=== PATIENT | female | born 1985 | race Caucasian/White ===

== ENCOUNTER → 2018-09-05 | Outpatient (CLI) | payer OTHER, SELFPAY ==
[2018-09-11 17:21] LABS: HPV Reflexed? NOT INDICATED
== END | disposition home or self-care (01) ==
LOC: LABSPEC 13:20
PROVIDERS: Visit Provider Obstetrics & Gynecology
DX: Z12.4 Encounter for screening for malignant neoplasm of cervix (principal)
CPT/HCPCS: 88175; G0145

== ENCOUNTER → 2020-01-30 | Outpatient (CLI) | payer OTHER, SELFPAY ==
[2020-01-30 14:47] VITALS: BMI 33.1
[2020-02-05 09:35] LABS: HPV APTIMA, High Risk Negative (Negative)
== END | disposition home or self-care (01) ==
LOC: LABSPEC 17:16
PROVIDERS: Referring Provider Nurse Practitioner Women's Health; Visit Provider Nurse Practitioner Women's Health
DX: Z12.4 Encounter for screening for malignant neoplasm of cervix (principal)
CPT/HCPCS: 87624; 88175; G0145

== ENCOUNTER → 2020-05-22 08:46 | Outpatient (CLI) | payer OTHER, SELFPAY ==
[2020-01-30 14:47] VITALS: BMI 33.1
[2020-05-22 10:10] LABS: Vitamin D,25 Hydroxy 30.5 ng/mL
[2020-05-22 10:11] LABS: Anion Gap 6 (5-15); BUN 11 mg/dL (7-18); Calcium,Total 8.5 mg/dL (8.5-10.1); Chloride 110 mmol/L (98-107); Cholesterol 218 mg/dL (200); Creatinine, Serum 0.92 mg/dL (0.55-1.02); EST Glomerular Filtration Rate 74 mL/min (>60); Est Glom Filt Rate - Afr Amer 90 mL/min (>60); Glucose 94 mg/dL (74-106); High Density Lipoprotein 58 mg/dL; Potassium 3.9 mmol/L (3.5-5.1); Sodium Level 140 mmol/L (136-145); Triglycerides 146 mg/dL; Very Low Density Lipoprotein 29 mg/dL (5-40)
== END ==
PROVIDERS: PCP Family Medicine; Referring Provider Family Medicine; Visit Provider Family Medicine
DX: Z00.00 Encounter for general adult medical examination without abnormal findings (principal)
CPT/HCPCS: 36415; 80048; 80061; 82306

== ENCOUNTER → 2020-07-31 13:04 | Outpatient (CLI) | payer OTHER, SELFPAY ==
[2020-01-30 14:47] VITALS: BMI 33.1
--- NOTE | 2020-07-31 13:07 | VDLE_ITS ---
Reason For Study: Chronic venous insufficiency RIGHT LEFT CFV is compressible, spontaneous, phasic, CFV is compressible, spontaneous, phasic, competent and demonstrates normal competent, and demonstrates normal augmentation. augmentation. FV is compressible, spontaneous, phasic, FV is compressible, spontaneous, phasic, competent and demonstrates normal competent and demonstrates normal augmentation. augmentation. POP V is compressible, spontaneous, phasic, POP V is compressible, spontaneous, phasic, competent and demonstrates normal competent and demonstrates normal augmentation. augmentation. T/P Trunk is compressible. T/P Trunk is compressible. PTV is compressible. PTV is compressible. RT PerV is compressible. LT PerV is compressible. SFJ is competent and measures 0.70 x 0.85 cm. SFJ is INCOMPETENT and measures 1.02 x 1.00 GSV proximal thigh measures 0.53 x 0.55 cm. cm. GSV at knee measures 0.50 x 0.49 cm. GSV proximal thigh measures 0.53 x 0.55 cm. SSV at junction is competent and measures GSV at knee measures 0.42 x 0.43 cm. 0.28 x 0.24 cm. GSV INCOMPETENT throughout for greater than GSV is competent throughout. 0.5 seconds. Procedure ASV at junction is INCOMPETENT for greater This is a venous duplex using B-mode, color than 0.5 seconds that measures 0.58 x 0.53 flow and spectral Doppler. cm. Exam performed in department. Vein of Giacomini is INCOMPETENT for greater than 0.5 seconds that measures 0.41 x 0.40 cm. SSV at junction is competent and measures 0.23 x 0.25 cm. VL/Venous Duplex US - Adrien Extrem Interpretation Summary Deep veins of the lower extremities are bilaterally patent and compressible seg mentally. There is no evidence of deep vein thrombosis on either side. Valvular competence appears in tact within the proximal deep venous systems bilaterally. The great saphenous veins appear bila terally patent and compressible segmentally. The right sapheno-femoral junction is competent . The left sapheno-femoral junction is incompetent . The right great saphenous vein appears segmentally co mpetent. The left great saphenous vein appears segmentally incompetent. Small saphenous veins are patent and competent bilaterally. The left accessory saphenous vein at the sapheno-femoral junction is incompetent. The left vein of Giacomini is incompetent. Ordering Physician: Jose D Kinsey Referring Physician: Yong Cage Performed By: Chen Vazquez RVT
== END ==
PROVIDERS: PCP Family Medicine; Referring Provider Surgery; Visit Provider Surgery
DX: I87.2 Venous insufficiency (chronic) (peripheral) (principal)
CPT/HCPCS: 93970

== ENCOUNTER → 2021-03-24 12:59 | Outpatient (CLI) | payer OTHER, SELFPAY | PROVIDERS: PCP Family Medicine; Referring Provider Surgery; Visit Provider Surgery | DX: R69 Illness, unspecified (principal) ==

== ENCOUNTER 2021-03-25 06:02 | Day surgery (SDC) | payer OTHER, SELFPAY ==
--- NOTE | 2021-03-23 18:58 | PCM.HP.STD ---
[facility] - General General Date of Admission: 03/25/21 Chief Complaint: Chronic venous insufficiency, varicose veins with inflammation, leg pain, leg swelling - Left lower extremity HPI Narrative CHUNG ENNIS, is a 35 F who presents with a longstanding history of chronic venous disease. For more than 7 years, the patient has had pain, aching, discomfort, and throbbing in her left lower extremity. This has been associated with swelling. Her symptoms are becoming progressively worse. She denies a history of thrombophlebitis. She sleeps on a flat mattress at night. She leads a relatively active lifestyle. Her symptoms are said to have worsened as a result of her 2 prior pregnancies. A venous duplex examination has been performed, revealing incompetence of the left great saphenous vein, the left accessory saphenous vein at the saphenofemoral junction, and the left vein of Giacomini. The implications of this diagnosis were discussed with the patient in detail. The options of management were fully explained. Conservative treatment measures were implemented, which included leg elevation, avoidance of idle standing and sitting, graduated compression stockings, weight control measures, active lifestyle, [id number] analgesics, etc. Despite these measures, the patient remained symptomatic, with symptoms which adversely affected daily activities, quality of life, and job functions. [facility] Medical History (Updated 03/23/21 @ 19:[address] Jose D Kinsey MD) Chronic venous insufficiency Gastric reflux History of edema History of pain when walking Left leg swelling Leg cramps Leg pain, left Non-smoker Varicose veins with inflammation Wears contact lenses Wears glasses Home Medications multivitamin 1 tab PO DAILY 01/07/21 [History Last Taken Unknown] norgestimate-ethinyl estradiol [Estarylla] 1 tab PO DAILY 01/07/21 [History Last Taken Unknown] Allergy/AdvReac Type Severity Reaction Status Date / Time No Known Allergies Allergy Verified 03/18/21 10:02 Family History (Updated 03/23/21 @ 19:[address] 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 Exam Const alert, oriented x3, no apparent distress and well nourished General Appearance: cooperative and well developed HEENT normocephalic and head/scalp atraumatic Head and Scalp: atraumatic External Auditory Canal: EAC's normal Tympanic Membrane: TM's normal bilaterally Mouth: oral and palatal mucosa normal Eyes PERRL and EOMs intact bilaterally Neck no JVD Resp normal respiratory effort and normal air movement GI non-distended Extremity normal capillary refill and no clubbing, cyanosis or edema Extremity Narrative: Scattered varicosities are noted in both lower extremities, more prominent on the left. Skin no rashes or lesions noted, no wounds and no jaundice General Skin Exam: no breakdown Lesions: no lesions Rashes: no rashes Neuro CN's II-XII intact bilaterally Psych thought process normal, cooperative and affect normal Appearance: appropriate Assessment & Plan Assessment/Plan (1) Chronic venous insufficiency: (2) Varicose veins with inflammation: (3) Leg pain, left: (4) Left leg swelling: PLAN: This is a 35-year-old female with a longstanding history of chronic venous insufficiency, varicose veins with inflammation, leg pain, and leg swelling involving her left lower extremity. A venous duplex examination has revealed incompetence involving the left great saphenous vein, the left accessory saphenous vein at the saphenofemoral junction, and the left vein of Giacomini. The implications of this diagnosis have been discussed with the patient in detail. The options of management have been fully explained. Conservative treatment measures have been implemented, which have included leg elevation, avoidance of idle standing and sitting, graduated compression stockings, weight control measures, active lifestyle, [id number] analgesics, etc. Despite these measures, the patient has remained symptomatic, with symptoms which have adversely affected daily activities, quality of life, and job functions. Indications and risks of endovenous laser ablation of the left great saphenous vein, the left accessory saphenous vein, and the left vein of Giacomini have been discussed with the patient in detail. The procedure has been discussed in detail. The patient's questions have been answered. She has indicated her desire to proceed. The patient is to be admitted for elective endovenous laser ablation of the left great saphenous vein, the left accessory saphenous vein, the left vein of Giacomini. The appropriate preprocedure consent process has been undertaken.
[2021-03-25] VITALS (7 sets, daily range): BP systolic 101–117; BP diastolic 61–80; PULSE 68–81; RESP 16; TEMP 36.1–36.6; O2SAT 91–100; BMI 31.1
[2021-03-25] MEDS: Lactated Ringers 1,000 ML 150 ML IV ×2 (06:43→08:46)
[2021-03-25 06:48] LABS: Internal QC Validated? YES +Cl - CLEAR BKGD; Pregnancy, Urine Negative Negative
[2021-03-25] MEDS: Enoxaparin 30 MG/0.3 ML Syringe SC (06:50)
[2021-03-25] MEDS: Cefazolin 2 GM in 0.9% Normal Saline 100 ML IV (07:42)
--- NOTE | 2021-03-25 10:18 | EX.PCM.DISCH ---
Discharge Instructions Diet Discharge Diet: No restrictions Activity Discharge Activity: May Not Drive May shower in (days): 2 Weight Bearing Status: Weight bearing as tolerated Lifting Restrictions: 10 pounds Keep extremity elevated above heart level: Left Leg Dressing / Incision Call your doctor if you observe: Shortness of breath, Fainting spells, Chest pain, Prolonged hiccupping and Uncontrolled pain Suture Line Care: Avoid Pulling/Pushing Remove Dressing in: 2 days (Then rewrap daily with Keith from base of the toes to the upper thigh. May use compression stocking below the knee if desired, then Keith above the knee.) Follow Up Care Please Follow Up With: Jose D Kinsey MD When: 10-14 days Test Results: Test results from this visit will be discussed in further detail at your follow-up appointment, if applicable. Discharge Plan Admission Attending Provider: Jose D Kinsey Primary Care Provider: Yong Cage Discharge Orders/Prescriptions Prescriptions: No Action multivitamin Tablet 1 tab PO DAILY RF: 0 norgestimate-ethinyl estradiol [Estarylla] 0.25-35 mg-mcg tablet 1 tab PO DAILY RF: 0
[2021-03-25] MEDS: Ondansetron 4 MG/2 ML Vial IV (11:40)
[2021-03-25] MEDS: Lactated Ringers 1,000 ML 65 ML IV (11:43)
--- NOTE | 2021-03-25 19:13 | OP.PCM_ITS ---
Problems Associated Problem List Diagnoses (1) Chronic venous insufficiency: (2) Varicose veins with inflammation: (3) Leg pain, left: (4) Left leg swelling: Report of Operation Date of Procedure: 03/25/21 Pre-Operative Diagnosis: Chronic venous insufficiency, varicose veins with inflammation, leg pain, leg swelling - Left lower extremity Post-Operative Diagnosis: Chronic venous insufficiency, varicose veins with inflammation, leg pain, leg swelling - Left lower extremity Surgery/Procedure Performed:: 1. Endovenous laser ablation of the left great saphenous vein 2. Endovenous laser ablation of the left anterior accessory saphenous vein 3. Endovenous laser ablation of the left vein of Giacomini Description of Surgical Findings:: As above Surgeon: Jose D Kinsey Type of Anesthesia: General and Tumescent Anesthesiologist: Hardeep Acevedo Specimen's removed: None Drains: None Estimated Blood Loss (mL): Minimal Description of Procedure: This is a 35-year-old female with a longstanding history of chronic venous insufficiency, varicose veins with inflammation, leg pain, and leg swelling involving her left lower extremity. A preoperative venous duplex examination revealed valvular incompetence involving the left great saphenous vein, the left anterior accessory saphenous vein, and the left vein of Giacomini. The implications of this diagnosis were discussed with the patient in detail. The options of management were fully explained. Conservative treatment measures were implemented, which included leg elevation, avoidance of idle standing and sitting, graduated compression stockings, weight control measures, active lifestyle, [id number] analgesics, etc. Despite these measures, the patient remained symptomatic, with symptoms which adversely affected daily activities, quality of life, and job functions. The indications and risks of endovenous laser ablation of the left great saphenous vein, the left anterior accessory saphenous vein, and the left vein of Giacomini were discussed with patient in detail. The patient's questions were answered. The appropriate preprocedure consent process was undertaken. The patient underwent ultrasound marking of the left great saphenous vein, the left anterior accessory saphenous vein, and the left vein of Giacomini preoperatively. She was then brought to the operating room suite, placed supine upon the operating room table, where general anesthesia was administered by the anesthesia staff. The patient's left lower extremity and left groin were prepped and draped in the appropriate sterile manner. The patient was placed in reverse Trendelenburg position. Ultrasonography was used to image the left great saphenous vein in the distal calf. The micropuncture technique was used to access the left great saphenous vein percutaneously in the distal calf. In this manner, a 0.018 inch guidewire was advanced intraluminally into the left great saphenous vein, and was visualized by ultrasonography. A micropuncture sheath was advanced over the guidewire. The 0.018 inch guidewire was exchanged for a 0.035 inch guidewire, which was then advanced intraluminally to a level just distal to the left sapheno-femoral junction, as confirmed by ultrasound imaging. A long 4 Trinidadian sheath was then advanced over the guidewire, and its tip was positioned approximately 2 to 2-1/2 cm distal to the left sapheno-femor al junction. Attention was then directed to the incompetent left anterior accessory saphenous vein. Using ultrasound imaging and the micropuncture technique, a micropuncture sheath was introduced intraluminally, and was left in place, capped, for subsequent access purposes. Attention was then directed to the incompetent left vein of Giacomini. So as to enhance exposure, the left lower extremity was placed in an externally rotated position with the left knee flexed. Access was achieved percutaneously using ultrasound imaging and the micropuncture technique. In this manner, a micropuncture sheath was introduced intraluminally, and was left in place, capped, for subsequent access purposes. The access was achieved within the superior portion of the left small saphenous vein, just distal to the popliteal space, as it was seen that the left small saphenous vein was contiguous with the left vein of Giacomini more proximally. This approach was selected as optimal for access to the vein of Giacomini with the patient remaining within the supine position. Attention was then redirected to the long 4 Trinidadian sheath which had been previously placed intraluminally within the left great saphenous vein. Perivenous tumescent anesthesia was injected from the 4 Trinidadian sheath exit site up to the tip of the sheath near the left sapheno-femoral junction. This was performed segmentally using ultrasound imaging. The AngioDynamics laser fiber was then introduced into the 4 Trinidadian sheath and coupled appropriately. Ultrasonography was used to confirm that the tip of the laser fiber was pos itioned within the left great saphenous vein approximately 2-1/2 cm distal to the left sapheno-femoral junction. The patient was placed in Trendelenburg position and the laser fiber was activated. The AngioDynamics laser was slowly withdrawn at a constant rate throughout the length of the left great saphenous vein, thereby ablating the left great saphenous vein segmentally. The energy applied was approximately 60 to 80 J/cm. Following the laser ablation, the laser fiber and sheath were removed, and manual pressure was briefly applied to the percutaneous access site to achieve hemostasis. Attention was then directed to the micropuncture sheath which had been previously placed intraluminally within the proximal left small saphenous vein, allowing for direct access to the left vein of Giacomini. A 0.035 inch guidewire was introduced intraluminally and its tip was positioned within the proximal portion of the left vein of Giacomini. A long 4 Trinidadian sheath was then advanced over the guidewire, and positioned intraluminally within the left vein of Giacomini. Perivenous tumescent anesthesia was then injected from the 4 Trinidadian sheath exit site up to the tip of the sheath in the proximal left vein of Giacomini. This was performed segmentally using ultrasound imaging. The AngioDynamics laser fiber was then introduced into the 4 Trinidadian sheath and coupled appropriately. Ultrasonography was used to confirm that the tip of the laser fiber was positioned within the proximal left vein of Giacomini, abutting the previously ablated left great saphenous vein. The patient was placed in Trendelenburg position and the laser fiber was activated. The AngioDynamics laser was slowly withdrawn at a constant rate throughout the length of the left vein of Giacomini, thereby ablating the left vein of Giacomini segmentally. The energy applied was approximately 60 to 80 J/cm. Following the laser ablation, the laser fiber and sheath were removed, and manual pressure was briefly applied to the percutaneous access site to achieve hemostasis. Attention was then redirected to the micropuncture sheath which had been previously placed intraluminally within the left anterior accessory saphenous vein. The 0.035 inch guidewire was introduced intraluminally and its tip was positioned within the proximal portion of the anterior accessory saphenous vein. The long 4 Trinidadian sheath was then advanced over the guidewire and into position intraluminally within the left anterior accessory saphenous vein. Perivenous tumescent anesthesia was injected from the 4 Trinidadian sheath exit site up to the tip of the sheath in the proximal left anterior accessory saphenous vein. This was performed segmentally using ultrasound imaging. The AngioDynamics laser fiber was introduced into the 4 Trinidadian sheath and coupled appropriately. Ultrasonography was used to confirm that the tip of the laser fiber was positioned within the proximal portion of the left anterior accessory saphenous vein, several centimeters distal to its junction with the deep venous system. The patient was placed in Trendelenburg position and the laser fiber was activated. The AngioDynamics laser was slowly withdrawn at a constant rate throughout the length of the left anterior accessory saphenous vein, thereby ablating the left anterior accessory saphenous vein segmentally. The energy applied was approximately 60 to 80 J/cm. Following the laser ablation, the laser fiber and sheath were removed, and manual pressure was briefly applied to the percutaneous access site to achieve hemostasis. After assuring satisfactory hemostasis, the access sites were approximated using Cavilon and Steri-Strips. Dry sterile gauze dressings were applied over each of the access sites, and the leg was wrapped from the base of the toes to the upper thigh with Kerlix, followed by Keith wrap. The blood loss for the procedure was minimal. The sponge, needle, and instrument counts at the end of the procedure were correct. The patient tolerated the procedure well, and was transported from the operating room to the postanesthesia care unit in stable condition. The amount of tumescent anesthesia utilized, number of joules applied, and treatment times were recorded separately. Grafts/Implants Used: None Complications None Admit VTE Documentation VTE Present on Admission: No VTE Mechan Device Prophylaxis: SCD's (Right) VTE Pharm Prophylaxis ordered?: Yes
== END 2021-03-25 12:35 | disposition home or self-care (01) ==
LOC: SDC 06:03 → AC 06:05
PROVIDERS: PCP Family Medicine; Referring Provider Surgery; Visit Provider Surgery
PROC: (CPT 36478; principal; 2021-03-25 07:30)
DX: I83.12 Varicose veins of left lower extremity with inflammation (principal)
CPT/HCPCS: 36478; 36479; 81025; J7040; J7120; J2405

== ENCOUNTER 2021-06-28 08:02 | Outpatient (CLI) | payer OTHER, SELFPAY ==
--- NOTE | 2021-06-28 08:07 | VDLE_ITS ---
Reason For Study: LLE PAIN RIGHT LEFT GSV is normal. CFV is compressible, spontaneous, phasic, CFV is compressible, spontaneous, phasic, competent, and demonstrates normal competent and demonstrates normal augmentation. augmentation. FV is compressible, spontaneous, phasic, FV is compressible, spontaneous, phasic, competent and demonstrates normal competent and demonstrates normal augmentation. augmentation. POP V is compressible, spontaneous, phasic, POP V is compressible, spontaneous, phasic, competent and demonstrates normal competent and demonstrates normal augmentation. augmentation. T/P Trunk is compressible. T/P Trunk is compressible. PTV is compressible. PTV is compressible. LT PerV is compressible. RT PerV is compressible. SSV is compressible. Procedure GSV, ASV & giacomini V are occluded and This is a venous duplex using B-mode, color noncopmpressible S/P EVLA. flow and spectral Doppler. Exam performed in department. VL/Venous Duplex US - Adrien Extrem Interpretation Summary Deep veins of the lower extremities are bilaterally patent and compressible seg mentally. There is no evidence of deep vein thrombosis on either side. Valvular competence appears in tact within the proximal deep venous systems bilaterally. The right great saphenous vein appear s patent and compressible segmentally. The left great saphenous vein, accessory saphenous ve in, and vein of Giacomini are occluded, consistent with a prior endothermal ablation procedure. The left small saphenous vein is patent and compressible. Ordering Physician: Jose D Kinsey Referring Physician: Yong Cage Performed By: Dania Tobias, RDCS, RVT
== END 2021-06-28 23:59 | disposition home or self-care (01) ==
LOC: CVS 08:05
PROVIDERS: PCP Family Medicine; Referring Provider Surgery; Visit Provider Surgery
DX: M79.605 Pain in left leg (principal)
CPT/HCPCS: 93970

== ENCOUNTER 2022-05-16 10:52 | Emergency (ER) | payer OTHER, SELFPAY ==
[2022-05-16 10:52] VITALS: BP 113/79; PULSE 89; RESP 16; TEMP 36.6; O2SAT 99; BMI 27.8
--- NOTE | 2022-05-16 11:10 | EDS_ITS ---
HPI History of Present Illness Chief Complaint: Chest Pain Narrative Narrative: 36-year-old female here with chest pain. Pain described as discomfort, improved with deep breath. No syncope. Pain radiated to the left arm was prompted her visit today. There is no numbness weakness or loss sensation. Does note recent vomiting. The patient denies recent surgery in the last 4 weeks or immobilization in the last 3 days, denies previous diagnosis of DVT or PE, hemoptysis, unilateral leg swelling or malignancy with treatment the last 6 months. Noted use of oral estrogen. [facility] Medical History (Updated 05/16/22 @ 15:[address] Efe Corey, DO) Chronic venous insufficiency Gastric reflux History of edema History of pain when walking Leg cramps Non-smoker Varicose veins with inflammation Wears contact lenses Wears glasses Home Medications multivitamin 1 tab PO DAILY 01/07/21 [History Last Taken Unknown] etonogestrel 0.12 mg-ethinyl estradiol 0.015 mg/24 hr vaginal ring (NuvaRing) 1 vag ring vaginal Q4W #3 ea 06/30/21 [Rx Last Taken Unknown] Allergy/AdvReac Type Severity Reaction Status Date / Time No Known Allergies Allergy Verified 06/30/21 14:22 Family History Father History of deep vein thrombophlebitis of lower extremity Surgical History Previous section Social History number of children: 2 current occupational status: employed 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 ROS ROS ED ROS Narrative Constitutional: Denies fever HEENT: Denies sore throat Neck: Denies neck pain Cardiovascular: Endorses chest pain Respiratory: Denies shortness of breath GI: Denies nausea vomiting or abdominal pain : Denies changes in urinary habits Musculoskeletal: Denies muscle or joint pain Neurologic: Denies numbness weakness or loss of sensation Skin denies rash EXAM Physical Exam Narrative Exam Narrative: Nursing triage notes reviewed, Vital signs reviewed Constitutional: please see mdm HENT: MMM Eyes: Pupils equal round and reactive to light, Extraocular muscles intact Neck: No stridor, no JVD, full neck ROM Lungs: Clear to auscultation, No wheezing or rales. No increased work of breathing, no conversational dyspnea, no accessory muscle use, no nasal flaring. No respiratory distress noted Heart: Regular rate and rhythm, No murmurs, No rubs and No gallops, 2+ distal pulses (radial, femoral, posterior tibial) in all extremities Abdomen: Soft, there is no tenderness, rigidity, rebound or guarding, no obvious peritoneal signs, no palpable pulsatile abdominal masses, no auscultated abdominal bruit : No CVAT Extremities: No edema Neuro: No focal neurological deficits, cranial nerves II through XII intact, 5/5 strength in all extremities. Intact sensation to light touch in all extremities, 2+ reflexes bilateral patella dens. Normal gait. No ataxia. Skin: No rash or lesions noted Const Vital Signs: 05/16/22 10:52 05/16/22 12:10 05/16/22 13:49 Temperature 97.9 F Temperature Source Temporal Pulse Rate 89 63 Respiratory Rate 16 18 Blood Pressure 113/79 Blood Pressure Mean 90 Pulse Ox 99 99 Oxygen Delivery Method Room Air Room Air Room Air 05/16/22 15:55 Temperature Temperature Source Pulse Rate 81 Respiratory Rate 18 Blood Pressure Blood Pressure Mean Pulse Ox 98 Oxygen Delivery Method MDM MDM MDM Narrative Medical decision making narrative: Chief Complaint: Chest pain External records reviewed: No recent cardiac catheterizations, stress test and echocardiogram as noted in the chart I considered: ACS, arrhythmia, anemia, electrolyte abnormality, PE, aortic dissection, pericarditis, pneumothorax, Boerhaave syndrome For PE given low risk Wells score, PERC negative. Considered obtaining a CT of the chest however this was thought to be unnecessary given lack of risk factors for PE. No significant anemia or electrolyte abnormalities noted on labs. EKG, troponin without evidence of myocardial schema, arrhythmia or pericarditis. X- ray without evidence of pneumonia or pneumothorax. Chest x-ray without evidence of pneumomediastinum to suggest Boerhaave syndrome. Patient low risk heart score. Awaiting delta troponin. If negative patient be discharged home. Factors affecting care: Chronic venous insufficiency, varicose veins Social determinants of health: Poor medical knowledge, poor access to healthcare Shared decision making: I will have a discussion with the patient and or visitors regarding risk/benefits of further testing or admission. They will be made aware of of the risk/benefits inherent in this decision they will be given the opportunity to voice understanding. Consults: None Lab Data Attestation: I reviewed the patient's lab results. Lab results narrative: CBC without leukocytosis, severe anemia, no thrombocytopenia. BMP without evidence of significant electrolyte abnormalities, no anion gap, no acute kidney injury. Troponin negative x2 Labs: Laboratory Results - last 24 hr 05/16/22 05/16/22 05/16/22 11:09 11:09 13:29 WBC 7.0 RBC 4.59 Hgb 13.7 Hct 40.8 MCV 88.9 MCH 29.8 MCHC 33.6 RDW Std Deviation 41.6 RDW Coeff of Eryn 12.8 Plt Count 365 MPV 10.3 Immature Gran % (Auto) 0.400 Neut % (Auto) 63.1 Lymph % (Auto) 28.6 [place] % (Auto) 5.3 Eos % (Auto) 1.9 Baso % (Auto) 0.7 Absolute Neuts (auto) 4.4 Absolute Lymphs (auto) 2.01 Nucleated RBC % 0 Sodium 141 Potassium 3.7 Chloride 109 H Carbon Dioxide 24.0 Anion Gap 8 BUN 12 Creatinine 0.84 Estim Creat Clear Calc 103.48 Est GFR (MDRD) Af Amer 98 Est GFR (MDRD) Non-Af 81 BUN/Creatinine Ratio 14.2 Glucose 95 Calcium 8.9 Troponin I High Sens 12 11 Radiography Diagnostic Testing: Clinical Impression(s) from Imaging Studies Chest X-Ray 05/16/22 12:07 IMPRESSION: Normal chest radiograph. Electronically Signed: Felix Perry MD at 12:20 EST , I have personally reviewed the patient's chest x-ray. Chest x-ray is unremarkable for pulmonary edema, pneumothorax, pneumonia or focal cardiopulmonary abnormality. EKG Initial EKG: Comments: Normal sinus rhythm, normal axis, normal intervals, ST or T wave changes to suggest myocardial ischemia, no evidence of WPW, Brugada, ARVD. Treatment and Re-Evaluation Narrative: Pending delta troponin signed out to p.m. physician. If negative patient will be discharged home. Delta trop negative appropriate for DC home. Discharge Plan Triage Chief Complaint: Chest Pain ED Provider: Efe Corey Dx/Rx/DC Orders Clinical Impression: Chest pain Instructions: ED Chest Pain, Noncardiac Prescriptions: No Action etonogestrel-ethinyl estradiol [NuvaRing] 0.12-0.015 mg/24 hr ring 1 vag ring vaginal Q4W Qty: 3 4RF multivitamin Tablet 1 tab PO DAILY Stand Alone Forms: Work / School Excuse Primary Care Provider: Yong Cage Referrals: Yong Cage MD [Primary Care Provider] - Disposition Disposition: Home, Self Care Discharge Date/Time: 05/16/22 15:55
--- NOTE | 2022-05-16 11:54 | EKG12_ITS ---
Test Reason : CP Blood Pressure : / mmHG Vent. Rate : 075 BPM Atrial Rate : 075 BPM P-R Int : 136 ms QRS Dur : 080 ms QT Int : 402 ms P-R-T Axes : 064 029 010 degrees QTc Int : 448 ms Normal sinus rhythm Normal ECG Confirmed by BRAEDEN AMARO, CRISS ([id number]), commissioning editor GÉNESIS MOTT ([id number]) on 05/18/2022 10:36:55 AM Referred By: JACKY/BLANCA Confirmed By:CRISS DERAS MD
[2022-05-16] MEDS: Aspirin 81 MG TAB.CHEW 324 MG PO (11:59)
--- NOTE | 2022-05-16 12:07 | RAD_ITS ---
EXAM: XR CHEST, 1 VIEW CLINICAL INDICATION: chest pain TECHNIQUE: Frontal view of the chest. This report was created using Related Content Database (RCDb) report generation technology. COMPARISON: None. FINDINGS: LUNGS AND PLEURAL SPACES: The lungs are clear. No pneumothorax. No effusion. HEART: Unremarkable. Cardiac silhouette not enlarged. MEDIASTINUM: Central airways and mediastinal contour are unremarkable. BONES/JOINTS: Unremarkable. SOFT TISSUES: Unremarkable. RAD/Chest 1 View (Portable) IMPRESSION: Normal chest radiograph. Electronically Signed: Felix Perry MD at 12:20 EST ,
[2022-05-16 12:15] LABS: Absolute Lymphocyte Count 2.01 X10^3/uL (0.83-4.51); Absolute Neutrophil Count 4.4 X10^3/uL (2.0-7.7); Basophil# 0.05 X10^3/uL; Basophil% 0.7 % (0-1); Eosinophil# 0.13 X10^3/uL; Eosinophils% 1.9 % (0-5); Hematocrit 40.8 % (37-47); Hemoglobin 13.7 g/dL (12.0-15.0); Lymphocyte # 2.01 X10^3/ul (0.83-4.51); Lymphocyte % 28.6 % (19-41); Mean Corp Hgb Conc 33.6 g/dL (32-36); Mean Corpuscular Hgb 29.8 pg (27.0-32.0); Mean Corpuscular Volume 88.9 fL (81-99); Mean Platelet Vol. 10.3 fl (6.2-12.0); Monocyte# 0.37 X10^3/uL; Monocyte% 5.3 % (0-10); NRBC Flagged by Analyzer 0 % (0-5); Neutrophil # 4.43 X10^3/uL (2.7-7.7); Neutrophil % 63.1 % (47-70); Platelet Count 365 K/mm3 (150-450); RBC Distribution Width CV 12.8 % (11.6-14.6); RBC Distribution Width SD 41.6 fl (35.1-43.9); Red Blood Count 4.59 M/mm3 (4.2-5.4)
[2022-05-16 12:29] LABS: Anion Gap 8 (5-15); BUN 12 mg/dL (7-18); BUN/Creat Ratio 14.2 RATIO (10-20); Calcium,Total 8.9 mg/dL (8.5-10.1); Chloride 109 mmol/L (98-107); Creatinine, Serum 0.84 mg/dL (0.55-1.02); EST Glomerular Filtration Rate 81 mL/min (>60); Est Glom Filt Rate - Afr Amer 98 mL/min (>60); Estimated Creatinine Clearance 103.48 ml/min; Glucose 95 mg/dL (74-106); Potassium 3.7 mmol/L (3.5-5.1); Sodium Level 141 mmol/L (136-145); Troponin-I HS (w/2H Reflex) 12 pg/mL (3.0-54.0)
[2022-05-16 13:49] VITALS: PULSE 63; RESP 18; O2SAT 99
[2022-05-16 14:12] LABS: Reflex Troponin-HS? (from REC) Y
[2022-05-16 15:44] LABS: Troponin-I HS 11 pg/mL (3.0-54.0)
[2022-05-16 15:55] VITALS: PULSE 81; RESP 18; O2SAT 98
== END 2022-05-16 15:55 | disposition home or self-care (01) ==
PROVIDERS: Emergency Provider Emergency Medicine; PCP Family Medicine; Visit Provider Emergency Medicine
DX: R07.9 Chest pain, unspecified (principal)
CPT/HCPCS: 71045; 80048; 84484; 85025; 93005; 99285; A4216

== ENCOUNTER → 2022-08-11 | Outpatient (CLI) | payer OTHER, SELFPAY ==
[2022-08-11 18:15] LABS: Vitamin D,25 Hydroxy 26.3 ng/mL
[2022-08-11 18:21] LABS: Anion Gap 6 (5-15); BUN 9 mg/dL (7-18); BUN/Creat Ratio 13.6 RATIO (10-20); Calcium,Total 8.3 mg/dL (8.5-10.1); Chloride 107 mmol/L (98-107); Cholesterol 177 mg/dL (200); Creatinine, Serum 0.66 mg/dL (0.55-1.02); EST Glomerular Filtration Rate 107 mL/min (>60); Est Glom Filt Rate - Afr Amer 129 mL/min (>60); Glucose 85 mg/dL (74-106); High Density Lipoprotein 38 mg/dL; Potassium 3.7 mmol/L (3.5-5.1); Sodium Level 139 mmol/L (136-145); Triglycerides 266 mg/dL; Very Low Density Lipoprotein 53 mg/dL (5-40)
== END | disposition home or self-care (01) ==
LOC: MFPLAB 15:10
PROVIDERS: PCP Family Medicine; Referring Provider Family Medicine; Visit Provider Family Medicine
DX: Z00.00 Encounter for general adult medical examination without abnormal findings (principal)
CPT/HCPCS: 36415; 80048; 80061; 82306

== ENCOUNTER → 2022-09-06 | Outpatient (CLI) | payer OTHER, SELFPAY ==
[2022-09-06 16:31] LABS: ALB/GLOB Ratio 0.9 RATIO (0.9-2.4); AST(SGOT) 16 U/L (15-37); Alanine Aminotransfer ALT/SGPT 28 U/L (13-56); Albumin, Serum 3.6 g/dL (3.2-5.0); Alkaline Phosphatase 81 U/L (45-117); Anion Gap 5 (5-15); BUN 12 mg/dL (7-18); BUN/Creat Ratio 14.3 RATIO (10-20); Calcium,Total 8.4 mg/dL (8.5-10.1); Chloride 107 mmol/L (98-107); Creatinine, Serum 0.84 mg/dL (0.55-1.02); EST Glomerular Filtration Rate 81 mL/min (>60); Est Glom Filt Rate - Afr Amer 99 mL/min (>60); Globulin 3.8 g/dL (2.2-4.2); Glucose 83 mg/dL (74-106); Potassium 3.7 mmol/L (3.5-5.1); Protein, Total 7.4 g/dL (6.4-8.2); Sodium Level 139 mmol/L (136-145); Troponin-I HS 11 pg/mL (3.0-54.0)
== END | disposition home or self-care (01) ==
LOC: MFPLAB 15:33
PROVIDERS: PCP Family Medicine; Visit Provider Nurse Practitioner Family
DX: R07.9 Chest pain, unspecified (principal)
CPT/HCPCS: 36415; 80053; 84484

== ENCOUNTER → 2023-02-01 | Outpatient (CLI) | payer OTHER, SELFPAY ==
--- NOTE | 2023-02-01 15:40 | RAD_ITS ---
INDICATION: CHEST PAIN EXAMINATION/TECHNIQUE: X-RAY - XR Chest 2 Views COMPARISON: 05/16/2022 chest radiograph. Findings: Frontal and lateral views of the chest. LUNG PARENCHYMA: No acute focal airspace disease or mass lesion. PLEURA: No pleural effusion. No pneumothorax. HEART/GREAT VESSELS: Cardiomediastinal silhouette is unremarkable. BONES: Osseous structures are unremarkable for age. RAD/Chest PA and Lateral IMPRESSION: Chest with no acute disease. Electronically Signed: Umer Yip MD at 17:44 EDT ,
[2023-02-01 17:44] LABS: Absolute Lymphocyte Count 2.51 X10^3/uL (0.83-4.51); Absolute Neutrophil Count 5.3 X10^3/uL (2.0-7.7); Basophil# 0.06 X10^3/uL; Basophil% 0.7 % (0-1); Eosinophil# 0.16 X10^3/uL; Eosinophils% 1.9 % (0-5); Hematocrit 40.8 % (37-47); Hemoglobin 13.6 g/dL (12.0-15.0); Lymphocyte # 2.51 X10^3/ul (0.83-4.51); Lymphocyte % 29.8 % (19-41); Mean Corp Hgb Conc 33.3 g/dL (32-36); Mean Corpuscular Hgb 30.2 pg (27.0-32.0); Mean Corpuscular Volume 90.7 fL (81-99); Mean Platelet Vol. 11.2 fl (6.2-12.0); Monocyte# 0.34 X10^3/uL; NRBC Flagged by Analyzer 0 % (0-5); Neutrophil # 5.34 X10^3/uL (2.7-7.7); Neutrophil % 63.4 % (47-70); Platelet Count 259 K/mm3 (150-450); RBC Distribution Width CV 12.7 % (11.6-14.6); RBC Distribution Width SD 42.2 fl (35.1-43.9); White Blood Count 8.4 K/mm3 (4.4-11.0)
[2023-02-01 18:34] LABS: ALB/GLOB Ratio 1.1 RATIO (0.9-2.4); AST(SGOT) 18 U/L (15-37); Alanine Aminotransfer ALT/SGPT 30 U/L (13-56); Albumin, Serum 3.9 g/dL (3.2-5.0); Alkaline Phosphatase 80 U/L (45-117); Anion Gap 4 (5-15); BUN 9 mg/dL (7-18); BUN/Creat Ratio 12.6 RATIO (10-20); Calcium,Total 8.7 mg/dL (8.5-10.1); Chloride 108 mmol/L (98-107); Creatinine, Serum 0.72 mg/dL (0.55-1.02); EST Glomerular Filtration Rate 98 mL/min (>60); Est Glom Filt Rate - Afr Amer 118 mL/min (>60); Globulin 3.7 g/dL (2.2-4.2); Glucose 84 mg/dL (74-106); Potassium 3.9 mmol/L (3.5-5.1); Protein, Total 7.6 g/dL (6.4-8.2); Sodium Level 138 mmol/L (136-145); Thyroid Stim Hormone (TSH) 3.58 uIU/mL (0.358-3.74); Troponin-I HS 16 pg/mL (3.0-54.0)
== END | disposition home or self-care (01) ==
PROVIDERS: PCP Family Medicine; Referring Provider Family Medicine; Visit Provider Family Medicine
DX: R07.9 Chest pain, unspecified (principal)
CPT/HCPCS: 36415; 71046; 80053; 84443; 84484; 85025

== ENCOUNTER → 2023-10-17 | Outpatient (CLI) | payer OTHER, SELFPAY ==
--- NOTE | 2023-10-17 11:51 | BI_ITS ---
MAMMOGRAPHY - BILATERAL SCREENING REASON FOR EXAM: Female, 37 years old. Routine annual screening examination. PERTINENT HISTORY: Non-contributory. TECHNIQUE: Digital bilateral breast pito (3D mammographic acquisition) in the CC and MLO projections. 2-D mediolateral oblique (MLO) and craniocaudad (CC) views of both breasts were obtained. CAD: Full Field Digital Mammography with Computer Added Detection was performed. COMPARISON: None. Baseline examination. FINDINGS: Breast Composition: There are scattered areas of fibroglandular density. There are no dominant masses or suspicious calcifications. Small benign-appearing bilateral axillary lymph nodes. No other significant abnormalities are identified. BI/SCRN MAMM (CAD)W/PITO BILAT IMPRESSION: Negative screening mammogram. Yearly followup mammogram recommended. (A) ASSESSMENT CATEGORY: Approximately 10% of breast cancers are not detected by mammography. A normal mammogram should not delay biopsy of a clinically suspicious abnormality. [id number] Electronically Signed: Abundio Duong MD
== END | disposition home or self-care (01) ==
LOC: OPBI 11:51
PROVIDERS: PCP Family Medicine; Referring Provider Nurse Practitioner Women's Health; Visit Provider Nurse Practitioner Women's Health
DX: Z12.31 Encounter for screening mammogram for malignant neoplasm of breast (principal)
CPT/HCPCS: 77063; 77067

== ENCOUNTER → 2023-11-28 | Outpatient (CLI) | payer OTHER, SELFPAY ==
[2023-11-28 17:46] LABS: Absolute Lymphocyte Count 2.66 X10^3/uL (0.83-4.51); Absolute Neutrophil Count 4.1 X10^3/uL (2.0-7.7); Basophil# 0.05 X10^3/uL; Basophil% 0.7 % (0-1); Eosinophils% 1.4 % (0-5); Hematocrit 38.1 % (37-47); Hemoglobin 12.5 g/dL (12.0-15.0); Lymphocyte # 2.66 X10^3/ul (0.83-4.51); Lymphocyte % 36.5 % (19-41); Mean Corp Hgb Conc 32.8 g/dL (32-36); Mean Corpuscular Hgb 29.3 pg (27.0-32.0); Mean Corpuscular Volume 89.2 fL (81-99); Mean Platelet Vol. 10.5 fl (6.2-12.0); Monocyte# 0.37 X10^3/uL; Monocyte% 5.1 % (0-10); NRBC Flagged by Analyzer 0 % (0-5); Neutrophil # 4.08 X10^3/uL (2.7-7.7); Neutrophil % 55.9 % (47-70); Platelet Count 333 K/mm3 (150-450); RBC Distribution Width CV 13.2 % (11.6-14.6); RBC Distribution Width SD 42.7 fl (35.1-43.9); Red Blood Count 4.27 M/mm3 (4.2-5.4); White Blood Count 7.3 K/mm3 (4.4-11.0)
[2023-11-28 18:20] LABS: AST(SGOT) 20 U/L (15-37); Alanine Aminotransfer ALT/SGPT 30 U/L (13-56); Albumin, Serum 3.7 g/dL (3.2-5.0); Alkaline Phosphatase 68 U/L (45-117); Anion Gap 7 (5-15); BUN 12 mg/dL (7-18); BUN/Creat Ratio 13.5 RATIO (10-20); Calcium,Total 9.1 mg/dL (8.5-10.1); Chloride 104 mmol/L (98-107); Creatinine, Serum 0.89 mg/dL (0.55-1.02); EST Glomerular Filtration Rate 75 mL/min (>60); Est Glom Filt Rate - Afr Amer 91 mL/min (>60); Globulin 3.6 g/dL (2.2-4.2); Glucose 85 mg/dL (74-106); Potassium 3.8 mmol/L (3.5-5.1); Protein, Total 7.3 g/dL (6.4-8.2); Sodium Level 137 mmol/L (136-145)
== END | disposition home or self-care (01) ==
LOC: MFPLAB 15:13
PROVIDERS: PCP Family Medicine; Visit Provider Nurse Practitioner Family
DX: K21.9 Gastro-esophageal reflux disease without esophagitis (principal)
CPT/HCPCS: 36415; 80053; 85025

== ENCOUNTER → 2024-03-26 | Outpatient (CLI) | payer OTHER, SELFPAY ==
[2024-03-28 07:09] LABS: Calprotectin, Stool 340 ug/g (0-120)
== END | disposition home or self-care (01) ==
LOC: LABSPEC 07:38
PROVIDERS: PCP Family Medicine; Visit Provider Nurse Practitioner Acute Care
DX: R19.7 Diarrhea, unspecified (principal); R10.32 Left lower quadrant pain; R10.12 Left upper quadrant pain; R14.0 Abdominal distension (gaseous); R12 Heartburn
CPT/HCPCS: 83993

== ENCOUNTER → 2024-04-02 | Outpatient (CLI) | payer OTHER, SELFPAY ==
--- NOTE | 2024-04-02 10:29 | US_ITS ---
INDICATION: LUQ pain EXAMINATION: Ultrasound US Abdomen Complete TECHNIQUE: Estrella-scale and color Doppler imaging was performed of the abdomen. COMPARISON: FINDINGS: LIVER: There is normal echotexture measuring 13.8 cm. No focal hepatic lesion. No intrahepatic biliary ductal dilatation. There is no free fluid. GALLBLADDER AND BILIARY TREE: No shadowing gallstone, pericholecystic fluid or gallbladder wall thickening is demonstrated. The proximal common bile duct measures 4 mm, which is within normal limits for the patient''s age. SONOGRAPHIC MALDONADO''S SIGN: Negative. PANCREAS: No focal abnormality is demonstrated in the pancreas. Nonvisualization of the pancreatic tail. No pancreatic ductal dilatation. SPLEEN: The spleen is normal in size measuring 10.4 cm and homogeneous in echotexture. RIGHT KIDNEY: 9.8 x 3.6 x 4.1 cm. The cortex is 12 mm. There is no hydronephrosis. No shadowing calculus, focal lesion, or perinephric collection is demonstrated. LEFT KIDNEY: 11.0 x 4.6 x 5.0 cm. The cortex is 12 mm. There is no hydronephrosis. No shadowing calculus, focal lesion, or perinephric collection is demonstrated. VESSELS: Submitted longitudinal images of the intra-abdominal aorta demonstrate no gross abnormalities and are unremarkable. The IVC is patent. US/Abdomen Complete IMPRESSION: No acute sonographic abnormality is demonstrated in the abdomen. Electronically Signed: Geronimo Low DO at 9:49 EST ,
== END | disposition home or self-care (01) ==
LOC: US 10:26
PROVIDERS: PCP Family Medicine; Referring Provider Nurse Practitioner Acute Care; Visit Provider Nurse Practitioner Acute Care
DX: R12 Heartburn (principal); R14.0 Abdominal distension (gaseous); R10.12 Left upper quadrant pain; R10.32 Left lower quadrant pain; R19.7 Diarrhea, unspecified
CPT/HCPCS: 76700

== ENCOUNTER → 2024-04-10 | Outpatient (CLI) | payer OTHER, SELFPAY ==
--- NOTE | 2024-04-10 15:26 | RAD_ITS ---
EXAM: XR LUMBOSACRAL SPINE, 2 OR 3 VIEWS CLINICAL INDICATION: LOWER BACK PAIN TECHNIQUE: Frontal and lateral views of the lumbar spine and sacrum. COMPARISON: No relevant prior studies available. FINDINGS: VERTEBRAE: Unremarkable. Preserved vertebral body height. No fracture. No spondylolisthesis. Preservation of the normal lumbar lordosis. No significant facet arthropathy. DISC SPACES: No acute findings. Disc spaces are maintained. GASTROINTESTINAL TRACT: Unremarkable as visualized. Included bowel gas pattern is non-obstructive. RAD/Lumbar Spine 2 or 3 Views IMPRESSION: No evidence of lumbar spinal fracture or spondylolisthesis. Electronically Signed: Khoa Sawant MD at 17:37 EST ,
== END | disposition home or self-care (01) ==
LOC: MFPLAB 14:53
PROVIDERS: PCP Family Medicine; Referring Provider Family Medicine; Visit Provider Family Medicine
DX: R35.0 Frequency of micturition (principal); M54.50 Low back pain, unspecified
CPT/HCPCS: 72100; 87077; 87086; 87088; 87186

== ENCOUNTER 2024-05-23 07:02 | Day surgery (SDC) | payer OTHER, SELFPAY ==
[2024-05-23] VITALS (7 sets, daily range): BP systolic 83–102; BP diastolic 61–80; PULSE 64–82; RESP 16–18; TEMP 36.2–36.4; O2SAT 92–98; BMI 32.2
--- NOTE | 2024-05-23 | COLBX_PTH ---
PATIENT: CHUNG ENNIS LOC: EN U#:[id number] AGE/SX: 38/F ROOM: RE05/23/[address]: Dr. Flo Cantu DO : 1985 BED: DIS: 05/23/2024 SPEC #: [id number] RECD: 05/23/24 12:44 STATUS: DANIEL RICK #: [id number] SNEHAL: 05/23/24 00:[address]: Flo Cantu DEPT: SURGICAL PATHOLOGY RECD BY: Yasmani Benoit ENTERED: 05/23/24 12:46 SP TYPE: COLON BX OTHR DR: Dr. Yong Cage MD Tissues: A - Esophageal mucous membrane B - Ileum, NOS C - COLON BIOPSY Procedures: Surgery Specimen Level IV HEADER OPERATION: Colonoscopy with biopsy, EGD, biopsy PRE-OP DIAGNOSIS: Gastroesophageal reflux disease, diarrhea, left lower quadrant pain, left upper quadrant pain, bloating, heartburn TISSUE SUBMITTED: A- Random esophagus biopsy, B- Terminal ileum biopsy, C- Random colon biopsy MICROSCOPIC DIAGNOSIS A. Esophagus, random biopsy: Fragments of squamous mucosa with changes consistent with eosinophilic esophagitis. See comment. B. Terminal ileum, biopsy: Fragments of small intestinal mucosa, no pathologic diagnosis. C. Colon, random biopsy: Fragments of colonic mucosa, no pathologic diagnosis. 05/24/2024 COMMENT A. Increased number of eosinophils (up to 20 per high power field) are noted consisting eosinophilic esophagitis. Correlation with clinical, endoscopic findings and appropriate follow-up are necessary. MICROSCOPIC DESCRIPTION Slides are reviewed. GROSS DESCRIPTION A. Received in fixative is one container labeled with the patient's name and designated Random esophagus biopsy. The specimen consists of multiple irregular fragments of light [place] soft tissue that in aggregate measure 2.0 x 0.5 x 0.2 cm. The specimen is totally submitted in one cassette. B. Received in fixative is one container labeled with the patient's name and designated Terminal ileum biopsy. The specimen consists of multiple irregular fragments of light [place] soft tissue that in aggregate measure 1.0 x 0.3 x 0.2 cm. The specimen is totally submitted in one cassette. C. Received in fixative is one container labeled with the patient's name and designated Random colon biopsy. The specimen consists of multiple irregular fragments of light [place] soft tissue that in aggregate measure 2.0 x 0.3 x 0.2 cm. The specimen is totally submitted in one cassette. CW 05/23/2024 TC:3 CPT:72002i8
--- NOTE | 2024-05-23 07:27 | PCM.PRE.AN2 ---
ASA Classification* ASA Classification ASA Classification: 2 Assessment & Plan Anesthesia* Anesthesia Assessment Anesthesia Assessment: Discussed sedation and/or anesthesia options, risks, benefits, and alternatives with patient/parents/legal guardian/POA. Questions invited. The patient/parents/legal guardian/POA seems to understand and agrees to proceed with anesthesia plan. Reviewed the physical assessment, medical history, allergy history and patient home medications list prior to surgery/procedure/anesthetic and documented any changes. Performed airway and anesthesia risk assessments. Anesthesia Type Anesthesia Type: MAC Anesthesia Focused Assessment* Airway Assessment Mouth opens: >3 cm Mallampati Score: II Focused Labs Anesthesia Preop lab: CBC WBC 7.3 K/mm3 (4.4-11.0) 11/28/23 15:13 RBC 4.27 M/mm3 (4.2-5.4) 11/28/23 15:13 Hgb 12.5 g/dL (12.0-15.0) 11/28/23 15:13 Hct 38.1 % (37-47) 11/28/23 15:13 Plt Count 333 K/mm3 (150-450) 11/28/23 15:13 CHEMISTRY Potassium 3.8 mmol/L (3.5-5.1) 11/28/23 15:13 Sodium 137 mmol/L (136-145) 11/28/23 15:13 BUN 12 mg/dL (7-18) 11/28/23 15:13 Creatinine 0.89 mg/dL (0.55-1.02) 11/28/23 15:13 Glucose 85 mg/dL (74-106) 11/28/23 15:13 TSH 3.58 uIU/mL (0.358-3.74) 02/01/23 15:26 COAG Urine Test Negative Negative 03/25/21 06:20 Pre-Assessment Diagnosis/Proposed Procedure Planned Operative Procedure(s): CSCOPE & EGD Anesthesia History Anesthesia History - educational recruiter: Anesthesia History - educational recruiter Hx Hospitalization No 05/22/24 12:17 Any Problems With Anesthesia No 05/22/24 12:17 Cholinesterase deficiency No 05/22/24 12:17 You/Your Family Experience No 05/22/24 12:17 fever (hyperthermia) with Relationship Recent Exposure to Contagious Disease Does patient have nerve No 05/22/24 12:17 stimulator Patient instructed to have device shut off --Does patient have Pacemaker or ICD? When Was Last Pacemaker Check QUESTION #4 FULL TEXT: You/Your Family Experience fever (hyperthermia) with Anesthesia Last Oral Intake Last Oral intake: Last Oral Intake NPO since Meds taken in AM with sips of water? Meds patient instructed to take am of surgery PONV PONV - educational recruiter: PONV - educational recruiter Female Yes 05/22/24 12:17 HX of Motion Sickness Yes 05/22/24 12:17 HX of N/V After Surgery No 05/22/24 12:17 Non-Smoker Yes 05/22/24 12:17 Duration of Surgery greater No 05/22/24 12:17 than 60 minutes Number of Risk Factors 3 05/22/24 12:17 PONV Score Moderate Risk 05/22/24 12:17 Height & Weight Height & Weight: Anesthesia: Height & Weight Height 5 ft 10 in 03/07/23 14:49 Respiratory Assessment Respiratory Assessment - educational recruiter: Respiratory Tract Infection Hx - educational recruiter Hx Respiratory Tract Infection No 05/22/24 12:17 STOP Sleep Apnea STOP Sleep Apnea - educational recruiter: STOP Sleep Apnea - educational recruiter Hx Hypertension No 05/22/24 12:17 Hx Sleep Apnea No 05/22/24 12:17 CPAP BIPAP Do you snore loudly (louder No 05/22/24 12:17 than talking or can be heard Do you often feel tired/ No 05/22/24 12:17 fatigued/ sleepy during daytime? Has anyone observed you stop No 05/22/24 12:17 breathing during sleep? STOP Results Negative 05/22/24 12:17 QUESTION #5 FULL TEXT : Do you snore loudly (louder than talking or can be heard through closed doors)? Tobacco Use History Tobacco Use History - educational recruiter: Tobacco Use History - educational recruiter Tobacco Use Smoking Status Never smoker 05/22/24 12:17 Hx Tobacco Use No 05/22/24 12:17 Years Smoking Packs Smoked per Day Smoking Cessation Date was within the last 15 years Hx Smoking Cessation Date Hx Smoking Cessation Counseling Hematologic Medial History Hematologic Hx - educational recruiter: Hematologic Medical Hx - service advisor Hx of Blood Transfusion No 05/22/24 12:17 Hx of Transfusion in last 3 No 05/22/24 12:17 Months Date of Last Transfusion (if within last 3 months) Ever experience any problems No 05/22/24 12:17 with transfusion(s)? Specify any problems Hx of Preganancy in last 3 N/A 05/22/24 12:17 Months Nurse Filling Out Transfusion NBUCHER 05/22/24 12:17 & Questions: Date: 05/22/24 05/22/24 12:17 Time: 12:18 05/22/24 12:17 Patient unable to answer at this time (ie. confused, unrespo /Reproduction History /Reproductive History - educational recruiter: /Reproductive Hx- educational recruiter Hx Now No 05/22/24 12:17 Gestational Age (in weeks): EDC: Hx Hx Para Hx Section SAB No 05/22/24 12:17 PFSH Medical History Varicose veins with inflammation Chronic venous insufficiency Leg cramps History of pain when walking History of edema Wears glasses Wears contact lenses Gastric reflux Non-smoker Home Medications ?Medication ?Instructions ?Recorded ?Last Taken ?Type multivitamin 1 tab PO DAILY 01/07/21 Unknown History Allergy/AdvReac Type Severity Reaction Status Date / Time No Known Allergies Allergy Verified 05/22/24 12:16 Family History Father History of deep vein thrombophlebitis of lower extremity Surgical History Previous section Social History number of children: 2 current occupational status: employed 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
--- NOTE | 2024-05-23 08:18 | PCM.HP.STD ---
HPI - General General Date of Admission: 05/23/24 Date of Service: 05/23/24 Chief Complaint: Abdominal pain and heartburn HPI Narrative 38y/o female presents for evaluation of reflux and abdominal pain. CBC and CMP were unremarkable November 2023. - she does continue to experience occasional chest burning - back pain - belching - dyspepsia - she reports Dr. Puentes recommended EGD - her works here at [employer] - she reports the burning last week was more persistent - this week burning is better - she did eliminate pop from her diet and this may of helped - nausea is better with Rabeprazole - denies emesis since starting PPI - reports cardiac w/u was negative - denies any weight loss - I eat like crap - intermittent diarrhea - long time - not acute - denies any bleeding - she has a BM daily - typically 2+ BM a day - typically has a BM after most meals Caffeine - 1 can a day EtOH - denies NSAIDS - rare Tobacco - denies PPI/H2 - as noted above EGD - denies - denies any FMHx esophageal or colon cancer - denies any FMHx of IBD or celiac disease PFSH Medical History Varicose veins with inflammation Chronic venous insufficiency Leg cramps History of pain when walking History of edema Wears glasses Wears contact lenses Gastric reflux Non-smoker Home Medications ?Medication ?Instructions ?Recorded ?Last Taken ?Type multivitamin 1 tab PO DAILY 01/07/21 Unknown History Allergy/AdvReac Type Severity Reaction Status Date / Time No Known Allergies Allergy Verified 05/23/24 07:35 Family History Father History of deep vein thrombophlebitis of lower extremity Surgical History Previous section Social History number of children: 2 current occupational status: employed 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 ROS Constitutional Constitutional: Denies fatigue, fever(s), poor appetite, weight gain or weight loss Gastrointestinal Gastrointestinal: Denies belching, bloating, change in bowel habits, change in stool character, chewing difficulty, coffee ground emesis, constipation, cramping, diarrhea, dyspepsia, dysphagia, early satiety, excessive flatus, fecal incontinence, heartburn, hematemesis, hematochezia, hemorrhoids, loose stools, melena, nausea, odynophagia, rectal bleeding, tenesmus, vomiting or weight changes Vital Signs Vital Signs Vital Signs: 05/23/24 07:37 05/23/24 07:37 Temperature 97.6 F L Temperature Source Temporal Pulse Rate 82 Respiratory Rate 18 Respiratory Pattern Normal Blood Pressure 102/80 Blood Pressure Mean 87 Blood Pressure Source Monitor Blood Pressure Position Semi-Fowlers Blood Pressure Location Left Arm Pulse Ox 97 Oxygen Delivery Method Room Air Weight Weight: 224 lb 10.417 oz Body Mass Index (BMI) 32.2 Physical Exam Const alert, oriented x3, no apparent distress and well nourished General Appearance: cooperative and well developed HEENT normocephalic and head/scalp atraumatic Head and Scalp: atraumatic External Auditory Canal: EAC's normal Tympanic Membrane: TM's normal bilaterally Mouth: oral and palatal mucosa normal Eyes PERRL and EOMs intact bilaterally Neck no JVD Resp normal respiratory effort and normal air movement GI non-distended Extremity normal capillary refill and no clubbing, cyanosis or edema Extremity Narrative: Scattered varicosities are noted in both lower extremities, more prominent on the left. Skin no rashes or lesions noted, no wounds and no jaundice General Skin Exam: no breakdown Lesions: no lesions Rashes: no rashes Neuro CN's II-XII intact bilaterally Psych thought process normal, cooperative and affect normal Appearance: appropriate Assessment & Plan Assessment/Plan (1) High fecal calprotectin: (2) Heartburn: (3) Bloating: (4) LUQ pain: (5) Diarrhea: QUALIFIERS: Diarrhea type: functional diarrhea Qualified Code(s): K59.1 - Functional diarrhea PLAN: Assessment and Plan Assessment and Plan (1) Gastroesophageal reflux disease: Qualifiers: Esophagitis presence: esophagitis presence not specified Qualified Code(s): K21.9 - Gastro-esophageal reflux disease without esophagitis (2) Diarrhea: Status: Acute Qualifiers: Diarrhea type: functional diarrhea Qualified Code(s): K59.1 - Functional diarrhea (3) LLQ pain: Status: Acute (4) LUQ pain: Status: Acute (5) Bloating: Status: Acute (6) Heartburn: Status: Acute Orders: Orders EGD 1 Month Abdomen Complete Today R10.12 - Left upper quadrant pain, R10.32 - Left lower quadrant pain, R12 - Heartburn, R14.0 - Abdominal distension (gaseous), R19.7 - Diarrhea, unspecified Colonoscopy 1 Month Calprotectin, Stool Today R10.12 - Left upper quadrant pain, R10.32 - Left lower quadrant pain, R12 - Heartburn, R14.0 - Abdominal distension (gaseous), R19.7 - Diarrhea, unspecified Medications: New rabeprazole 20 mg PO QDAY 90 tabs 2RF Plan 38y/o female presents for consultation with complaints of reflux. CBC and CMP were unremarkable November 2023. She reports her reflux symptoms have been ongoing for >1 year. She was on sucralfate and omeprazole; discontinued due to nausea and ongoing chest burning. She was seen by Dr. Puentes who prescribed Rabeprazole and reports this has been successful in treating symptoms for the most part. She is continuing to experience intermittent LUQ pain which can radiate through to her back. She reports a long history of loose stools, urgency and LLQ discomfort which worsens with a BM. I have ordered an ABD US, fecal calprotectin and scheduled a colonoscopy and EGD. We have discussed dietary modifications and I have encouraged a high fiber diet with the addition of Metamucil once daily. Patient Instructions: 1. Metamucil powder 2tsp once a day in 8 ounces of water after breakfast every day 2. Start a probiotic daily (Align, Culturelle, [employer]) 3. Continue Rabeprazole 4. Complete stool testing 5. Schedule colonoscopy & EGD 6. Complete ABD US 7. If LLQ pain and altered bowel habits fully resolve and fecal calprotectin is negative, okay to cancel colonoscopy and only proceed with EGD 8. Follow-up in office 2 weeks post procedures
--- NOTE | 2024-05-23 08:56 | PCM.POST.ANE ---
Anesthesia: Postop Eval I Current Vital Signs Temperature: 97.2 F Pulse Rate: 67 Blood Pressure: 83/61 Respiratory Rate: 16 Pulse Ox: 93 Oxygen Delivery Method: Room Air Assessment Airway patent: Yes Spontaneous unlabored respirations: Yes Mental status: Asleep nausea: No Vomiting: No Anesthesia Complication: No Fluid Hydration Crystalloid volume administer (ml): 60 Total IV fluid infused: 60 Progress Note Anesthesia document: Postop Eval 1 completed: Yes
--- NOTE | 2024-05-23 08:57 | OP.EGD_ITS ---
Patient Name: Tia Mendoza Procedure Date: 05/23/2024 8:23 AM Date of : 1985 Age: 38 Procedure: Upper GI endoscopy Indications: Heartburn Providers: DO Tammi Gill MD: Yong Cage MD Medicines: Monitored Anesthesia Care Patient Profile: This is a 38 year old female. Refer to note in patient chart for documentation of history and physical. Patient has symptoms of chronic dyspepsia, chronic heartburn and chronic nausea. Complications: No immediate complications. Procedure: Pre-Anesthesia Assessment: - Prior to the procedure, a History and Physical was performed, and patient medications and allergies were reviewed. The patient is competent. The risks and benefits of the procedure and the sedation options and risks were discussed with the patient. All questions were answered and informed consent was obtained. Patient identification and proposed procedure were verified by the physician in the pre-procedure area. Mental Status Examination: alert and oriented. Airway Examination: normal oropharyngeal airway and neck mobility. Respiratory Examination: clear to auscultation. CV Examination: normal. Prophylactic Antibiotics: The patient does not require prophylactic antibiotics. Prior Anticoagulants: The patient has taken no anticoagulant or antiplatelet agents. ASA Grade Assessment: II - A patient with mild systemic disease. After reviewing the risks and benefits, the patient was deemed in satisfactory condition to undergo the procedure. The anesthesia plan was to use monitored anesthesia care (MAC). Immediately prior to administration of medications, the patient was re-assessed for adequacy to receive sedatives. The heart rate, respiratory rate, oxygen saturations, blood pressure, adequacy of pulmonary ventilation, and response to care were monitored throughout the procedure. The physical status of the patient was re-assessed after the procedure. After obtaining informed consent, the endoscope was passed under direct vision. Throughout the procedure, the patient's blood pressure, pulse, and oxygen saturations were monitored continuously. The Colonoscope was introduced through the mouth, and advanced to the second part of duodenum. The upper GI endoscopy was accomplished without difficulty. The patient tolerated the procedure well. Scope In: 8:32:27 AM Scope Out: 8:35:34 AM Total Procedure Duration Time 0 hours 3 minutes 7 seconds Findings: Mucosal changes including ringed esophagus, feline appearance, longitudinal furrows, small-caliber esophagus, white plaques and circumferential folds were found in the upper third of the esophagus, in the middle third of the esophagus and in the lower third of the esophagus. Esophageal findings were graded using the Eosinophilic Esophagitis Endoscopic Reference Score (EoE-EREFS) as: Edema Grade 1 Present (decreased clarity or absence of vascular markings), Rings Grade 2 Moderate (distinct rings that do not occlude passage of diagnostic 8-10 mm endoscope), Exudates Grade 1 Mild (scattered white lesions involving less than 10 percent of the esophageal surface area), Furrows Grade 1 Mild (vertical lines without visible depth) and Stricture none (no stricture found). Biopsies were obtained from the proximal and distal esophagus with cold forceps for histology of suspected eosinophilic esophagitis. Verification of patient identification for the specimen was done. Estimated blood loss was minimal. A small hiatal hernia was present. No gross lesions were noted in the first portion of the duodenum. Impression: - Esophageal mucosal changes consistent with eosinophilic esophagitis. - Small hiatal hernia. - No gross lesions in the first portion of the duodenum. - Biopsies were taken with a cold forceps for evaluation of eosinophilic esophagitis. Recommendation: - Discharge patient to home. - Resume previous diet. - Continue present medications. - Await pathology results. Procedure Code(s): --- Professional --- 77076, Esophagogastroduodenoscopy, flexible, transoral; with biopsy, single or multiple CPT copyright 2021 [employer]. All rights reserved. The codes documented in this report are preliminary and upon professor of genetics review may be revised to meet current compliance requirements. Flo Cantu DO 05/23/2024 8:56:23 AM This report has been signed electronically. Number of Addenda: 0 Note Initiated On: 05/23/2024 8:23 AM
--- NOTE | 2024-05-23 08:57 | OP.CCLET_ITS ---
05/23/2024 Yong Cage MD [address] [phone] Re : Upper GI endoscopy procedure for [facility] Dear Dr. Cage This procedure was performed on May. My impressions and recommendations are as follows: Impressions : - Esophageal mucosal changes consistent with eosinophilic esophagitis. - Small hiatal hernia. - No gross lesions in the first portion of the duodenum. - Biopsies were taken with a cold forceps for evaluation of eosinophilic esophagitis. Recommendations : - Discharge patient to home. - Resume previous diet. - Continue present medications. - Await pathology results. My findings are described in the full procedure note, which is enclosed. If I can be of further assistance, please feel free to contact me at . Sincerely, Flo Cantu, 05/23/2024 8:56:23 AM This report has been signed electronically.
--- NOTE | 2024-05-23 08:59 | OP.COLON_ITS ---
Patient Name: Tia Mendoza Procedure Date: 05/23/2024 8:35 AM Date of : 1985 Age: 38 Procedure: Colonoscopy Indications: Abdominal pain in the left lower quadrant, Abdominal pain in the left upper quadrant Providers: Flo Cantu DO Referring MD: Yong Cage MD Medicines: Monitored Anesthesia Care Patient Profile: This is a 38 year old female. Refer to note in patient chart for documentation of history and physical. Patient has symptoms of chronic dyspepsia, chronic heartburn and chronic nausea. Last Colonoscopy: none. The patient's first colonoscopy is today. Complications: No immediate complications. Procedure: Pre-Anesthesia Assessment: - Prior to the procedure, a History and Physical was performed, and patient medications and allergies were reviewed. The patient is competent. The risks and benefits of the procedure and the sedation options and risks were discussed with the patient. All questions were answered and informed consent was obtained. Patient identification and proposed procedure were verified by the physician in the pre-procedure area. Mental Status Examination: alert and oriented. Airway Examination: normal oropharyngeal airway and neck mobility. Respiratory Examination: clear to auscultation. CV Examination: normal. Prophylactic Antibiotics: The patient does not require prophylactic antibiotics. Prior Anticoagulants: The patient has taken no anticoagulant or antiplatelet agents. ASA Grade Assessment: II - A patient with mild systemic disease. After reviewing the risks and benefits, the patient was deemed in satisfactory condition to undergo the procedure. The anesthesia plan was to use monitored anesthesia care (MAC). Immediately prior to administration of medications, the patient was re-assessed for adequacy to receive sedatives. The heart rate, respiratory rate, oxygen saturations, blood pressure, adequacy of pulmonary ventilation, and response to care were monitored throughout the procedure. The physical status of the patient was re-assessed after the procedure. After I obtained informed consent, the scope was passed under direct vision. Throughout the procedure, the patient's blood pressure, pulse, and oxygen saturations were monitored continuously. The Colonoscope was introduced through the anus and advanced to the terminal ileum. The colonoscopy was performed without difficulty. The patient tolerated the procedure well. The quality of the bowel preparation was adequate. The terminal ileum, ileocecal valve, appendiceal orifice, and rectum were photographed. Scope In: 8:37:32 AM Scope Withdrawal Time 0 hours 7 minutes 37 seconds Scope Out: 8:48:40 AM Total Procedure Duration Time 0 hours 11 minutes 8 seconds Findings: The perianal and digital rectal examinations were normal. An area of mildly congested mucosa was found in the sigmoid colon, in the transverse colon and in the ascending colon. Biopsies were taken with a cold forceps for histology. Verification of patient identification for the specimen was done. Estimated blood loss was minimal. The terminal ileum appeared normal. Biopsies were taken with a cold forceps for histology. Verification of patient identification for the specimen was done. Estimated blood loss was minimal. Impression: - Congested mucosa in the sigmoid colon, in the transverse colon and in the ascending colon. Biopsied. - The examined portion of the ileum was normal. Biopsied. Recommendation: - Discharge patient to home. - Resume previous diet. - Continue present medications. - Await pathology results. - Repeat colonoscopy in 5 years for surveillance. Procedure Code(s): --- Professional --- 52361, Colonoscopy, flexible; with biopsy, single or multiple CPT copyright 2021 [employer]. All rights reserved. The codes documented in this report are preliminary and upon it technician review may be revised to meet current compliance requirements. Flo Cantu DO 05/23/2024 8:58:52 AM This report has been signed electronically. Number of Addenda: 0 Note Initiated On: 05/23/2024 8:35 AM
--- NOTE | 2024-05-23 08:59 | OP.CCLET_ITS ---
05/23/2024 Yong Cage MD [address] [phone] Re : Colonoscopy procedure for Tia Mendoza Dear Dr. Cage This procedure was performed on May. My impressions and recommendations are as follows: Impressions : - Congested mucosa in the sigmoid colon, in the transverse colon and in the ascending colon. Biopsied. - The examined portion of the ileum was normal. Biopsied. Recommendations : - Discharge patient to home. - Resume previous diet. - Continue present medications. - Await pathology results. - Repeat colonoscopy in 5 years for surveillance. My findings are described in the full procedure note, which is enclosed. If I can be of further assistance, please feel free to contact me at . Sincerely, Flo Friend, 05/23/2024 8:58:52 AM This report has been signed electronically.
--- NOTE | 2024-05-23 11:42 | PCM.POSTANE2 ---
Anesthesia Postop Eval I Sum Postop Eval Completion status Anesthesia document: Postop Eval 1 completed: Yes Anesthesia Postop Eval I Summary Anesthesia Postop Eval I Summary: Anesthesia Postop Eval I: Assessment Summary Airway patent Yes 05/23/24 08:56 [email or web address] Spontaneous unlabored Yes 05/23/24 08:56 [email or web address] respirations Mental status Asleep 05/23/24 08:56 [email or web address] nausea No 05/23/24 08:56 [email or web address] Vomiting No 05/23/24 08:56 [email or web address] Anesthesia Postop Eval I: Fluid Summary Crystalloid volume administer 60 05/23/24 08:56 [email or web address] (ml) Colloids volume administered ( ml) Blood Product volume administered (ml) Total IV fluid infused 60 05/23/24 08:56 [email or web address] Anesthesia Postop Eval I: Summary Notes Anesthesia Complication No 05/23/24 08:56 [email or web address] Anesthesia Complication Comment: Post-operative progress note Anesthesia: Postop Eval II Evaluation Mental status: Awake Pain Level: 0 nausea: No Vomiting: No
[2024-05-23 12:52] LABS: Internal QC Validated? YES +Cl - CLEAR BKGD; Pregnancy, Serum, hCG Quali. NEGATIVE Negative
== END 2024-05-23 09:53 | disposition home or self-care (01) ==
LOC: EN 07:03 → AC 07:05
PROVIDERS: Anesthesiology; PCP Family Medicine; Referring Provider Family Medicine; Visit Provider Internal Medicine Gastroenterology
PROC: 0DJD8ZZ Inspection of Lower Intestinal Tract, Via Natural or Artificial Opening Endoscopic (ICD-10-PCS; CPT 45378; principal; 2024-05-23 08:10)
DX: K44.9 Diaphragmatic hernia without obstruction or gangrene (principal); K63.89 Other specified diseases of intestine; K21.00 Gastro-esophageal reflux disease with esophagitis, without bleeding
CPT/HCPCS: 43239; 45380; 84703; 88305; A4216; J2405

== ENCOUNTER → 2024-06-21 | Outpatient (CLI) | payer OTHER, SELFPAY ==
[2024-06-21 13:13] LABS: Erythrocyte Sedimentation Rate 3 mm/hr (0-30)
[2024-06-26 12:08] LABS: Alternaria alternata <0.10 kU/L (Class 0); Anti-Centromere B Ab <0.2 AI (0.0-0.9); Anti-Chromatin <0.2 AI (0.0-0.9); Anti-Jo <0.2 AI (0.0-0.9); Anti-Scleroderma-70 AB <0.2 AI (0.0-0.9); Anti-dsDNA Ab 1 IU/mL (0-9); Ash, White <0.10 kU/L (Class 0); Aspergillus fumigatus <0.10 kU/L (Class 0); Bahia Grass <0.10 kU/L (Class 0); Beef <0.10 kU/L (Class 0); Bermuda Grass <0.10 kU/L (Class 0); Birch <0.10 kU/L (Class 0); Black Walnut <0.10 kU/L (Class 0); Bluegrass, Kentucky <0.10 kU/L (Class 0); Cat Hair/Dander, Standard <0.10 kU/L (Class 0); Cedar, Mountain <0.10 kU/L (Class 0); Chocolate <0.10 kU/L (Class 0); Cladosporium herbarum <0.10 kU/L (Class 0); Cockroach, American <0.10 kU/L (Class 0); Codfish <0.10 kU/L (Class 0); Corn <0.10 kU/L (Class 0); Cottonwood <0.10 kU/L (Class 0); D farinae Mite <0.10 kU/L (Class 0); D pteronyssinus <0.10 kU/L (Class 0); Dog Epithelia <0.10 kU/L (Class 0); Egg, Whole <0.10 kU/L (Class 0); Elm, American White <0.10 kU/L (Class 0); Hazelnut Tree <0.10 kU/L (Class 0); Hickory, White <0.10 kU/L (Class 0); Immunoglobulin E 14 IU/mL (6-495); Johnson Grass <0.10 kU/L (Class 0); Maple/Box Elder <0.10 kU/L (Class 0); Milk (Cow) 0.49 kU/L (Class I); Mouse Urine <0.10 kU/L (Class 0); Mucor racemosus <0.10 kU/L (Class 0); Mugwort <0.10 kU/L (Class 0); Mulberry, White <0.10 kU/L (Class 0); Mussels <0.10 kU/L (Class 0); Nettle <0.10 kU/L (Class 0); Oak, White <0.10 kU/L (Class 0); PROGESTERONE 0.8 ng/mL (.); Peanut <0.10 kU/L (Class 0); Pecan <0.10 kU/L (Class 0); Penicillium chrysogen <0.10 kU/L (Class 0); Pigweed, Rough <0.10 kU/L (Class 0); Plantain, English <0.10 kU/L (Class 0); Pork <0.10 kU/L (Class 0); RNP Ab 0.3 AI (0.0-0.9); Ragweed, Short/Common <0.10 kU/L (Class 0); Russian Thistle <0.10 kU/L (Class 0); SJOGREN'S Anti-SS-A test < 0.2 AI (0.0-0.9); SJOGREN'S Anti-SS-B test < 0.2 AI (0.0-0.9); Salmon <0.10 kU/L (Class 0); Sheep Sorrel(Dock) <0.10 kU/L (Class 0); Shrimp <0.10 kU/L (Class 0); Smith Ab <0.2 AI (0.0-0.9); Soybean <0.10 kU/L (Class 0); Stemphylium herbarum <0.10 kU/L (Class 0); Sweet Gum <0.10 kU/L (Class 0); Sycamore, American <0.10 kU/L (Class 0); Timothy Grass <0.10 kU/L (Class 0); Tuna <0.10 kU/L (Class 0); Wheat 0.33 kU/L (Class I)
[2024-06-28 11:08] LABS: ACCA 21 units (0-90); ALCA 25 units (0-60); AMCA 31 units (0-100); Chromogranin A 39.2 ng/mL (0.0-101.8); Cytoplasmic Ab (C-ANCA) <1:20 titer (Neg:<1:20); Endomysial Antibody IgA Negative (Negative); Estrogen, Total, Serum 406 pg/mL (.); Gastrin, Serum 82 pg/mL (0-115); IgG, Quant 1093 mg/dL (586-1602); Immunoglobulin A 202 mg/dL (87-352); Immunoglobulin G, Subclass 1 466 mg/dL (248-810); Immunoglobulin G, Subclass 2 420 mg/dL (130-555); Immunoglobulin G, Subclass 3 101 mg/dL (15-102); Immunoglobulin G, Subclass 4 32 mg/dL (2-96); Perinuclear Ab (P-ANCA) <1:20 titer (Neg:<1:20); Testosterone Free 1.2 pg/mL (0.0-4.2); gASCA 18 units (0-50); t-Transglutaminase IgA 5 U/mL (0-3)
== END | disposition home or self-care (01) ==
LOC: LAB 12:25
PROVIDERS: PCP Family Medicine; Referring Provider Internal Medicine Gastroenterology; Visit Provider Internal Medicine Gastroenterology
DX: K20.0 Eosinophilic esophagitis (principal); R19.5 Other fecal abnormalities
CPT/HCPCS: 36415; 82672; 82784; 82785; 82787; 82941; 83516; 84144; 84402; 85652; 86003; 86005; 86036; 86037; 86225; 86235; 86255; 86316; 86671

== ENCOUNTER → 2024-06-24 | Outpatient (CLI) | payer OTHER, SELFPAY ==
[2024-06-28 15:08] LABS: HPV APTIMA, High Risk Negative (Negative)
== END | disposition home or self-care (01) ==
PROVIDERS: PCP Nurse Practitioner Women's Health; Referring Provider Nurse Practitioner Women's Health; Visit Provider Nurse Practitioner Women's Health
DX: N89.8 Other specified noninflammatory disorders of vagina (principal); Z12.4 Encounter for screening for malignant neoplasm of cervix
CPT/HCPCS: 87070; 87205; 87624; 88175; G0145

== ENCOUNTER → 2024-07-05 | Outpatient (CLI) | payer OTHER, SELFPAY ==
--- NOTE | 2024-07-05 15:20 | CT_ITS ---
PROCEDURE: CT ABD/PELVIS W/WO CONTRAST REASON FOR EXAM: Left flank pain. UTI. TECHNIQUE: Abdomen and pelvis CT with intravenous contrast. IV CONTRAST: 100 cc of Isovue-300. COMPARISON: None. FINDINGS: Lung bases: Clear Liver: Unremarkable. Gallbladder: Unremarkable. Spleen: Unremarkable. Pancreas: Unremarkable. Adrenals: Unremarkable. Kidneys: Unremarkable. Bladder: Unremarkable. Reproductive Organs: Enlarged calcified fibroid uterus. Bowel: Unremarkable. Small hiatal hernia. Appendix: Normal. Small umbilical hernia. Lymph nodes: No suspicious lymph node enlargement. Vasculature: Major vascular structures are unremarkable. Peritoneum / Retroperitoneum: No ascites. No free air. Bones: Unremarkable. CT/CT Abd/Pelvis W/WO Contrast IMPRESSION: No evidence of urinary obstruction. Enlarged calcified fibroid uterus. Small hiatal hernia. Small umbilical hernia. One or more dose reduction techniques were used (e.g., Automated exposure contr ol, adjustment of the mA and/or kV according to patient size, use of iterative reconstruction technique). Reading Location: [id number]
== END | disposition home or self-care (01) ==
LOC: CT 15:02
PROVIDERS: PCP Nurse Practitioner Women's Health; Referring Provider Urology; Visit Provider Urology
DX: R10.9 Unspecified abdominal pain (principal); N39.0 Urinary tract infection, site not specified
CPT/HCPCS: 74178; Q9967

== ENCOUNTER → 2024-07-15 | Outpatient (CLI) | payer OTHER, SELFPAY | END | disposition home or self-care (01) | LOC: LABSPEC 12:39 | PROVIDERS: PCP Nurse Practitioner Women's Health; Visit Provider Physician Assistant | DX: N39.0 Urinary tract infection, site not specified (principal) | CPT/HCPCS: 87086; 87088 ==

== ENCOUNTER → 2024-07-23 | Outpatient (CLI) | payer OTHER, SELFPAY ==
--- NOTE | 2024-07-23 15:31 | US_ITS ---
PROCEDURE: PELVIC (NON ) ([facility]), 07/23/2024 REASON FOR EXAM: FIBROID UTERUS TECHNIQUE: Grayscale and color doppler transabdominal pelvic ultrasound was performed. COMPARISON: 07/05/2024 FINDINGS: Limited transabdominal only exam. Uterus: 12.1 x 7.0 x 5.0 cm, Anteverted. Myometrial heterogeneity. Ill-defined hypoechoic presumed fibroids are suboptimally delineated by limited transabdominal only technique, largest measuring 3.7 x 3.4 x 3.2 cm and 2.0 x 2.3 x 1.4 cm. The latter appears submucosal projecting into the endometrial cavity. The former appears predominantly subserosal/intramural. Endometrium: Difficult to measure given distortion related to the above submucosal lesion, roughly 8 mm with echogenic secretory appearance. Cervix: Grossly unremarkable limited transabdominal appearance. Right ovary: Nonvisualized. Left ovary: 2.6 x 2.3 x 2.1 cm (estimated volume 6.7 mL), grossly unremarkable limited transabdominal appearance. Free fluid: None visualized. Other: Estimated bladder volume 523 mL.. US/Pelvic (Non ) IMPRESSION: 1. Presumed uterine fibroids up to 3.7 cm, suboptimally delineated by limited t ransabdominal only technique. Notably, a 2.3 cm lesion appears mucosal and projects into the endometrium. An atypical hypoecho ic appearance of an endometrial polyp is an additional consideration. Clinical follow-up recommended. 2. Heterogeneous myometrium may correspond to some degree of adenomyosis. 3. RIGHT ovary not visualized. 4. Additional description as above. Reading Location: [id number]
== END | disposition home or self-care (01) ==
LOC: US 15:27
PROVIDERS: PCP Family Medicine; Referring Provider Obstetrics & Gynecology; Visit Provider Obstetrics & Gynecology
DX: D25.9 Leiomyoma of uterus, unspecified (principal)
CPT/HCPCS: 76856

== ENCOUNTER 2024-09-17 13:23 | Day surgery (SDC) | payer OTHER, SELFPAY ==
[2024-09-17] VITALS (10 sets, daily range): BP systolic 93–126; BP diastolic 66–82; PULSE 53–80; RESP 14–16; TEMP 36.1–37.3; O2SAT 93–100; BMI 31.7
--- NOTE | 2024-09-17 13:58 | PCM.HP.BLA ---
History and Physical Date of Admission: 09/17/24 Intake Vital Signs 07/15/2510:37 09/04/2509:26 09/04/2509:27 Height 5 ft 10 in 5 ft 10 in 5 ft 10 in Weight: 226 lb 2 oz BMI 32.4 BP 123/74 H Intake Visit Reasons: Fibroid uterus management Lamination Operator Required: No Is patient in pain?: No Allergies No Known Allergies Allergy (Verified 09/04/24 10:25) Medications ?Medication ?Instructions ?Recorded ?Confirmed ?Type multivitamin 1 tab PO DAILY 01/07/21 09/04/24 History cranberry fruit concentrate 250 mg 250 mg PO TID 06/24/24 09/04/24 History chewable tablet (Azo Cranberry) psyllium husk 3.4 gram/5.4 gram 1 tbsp PO QDAY 06/24/24 09/04/24 History oral powder (Metamucil) Post menopausal: No Patient : No : No PFSH Medical History Varicose veins with inflammation Chronic venous insufficiency Leg cramps History of pain when walking History of edema Wears glasses Wears contact lenses Gastric reflux Non-smoker Surgical History Previous section Family History Father History of deep vein thrombophlebitis of lower extremity Social History number of children: 2 current occupational status: employed 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 Thinks that may be some of her back pain and also bloating. ultrasound showed the following: Uterus: 12.1 x 7.0 x 5.0 cm, Anteverted. Myometrial heterogeneity. Ill-defined hypoechoic presumed fibroids are suboptimally delineated by limited transabdominal only technique, largest measuring 3.7 x 3.4 x 3.2 cm and 2.0 x 2.3 x 1.4 cm. The latter appears submucosal projecting into the endometrial cavity. The former appears predominantly subserosal/intramural. Endometrium: Difficult to measure given distortion related to the above submucosal lesion, roughly 8 mm with echogenic secretory appearance. Cervix: Grossly unremarkable limited transabdominal appearance. Right ovary: Nonvisualized. Left ovary: 2.6 x 2.3 x 2.1 cm (estimated volume 6.7 mL), grossly unremarkable limited transabdominal appearance. Free fluid: None visualized. Other: Estimated bladder volume 523 mL.. US/Pelvic (Non ) IMPRESSION: 1. Presumed uterine fibroids up to 3.7 cm, suboptimally delineated by limited transabdominal only technique. Notably, a 2.3 cm lesion appears mucosal and projects into the endometrium. An atypical hypoechoic appearance of an endometrial polyp is an additional consideration. Clinical follow-up recommended. 2. Heterogeneous myometrium may correspond to some degree of adenomyosis. 3. RIGHT ovary not visualized. 4. Additional description as above. History 2 Elective abortions Hx Para 2 Spontaneous abortions Hx # Term Pregnancies 2 Ectopic pregnancies Hx # Pregnancies Multiple births # of living children 2 Past Pregnancies Del. Date Name GA/Weeks Outcome Route Bth Weight Infant Gen Labor Lgth Anesthesia Del Locatn Provider FOB 02/22/13 [place] 03/06/17 [place] ROS Const ROS Unobtainable: All systems reviewed & are unremarkable except as noted in H Resp Resp: Reports system reviewed and no additional complaints, except as documented; Denies cough GI GI: Reports as per HPI Psych Psych: Reports system reviewed and no additional complaints, except as documented Exam Const General: cooperative, healthy appearing, comfortable and no acute distress Resp Effort & Inspection: normal respiratory effort Skin General: no rashes or lesions noted Psych Appearance: grossly normal Speech and Movement: speech and movement normal Coding Level of Care Code Off vis,est,level 4 Diagnoses Dysmenorrhea N94.6 Menorrhagia N92.0 Assessment and Plan Assessment and Plan (1) Dysmenorrhea: Status: Acute (2) Menorrhagia: Status: Acute Plan after a discussion about the findings on the ultrasound of submucosal fibroid and discussing the patient's diagnosis and treatment plan options, the patient wishes to proceed with surgical management to involve HYSTEROSCOPY, MYOMECTOMY. I have discussed with the patient the risks, benefits, and alternatives of the procedure which include but are not limited to risks of anesthesia, bleeding, infection, possible damage to bowel, bladder, or surrounding vasculature which could lead to additional surgery to evaluate any complications. Patient agrees to procedure and wishes to proceed.
--- NOTE | 2024-09-17 14:09 | PCM.DC ---
Discharge Instructions Diet Discharge Diet: No restrictions DC O2, CPAP, BIPAP needs Home O2 Discharge instructions: No Dressing / Incision Discharge Activity: Return to Normal Activity, May Shower and May Take a Tub Bath (after 1 week) May resume sexual activity in: 1-2 weeks Weight Bearing Status: Weight bearing as tolerated Lifting Restrictions: none Dressing / Incision Call your doctor if you observe: Fever of 101 or Higher, Using more than 1 pad per hour, Shortness of breath and Uncontrolled pain Follow Up Care Please Follow Up With: Susi Land DO When: Call [phone] to schedule appointment. Test Results: Test results from this visit will be discussed in further detail at your follow-up appointment, if applicable. Discharge Plan Admission Primary Reason for Your Visit: hysteroscopy myomectomy Attending Provider: Susi Land Primary Care Provider: Yong Cage Instructions Print Language: Cameroonian Discharge Orders/Prescriptions Prescriptions: New ibuprofen 800 mg tablet 800 mg PO Q8H PRN (Reason: pain) Qty: 30 0RF oxycodone-acetaminophen [Percocet] 5-325 mg tablet 1 tab PO Q4H PRN (Reason: pain) 7 Days Qty: 7 0RF Continued Azo Cranberry 250 mg tablet,chewable 250 mg PO TID Metamucil 3.4 gram/5.4 gram powder 1 tbsp PO QDAY Rx Instructions: mix into at least 8 oz of water or juice before administering multivitamin Tablet 1 tab PO DAILY Referrals / Follow Up: Yong Cage MD [Primary Care Provider] - Disposition Disposition (needs filled in before D/C Order can be placed): Home, Self Care
[2024-09-17] MEDS: Lactated Ringers 1,000 ML 15 ML IV (14:11)
[2024-09-17 14:17] LABS: Internal QC Validated? YES +Cl - CLEAR BKGD; Pregnancy, Urine Negative Negative
[2024-09-17 14:25] LABS: Hematocrit 37.2 % (37-47); Hemoglobin 12.8 g/dL (12.0-15.0); Mean Corp Hgb Conc 34.4 g/dL (32-36); Mean Corpuscular Volume 87.3 fL (81-99); Mean Platelet Vol. 9.9 fl (6.2-12.0); Platelet Count 269 K/mm3 (150-450); RBC Distribution Width CV 12.6 % (11.6-14.6); RBC Distribution Width SD 39.8 fl (35.1-43.9); Red Blood Count 4.26 M/mm3 (4.2-5.4); White Blood Count 7.7 K/mm3 (4.4-11.0)
--- NOTE | 2024-09-17 14:32 | PCM.PRE.AN2 ---
ASA Classification* ASA Classification ASA Classification: 2 Assessment & Plan Anesthesia* Anesthesia Assessment Anesthesia Assessment: Discussed sedation and/or anesthesia options, risks, benefits, and alternatives with patient/parents/legal guardian/POA. Questions invited. The patient/parents/legal guardian/POA seems to understand and agrees to proceed with anesthesia plan. Reviewed the physical assessment, medical history, allergy history and patient home medications list prior to surgery/procedure/anesthetic and documented any changes. Performed airway and anesthesia risk assessments. Anesthesia Type Anesthesia Type: General History Source History Obtained from:: Patient and Chart Anesthesia Focused Assessment* Temperature: 97.8 F Pulse Rate: 80 Blood Pressure: 126/79 Respiratory Rate: 16 Pulse Ox: 98 Oxygen Delivery Method: Room Air Airway Assessment Mouth opens: >3 cm Mallampati Score: II Teeth Condition: Intact Focused Labs Anesthesia Preop lab: CBC WBC 7.7 K/mm3 (4.4-11.0) 09/17/24 14:05 09/17/24 RBC 4.26 M/mm3 (4.2-5.4) 09/17/24 14:05 09/17/24 Hgb 12.8 g/dL (12.0-15.0) 09/17/24 14:05 09/17/24 Hct 37.2 % (37-47) 09/17/24 14:05 09/17/24 Plt Count 269 K/mm3 (150-450) 09/17/24 14:05 09/17/24 CHEMISTRY Potassium 3.8 mmol/L (3.5-5.1) 11/28/23 15:13 11/28/23 Sodium 137 mmol/L (136-145) 11/28/23 15:13 11/28/23 BUN 12 mg/dL (7-18) 11/28/23 15:13 11/28/23 Creatinine 0.89 mg/dL (0.55-1.02) 11/28/23 15:13 11/28/23 Glucose 85 mg/dL (74-106) 11/28/23 15:13 11/28/23 TSH 3.58 uIU/mL (0.358-3.74) 02/01/23 15:26 02/01/23 COAG Urine Test Negative Negative 09/17/24 13:42 09/17/24 Tst Clinic Negative 07/15/24 12:29 07/15/24 Pre-Assessment Diagnosis/Proposed Procedure Planned Operative Procedure(s): HYSTERSCOPY SYMPHION MYOMECTOMY Anesthesia History Anesthesia History - piano stringer: Anesthesia History - piano stringer Hx Hospitalization No 09/16/24 13:16 Any Problems With Anesthesia No 09/16/24 13:16 Cholinesterase deficiency No 09/16/24 13:16 You/Your Family Experience No 09/16/24 13:16 fever (hyperthermia) with Relationship Recent Exposure to Contagious No 09/17/24 13:54 Disease Does patient have nerve No 09/16/24 13:16 stimulator Patient instructed to have device shut off --Does patient have Pacemaker No 09/17/24 13:54 or ICD? When Was Last Pacemaker Check QUESTION #4 FULL TEXT: You/Your Family Experience fever (hyperthermia) with Anesthesia Last Oral Intake Last Oral intake: Last Oral Intake NPO since 21:30 09/17/24 13:54 Meds taken in AM with sips of No 09/17/24 13:54 water? Meds patient instructed to take am of surgery PONV PONV - piano stringer: PONV - piano stringer Female Yes 09/16/24 13:16 HX of Motion Sickness Yes 09/16/24 13:16 HX of N/V After Surgery No 09/16/24 13:16 Non-Smoker Yes 09/16/24 13:16 Duration of Surgery greater No 09/16/24 13:16 than 60 minutes Number of Risk Factors 3 09/16/24 13:16 PONV Score Moderate Risk 09/16/24 13:16 Height & Weight Height & Weight: Anesthesia: Height & Weight Height 5 ft 10 in 09/17/24 13:54 Weight: 100.3 kg 09/17/24 13:54 Body Mass Index (BMI) 31.7 09/17/24 13:54 Respiratory Assessment Respiratory Assessment - piano stringer: Respiratory Tract Infection Hx - piano stringer Hx Respiratory Tract Infection No 09/16/24 13:16 STOP Sleep Apnea STOP Sleep Apnea - piano stringer: STOP Sleep Apnea - piano stringer Hx Hypertension No 09/16/24 13:16 Hx Sleep Apnea No 09/16/24 13:16 CPAP BIPAP Do you snore loudly (louder No 09/16/24 13:16 than talking or can be heard Do you often feel tired/ No 09/16/24 13:16 fatigued/ sleepy during daytime? Has anyone observed you stop No 09/16/24 13:16 breathing during sleep? STOP Results Negative 09/16/24 13:16 QUESTION #5 FULL TEXT : Do you snore loudly (louder than talking or can be heard through closed doors)? 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 Specify any problems Hx of Preganancy in last 3 N/A 09/16/24 13:16 Months Nurse Filling Out Transfusion NBUCHER 09/16/24 13:16 & Questions: Date: 09/16/24 09/16/24 13:16 Time: 13:17 09/16/24 13:16 Patient unable to answer at this time (ie. confused, unrespo /Reproduction History /Reproductive History - piano stringer: /Reproductive Hx- piano stringer Hx Now Gestational Age (in weeks): EDC: Hx Hx Para Hx Section SAB No 09/16/24 13:16 Active Medications Active Medications: Current Medications Generic Name Dose Route Start Last Admin Trade Name Freq PRN Reason Stop Dose Admin Lactated Ringer's 1,000 mls @ 15 mls/hr 09/17/24 13:45 09/17/24 14:11 IV 15 mls/hr .Q48H HUMBERTO Administration PFSH Medical History Dietary restriction Celiac disease Varicose veins with inflammation Chronic venous insufficiency Leg cramps History of pain when walking History of edema Wears glasses Wears contact lenses Gastric reflux Non-smoker Home Medications ?Medication ?Instructions ?Recorded ?Last Taken ?Type multivitamin 1 tab PO DAILY 01/07/21 Unknown History cranberry fruit concentrate 250 mg 250 mg PO TID 06/24/24 Unknown History chewable tablet (Azo Cranberry) psyllium husk 3.4 gram/5.4 gram 1 tbsp PO QDAY 06/24/24 Unknown History oral powder (Metamucil) ibuprofen 800 mg tablet 800 mg PO Q8H PRN pain #30 tabs 09/17/24 Unknown Rx oxycodone-acetaminophen 5 mg-325 1 tab PO Q4H PRN pain 7 days #7 09/17/24 Unknown Rx mg tablet (Percocet) tabs Allergy/AdvReac Type Severity Reaction Status Date / Time No Known Allergies Allergy Verified 09/17/24 13:43 Family History Father History of deep vein thrombophlebitis of lower extremity Surgical History History of esophagogastroduodenoscopy (EGD) History of colonoscopy Previous section Social History number of children: 2 current occupational status: employed 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 Physical Exam Const alert and oriented x3 Resp normal respiratory effort Auscultation: clear to auscultation bilaterally Cardio regular rate
--- NOTE | 2024-09-17 14:55 | EMB_PTH ---
PATIENT: CHUNG ENNIS LOC: [facility] U#:[id number] AGE/SX: 38/F ROOM: RE09/17/[address]: Dr. Susi Land DO : 1985 BED: DIS: 09/17/2024 SPEC #: [id number] RECD: 09/18/24 10:45 STATUS: DANIEL CHRISTIANSENJaneth #: [id number] SNEHAL: 09/17/24 14:[address]: Susi Land DEPT: SURGICAL PATHOLOGY RECD BY: Shayne Zamora ENTERED: 09/18/24 10:45 SP TYPE: ENDOM BX/C PORSHA DR: Dr. Yong Cage MD Tissues: A - Endometrium, NOS Procedures: Surgery Specimen Level IV HEADER OPERATION: Hysteroscopy, D&C, myomectomy PRE-OP DIAGNOSIS: Dysmenorrhea, menorrhagia TISSUE SUBMITTED: A- Endometrial curettings MICROSCOPIC DIAGNOSIS A. Uterus, endometrial lining, dilation and curettage: * Fragments of secretory endometrium. * Fragments of smooth muscle suggestive of leiomyoma. MICROSCOPIC DESCRIPTION Slides are reviewed. GROSS DESCRIPTION A. Received in formalin in a container labeled with the patient's name, date of , and endometrial curettings is an abundance of [place]-pink soft tissue admixed with blood and mucus measuring 4.8 x 2.5 x 2.5 cm in aggregate. Submitted in toto in A1-10. [facility] 09-18-2024 CPT:03305
[2024-09-17] MEDS: Lidocaine 1% (20 ml mdv) 20 ML Vial (14:58)
--- NOTE | 2024-09-17 15:51 | PCM.POST.ANE ---
Anesthesia: Postop Eval I Current Vital Signs Temperature: 96.9 F Pulse Rate: 66 Blood Pressure: 94/82 Respiratory Rate: 14 Pulse Ox: 93 Oxygen Delivery Method: Room Air Assessment Airway patent: Yes Spontaneous unlabored respirations: Yes Mental status: Awake and Calm nausea: No Vomiting: No Anesthesia Complication: No Fluid Hydration Crystalloid volume administer (ml): 600 Total IV fluid infused: 600 Progress Note Anesthesia document: Postop Eval 1 completed: Yes
--- NOTE | 2024-09-17 16:01 | PCM.OPRPT ---
Problems Associated Problem List Diagnoses (1) Menorrhagia: (2) Dysmenorrhea: (3) Fibroids, submucosal: Multi Select Codes Urinary/Genital Urinary/Genital CPT Codes: 32911 Hysteroscopic myomectomy Operative Report (Standard) Operative Information Date of Procedure: 09/17/24 Pre-Operative Diagnosis: menorrhagia, dysmenorrhea, ultrasound finding of submucosal and intramural fibroids Post-Operative Diagnosis: menorrhagia, dysmenorrhea, ultrasound finding of submucosal and intramural fibroids Surgery/Procedure Performed: hysteroscopy, myomectomy dilation and curettage grinder set up operator universal: Yes Analytical Lab Technician: Carmelita Ortiz Tasks completed by orthopedic assistant: Other (assisting with hysteroscopic device and fluid management ) Additional store assistant?: No Type of Anesthesia: MAC/Supplemental/Local RN Documented Start/Stop Times: Operation Date: 09/17/24 14:55 Case Time Into Pre-Op 09/17/24 13:29 Out of Pre-Op 09/17/24 14:37 Anesthesia Start 09/17/24 14:41 Into Room 09/17/24 14:41 Procedure Start 09/17/24 14:58 Procedure End 09/17/24 15:41 Anesthesia End 09/17/24 15:47 Out of Room 09/17/24 15:47 Into Recovery 09/17/24 15:48 Procedure Start Time: 14:58 Procedure Stop Time: 15:41 Select all DRAINS/GRAFTS/IMPLANTS that apply: None Estimated Blood Loss: 30cc Specimen collected: Yes Description of specimen(s) removed: endometrial curetting's suspicious for fibroids and polyps Description of surgery: Patient was prepped and draped in a normal sterile fashion under MAC anesthesia. A weighted speculum was placed in the vagina and the anterior lip of the cervix was grasped with a single-tooth tenaculum. A paracervical block was placed with 1% lidocaine. Cervix was progressively dilated to allow passage of a 5 mm hysteroscope. The lining was fully visualized and noted to have polyp like structures as well as one well defined structure resembling a submucosal fibroid and measuring about 3.5 to 4cm. The uterus sounded to 10 cm. The symphion device was inserted and was used initially to clear out polyp appearing structures before starting the myomectomy. Once the debris and tissue from the lower uterine segment and right side of the uterus were cleared, the myomectomy was initiated. The device was used to remove strips of the fibroid at a time. A 3000cc bag of fluid was used and the under the buttock drape was noted to have over 2500 cc within it. The floor was also covered in fluid and sopped up by the attending nurses. At this point 99% of the fibroid was removed. A second bag was hung and in the meantime a polyp forceps device was used to remove a large chunk of the fibroid manually. A second look with the hysteroscope showed only a small amount of the fibroid still present and this was removed with the symphion. The tissue was all sent to pathology. All instruments were removed from the vagina and excellent hemostasis was noted. Patient was awoken and taken to recovery in stable condition. Surgical Findings: polyp like structures in the endometrium and one large submucosal fibroid, occupying the entirety of the right side of the uterus Complications Complications: No Admit VTE Documentation VTE Present on Admission: No VTE Mechan Device Prophylaxis: SCD's VTE Pharm Prophylaxis ordered?: No
--- NOTE | 2024-09-17 16:21 | POSTOPAN2_ITS ---
Anesthesia Postop Eval I Sum Postop Eval Completion status Anesthesia document: Postop Eval 1 completed: Yes Anesthesia Postop Eval I Summary Anesthesia Postop Eval I Summary: Anesthesia Postop Eval I: Assessment Summary Airway patent Yes 09/17/24 15:52 SURFACE TO AIR WEAPONS OFFICER.LMIL Spontaneous unlabored Yes 09/17/24 15:52 SURFACE TO AIR WEAPONS OFFICER.LMIL respirations Mental status Awake,Calm 09/17/24 15:52 SURFACE TO AIR WEAPONS OFFICER.LMIL nausea No 09/17/24 15:52 SURFACE TO AIR WEAPONS OFFICER.LMIL Vomiting No 09/17/24 15:52 SURFACE TO AIR WEAPONS OFFICER.LMIL Anesthesia Postop Eval I: Fluid Summary Crystalloid volume administer 600 09/17/24 15:52 SURFACE TO AIR WEAPONS OFFICER.LMIL (ml) Colloids volume administered ( ml) Blood Product volume administered (ml) Total IV fluid infused 600 09/17/24 15:52 SURFACE TO AIR WEAPONS OFFICER.LMIL Anesthesia Postop Eval I: Summary Notes Anesthesia Complication No 09/17/24 15:52 SURFACE TO AIR WEAPONS OFFICER.LMIL Anesthesia Complication Comment: Post-operative progress note Anesthesia: Postop Eval II Evaluation Mental status: Awake and Calm Pain Level: 0 nausea: No Vomiting: No Complications Anesthesia Complication: No
--- NOTE | 2024-09-17 16:21 | PCM.POSTANE2 ---
Anesthesia Postop Eval I Sum Postop Eval Completion status Anesthesia document: Postop Eval 1 completed: Yes Anesthesia Postop Eval I Summary Anesthesia Postop Eval I Summary: Anesthesia Postop Eval I: Assessment Summary Airway patent Yes 09/17/24 15:52 FOOD SAFETY OFFICER.LMIL Spontaneous unlabored Yes 09/17/24 15:52 FOOD SAFETY OFFICER.LMIL respirations Mental status Awake,Calm 09/17/24 15:52 FOOD SAFETY OFFICER.LMIL nausea No 09/17/24 15:52 FOOD SAFETY OFFICER.LMIL Vomiting No 09/17/24 15:52 FOOD SAFETY OFFICER.LMIL Anesthesia Postop Eval I: Fluid Summary Crystalloid volume administer 600 09/17/24 15:52 FOOD SAFETY OFFICER.LMIL (ml) Colloids volume administered ( ml) Blood Product volume administered (ml) Total IV fluid infused 600 09/17/24 15:52 FOOD SAFETY OFFICER.LMIL Anesthesia Postop Eval I: Summary Notes Anesthesia Complication No 09/17/24 15:52 FOOD SAFETY OFFICER.LMIL Anesthesia Complication Comment: Post-operative progress note Anesthesia: Postop Eval II Evaluation Mental status: Awake and Calm Pain Level: 0 nausea: No Vomiting: No Complications Anesthesia Complication: No
== END 2024-09-17 17:10 | disposition home or self-care (01) ==
LOC: SDC 13:24 → AC 13:25
PROVIDERS: PCP Family Medicine; Referring Provider Obstetrics & Gynecology; Visit Provider Obstetrics & Gynecology
PROC: 0UB98ZZ Excision of Uterus, Via Natural or Artificial Opening Endoscopic (ICD-10-PCS; CPT 58558; principal; 2024-09-17 14:40)
DX: N94.6 Dysmenorrhea, unspecified (principal); N92.0 Excessive and frequent menstruation with regular cycle
CPT/HCPCS: 58558; 00952; 81025; 85027; 86850; 86900; 86901; 88305; J2405

== ENCOUNTER → 2024-10-28 | Outpatient (CLI) | payer OTHER, SELFPAY ==
--- NOTE | 2024-10-28 14:35 | BI_ITS ---
EXAM: SCRN MAMM (CAD)W/PITO BILAT DATE: 10/28/2024 CLINICAL HISTORY: F, Age 38 y/o , SCREEN BREAST CANCER RISK ASSESSMENT: Has not been calculated TECHNIQUE: SCRN MAMM (CAD)W/PITO BILAT COMPARISON: Prior exam(s) dated 10/17/2023. FINDINGS: TISSUE DENSITY: The breast tissue is almost entirely fatty. Bilateral Breast Mammographic Findings: A stable 9 mm partially obscured isodense mass is seen in the retroareolar region, slightly superior, far anterior aspect of the right breast. No suspicious masses, suspicious cluster of microcalcifications, architectural distortion or secondary signs of malignancy is identified in either breast. BI/SCRN MAMM (CAD)W/PITO BILAT IMPRESSION: Benign screening mammogram. OVERALL FINAL ASSESSMENT BI-RADS 2: BENIGN RECOMMEND ANNUAL MAMMOGRAPHIC SCREENING. RECOMMENDATION: OTHER. Patient should return at the age of 40 for routine year ly screening mammography unless her referring physician would like for her to return earlier. A letter with findings and recommendations will be mailed to the patient. Reading Location: [id number]
--- OUTSIDE RECORDS SUMMARY | 2024-10-28 22:59 | XMS RPT_ITS | CCD ---
Author Organization [facility] Care Team Providers Care Husker Operator Name Role Phone Dr. Yong Cage Primary Care Provider [phone] Yong Cage Referring Provider ALENA Marie Attending Provider Dr. Yong Cage MD Primary Care Provider Dr. Yong Cage MD Referring Provider [phone] Susi Hanley Attending Provider Susi Hanley Referring Provider Dr. Yong Cage MD Attending Provider Pepe TAYLOR, Dr. Rossi Attending Provider Dr. Flo Cantu DO Other Provider Pepe TAYLOR, Dr. Rossi Referring Provider Viviane HAZARDOUS SUBSTANCES ENGINEER-C, Meg Attending Provider Viviane HAZARDOUS SUBSTANCES ENGINEER-C, Meg Primary Care Provider [place] HAZARDOUS SUBSTANCES ENGINEER-C, Meg Referring Provider Kong AMARO, Dr. Shane Attending Provider oKng AMARO, Dr. Shane Referring Provider Tc Marie Attending Provider Niles AMARO, Dr. Beach Primary Care Provider Susi Hanley Attending Provider Dr. Yong Cage MD Referring Provider [phone] Soha Gaspar DO, Dr. Goldman Attending Provider Soha Gaspar DO, Dr. Goldman Referring Provider Niles AMARO, Dr. Beach Primary Care Provider [phone] Niles AMARO, Dr. Beach Referring Provider Soha Gaspar DO, Dr. Goldman Other Provider [phone] Niles AMARO, Dr. Beach Primary Care Provider Niles AMARO, Dr. Beach Referring Provider ePpe TAYLOR, Dr. Rossi Attending Provider Friend, Flo Attending Unavailable Cage, Yong Referring Unavailable Cage, Yong Primary Care Unavailable Vande Velde, Susi Attending Unavailabl e Cage, Yong Referring Unavailable Cage, Yong Primary Care Unavailable Vande Velde, Susi Attending Unavailabl e Vande Velde, Susi Consulting Unavailabl e Cage, Yong Primary Care Unavailable Vande Velde, Susi Referring Unavailabl e Friend, Flo Referring Unavailable Friend, Flo Attending Unavailable Cage, Yong Primary Care Unavailable Tito HAZARDOUS SUBSTANCES ENGINEER, Aria Attending Unavailable Cage, Yong Primary Care Unavailable UmerSusi Attending Unavailable Cage, Yong Primary Care Unavailable VivianeMeg Referring Unavailable VivianeMeg Attending Unavailable Cage, Yong Primary Care Unavailable Tc Marie Attending Unavailable VivianeJuanitay Primary Care Unavailable Vande Velde, Susi Attending Unavailabl e Cage, Yong Primary Care Unavailable Vande Velde, Susi Referring Unavailabl e Vande Velde, Susi Attending Unavailabl e Cage, Yong Primary Care Unavailable Vande Velde, Susi Referring Unavailabl e Cage, Yong Referring Unavailable Umer, Susi Attending Unavailable Cage, Yong Primary Care Unavailable Friend, Flo Attending Unavailable Cage, Yong Referring Unavailable Cage, Yong Primary Care Unavailable Vande Velde, Susi Attending Unavailabl e Cage, Yong Primary Care Unavailable Cage, Yong Referring Unavailable Friend, Flo Attending Unavailable Cage, Yong Referring Unavailable Cage, Yong Primary Care Unavailable Cage, Yong Primary Care Unavailable VivianeMeg Attending Unavailable Cage, Yong Referring Unavailable Cage, Yong Referring Unavailable Vande Velde, Susi Attending Unavailnoemí e Cage, Yong Primary Care Unavailable FriendFlo Attending Unavailable FriendFlo Consulting Unavailable Cage, Yong Referring Unavailable Cage, Yong Primary Care Unavailable Tc Marie Attending Unavailable Viviane, Meg Primary Care Unavailable Viviane, Meg Referring Unavailable Umer, Susi Referring Unavailable Umer, Susi Attending Unavailable Cage, Yong Primary Care Unavailable Cage, Yong Referring Unavailable Cage, Yong Attending Unavailable Cage, Yong Primary Care Unavailable [place]ki, Svitlana Referring Unavailable [place], Svitlana Attending Unavailable [place], Meg Primary Care Unavailable [place], Meg Primary Care Unavailable Viviane, Meg Referring Unavailable Viviane, Meg Attending Unavailable Viviane HAZARDOUS SUBSTANCES ENGINEER-C, Meg Primary Care Provider Viviane HAZARDOUS SUBSTANCES ENGINEER-C, Meg Referring Provider Niles AMARO, Dr. Beach Primary Care Provider Dr. Yong Cage MD Referring Provider [phone] Flo TAYLOR Attending Provider Viviane HAZARDOUS SUBSTANCES ENGINEER-C, Meg Attending Provider [phone] Medications Current Medications Medication Drug Class(es) Dates Sig (Normalized) Sig (Original) Cranberry Fruit Concentrate (6 sources) Non-Standardized Food Allergenic Extract, Non-Standardized Plant Allergenic Extract Start: 06-24-2024 take 1 tablet by mouth three times daily Cranberry Fruit Concentrate (Azo Cranberry) 250 mg tablet,chewable Active 250 mg PO THREE TIMES A DAY June 24, 2024 1:00am estradiol 0.1 mg/ml vaginal cream (1 source) Estrogen Start: 10-28-2024 Estradiol 0.01 % (0.1 mg/gram) cream Active 0 VAGINAL TWICE A WEEK 42.5 October 28, 2024 12:00am vaginally twice a week; pea size amount Multivitamin preparation (3 sources) Start: 01-07-2021 take 1 tablet by mouth once daily Multivitamin Active 1 TABLET PO DAILY January 07, 2021 12:00am Start: 01-07-2021 take 1 tablet by bertram once daily Multivitamin Active 1 TABLET PO DAILY January 06, 2021 11:00pm Multivitamin Tablet (6 sources) Start: 01-07-2021 Multivitamin T ablet Active 1 {tbl} PO DAILY January 07, 2021 12:00am Completed/Discontinued Medications Medication Drug Class(es) Dates Sig (Normalized) Sig (Original) acetaminophen 325 mg / oxyCODONE hydrochloride 5 mg oral tablet (3 sources) Opioid Agonist Start: 09-17-2024 End: 09-27-2024 Oxycodone-Acetamin ophen (Percocet) 5-325 mg tablet Discontinued 1 {tbl} PO Q4H as needed for pain 7 September 17, 2024 September 27, 2024 8:51am amoxicillin 500 mg oral capsule (8 sources) Penicillin-class Antibacterial Start: 07-07-2022 End: 07-17-2022 take 1 capsule by mouth three times daily Amoxicillin 500 mg capsule Discontinued 500 mg PO THREE TIMES A DAY 30 July 07, 2022 1:00am July 16, 2022 1:00am July 17, 2022 1:04am calcium ascorbate 500 mg oral tablet (6 sources) Start: 03-07-2023 End: 03-25-2024 take 1 tablet by mouth once daily Ascorbate Calcium (Vitamin C) 500 mg tablet Discontinued 500 mg PO DAILY March 07, 2023 12:00am March 25, 2024 4:52pm cephalexin 250 mg oral capsule (2 sources) Cephalosporin Antibacterial Start: 09-27-2024 End: 10-16-2024 take 1 capsule by mouth once daily Cephalexin 250 mg capsule Discontinued 250 mg PO DAILY September 27, 2024 12:00am October 16, 2024 10:07am doxycycline monohydrate 100 mg oral capsule (6 sources) Tetracycline-class Drug Start: 07-02-2024 End: 07-09-2024 take 1 capsule by mouth twice daily Doxycycline Monohydrate 100 mg capsule Discontinued 100 mg PO TWICE A DAY 14 July 02, 2024 1:00am July 08, 2024 1:00am July 09, 2024 1:11am 21 day ethinyl estradiol 0.103484 mg/hr / etonogestrel 0.005 mg/hr vaginal system (9 sources) Progestin, Estrogen Start: 06-30-2021 End: 03-07-2023 Etonogestrel-Ethin yl Estradiol (Nuvaring) 0.12-0.015 mg/24 hr ring Discontinued 1 NMA VAGINAL every 4 weeks 3 June 30, 2021 1:00am March 07, 2023 2:49pm Start: 06-30-2021 Etonogestrel-E thinyl Estradiol (Nuvaring) 0.12-0.015 mg/24 hr ring Active 1 VAG RING VAGINAL every 4 weeks 3 June 30, 2021 1:00am Norgestimate-Ethinyl Estradiol (18 sources) Progestin, Estrogen Start: 01-07-2021 End: 06-30-2021 Norgestimate-Ethinyl Estradiol (Estarylla) 0.25-35 mg-mcg tablet Discontinued 1 {tbl} PO DAILY January 07, 2021 12:00am June 30, 2021 3:23pm Start: 01-07-2021 End: 06-30-2021 take 1 tablet by mouth once daily Norgestimate-Ethinyl Estradiol (Estarylla) 0.25-35 mg-mcg tablet Discontinued 1 TABLET PO DAILY January 07, 2021 12:00am June 30, 2021 3:23pm Start: 01-07-2021 End: 06-30-2021 take 1 tablet by mouth once daily Norgestimate-Ethinyl Estradiol (Estarylla) 0.25-35 mg-mcg tablet Discontinued 1 TABLET PO DAILY January 06, 2021 11:00pm June 30, 2021 2:23pm Start: 01-30-2020 End: 07-16-2020 take 1 tablet by mouth once daily Norgestimate-Ethinyl Estradiol (Sprintec (28)) 0.25-35 mg-mcg tablet Discontinued 1 {tbl} PO daily January 30, 2020 12:00am July 16, 2020 8:37am active pills only for continuous cycling Start: 01-30-2020 End: 07-16-2020 take 1 tablet by mouth once daily Norgestimate-Ethinyl Estradiol (Sprintec (28)) 0.25-35 mg-mcg tablet Discontinued 1 TABLET PO daily January 30, 2020 12:00am July 16, 2020 8:37am active pills only for continuous cycling Start: 01-30-2020 End: 07-16-2020 take 1 tablet by mouth once daily Norgestimate-Ethinyl Estradiol (Sprintec (28)) 0.25-35 mg-mcg tablet Discontinued 1 TABLET PO daily January 29, 2020 11:00pm July 16, 2020 7:37am active pills only for continuous cycling ibuprofen 800 mg oral tablet (3 sources) Nonsteroidal Anti-inflammatory Drug Start: 09-17-2024 End: 09-27-2024 take 1 tablet by mouth every eight hours as needed for pain Ibuprofen 800 mg tablet Discontinued 800 mg PO Q8H as needed for pain September 17, 2024 12:00am September 27, 2024 8:51am metroNIDAZOLE (6 sources) Nitroimidazole Antimicrobial Start: 06-24-2024 End: 06-29-2024 Metronidazole 0.75 % (37.5mg/5 gram) gel Discontinued 1 NMA VAGINAL DAILY 70 5 June 24, 2024 1:00am June 28, 2024 1:00am June 29, 2024 1:22am psyllium 3400 mg powder for oral suspension (6 sources) Start: 06-24-2024 End: 10-16-2024 Psyllium Husk (Metamucil) 3.4 gram/5.4 gram powder Discontinued 1 tbsp PO daily June 24, 2024 1:00am October 16, 2024 10:07am mix into at least 8 oz of water or juice before administering RABEprazole sodium 20 mg delayed release oral tablet (12 sources) Proton Pump Inhibitor Start: 03-25-2024 End: 05-22-2024 take 1 tablet by mouth once daily Rabeprazole 20 mg tablet,delayed release (DR/EC) Discontinued 20 mg PO daily March 25, 2024 5:23pm May 22, 2024 1:17pm Problems Active Problems Problem Classification Problem Date Documented Da te Episodic/Chronic Abdominal pain (20 sources) Left upper quadrant pain; Translations: [Left upper quadrant pain] Onset: 03-25-2024 03-25-2024 Episodic Allergic reactions (2 sources) Allergy to food additive; Translations: [Food additives allergy status] 10-16-2024 Episodic Benign neoplasm of uterus (9 sources) Submucous leiomyoma of uterus; Translations: [Submucous leiomyoma of uterus] Onset: 07-31-2024 09-17-2024 Episodic Cancer of cervix (6 sources) Atypical squamous cells of undetermined significance on cervical Papanicolaou smear; Translations: [Atypical squamous cells of undetermined significance on cytologic smear of cervix (ASC-US)] 07-01-2024 Episodic Comment on above: ASCUS pap, neg HPV. rpt 3 years (2027) Contraceptive and procreative management (3 sources) Patient encounter status; Translations: [Encounter for contraceptive management, unspecified] 06-30-2021 Episodic Esophageal disorders (15 sources) Eosinophilic esophagitis; Translations: [Eosinophilic esophagitis] Onset: 12-16-2023 06-21-2024 Chronic Menstrual disorders (19 sources) Menorrhagia; Translations: [Excessive and frequent menstruation with regular cycle] Onset: 10-07-2024 09-04-2024 Chronic Nonspecific chest pain (9 sources) Chest pain; Translations: [Chest pain, unspecified] 05-24-2022 Episodic Other diseases of veins and lymphatics (9 sources) Peripheral venous insufficiency; Translations: [Venous insufficiency (chronic) (peripheral)] 06-30-2021 Episodic Comment on above: surgery 2020 Other female genital disorders (5 sources) Vaginal odor; Translations: [Other specified noninflammatory disorders of vagina] 06-24-2024 Episodic Other gastrointestinal disorders (16 sources) Stool finding; Translations: [Other fecal abnormalities] 03-28-2024 Episodic Other gastrointestinal disorders (11 sources) Heartburn; Translations: [Heartburn] 03-25-2024 Episodic Other gastrointestinal disorders (11 sources) Diarrhea; Translations: [Diarrhea, unspecified] 03-25-2024 Episodic Other gastrointestinal disorders (11 sources) Abdominal bloating; Translations: [Abdominal distension (gaseous)] 03-25-2024 Episodic Other screening for suspected conditions (not mental disorders or infectious disease) (2 sources) Encounter for screening mammogram for malignant neoplasm of breast; Translations: [Encounter for screening for malignant neoplasm of cervix] Onset: 06-24-2024 Episodic Residual codes; unclassified (5 sources) Past history of procedure; Translations: [Other specified postprocedural states] Onset: 09-05-2024 09-17-2024 Episodic Comment on above: robotic hyst myomectomy, D&C Urinary tract infections (12 sources) Recurrent urinary tract infection; Translations: [Urinary tract infection, site not specified] Onset: 07-25-2024 06-24-2024 Episodic Comment on above: seeing urology Varicose veins of lower extremity (9 sources) Venous varices; Translations: [Varicose veins of unspecified lower extremity with inflammation] 03-23-2021 Episodic Past or Other Problems Problem Classification Problem Date Documented Da te Episodic/Chronic Genitourinary symptoms and ill-defined conditions (1 source) Frequency of micturition; Translations: [Frequency of micturition] Onset: 05-13-2024 Episodic Other female genital disorders (1 source) Other specified noninflammatory disorders of vagina; Translations: [Other specified noninflammatory disorders of vagina] Onset: 07-05-2024 Episodic Other gastrointestinal disorders (2 sources) Other fecal abnormalities; Translations: [Other fecal abnormalities] Onset: 06-11-2024 Episodic Other gastrointestinal disorders (2 sources) Heartburn; Translations: [Heartburn] Onset: 04-29-2024 Episodic Other gastrointestinal disorders (2 sources) Abdominal distension (gaseous); Translations: [Abdominal distension (gaseous)] Onset: 03-25-2024 Episodic Other gastrointestinal disorders (1 source) Functional diarrhea; Translations: [Functional diarrhea] Onset: 06-11-2024 Episodic Other gastrointestinal disorders (1 source) Diarrhea, unspecified; Translations: [Diarrhea, unspecified] Onset: 04-23-2024 Episodic Results Test Name Value Interpretation Reference Range Facility Gastroenterology Visit Repor ton 10-16-2024 Gastroenterology Visit Report [facility] [address] [place] [address] OFFICE VISIT Date of Service: 10/16/24 MR#: [id number] Acct: [id number] Name: CHUNG MENDOZA Rep #: [id number] : 1985 Provider: Flo Cantu DO Age/Sex: 38/F Location: [facility] Status: Signed Intake Vital Signs 06/19/24 12:00 09/27/24 08:49 Height 5 ft 10 in 5 ft 10 in Intake Visit Reasons: 4 M FU Allergies No Known Allergies Allergy (Verified 09/27/24 08:47) Medications ???Medication ???Instructions ???Recorded ???Confirmed ???Type multivitamin 1 tab PO DAILY 01/07/21 10/16/24 H istory cranberry fruit concentrate 250 mg 250 mg PO TID 06/24/24 10/16/24 History chewable tablet (Azo Cranberry) PFSH Medical History Dietary restriction Celiac disease Varicose veins with inflammation Chronic venous insufficiency Leg cramps History of pain when walking History of edema Wears glasses Wears contact lenses Gastric reflux Non-smoker Surgical History History of esophagogastroduodenoscop y (EGD) History of colonoscopy Previous section Family History Father History of deep vein thrombophlebitis of lower extremity Social History number of children: 2 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 OV 11.18.24 abd US 11..24 No acute sonographic abnormality is demonstrated in the abdomen. EGD and Colonoscopy 05.23.24 EGD Esophageal mucosal changes consistent with eosinophilic esophagitis. Small hiatal hernia. No gross lesions in the first portion of the duodenum. Biopsies were taken with a cold forceps for evaluation of eosinophilic esophagitis. colonoscopy Congested mucosa in the sigmoid colon, in the transverse colon and in the ascending colon. Biopsied. The examined portion of the ileum was normal. Biopsied. OV 2.14. pt reports that she has been taking fiber and a probiotic and is having a bm daily. Pt reports gas and bloating after eating. Is having HB 3x per week; TUMS and Gaviscon are effective. abd/pelvis CT 07.05.24 No evidence of urinary obstruction. Enlarged calcified fibroid uterus. Small hiatal hernia. Small umbilical hernia. hysteroscopic myomectomy w/ Dr Land 5 OV 6.11.25 pt reports that she is doing well, is trying to avoid wheat and dairy. States that she chewed but spit out a breadstick the other day, but still thinks it affected her because she reports some difficulty swallowing after this. Would like some more information regarding dietary choices. ROS Const Constitutional: No fatigue, fever(s) or weight change ENT ENT: Positive for difficulty swallowing Gastro GI: Positive for bloating, difficulty swallowing and excessive flatus; No abdominal pain, belching, change in bowel habits, change in stool character, coffee ground emesis, constipation, cramping, diarrhea, heartburn, feeling full early, incontinent of stools, Vomiting blood/hematemesis, Blood in stool, loose stools, Black,tarry stools, nausea/dyspepsia, pain with swallowing, vomiting or other Musc Musculoskeletal: No joint pain Skin Skin: No yellowing of the eye or itchy eyes Psych Psychiatric: No anxiety and No depression Endo Endocrine: No fatigue or weight change Aller/Imm Allergy/Immunologic: No itchy eyes Magan/Lymp Hematologic/Lymphatic: No easy bleeding or easy bruising Exam Const General: healthy appearing, no acute distress and well developed Nutritional Appearance: well nourished and obese Orientation: alert and oriented x3 [facility] Head: normocephalic Ears: hearing grossly normal bilaterally Mouth: moist mucous membranes Teeth and gingiva: dentition normal Eyes Conjunctivae: conjunctivae normal Sclera: sclerae normal Neck Neck: normal visual inspection, full ROM and trachea midline Resp Effort Inspection: normal respiratory effort, able to speak in complete sentences and symmetric chest movement Auscultation: Bilateral: Clear to Auscultation Cardio Rate: regular rate Rhythm: regular rhythm GI Inspection: normal to inspection Auscultation: normal bowel sounds Palpation: soft and no hepatosplenomegaly Rectal Exam: deferred Skin General: no rashes or lesions noted and turgor normal Neuro General: patient alert and patient oriented x3 Cranial Nerves: other (CN' grossly intact, non-focal exam) Cognitio (more content not included)... Normal [facility] Crosstie Inspector Office Visit Reporton 09-27-2024 Crosstie Inspector Office Visit Report [facility], [address] [place] [address] OFFICE VISIT Date of Service: 09/27/24 MR#: [id number] Acct: [id number] Name: CHUNG MENDOZA Rep #: [id number] : 1985 Provider: Dr. Susi Quinonez DO Age/Sex: 38/F Location: [facility] [place] [facility] Status: Signed Intake Vital Signs 09/04/24 10:27 09/09/24 13:12 09/27/24 08:47 09/27/24 08:49 Height 5 ft 10 in 5 ft 10 in 5 ft 10 in 5 ft 10 in Weight: 225 lb 6 oz BMI 32.3 BP 107/73 Intake Visit Reasons: 2 wk hysteroscopy symphion myomectomy Medical Associate Required: No Is patient in pain?: No Allergies No Known Allergies Allergy (Verified 09/27/24 08:47) Medications ???Medication ???Instructions ???Recorded ???Confirmed ???Type multivitamin 1 tab PO DAILY 01/07/21 09/27/24 H istory cranberry fruit concentrate 250 mg 250 mg PO TID 06/24/24 09/27/24 History chewable tablet (Azo Cranberry) psyllium husk 3.4 gram/5.4 gram 1 tbsp PO QDAY 06/24/24 09/27/24 H istory oral powder (Metamucil) cephalexin 250 mg capsule 250 mg PO DAILY #90 caps 09/27/24 09/27/24 Rx Is last menstrual period known: No Post menopausal: No Patient : No : No PFSH Medical History Dietary restriction Celiac disease Varicose veins with inflammation Chronic venous insufficiency Leg cramps History of pain when walking History of edema Wears glasses Wears contact lenses Gastric reflux Non-smoker Surgical History History of esophagogastroduodenoscop y (EGD) History of colonoscopy Previous section Family History Father History of deep vein thrombophlebitis of lower extremity Social History number of children: 2 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 Pathology was benign. History 2 Elective abortions Hx Para 2 Spontaneous abortions Hx # Term Pregnancies 2 Ectopic pregnancies Hx # Pregnancies Multiple births # of living children 2 Past Pregnancies Del. Date Name GA/Weeks Outcome Route Bth Weight Gen Labor Lgth Anesthesia Del Locatn Provider FOB 02/22/13 [place] 03/06/17 [facility] ENT: Reports system reviewed and no additional complaints, except as documented Cardio Card: Reports system reviewed and no additional complaints, except as documented Resp Resp: Denies cough, dyspnea or dyspnea on exertion GI GI: Denies abdominal pain, bloating or change in bowel habits : Denies vaginal odor or vaginal pruritus Musc Musc: Reports system reviewed and no additional complaints, except as documented Exam Const General: cooperative, healthy appearing and comfortable Resp Effort Inspection: normal respiratory effort GI Palpation: soft and nontender Rectal Exam: other Extrem General: no edema Coding Level of Care Code Off vis,est,level 3 Diagnoses Status post hysteroscopy Z98.890 Fibroids, submucosal D25.0 Assessment and Plan Assessment and Plan (1) Status post hysteroscopy: Status: Acute Comment: robotic hyst (2) Fibroids, submucosal: Status: Acute Medications: New cephalexin 250 mg PO DAILY 90 caps 4RF Plan pathology reviewed. patient wonders if her frequent uti's (6 this year) may be related to the fibroid. I do not believe that to be the case, however trying postcoital abx may help. rx given. 09/27/24 0921 Date Susi Braden Signature: Date (if applicable) CC: Normal [facility] CBC-Complete Blood Cnt No Di ffon 09-17-2024 Erythrocyte distribution width (RBC) [Ratio] 12.6 % Normal 11.6-14.6 [facility] Comment on above: Performed By: #### M , , [id number] #### [facility] [address] [place], [address] Hematocrit (Bld) [Volume fraction] 37.2 % Normal 37-47 [facility] Comment on above: Performed By: #### M , 320, [id number] #### [facility] [address] [place], [address] Hemoglobin (Bld) [Mass/Vol] 12.8 g/dL Normal 12.0-15.0 [facility] Comment on above: Performed By: #### M , , [id number] #### [facility] [address] [place], [address] MCH (RBC) [Entitic mass] 30.0 pg Normal 27.0-32.0 [facility] Comment on above: Performed By: #### M , [id number], [id number] #### [facility] [address] [place], [address] MCHC (RBC) [Mass/Vol] 34.4 g/dL Normal 32-36 [facility] Comment on above: Performed By: #### M , 00.3200, [id number] #### [facility] [address] [place], [address] MCV (RBC) [Entitic vol] 87.3 fL Normal 81-99 [facility] Comment on above: Performed By: #### M , M100.3200, [id number] #### [facility] [address] [place], [address] Platelet mean volume (Bld) [Entitic vol] 9.9 fL Normal 6.2-12.0 [facility] Comment on above: Performed By: #### M , M100.3200, [id number] #### [facility] [address] [place], [address] Platelets (Bld) [#/Vol] 269 10*3/uL Normal 150-450 [facility] Comment on above: Performed By: #### M , M100.3200, [id number] #### [facility] [address] [place], [address] RBC (Bld) [#/Vol] 4.26 10*6/uL Normal 4.2-5.4 [facility] Comment on above: Performed By: #### M , M100.3200, [id number] #### [facility] Laboratory [address] [place], [address] RDW SD 39.8 fl Normal 35.1-43.9 [facility] Comment on above: Performed By: #### M , M100.3200, L7400.0280 #### [facility] [address] [place], [address] WBC (Bld) [#/Vol] 7.7 10*3/uL Normal 4.4-11.0 [facility] Comment on above: Performed By: #### M , M100.3200, L7400.0280 #### [facility] [address] [place], [address] Discharge Instructionon 09-[address] [facility] Medical Records Department [address] [place] [address] Instructions for Home/Discharge Instructions 09/17/24 1409 MR#: [id number] Acct: [id number] Name: CHUNG MENDOZA Rep #: [id number] : 1985 38 From: Susi Land DO PCP: Dr. Yong Cage MD Status:REG [facility] Discharge Instructions Diet Discharge Diet: No restrictions DC O2, CPAP, BIPAP needs Home O2 Discharge instructions: No Dressing / Incision Discharge Activity: Return to Normal Activity, May Shower and May Take a Tub Bath (after 1 week) May resume sexual activity in: 1-2 weeks Weight Bearing Status: Weight bearing as tolerated Lifting Restrictions: none Dressing / Incision Call your doctor if you observe: Fever of 101 or Higher, Using more than 1 pad per hour, Shortness of breath and Uncontrolled pain Follow Up Care Please Follow Up With: Susi Land DO When: Call [phone] to schedule appointment. Test Results: Test results from this visit will be discussed in further detail at your follow-up appointment, if applicable. Discharge Plan Admission Primary Reason for Your Visit: hysteroscopy myomectomy Attending Provider: Susi Land Primary Care Provider: Yong Cage Instructions Print Language: [place] Discharge Orders/Prescriptions Prescriptions: New ibuprofen 800 mg tablet 800 mg PO Q8H PRN (Reason: pain) Qty: 30 0RF oxycodone-acetaminophen [Percocet] 5-325 mg tablet 1 tab PO Q4H PRN (Reason: pain) 7 Days Qty: 7 0RF Continued Azo Cranberry 250 mg tablet,chewable 250 mg PO TID Metamucil 3.4 gram/5.4 gram powder 1 tbsp PO QDAY Rx Instructions: mix into at least 8 oz of water or juice before administering multivitamin Tablet 1 tab PO DAILY Referrals / Follow Up: Yong Cage MD [Primary Care Provider] - Disposition Disposition (needs filled in before D/C Order can be placed): Home, Self Care 09/17/24 1409 Susi Land DO CC: Dr. Yong Cage MD Signed Normal [facility] Erythrocyte distribution wid th ratioOrdered By: Susi Gaspar on 09-17-2024 Erythrocyte distribution width (RBC) [Ratio] 12.6 % 11.6-14.6 [facility] Erythrocyte distribution wid th standard deviationOrdered By: Susi Gaspar on 09-17-2024 Erythrocyte distribution width (RBC) [Ratio] 39.8 fl 35.1-43.9 [facility] Hematocrit Auto (Bld) [Volum e fraction]Ordered By: Susi Chasity on 09-17-2024 Hematocrit (Bld) [Volume fraction] 37.2 % 37-47 [facility] Hemoglobin measurementOrdere d By: Susi Gaspar on 09-17-2024 Hemoglobin (Bld) [Mass/Vol] 12.8 g/dL 12.0-15.0 [facility] MCV (mean corpuscular volume ) determinationOrdered By: Susi Gaspar on 09-17-2024 MCV (RBC) [Entitic vol] 87.3 fL 81-99 [facility] MR/POSTOP.ANEon 09-17-2024 MR/POSTOP.[facility] Medical Records Department [address] [place] [address] Anesthesia Postop Eval I 09/17/24 155 MR#: [id number] Acct: [id number] Name: CHUNG MENDOZA Rep #: [id number] : 1985 38 From: Isela Castillo CRNA PCP: Dr. Yong Cage MD Status:REG SDC Y Race: C Location: [place] [address] Anesthesia: Postop Eval I Current Vital Signs Temperature: 96.9 F Pulse Rate: 66 Blood Pressure: 94/82 Respiratory Rate: 14 Pulse Ox: 93 Oxygen Delivery Method: Room Air Assessment Airway patent: Yes Spontaneous unlabored respirations: Yes Mental status: Awake and Calm nausea: No Vomiting: No Anesthesia Complication: No Fluid Hydration Crystalloid volume administer (ml): 600 Total IV fluid infused: 600 Progress Note Anesthesia document: Postop Eval 1 completed: Yes 09/17/24 1552 Date Isela Castillo CRITICAL CARE TECHNICIAN Cosigner Signature: Date CC: Signed Normal [facility] MR/[id number] 09-17-2024 MR/POSTOPAN2 [facility] Medical Records Department [address] [place] [address] Anesthesia Postop Eval II 09/17/24 1621 MR#: [id number] Acct: [id number] Name: CHUNG MENDOZA Rep #: [id number] : 1985 38 From: Fabricio Toscano MD PCP: Dr. Yong Cage MD Status:REG SDC Y Race: C Location: [facility]- Anesthesia Postop Eval I Sum Postop Eval Completion status Anesthesia document: Postop Eval 1 completed: Yes Anesthesia Postop Eval I Summary Anesthesia Postop Eval I Summary: Anesthesia Postop Eval I: Assessment Summary Airway patent Yes 09/17/24 15:52 CRITICAL CARE [email or web address].[email or web address] Spontaneous unlabored Yes 09/17/24 15:52 CRITICAL CARE TECHNICIAN.LMIL respirations Mental status Awake,Calm 09/17/24 15:52 CRITICAL CARE TECHNICIAN.LMIL nausea No 09/17/24 15:52 CRITICAL CARE TECHNICIAN.LMIL Vomiting No 09/17/24 15:52 CRITICAL CARE TECHNICIAN.LMIL Anesthesia Postop Eval I: Fluid Summary Crystalloid volume administer 600 09/17/24 15:52 CRITICAL CARE TECHNICIAN.LMIL (ml) Colloids volume administered ( ml) Blood Product volume administered (ml) Total IV fluid infused 600 09/17/24 15:52 CRITICAL CARE TECHNICIAN.LMIL Anesthesia Postop Eval I: Summary Notes Anesthesia Complication No 09/17/24 15:52 CRITICAL CARE TECHNICIAN.LMIL Anesthesia Complication Comment: Post-operative progress note Anesthesia: Postop Eval II Evaluation Mental status: Awake and Calm Pain Level: 0 nausea: No Vomiting: No Complications Anesthesia Complication: No 09/17/24 1621 Date Fabricio Toscano MD Cosigner Signature: Date CC: Signed Normal [facility] Mean corpuscular hemoglobin (MCH) determinationOrdered By: Susi Gaspar on 09-17-2024 MCH (RBC) [Entitic mass] 30.0 pg 27.0-32.0 [facility] Mean corpuscular hemoglobin concentration (MCHC) determinationOrdered By: Susi Gaspar on 09-17-2024 MCHC (RBC) [Mass/Vol] 34.4 g/dL 32-36 [facility] Mean platelet volume determi nationOrdered By: Susi Gaspar on 09-17-2024 Platelet mean volume (Bld) [Entitic vol] 9.9 fL 6.2-12.0 [facility] Operative Reporton Operative Report [facility] Medical Records Department [address] [place] [address] Operative Report 09/17/24 1601 MR#: [id number] Acct: [id number] Name: CHUNG MENDOZA Rep #: [id number] : 1985 38 From: Susi Land DO PCP: Dr. Yong Cage MD Status:[facility] Location: [place] [address] Problems Associated Problem List Diagnoses (1) Menorrhagia: (2) Dysmenorrhea: (3) Fibroids, submucosal: Multi Select Codes Urinary/Genital Urinary/Genital CPT Codes: 08020 Hysteroscopic myomectomy Operative Report (Standard) Operative Information Date of Procedure: 09/17/24 Pre-Operative Diagnosis: menorrhagia, dysmenorrhea, ultrasound finding of submucosal and intramural fibroids Post-Operative Diagnosis: menorrhagia, dysmenorrhea, ultrasound finding of submucosal and intramural fibroids Surgery/Procedure Performed: hysteroscopy, myomectomy dilation and curettage pressure supervisor: Yes Chief Transfer And Pumphouse Operator: Carmelita Ortiz Tasks completed by funeral assistant: Other (assisting with hysteroscopic device and fluid management ) Additional physician's assistant?: No Type of Anesthesia: MAC/Supplemental/Local RN Documented Start/Stop Times: Operation Date: 09/17/24 14:55 Case Time Into Pre-Op 09/17/24 13:29 Out of Pre-Op 09/17/24 14:37 Anesthesia Start 09/17/24 14:41 Into Room 09/17/24 14:41 Procedure Start 09/17/24 14:58 Procedure End 09/17/24 15:41 Anesthesia End 09/17/24 15:47 Out of Room 09/17/24 15:47 Into Recovery 09/17/24 15:48 Procedure Start Time: 14:58 Procedure Stop Time: 15:41 Select all DRAINS/GRAFTS/IMPLANTS that apply: None Estimated Blood Loss: 30cc Specimen collected: Yes Description of specimen(s) removed: endometrial curetting's suspicious for fibroids and polyps Description of surgery: Patient was prepped and draped in a normal sterile fashion under MAC anesthesia. A weighted speculum was placed in the vagina and the anterior lip of the cervix was grasped with a single-tooth tenaculum. A paracervical block was placed with 1% lidocaine. Cervix was progressively dilated to allow passage of a 5 mm hysteroscope. The lining was fully visualized and noted to have polyp like structures as well as one well defined structure resembling a submucosal fibroid and measuring about 3.5 to 4cm. The uterus sounded to 10 cm. The symphion device was inserted and was used initially to clear out polyp appearing structures before starting the myomectomy. Once the debris and tissue from the lower uterine segment and right side of the uterus were cleared, the myomectomy was initiated. The device was used to remove strips of the fibroid at a time. A 3000cc bag of fluid was used and the under the buttock drape was noted to have over 2500 cc within it. The floor was also covered in fluid and sopped up by the attending nurses. At this point 99% of the fibroid was removed. A second bag was hung and in the meantime a polyp forceps device was used to remove a large chunk of the fibroid manually. A second look with the hysteroscope showed only a small amount of the fibroid still present and this was removed with the symphion. The tissue was all sent to pathology. All instruments were removed from the vagina and excellent hemostasis was noted. Patient was awoken and taken to recovery in stable condition. Surgical Findings: polyp like structures in the endometrium and one large submucosal fibroid, occupying the entirety of the right side of the uterus Complications Complications: No Admit VTE Documentation VTE Present on Admission: No VTE Mechan Device Prophylaxis: SCD's VTE Pharm Prophylaxis ordered?: No 09/17/24 1611 Cosigner Signature (if applicable): CC: Dr. Susi Land, ; Dr. Yong Cage MD Signed Normal [facility] Platelet countOrdered By: Nasir Gaspar on 09-17-2024 Platelets (Bld) [#/Vol] 269 10*3/uL 150-450 [facility] ,Urineon 09-17-2024 Beta HCG ( test) Ql (U) Negative [facility] Comment on above: Result Comment: Very dilute urine specimens, as indicated by a low specific gravity, may not contain b2b sales representative levels of hCG. If is still suspected, a first morning urine specimen should be collected 48 hours later and tested. Performed By: #### M 100.2000, M100.3200, L7400.0280 #### [facility] [address] [place], [address] RBC Auto (Bld) [#/Vol]Ordere d By: Susi Gaspar on 09-17-2024 RBC (Bld) [#/Vol] 4.26 10*6/uL 4.2-5.4 [facility] Surgery Specimen Level Trish 09-17-2024 Surgery Specimen Level IV Patient Age/Sex Location Account Attending Physician CHUNG MENDOZA 38/F [facility] [id number] Dr. Susi Vande Velde, D Specimen: Received: 09/18/24 Status: DANIEL Coleman Num: [id number] Spec Type: ENDOM BX/C Subm Dr: Dr. Susi Land, DO [facility] OPERATION: Hysteroscopy, Isaac C, myomectomy PRE-OP DIAGNOSIS: Dysmenorrhea, menorrhagia TISSUE SUBMITTED: A- Endometrial curettings MICROSCOPIC DIAGNOSIS A. Uterus, endometrial lining, dilation and curettage: * Fragments of secretory endometrium. * Fragments of smooth muscle suggestive of leiomyoma. MICROSCOPIC DESCRIPTION Slides are reviewed. GROSS DESCRIPTION A. Received in formalin in a container labeled with the patient's name, date of , and endometrial curettings is an abundance of camarillo-pink soft tissue admixed with blood and mucus measuring 4.8 x 2.5 x 2.5 cm in aggregate. Submitted in toto in A1-10. [facility] 09-18-2024 CPT:45929 Patient Age/Sex Location Account Attending Physician RAYMONCHUNG 38/F [facility] [id number] Dr. Susi Land, Isaac Signed (signature on file) Dr. Shanice Snyder MD 09/24/24 1223 Normal [facility] Comment on above: Performed By: #### P SUIV #### [facility] [address] [facility] [place], [address] Type AND Screen - PAT ONLYon 09-17-2024 Ab SCREEN GEL Negative Normal [facility] Comment on above: Order Comment: Reaso n for Laboratory Test [id number] Performed By: #### M 100.2000, M100.3200, L7400.0280 #### [facility] [address] [place], [address] Urine testOrdered By: Susi Gaspar on 09-17-2024 HCG ( test) Ql (U) Negative [facility] Comment on above: Very dilute urine sp ecimens, as indicated by a low specificgravity, may not contain b2b sales representative levels of hCG. If is still suspected, a first morning urinespecimen should be collected 48 hours later and tested. White blood cell (WBC) count Ordered By: Susi Gaspar on 09-17-2024 WBC (Bld) [#/Vol] 7.7 10*3/uL 4.4-11.0 [facility] Crosstie Inspector Office Visit Reporton 09-04-2024 Crosstie Inspector Office Visit Report [facility] [address], [address] [place] [address] OFFICE VISIT Date of Service: 09/04/24 MR#: [id number] Acct: [id number] Name: CHUNG MENDOZA Rep #: [id number] : 1985 Provider: Dr. Susi Quinonez, Age/Sex: 38/F Location: [facility] Status: Signed Intake Vital Signs 07/15/24 11:37 09/04/24 10:26 09/04/24 10:27 Height 5 ft 10 in 5 ft 10 in 5 ft 10 in Weight: 226 lb 2 oz BMI 32.4 BP 123/74 H Intake Visit Reasons: Fibroid uterus management Medical Associate Required: No Is patient in pain?: No Allergies No Known Allergies Allergy (Verified 09/04/24 10:25) Medications ???Medication ???Instructions ???Recorded ???Confirmed ???Type multivitamin 1 tab PO DAILY 01/07/21 09/04/24 H istory cranberry fruit concentrate 250 mg 250 mg PO TID 06/24/24 09/04/24 History chewable tablet (Azo Cranberry) psyllium husk 3.4 gram/5.4 gram 1 tbsp PO QDAY 06/24/24 09/04/24 H istory oral powder (Metamucil) Post menopausal: No Patient : No : No PFSH Medical History Varicose veins with inflammation Chronic venous insufficiency Leg cramps History of pain when walking History of edema Wears glasses Wears contact lenses Gastric reflux Non-smoker Surgical History Previous section Family History Father History of deep vein thrombophlebitis of lower extremity Social History number of children: 2 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 Thinks that may be some of her back pain and also bloating. ultrasound showed the following: Uterus: 12.1 x 7.0 x 5.0 cm, Anteverted. Myometrial heterogeneity. Ill-defined hypoechoic presumed fibroids are suboptimally delineated by limited transabdominal only technique, largest measuring 3.7 x 3.4 x 3.2 cm and 2.0 x 2.3 x 1.4 cm. The latter appears submucosal projecting into the endometrial cavity. The former appears predominantly subserosal/intramural. Endometrium: Difficult to measure given distortion related to the above submucosal lesion, roughly 8 mm with echogenic secretory appearance. Cervix: Grossly unremarkable limited transabdominal appearance. Right ovary: Nonvisualized. Left ovary: 2.6 x 2.3 x 2.1 cm (estimated volume 6.7 mL), grossly unremarkable limited transabdominal appearance. Free fluid: None visualized. Other: Estimated bladder volume 523 mL.. US/Pelvic (Non ) IMPRESSION: 1. Presumed uterine fibroids up to 3.7 cm, suboptimally delineated by limited transabdominal only technique. Notably, a 2.3 cm lesion appears mucosal and projects into the endometrium. An atypical hypoechoic appearance of an endometrial polyp is an additional consideration. Clinical follow-up recommended. 2. Heterogeneous myometrium may correspond to some degree of adenomyosis. 3. RIGHT ovary not visualized. 4. Additional description as above. History 2 Elective abortions Hx Para 2 Spontaneous abortions Hx # Term Pregnancies 2 Ectopic pregnancies Hx # Pregnancies Multiple births # of living children 2 Past Pregnancies Del. Date Name GA/Weeks Outcome Route Bth Weight Infant Gen Labor Lgth Anesthesia Del Locatn Provider FOB 02/22/13 [place] 03/06/17 [place] ROS Const ROS Unobtainable: All systems reviewed are unremarkable except as noted in H Resp Resp: Reports system reviewed and no additional complaints, except as documented; Denies cough GI GI: Reports as per HPI Psych Psych: Reports system reviewed and no additional complaints, except as documented Exam Const General: cooperative, healthy appearing, comfortable and no acute distress Resp Effort Inspection: normal respiratory effort Skin General: no rashes or lesions noted Psych Appearance: grossly normal Speech and Movement: speech and movement normal Coding Level of Care Code Off vis,est,level 4 Diagnoses Dysmenorrhea N94.6 Menorrhagia N92.0 Assessment and Plan Assessment and Plan (1) Dysmenorrhea: Status: Acute (2) Menorrhagia: Status: Acute Plan after a discussion about the findings on the ultrasound of submucosal fibroid and discussing (more content not included)... Normal [facility] Pelvic (Non )on 07-06 Pelvic (Non ) [facility] Imaging Services [address] [place], [place] [id number] Pelvic (Non ) MR#: [id number] Acct: [id number] Name: CHUNG MENDOZA Rep #: [id number] : 1985 F 38 From: Suresh Hernandez MD PCP: Dr. Yong Cage MD Status: REG CLI Study: Pelvic (Non ) Date of Exam: 07/23/24 Exam# [id number] Ordering Dr: Susi Land DO PROCEDURE: PELVIC (NON ) (USP), 07/23/2024 REASON FOR EXAM: FIBROID UTERUS TECHNIQUE: Grayscale and color doppler transabdominal pelvic ultrasound was performed. COMPARISON: 07/05/2024 FINDINGS: Limited transabdominal only exam. Uterus: 12.1 x 7.0 x 5.0 cm, Anteverted. Myometrial heterogeneity. Ill-defined hypoechoic presumed fibroids are suboptimally delineated by limited transabdominal only technique, largest measuring 3.7 x 3.4 x 3.2 cm and 2.0 x 2.3 x 1.4 cm. The latter appears submucosal projecting into the endometrial cavity. The former appears predominantly subserosal/intramural. Endometrium: Difficult to measure given distortion related to the above submucosal lesion, roughly 8 mm with echogenic secretory appearance. Cervix: Grossly unremarkable limited transabdominal appearance. Right ovary: Nonvisualized. Left ovary: 2.6 x 2.3 x 2.1 cm (estimated volume 6.7 mL), grossly unremarkable limited transabdominal appearance. Free fluid: None visualized. Other: Estimated bladder volume 523 mL.. US/Pelvic (Non ) IMPRESSION: 1. Presumed uterine fibroids up to 3.7 cm, suboptimally delineated by limited transabdominal only technique. Notably, a 2.3 cm lesion appears mucosal and projects into the endometrium. An atypical hypoechoic appearance of an endometrial polyp is an additional consideration. Clinical follow-up recommended. 2. Heterogeneous myometrium may correspond to some degree of adenomyosis. 3. RIGHT ovary not visualized. 4. Additional description as above. Reading Location: [id number] CC: Dr. Susi Land DO; Dr. Yong Cage MD Cereal Maker: Signed Normal [facility] Urine Cultureon 07-16-2024 URC Mixed Gram Pos Gram Neg Org [place] Count 25,000-50,000 MIXC Mixed contaminants. Submit a new specimen if indicated. Normal [facility] Comment on above: Performed By: #### M 100.4838 #### [facility] [address] [address], [address] Laboratory - Chemistry and C hemistry - challengeOrdered By: Tc Jacques on 07-15-2024 HCG ( test) Ql (U) Negative [facility] Bilirubin Ql (U) Negative [facility] Glucose Ql (U) Negative [facility] Ketones Ql (U) Negative [facility] pH (U) 6.5 [pH] [facility] Specific gravity (U) [Rel density] 1.010 [facility] Urobilinogen (U) [Mass/Vol] 0.7437042 mg/dL [facility] Laboratory - Hematology and Cell countsOrdered By: Tc Jacques on 07-15-2024 Hemoglobin Ql (U) Moderate [facility] Laboratory - Specimen inform ationOrdered By: Tc Jacques on 07-15-2024 Clarity (U) Clear [facility] Color (U) YELLOW [facility] Laboratory - UrinalysisOrder ed By: Tc Jacques on 07-15-2024 Nitrite Ql (U) Negative [facility] Protein Ql (U) Negative [facility] No Panel InformationOrdered By: Tc Jacques on 07-15-2024 Urine Leukocytes Negatve [facility] Urine Non-Hemolyzed Blood Non-Hemolyzed [facility] Urgent Care Visit Reporton 0 07-15-2024 Urgent Care Visit Report [facility] [address], [address] [place] [address] OFFICE VISIT Date of Service: 07/15/24 MR#: [id number] Acct: [id number] Name: CHUNG MENDOZA Rep #: [id number] : 1985 Provider: ALENA Hess Age/Sex: 38/F Location: [facility] Status: Signed Intake Vital Signs 06/24/24 09:19 07/15/24 11:37 07/15/24 12:02 Height 5 ft 10 in 5 ft 10 in BP 120/68 Position Sitting Pulse 70 Temp 98 F Temp Source Oral Pulse Oximetry (%) 98 Oxygen Delivery Method room air Intake Visit Reasons: UTI SX Accompanied by: Self Allergies No Known Allergies Allergy (Verified 07/15/24 12:02) Medications ???Medication ???Instructions ???Recorded ???Confirmed ???Type multivitamin 1 tab PO DAILY 01/07/21 07/15/24 H istory cranberry fruit concentrate 250 mg 250 mg PO TID 06/24/24 07/15/24 History chewable tablet (Azo Cranberry) psyllium husk 3.4 gram/5.4 gram 1 tbsp PO QDAY 06/24/24 07/15/24 H istory oral powder (Metamucil) Nurse's Note: Patient has back pain, with odor and frequency, and burning. Patient states she also has chest pain on and off for 3 days. I advised her that we can't see her for that and she would have to go to the ER. Patient also states that she has had some numbness in her arms. 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 No complaints of fever, chills, sweats, lightheadedness/dizziness , nausea/vomiting. No changes in color/ character of urine or stool. No ioin-ktw-dgiverh products taken to assist. She notes having had abdominal CT which revealed calcified uterus, and diagnostic with celiac sprue. Currently following up with urology (Dr. Triana) though was unable to get in with her today; next follow-up with urology is 07/16/2024. No other associated symptoms and no alleviating/aggravating factors. Past medical history: Patient notes having approximately 2-year history of waxing and waning of chest pressure (without associated shortness of breath/dyspnea on exertion) and left upper extremity pain, though no such similar symptoms at this time. She notes having had a workup by her primary care physician to rule out cardiac etiology including an EKG though her stress test was denied by her insurance when erosion was worked up a couple of years ago she so states. She states her PCP treated for GERD with omeprazole which did not help and therefore stopped. ROS Const Constitutional: No other (As above) Exam Const General: cooperative, healthy appearing and no acute distress Orientation: alert, awake and oriented x3 Chest Chest palpation inspection: normal inspection of the chest Resp Effort Inspection: normal respiratory effort and able to speak in complete sentences Auscultation: Bilateral: Clear to Auscultation Cardio Palpation: normal PMI Rate: regular rate Rhythm: regular rhythm Heart Sounds: S1 normal, S2 normal, no gallops, no murmurs and no rubs Pulses: radial pulses present GI Inspection: normal to inspection Palpation: soft and tender suprapubic (Patient describes upon self-palpation) General: No CVA tenderness Skin General: no rashes or lesions noted Neuro General: patient alert, patient awake and patient oriented x3 Cognition: normal cognition Speech: speech normal Psych Appearance: grossly normal Mental Status: mental status grossly normal Mood: congruent mood Affect: normal affect Speech and Movement: speech and movement normal Attitude: cooperative Diagnoses Interstitial cystitis N30.1 Assessment and Plan Assessment and Plan (1) interstitial cystitis: Status: Acute Plan: See POC results; urine sent to lab for UA and C/S. Supportive measures as instructed today. Keep follow-up appointment with urology as previously scheduled for 07/16/2024, or report to E (more content not included)... [facility] Urine cultureOrdered By: Cassius Jacques on 07-15-2024 Bacteria identified Cx Nom (U) Mixed Gram Pos & Gram Neg Org Abnormal [facility] Allergen Resp. Area 5on 0 RAGWEED SH/COM TNP [facility] Comment on above: Order Comment: Test( s) 009721-B620-DaT Cockroach, Yemeni; 192186-B736-CcF [place], White; 374280-T074-HsE Sweet Gumwere developed and had performance characteristicsdetermined by [facility]. These tests have not been cleared orapproved by the U.S. Food and Drug Administration. The FDAhas determined that such clearance or approval is notnecessary. These tests are used for clinical purposes.These should not be regarded as investigational or forresearch. Performed By: #### M 100.8886 #### [facility] [address] [place], [address] SHEEP SORREL TNP [facility] Comment on above: Order Comment: Test( s) 968010-U917-DzY Cockroach, Yemeni; 916533-D283-LaW [place], White; 452089-C996-LtF Sweet Gumwere developed and had performance characteristicsdetermined by [facility]. These tests have not been cleared orapproved by the U.S. Food and Drug Administration. The FDAhas determined that such clearance or approval is notnecessary. These tests are used for clinical purposes.These should not be regarded as investigational or forresearch. Performed By: #### M 100.2200 #### [facility] [address] [place], [place], [id number] ALTERNARIA TEN [facility] Comment on above: Order Comment: Test( s) 399729-N848-QvF Cockroach, Yemeni; 485533-R292-WjY [place], White; 685755-C028-CiH Sweet Gumwere developed and had performance characteristicsdetermined by [facility]. These tests have not been cleared orapproved by the U.S. Food and Drug Administration. The FDAhas determined that such clearance or approval is notnecessary. These tests are used for clinical purposes.These should not be regarded as investigational or forresearch. Performed By: #### M 100.2200 #### [facility] [address] [place], [place], [id number] ASPERGILLUS FUM [place] [facility] Comment on above: Order Comment: Test( s) 783500-I848-NrE Cockroach, Yemeni; 864546-I442-TcG [place], White; 681647-F304-DoO Sweet Gumwere developed and had performance characteristicsdetermined by [facility]. These tests have not been cleared orapproved by the U.S. Food and Drug Administration. The FDAhas determined that such clearance or approval is notnecessary. These tests are used for clinical purposes.These should not be regarded as investigational or forresearch. Performed By: #### M 100.2200 #### [facility] [address] [place], [place], [id number] BERMUDA GRASS [facility] Comment on above: Order Comment: Test( s) 476560-Q701-CsR Cockroach, Yemeni; 709632-B036-QoF [place], White; 238524-O190-StM Sweet Gumwere developed and had performance characteristicsdetermined by [facility]. These tests have not been cleared orapproved by the U.S. Food and Drug Administration. The FDAhas determined that such clearance or approval is notnecessary. These tests are used for clinical purposes.These should not be regarded as investigational or forresearch. Performed By: #### M 100.2200 #### [facility] [address] [place], [address] CAT HAIR/DANDER [facility] Comment on above: Order Comment: Test( s) 015739-C557-IiY Cockroach, Yemeni; 929522-G661-NhK [place], White; 483659-F996-DuR Sweet Gumwere developed and had performance characteristicsdetermined by [facility]. These tests have not been cleared orapproved by the U.S. Food and Drug Administration. The FDAhas determined that such clearance or approval is notnecessary. These tests are used for clinical purposes.These should not be regarded as investigational or forresearch. Performed By: #### M 100.2200 #### [facility] [address] [place], [address] [facility] Comment on above: Order Comment: Test( s) 401063-S543-SvM Cockroach, Yemeni; 052361-J192-CgG [place], White; 351321-E483-UxR Sweet Gumwere developed and had performance characteristicsdetermined by [facility]. These tests have not been cleared orapproved by the U.S. Food and Drug Administration. The FDAhas determined that such clearance or approval is notnecessary. These tests are used for clinical purposes.These should not be regarded as investigational or forresearch. Performed By: #### M 100.2200 #### [facility] [address] [place], [address] D FARINAE MITE TNP [facility] Comment on above: Order Comment: Test( s) 485741-D916-RkJ Cockroach, Yemeni; 949369-J178-FqH [place], White; 882317-O011-PgB Sweet Gumwere developed and had performance characteristicsdetermined by [facility]. These tests have not been cleared orapproved by the U.S. Food and Drug Administration. The FDAhas determined that such clearance or approval is notnecessary. These tests are used for clinical purposes.These should not be regarded as investigational or forresearch. Performed By: #### M 100.2200 #### [facility] [address] [place], [address] D PTERONYSSINUS [place] [facility] Comment on above: Order Comment: Test( s) 432138-E857-EeM Cockroach, Yemeni; 049831-R068-KaK [place], White; 283939-D815-DmR Sweet Gumwere developed and had performance characteristicsdetermined by [facility]. These tests have not been cleared orapproved by the U.S. Food and Drug Administration. The FDAhas determined that such clearance or approval is notnecessary. These tests are used for clinical purposes.These should not be regarded as investigational or forresearch. Performed By: #### M 100.2200 #### [facility] [address] [place], [address] DOG EPITHELIA TNP [facility] Comment on above: Order Comment: Test( s) 263500-L802-ZgB Cockroach, Yemeni; 708335-Y523-IvG [place], White; 017698-G491-KqL Sweet Gumwere developed and had performance characteristicsdetermined by [facility]. These tests have not been cleared orapproved by the U.S. Food and Drug Administration. The FDAhas determined that such clearance or approval is notnecessary. These tests are used for clinical purposes.These should not be regarded as investigational or forresearch. Performed By: #### M 100.2200 #### [facility] [address] [place], [address] JOSE HIDALGO [facility] Comment on above: Order Comment: Test( s) 008524-C982-AbE Cockroach, Yemeni; 147135-F123-UyQ [place], White; 264373-L707-WyX Sweet Gumwere developed and had performance characteristicsdetermined by [facility]. These tests have not been cleared orapproved by the U.S. Food and Drug Administration. The FDAhas determined that such clearance or approval is notnecessary. These tests are used for clinical purposes.These should not be regarded as investigational or forresearch. Performed By: #### M 100.2200 #### [facility] [address] [place], [address] MAPLE/BOX ELDER [facility] Comment on above: Order Comment: Test( s) 957266-N633-QpR Cockroach, Yemeni; 186174-R753-NxT [place], White; 295177-O879-DfE Sweet Gumwere developed and had performance characteristicsdetermined by [facility]. These tests have not been cleared orapproved by the U.S. Food and Drug Administration. The FDAhas determined that such clearance or approval is notnecessary. These tests are used for clinical purposes.These should not be regarded as investigational or forresearch. Performed By: #### M 100.2200 #### [facility] [address] [place], [address] [place] [facility] Comment on above: Order Comment: Test( s) 990823-D147-YfI Cockroach, Yemeni; 096577-Z533-OtK [place], White; 622730-P041-JvL Sweet Gumwere developed and had performance characteristicsdetermined by [facility]. These tests have not been cleared orapproved by the U.S. Food and Drug Administration. The FDAhas determined that such clearance or approval is notnecessary. These tests are used for clinical purposes.These should not be regarded as investigational or forresearch. Performed By: #### M 100.2200 #### [facility] [address] [place], [address] Mouse Urine TNP [facility] Comment on above: Order Comment: Test( s) 373626-H274-DqV Cockroach, Yemeni; 277595-E844-WeK [place], White; 277486-J099-RaC Sweet Gumwere developed and had performance characteristicsdetermined by [facility]. These tests have not been cleared orapproved by the U.S. Food and Drug Administration. The FDAhas determined that such clearance or approval is notnecessary. These tests are used for clinical purposes.These should not be regarded as investigational or forresearch. Performed By: #### M 100.2200 #### [facility] [address] [place], [address] MULBERRY,WHITE TNP [facility] Comment on above: Order Comment: Test( s) 285421-J138-TlV Cockroach, Yemeni; 527142-O896-RgE [place], White; 450907-R148-MnA Sweet Gumwere developed and had performance characteristicsdetermined by [facility]. These tests have not been cleared orapproved by the U.S. Food and Drug Administration. The FDAhas determined that such clearance or approval is notnecessary. These tests are used for clinical purposes.These should not be regarded as investigational or forresearch. Performed By: #### M 100.2200 #### [facility] [address] [place], [address] OAK, WHITE TNP [facility] Comment on above: Order Comment: Test( s) 518431-P046-AcZ Cockroach, Yemeni; 249340-J602-AmQ [place], White; 245988-U802-GaU Sweet Gumwere developed and had performance characteristicsdetermined by [facility]. These tests have not been cleared orapproved by the U.S. Food and Drug Administration. The FDAhas determined that such clearance or approval is notnecessary. These tests are used for clinical purposes.These should not be regarded as investigational or forresearch. Performed By: #### M 100.2200 #### [facility] [address] [place], [address] PEN NOTATUM TNP [facility] Comment on above: Order Comment: Test( s) 854756-R064-HaU Cockroach, Yemeni; 954226-X285-FcT [place], White; 292095-B165-TyJ Sweet Gumwere developed and had performance characteristicsdetermined by [facility]. These tests have not been cleared orapproved by the U.S. Food and Drug Administration. The FDAhas determined that such clearance or approval is notnecessary. These tests are used for clinical purposes.These should not be regarded as investigational or forresearch. Performed By: #### M 100.2200 #### [facility] [address] [place], [address] PIGWEED, ROUGH TNP [facility] Comment on above: Order Comment: Test( s) 484229-T581-TtU Cockroach, Yemeni; 136284-C915-EkF [place], White; 864969-N356-AdM Sweet Gumwere developed and had performance characteristicsdetermined by [facility]. These tests have not been cleared orapproved by the U.S. Food and Drug Administration. The FDAhas determined that such clearance or approval is notnecessary. These tests are used for clinical purposes.These should not be regarded as investigational or forresearch. Performed By: #### M 100.2200 #### [facility] [address] [place], [address] SYCAMORE, AMER TNP [facility] Comment on above: Order Comment: Test( s) 087897-M491-VvM Cockroach, Yemeni; 825988-Q435-ObJ [place], White; 560355-C340-XjM Alberto Farah developed and had performance characteristicsdetermined by [employer]. These tests have not been cleared orapproved by the U.S. Food and Drug Administration. The FDAhas determined that such clearance or approval is notnecessary. These tests are used for clinical purposes.These should not be regarded as investigational or forresearch. Performed By: #### M 100.2200 #### [facility] [address] [facility] [place], [place], [address] CT Abd/Pelvis W/WO Contrasto n 07-05-2024 CT Abd/Pelvis W/WO Contrast [facility] [address] [place], [place] [address] CT Abd/Pelvis W/WO Contrast MR#: [id number] Acct: [id number] Name: CHUNG MENDOZA Rep #: [id number] : 1985 F 38 From: Abundio bradley MD PCP: ELOY Galarza Status: REG CLI Study: CT Abd/Pelvis W/WO Contrast Date of Exam: 06/09 12/30 Exam# [id number] Ordering Dr: Svitlana Triana MD PROCEDURE: CT ABD/PELVIS W/WO CONTRAST REASON FOR EXAM: Left flank pain. UTI. TECHNIQUE: Abdomen and pelvis CT with intravenous contrast. IV CONTRAST: 100 cc of Isovue-300. COMPARISON: None. FINDINGS: Lung bases: Clear Liver: Unremarkable. Gallbladder: Unremarkable. Spleen: Unremarkable. Pancreas: Unremarkable. Adrenals: Unremarkable. Kidneys: Unremarkable. Bladder: Unremarkable. Reproductive Organs: Enlarged calcified fibroid uterus. Bowel: Unremarkable. Small hiatal hernia. Appendix: Normal. Small umbilical hernia. Lymph nodes: No suspicious lymph node enlargement. Vasculature: Major vascular structures are unremarkable. Peritoneum / Retroperitoneum: No ascites. No free air. Bones: Unremarkable. CT/CT Abd/Pelvis W/WO Contrast IMPRESSION: No evidence of urinary obstruction. Enlarged calcified fibroid uterus. Small hiatal hernia. Small umbilical hernia. One or more dose reduction techniques were used (e.g., Automated exposure control, adjustment of the mA and/or kV according to patient size, use of iterative reconstruction technique). Reading Location: [id number] CC: ELOY Pan; Dr. Svitlana Triana MD Cereal Maker: Signed [facility] ANCAon 06-28-2024 Atypical pANCA <1:20 Normal Neg:<1:20 [facility] Comment on above: Result Comment: The atypical pANCA pattern has been observed in a significant percentage of patients with ulcerative colitis, primary sclerosing cholangitis and autoimmune hepatitis. Performed By: #### M 100.2200 #### [facility] [address] [place], [place], [id number] Cytoplasmic Ab <1:20 Normal Neg:<1:20 [facility] Comment on above: Performed By: #### M 100.2200 #### [facility] [address] [place], [address] Perinuclear Ab. <1:20 Normal Neg:<1:20 [facility] Comment on above: Result Comment: The presence of positive fluorescence exhibiting P-ANCA or C-ANCA patterns alone is not specific for the diagnosis of Antonio's Granulomatosis (WG) or microscopic polyangiitis. Decisions about treatment should not be based solely on ANCA IFA results. The International ANCA Group Consensus recommends follow up testing of positive sera with both PA- 3 and MPO-ANCA enzyme immunoassays. As many as 5% serum samples are positive only by EIA. Ref. AM J Clin Pathol 1999;111:507-513. Performed By: #### M 100.2200 #### [facility] [address] [place], [address] Celiac Disease Profileon ENDOMYSIAL IGA Negative Normal Negative [facility] Comment on above: Performed By: #### M 100.2200 #### [facility] [address] [place], [address] IMMUNOGLOB A QN 202 mg/dL Normal 87-352 [facility] Comment on above: Performed By: #### M 100.2200 #### [facility] [address] [place], [address] tTG IGA 5 U/mL Abnormal 0-3 [facility] Comment on above: Result Comment: Nega tive 0 - 3 Weak Positive 4 - 10 Positive >10 Tissue Transglutaminase (tTG) has been identified as the endomysial antigen. Studies have demonstr- ated that endomysial IgA antibodies have over 99% specificity for gluten sensitive enteropathy. Performed By: #### M 100.2200 #### [facility] [address] [place], [address] Estrogen, Total, Serumon ESTROGENS,TOTAL 406 pg/mL Normal . [facility] Comment on above: Order Comment: N Result Comment: Prep ubertal < 40 Female Cycle: 1-10 Days 16 - 328 11-20 Days 34 - 501 21-30 Days 48 - 350 Post-Menopausal 40 - 244 Performed at: [facility] [address] [id number] Nitrator Operator: Javan Burnham PhD, Phone: [phone] Performed at: [facility] [address] [id number] Nitrator Operator: Neena Purvis MD, Phone: [phone] Performed By: #### M 100.2200 #### [facility] [address] [place], [place], [address] Gastrin, Serumon 06-28-2024 GASTRIN 82 pg/mL Normal 0-115 [facility] Comment on above: Result Comment: Siem [facility] Immulite 2000 Immunochemiluminometric assay (ICMA) Values obtained with different assay methods or kits cannot be used interchangeably. Results cannot be interpreted as absolute evidence of the presence or absence of malignant disease. Performed By: #### M 100.2200 #### [facility] [address] [place], [place], [id number] Genital Culture Comprehensiv jessie 06-28-2024 VAC Reason for Exam: vag inal discharge Normal vaginal garcia isolated. No yeast, Gardnerella, Neisseria or beta-hemolytic Streptococcus isolated. [facility] Comment on above: Performed By: #### M 100.2000, M100.3200, L7400.0280 #### [facility] [address] [place], [address] IgG Subclasseson 06-28-2024 IgG, SUBCLASS 1 466 mg/dL Normal 248-810 [facility] Comment on above: Performed By: #### M 100.2200 #### [facility] [address] [place], [address] IgG, SUBCLASS 2 420 mg/dL Normal 130-555 [facility] Comment on above: Performed By: #### M 100.0 #### [facility] [address] [place], [address] IgG, SUBCLASS 3 101 mg/dL Normal 15-102 [facility] Comment on above: Performed By: #### M 100.0 #### [facility] [address] [place], [address] IgG, SUBCLASS 4 32 mg/dL Normal 2-96 [facility] Comment on above: Performed By: #### M 100.2200 #### [facility] [address] [place], [address] IGG,QUANT 1093 mg/dL Normal 586-1602 [facility] Comment on above: Performed By: #### M 100.2200 #### [facility] [address] [place], [address] L2100.0000on 06-28-2024 ACCA 21 units Normal 0-90 [facility] Comment on above: Result Comment: Nega tive: <80 Equivocal: 80-90 Positive: >90 Performed By: #### M 100.2200 #### [facility] [address] [place], [address] ALCA 25 units Normal 0-60 [facility] Comment on above: Result Comment: Nega tive:<55 Equivocal: 55-60 Positive: >60 Performed By: #### M 100.2200 #### [facility] [address] [place], [address] AMCA 31 units Normal 0-100 [facility] Comment on above: Result Comment: Nega tive: <90 Equivocal: 90-100 Positive: >100 This test was developed and its performance characteristics determined by [employer]. It has not been cleared or approved by the Food and Drug Administration. The FDA has determined that such clearance or approval is not necessary. Performed By: #### M 100.2200 #### [facility] [address] [place], [address] Atypical pANCA Negative Normal Negative [facility] Comment on above: Performed By: #### M 100.2200 #### [facility] [address] [place], [address] COMMENT Comment Normal . [facility] Comment on above: Result Comment: Marina radha is not suggestive of Inflammatory Bowel Disease Performed By: #### M 100.2200 #### [facility] [address] [place], [address] Bethany 18 units Normal 0-50 [facility] Comment on above: Result Comment: Nega tive: <45 Equivocal: 45-50 Positive: >50 Performed By: #### M 100.2200 #### [facility] [address] [place], [address] L3100.4810on 06-28-2024 Chromogranin A 39.2 ng/mL Normal 0.0-101.8 [facility] Comment on above: Result Comment: Webbing Tacker mogranin A performed by [employer] KRYPTOR methodology Values obtained with different assay methods or kits cannot be used interchangeably. Performed By: #### M 100.2200 #### [facility] [address] [place], [address] PAP IG HPV APTIMA 16/18,45on 06-28-2024 ADEQ Comment Normal . [facility] Comment on above: Order Comment: Speci men Comment: [id number] Specimen Comment: Source.............Cervix Specimen Comment: LMP / Prev Treat...[id number] Specimen Comment: No. of containers..01 ThinPrep Vial Result Comment: Sati sfactory for evaluation. Endocervical and/or squamous metaplastic cells (endocervical component) are present. Performed By: #### M 100.1999, M100.3200, L7400.0280 #### [facility] [address] [place], [address] COMM . Normal . [facility] Comment on above: Order Comment: Speci men Comment: [id number] Specimen Comment: Source.............Cervix Specimen Comment: LMP / Prev Treat...[id number] Specimen Comment: No. of containers..01 ThinPrep Vial Performed By: #### M 100.1999, M100.3200, L7400.0280 #### [facility] [address] [place], [address] COMMENT Comment Normal . [facility] Comment on above: Order Comment: Speci men Comment: [id number] Specimen Comment: Source.............Cervix Specimen Comment: LMP / Prev Treat...[id number] Specimen Comment: No. of containers..01 ThinPrep Vial Result Comment: This liquid based ThinPrep(R) pap test was screened with the use of an image guided system. Performed By: #### M 100.1999, M100.3200, L7400.0280 #### [facility] [address] [place], [address] DIAG Comment Abnormal . [facility] Comment on above: Order Comment: Speci men Comment: [id number] Specimen Comment: Source.............Cervix Specimen Comment: LMP / Prev Treat...[id number] Specimen Comment: No. of containers..01 ThinPrep Vial Result Comment: EPIT HELIAL CELL ABNORMALITY. ATYPICAL SQUAMOUS CELLS OF UNDETERMINED SIGNIFICANCE (ASC-US). Performed By: #### M 100.2000, M100.3200, L7400.0280 #### [facility] [address] [place], [address] HPV APTIMA, HR Negative Normal Negative [facility] Comment on above: Order Comment: Speci men Comment: [id number] Specimen Comment: Source.............Cervix Specimen Comment: LMP / Prev Treat...[id number] Specimen Comment: No. of containers..01 ThinPrep Vial Result Comment: This nucleic acid amplification test detects fourteen high- risk HPV types (16,18,31,33,35,39,45,51,52,56,58,59,66,68) without differentiation. Performed By: #### M 100.2000, M100.3200, L7400.0280 #### [facility] [address] [facility] [place], [address] HPV Kimberli Rfx Comment Normal . [facility] Comment on above: Order Comment: Speci men Comment: [id number] Specimen Comment: Source.............Cervix Specimen Comment: LMP / Prev Treat...[id number] Specimen Comment: No. of containers..01 ThinPrep Vial Result Comment: Crit eria not met, HPV Genotype not performed. Performed at: - [address] [id number] Nitrator Operator: Kailee Bryan MD, Phone: [phone] Performed at: =[address] [id number] Nitrator Operator: Kailee Bryan MD, Phone: [phone] Performed By: #### M , M100.3200, L7400.0280 #### [facility] [address] [place], [address] PAPSMR Comment Normal . [facility] Comment on above: Order Comment: Speci men Comment: [id number] Specimen Comment: Source.............Cervix Specimen Comment: LMP / Prev Treat...[id number] Specimen Comment: No. of containers..01 ThinPrep Vial Result Comment: The Pap smear is a screening test designed to aid in the detection of premalignant and malignant conditions of the uterine cervix. It is not a diagnostic procedure and should not be used as the sole means of detecting cervical cancer. Both false-positive and false-negative reports do occur. Performed By: #### M , M100.3200, L7400.0280 #### [facility] [address] [place], [place], [address] Path.prov.IDC-9 Comment Normal . [facility] Comment on above: Order Comment: Speci men Comment: [id number] Specimen Comment: Source.............Cervix Specimen Comment: LMP / Prev Treat...[id number]=[id number] Specimen Comment: No. of containers..01 ThinPrep Vial Result Comment: R87. 610 Performed By: #### M , M1, L7400.0280 #### [facility] [address] [place], [address] PERFORM Comment Normal . [facility] Comment on above: Order Comment: Speci men Comment: [id number] Specimen Comment: Source.............Cervix Specimen Comment: LMP / Prev Treat...[id number] Specimen Comment: No. of containers..01 ThinPrep Vial Result Comment: Genny Saenz, Payroll Accountant (ASCP) Performed By: #### M , M100.3200, L7400.0280 #### [facility] [address] [place], [address] RECOMM Comment Abnormal . [facility] Comment on above: Order Comment: Speci men Comment: [id number] Specimen Comment: Source.............Cervix Specimen Comment: LMP / Prev Treat...[id number] Specimen Comment: No. of containers..01 ThinPrep Vial Result Comment: Sugg est follow up as clinically appropriate. Performed By: #### M 100.1999, M100.3200, L7400.0280 #### [facility] [address] [place], [address] SIGN Comment Normal . [facility] Comment on above: Order Comment: Speci men Comment: [id number] Specimen Comment: Source.............Cervix Specimen Comment: LMP / Prev Treat...[id number] Specimen Comment: No. of containers..01 ThinPrep Vial Result Comment: Laurel Bryan MD, Pathologist Performed By: #### M 100.1999, M100.3200, L7400.0280 #### [facility] [address] [place], [address] Testosterone Freeon 06-28-19 25 TESTOSTER FREE 1.2 pg/mL Normal 0.0-4.2 [facility] Comment on above: Performed By: #### M 100.2200 #### [facility] [address] [place], [address] SAMANTHA Comprehensive Panelon ANTI-DNA (DS)AB 1 IU/mL Normal 0-9 [facility] Comment on above: Order Comment: Test( s) 711571-Y115-LoY Cockroach, Yemeni; 312520- P626-JdI [place], [place]; 782132-Q315-DzW Sweet Gum were developed and had performance characteristics determined by [facility]. These tests have not been cleared or approved by the U.S. Food and Drug Administration. The FDA has determined that such clearance or approval is not necessary. These tests are used for clinical purposes. These should not be regarded as investigational or for research. Result Comment: Nega tive <5 Equivocal 5 - 9 Positive >9 Performed By: #### L 3400.4800, L801.2600, L3300.1800, L3200.0500, L3300.1200, L5500.0300, L3400.0200, L3100.4810, L5500.0550, L3100.5440, L5500.0600, L3410.2400, L5500.0700, L2100.0000, L101.9900 #### [facility] [address] [facility]. [place], [place], [id number] ANTISCLERODERM <0.2 Normal 0.0-0.9 [facility] Comment on above: Order Comment: Test( s) 666526-H119-SkA Cockroach, Yemeni; 354437- Y687-CxR [place], White; 267261-B407-HlJ Sweet Gum were developed and had performance characteristics determined by [employer]. These tests have not been cleared or approved by the U.S. Food and Drug Administration. The FDA has determined that such clearance or approval is not necessary. These tests are used for clinical purposes. These should not be regarded as investigational or for research. Performed By: #### L 3400.4800, L801.2600, L3300.1800, L3200.0500, L3300.1200, L5500.0300, L3400.0200, L3100.4810, L5500.0550, L3100.5440, L5500.0600, L3410.2400, L5500.0700, L2100.0000, L101.9900 #### [facility] [address] [place], [place], [address] Allergen, Mini-Raston 2024 A. ALTERNATA <0.10 Normal Class 0 [facility] Comment on above: Order Comment: Test( s) 110123-W262-WrW Cockroach, Yemeni; 517937- L937-NpY [place], White; 166487-A998-NeI Sweet Gum were developed and had performance characteristics determined by [facility]. These tests have not been cleared or approved by the U.S. Food and Drug Administration. The FDA has determined that such clearance or approval is not necessary. These tests are used for clinical purposes. These should not be regarded as investigational or for research. Performed By: #### L 3400.4800, L801.2600, L3300.1800, L3200.0500, L3300.1200, L5500.0300, L3400.0200, L3100.4810, L5500.0550, L3100.5440, L5500.0600, L3410.2400, L5500.0700, L2100.0000, L101.9900 #### [facility] [address] [place], [address] BERMUDA GRASS <0.10 Normal Class 0 [facility] Comment on above: Order Comment: Test( s) 820771-D880-IwQ Cockroach, Yemeni; 496256- N614-AyN [place], White; 415187-W469-HjB Sweet Gum were developed and had performance characteristics determined by [facility]. These tests have not been cleared or approved by the U.S. Food and Drug Administration. The FDA has determined that such clearance or approval is not necessary. These tests are used for clinical purposes. These should not be regarded as investigational or for research. Performed By: #### L 3400.4800, L801.2600, L3300.1800, L3200.0500, L3300.1200, L5500.0300, L3400.0200, L3100.4810, L5500.0550, L3100.5440, L5500.0600, L3410.2400, L5500.0700, L2100.0000, L101.9900 #### [facility] [address] [place], [address] [place], [place] <0.10 Normal Class 0 [facility] Comment on above: Order Comment: Test( s) 167846-U631-JsF Cockroach, Yemeni; 264588- D078-TsP [place], White; 601534-W654-CbN Sweet Gum were developed and had performance characteristics determined by [facility]. These tests have not been cleared or approved by the U.S. Food and Drug Administration. The FDA has determined that such clearance or approval is not necessary. These tests are used for clinical purposes. These should not be regarded as investigational or for research. Performed By: #### L 3400.4800, L801.2600, L3300.1800, L3200.0500, L3300.1200, L5500.0300, L3400.0200, L3100.4810, L5500.0550, L3100.5440, L5500.0600, L3410.2400, L5500.0700, L2100.0000, L101.9900 #### [facility] [address] [facility] [place], [address] CAT HAIR/DANDER <0.10 Normal Class 0 [facility] Comment on above: Order Comment: Test( s) 163372-D319-ClC Cockroach, Yemeni; 079968- Z080-SxU [place], White; 354604-R313-RrO Sweet Gum were developed and had performance characteristics determined by [facility]. These tests have not been cleared or approved by the U.S. Food and Drug Administration. The FDA has determined that such clearance or approval is not necessary. These tests are used for clinical purposes. These should not be regarded as investigational or for research. Performed By: #### L 3400.4800, L801.2600, L3300.1800, L3200.0500, L3300.1200, L5500.0300, L3400.0200, L3100.4810, L5500.0550, L3100.5440, L5500.0600, L3410.2400, L5500.0700, L2100.0000, L101.9900 #### [facility] [address] [place], [address] COMMENT Comment Normal . [facility] Comment on above: Order Comment: Test( s) 197497-G994-TxT Cockroach, Yemeni; 763410- K290-JsZ [place], White; 277817-K749-QhJ Sweet Gum were developed and had performance characteristics determined by [facility]. These tests have not been cleared or approved by the U.S. Food and Drug Administration. The FDA has determined that such clearance or approval is not necessary. These tests are used for clinical purposes. These should not be regarded as investigational or for research. Result Comment: Jaron bang of Specific IgE Class Description of Class ----- < 0.10 0 Negative 0.10 - 0.31 0/I Equivocal/Low 0.32 - 0.55 I Low 0.56 - 1.40 II Moderate 1.41 - 3.90 III High 3.91 - 19.00 IV Very High 19.01 - 100.00 V Very High >100.00 Very High Performed By: #### L 3400.4800, L801.2600, L3300.1800, L3200.0500, L3300.1200, L5500.0300, L3400.0200, L3100.4810, L5500.0550, L3100.5440, L5500.0600, L3410.2400, L5500.0700, L2100.0000, L101.9900 #### [facility] [facility]. [place], [place], [address] D FARINAE MITE <0.10 Normal Class 0 [facility] Comment on above: Order Comment: Test( s) 047360-R409-XtB Cockroach, Yemeni; 268011- P723-OwQ [place], White; 168740-L360-UvI Sweet Gum were developed and had performance characteristics determined by [facility]. These tests have not been cleared or approved by the U.S. Food and Drug Administration. The FDA has determined that such clearance or approval is not necessary. These tests are used for clinical purposes. These should not be regarded as investigational or for research. Performed By: #### L 3400.4800, L801.2600, L3300.1800, L3200.0500, L3300.1200, L5500.0300, L3400.0200, L3100.4810, L5500.0550, L3100.5440, L5500.0600, L3410.2400, L5500.0700, L2100.0000, L101.9900 #### [facility] [address] [place], [address] D PTERONYSSINUS <0.10 Normal Class 0 [facility] Comment on above: Order Comment: Test( s) 207203-Z634-AjW Cockroach, Yemeni; 807375- A884-OvP [place], White; 420091-Q740-CuR Sweet Gum were developed and had performance characteristics determined by [facility]. These tests have not been cleared or approved by the U.S. Food and Drug Administration. The FDA has determined that such clearance or approval is not necessary. These tests are used for clinical purposes. These should not be regarded as investigational or for research. Performed By: #### L 3400.4800, L801.2600, L3300.1800, L3200.0500, L3300.1200, L5500.0300, L3400.0200, L3100.4810, L5500.0550, L3100.5440, L5500.0600, L3410.2400, L5500.0700, L2100.0000, L101.9900 #### [facility] [address] [place], [address] DOG EPITHELIA <0.10 Normal Class 0 [facility] Comment on above: Order Comment: Test( s) 543572-I559-TuL Cockroach, Yemeni; 489984- V608-MxI [place], White; 987478-H702-KpM Sweet Gum were developed and had performance characteristics determined by [facility]. These tests have not been cleared or approved by the U.S. Food and Drug Administration. The FDA has determined that such clearance or approval is not necessary. These tests are used for clinical purposes. These should not be regarded as investigational or for research. Performed By: #### L 3400.4800, L801.2600, L3300.1800, L3200.0500, L3300.1200, L5500.0300, L3400.0200, L3100.4810, L5500.0550, L3100.5440, L5500.0600, L3410.2400, L5500.0700, L2100.0000, L101.9900 #### [facility] [address] [facility]. [place], [place], [id number] ELM,AMER WHITE <0.10 Normal Class 0 [facility] Comment on above: Order Comment: Test( s) 050439-F521-OnX Cockroach, Yemeni; 437607- J153-VoO [place], White; 009514-G075-PuF Sweet Gum were developed and had performance characteristics determined by [facility]. These tests have not been cleared or approved by the U.S. Food and Drug Administration. The FDA has determined that such clearance or approval is not necessary. These tests are used for clinical purposes. These should not be regarded as investigational or for research. Performed By: #### L 3400.4800, L801.2600, L3300.1800, L3200.0500, L3300.1200, L5500.0300, L3400.0200, L3100.4810, L5500.0550, L3100.5440, L5500.0600, L3410.2400, L5500.0700, L2100.0000, L101.9900 #### [facility] [address] [facility] [place], [address] Mouse Urine <0.10 Normal Class 0 [facility] Comment on above: Order Comment: Test( s) 238640-J577-GyO Cockroach, Yemeni; 072180- V027-GjV [place], White; 504504-Y250-SxZ Sweet Gum were developed and had performance characteristics determined by [facility]. These tests have not been cleared or approved by the U.S. Food and Drug Administration. The FDA has determined that such clearance or approval is not necessary. These tests are used for clinical purposes. These should not be regarded as investigational or for research. Performed By: #### L 3400.4800, L801.2600, L3300.1800, L3200.0500, L3300.1200, L5500.0300, L3400.0200, L3100.4810, L5500.0550, L3100.5440, L5500.0600, L3410.2400, L5500.0700, L2100.0000, L101.9900 #### [facility] [address] [facility] [address] [place], [place], [address] OAK, WHITE <0.10 Normal Class 0 [facility] Comment on above: Order Comment: Test( s) 467917-C025-FkP Cockroach, Yemeni; 286810- A283-BjM [place], White; 552065-N926-ZkM Sweet Gum were developed and had performance characteristics determined by [facility]. These tests have not been cleared or approved by the U.S. Food and Drug Administration. The FDA has determined that such clearance or approval is not necessary. These tests are used for clinical purposes. These should not be regarded as investigational or for research. Performed By: #### L 3400.4800, L801.2600, L3300.1800, L3200.0500, L3300.1200, L5500.0300, L3400.0200, L3100.4810, L5500.0550, L3100.5440, L5500.0600, L3410.2400, L5500.0700, L2100.0000, L101.9900 #### [facility] [address] [place], [place], [id number] PLANTAIN,ENGLSH <0.10 Normal Class 0 [facility] Comment on above: Order Comment: Test( s) 998952-J642-ImL Cockroach, Yemeni; 830412- G061-SgO [place], White; 502785-K824-KiI Sweet Gum were developed and had performance characteristics determined by [facility]. These tests have not been cleared or approved by the U.S. Food and Drug Administration. The FDA has determined that such clearance or approval is not necessary. These tests are used for clinical purposes. These should not be regarded as investigational or for research. Performed By: #### L 3400.4800, L801.2600, L3300.1800, L3200.0500, L3300.1200, L5500.0300, L3400.0200, L3100.4810, L5500.0550, L3100.5440, L5500.0600, L3410.2400, L5500.0700, L2100.0000, L101.9900 #### [facility] [address] [place], [place], [address] RAGWEED SH/COM <0.10 Normal Class 0 [facility] Comment on above: Order Comment: Test( s) 036426-U148-QdP Cockroach, Yemeni; 591366- O404-FjY [place], White; 935645-D539-ZtI Sweet Gum were developed and had performance characteristics determined by [facility]. These tests have not been cleared or approved by the U.S. Food and Drug Administration. The FDA has determined that such clearance or approval is not necessary. These tests are used for clinical purposes. These should not be regarded as investigational or for research. Performed By: #### L 3400.4800, L801.2600, L3300.1800, L3200.0500, L3300.1200, L5500.0300, L3400.0200, L3100.4810, L5500.0550, L3100.5440, L5500.0600, L3410.2400, L5500.0700, L2100.0000, L101.9900 #### [facility] [address] [place], [place], [id number] Allergens, Zone 8on 06-26-19 25 ASPERGILLUS FUM <0.10 Normal Class 0 [facility] Comment on above: Order Comment: Test( s) 761305-N643-OdC Cockroach, Yemeni; 841033-Z419-QvI [place], White; 309069-T773-MlV Sweet Gumwere developed and had performance characteristicsdetermined by [facility]. These tests have not been cleared orapproved by the U.S. Food and Drug Administration. The FDAhas determined that such clearance or approval is notnecessary. These tests are used for clinical purposes.These should not be regarded as investigational or forresearch. Performed By: #### M 100.2200 #### [facility] [address] [place], [address] BAHIA GRASS <0.10 Normal Class 0 [facility] Comment on above: Order Comment: Test( s) 965479-S904-NaI Cockroach, Yemeni; 399809-T651-FfH [place], White; 213204-A191-TxX Sweet Gumwere developed and had performance characteristicsdetermined by [facility]. These tests have not been cleared orapproved by the U.S. Food and Drug Administration. The FDAhas determined that such clearance or approval is notnecessary. These tests are used for clinical purposes.These should not be regarded as investigational or forresearch. Performed By: #### M 100.2200 #### [facility] [address] [place], [address] CLADOSPOR HERB <0.10 Normal Class 0 [facility] Comment on above: Order Comment: Test( s) 139176-W944-VsV Cockroach, Yemeni; 766312-E078-PzW [place], White; 032546-U574-SjB Sweet Gumwere developed and had performance characteristicsdetermined by [facility]. These tests have not been cleared orapproved by the U.S. Food and Drug Administration. The FDAhas determined that such clearance or approval is notnecessary. These tests are used for clinical purposes.These should not be regarded as investigational or forresearch. Performed By: #### M 100.2200 #### [facility] [address] [facility] [place], [address] COCKROACH,AMER <0.10 Normal Class 0 [facility] Comment on above: Order Comment: Test( s) 518816-R331-ChK Cockroach, Yemeni; 871424-U142-NkK [place], White; 953616-M672-BfV Sweet Gumwere developed and had performance characteristicsdetermined by [facility]. These tests have not been cleared orapproved by the U.S. Food and Drug Administration. The FDAhas determined that such clearance or approval is notnecessary. These tests are used for clinical purposes.These should not be regarded as investigational or forresearch. Performed By: #### M 100.2200 #### [facility] [address] [place], [address] HAZELNUT TREE <0.10 Normal Class 0 [facility] Comment on above: Order Comment: Test( s) 183811-J500-RfZ Cockroach, Yemeni; 699199-U972-AbY [place], White; 150690-Y299-EnV Sweet Gumwere developed and had performance characteristicsdetermined by [facility]. These tests have not been cleared orapproved by the U.S. Food and Drug Administration. The FDAhas determined that such clearance or approval is notnecessary. These tests are used for clinical purposes.These should not be regarded as investigational or forresearch. Performed By: #### M 100.2200 #### [facility] [address] [place], [address] HICKORY, WHITE <0.10 Normal Class 0 [facility] Comment on above: Order Comment: Test( s) 344829-F388-ZwK Cockroach, Yemeni; 660150-S015-YxB [place], White; 333351-C869-TcP Sweet Gumwere developed and had performance characteristicsdetermined by [facility]. These tests have not been cleared orapproved by the U.S. Food and Drug Administration. The FDAhas determined that such clearance or approval is notnecessary. These tests are used for clinical purposes.These should not be regarded as investigational or forresearch. Performed By: #### M 100.2200 #### [facility] [address] [place], [address] MARY GRASS <0.10 Normal Class 0 [facility] Comment on above: Order Comment: Test( s) 381950-J677-GcM Cockroach, Yemeni; 920267-J766-UhW [place], White; 261007-V422-JbW Sweet Gumwere developed and had performance characteristicsdetermined by [facility]. These tests have not been cleared orapproved by the U.S. Food and Drug Administration. The FDAhas determined that such clearance or approval is notnecessary. These tests are used for clinical purposes.These should not be regarded as investigational or forresearch. Performed By: #### M 100.2200 #### [facility] [address] [place], [address] MAPLE/BOX ELDER <0.10 Normal Class 0 [facility] Comment on above: Order Comment: Test( s) 708531-T519-YfJ Cockroach, Yemeni; 105470-X763-VwA [place], White; 290895-Z705-YfW Sweet Gumwere developed and had performance characteristicsdetermined by [facility]. These tests have not been cleared orapproved by the U.S. Food and Drug Administration. The FDAhas determined that such clearance or approval is notnecessary. These tests are used for clinical purposes.These should not be regarded as investigational or forresearch. Performed By: #### M 100.2200 #### [facility] [address] [place], [address] MOUNTAIN CEDAR <0.10 Normal Class 0 [facility] Comment on above: Order Comment: Test( s) 909370-B005-JuH Cockroach, Yemeni; 990531-M166-HcP [place], White; 794643-C924-WfL Sweet Gumwere developed and had performance characteristicsdetermined by [facility]. These tests have not been cleared orapproved by the U.S. Food and Drug Administration. The FDAhas determined that such clearance or approval is notnecessary. These tests are used for clinical purposes.These should not be regarded as investigational or forresearch. Performed By: #### M 100.2200 #### [facility] [address] [place], [address] MUCOR RACEMOSUS <0.10 Normal Class 0 [facility] Comment on above: Order Comment: Test( s) 794063-P489-EzB Cockroach, Yemeni; 719914-V748-CcV [place], White; 564512-G990-RgU Sweet Gumwere developed and had performance characteristicsdetermined by [facility]. These tests have not been cleared orapproved by the U.S. Food and Drug Administration. The FDAhas determined that such clearance or approval is notnecessary. These tests are used for clinical purposes.These should not be regarded as investigational or forresearch. Performed By: #### M 100.2200 #### [facility] [address] [place], [address] MUGWORT <0.10 Normal Class 0 [facility] Comment on above: Order Comment: Test( s) 724840-P662-OkN Cockroach, Yemeni; 281880-T989-YqJ [place], White; 617016-R913-ZpP Sweet Gumwere developed and had performance characteristicsdetermined by [facility]. These tests have not been cleared orapproved by the U.S. Food and Drug Administration. The FDAhas determined that such clearance or approval is notnecessary. These tests are used for clinical purposes.These should not be regarded as investigational or forresearch. Performed By: #### M 100.2200 #### [facility] [address] [place], [address] MULBERRY, WHITE <0.10 Normal Class 0 [facility] Comment on above: Order Comment: Test( s) 618632-P071-DcL Cockroach, Yemeni; 732296-O352-TgY [place], White; 871065-S043-KlP Sweet Gumwere developed and had performance characteristicsdetermined by [facility]. These tests have not been cleared orapproved by the U.S. Food and Drug Administration. The FDAhas determined that such clearance or approval is notnecessary. These tests are used for clinical purposes.These should not be regarded as investigational or forresearch. Performed By: #### M 100.2200 #### [facility] [address] [place], [address] NETTLE <0.10 Normal Class 0 [facility] Comment on above: Order Comment: Test( s) 945910-I169-UeO Cockroach, Yemeni; 225130-J147-VfE [place], White; 303592-Z827-PqD Sweet Gumwere developed and had performance characteristicsdetermined by [facility]. These tests have not been cleared orapproved by the U.S. Food and Drug Administration. The FDAhas determined that such clearance or approval is notnecessary. These tests are used for clinical purposes.These should not be regarded as investigational or forresearch. Performed By: #### M 100.2200 #### [facility] [address] [place], [address] PEN CHRYSOGEN <0.10 Normal Class 0 [facility] Comment on above: Order Comment: Test( s) 515062-R277-OeB Cockroach, Yemeni; 519116-D492-FqP [place], White; 111786-B868-ObL Sweet Gumwere developed and had performance characteristicsdetermined by [facility]. These tests have not been cleared orapproved by the U.S. Food and Drug Administration. The FDAhas determined that such clearance or approval is notnecessary. These tests are used for clinical purposes.These should not be regarded as investigational or forresearch. Performed By: #### M 100.2200 #### [facility] [address] [place], [address] PIGWEED, ROUGH <0.10 Normal Class 0 [facility] Comment on above: Order Comment: Test( s) 033974-P313-TzL Cockroach, Yemeni; 823819-B462-NiF [place], White; 945060-N380-IwO Sweet Gumwere developed and had performance characteristicsdetermined by [facility]. These tests have not been cleared orapproved by the U.S. Food and Drug Administration. The FDAhas determined that such clearance or approval is notnecessary. These tests are used for clinical purposes.These should not be regarded as investigational or forresearch. Performed By: #### M 100.2200 #### [facility] [address] [place], [address] SHEEP SORREL <0.10 Normal Class 0 [facility] Comment on above: Order Comment: Test( s) 171526-P635-BcD Cockroach, Yemeni; 367013-G028-QxK [place], White; 938837-F042-HiJ Sweet Gumwere developed and had performance characteristicsdetermined by [facility]. These tests have not been cleared orapproved by the U.S. Food and Drug Administration. The FDAhas determined that such clearance or approval is notnecessary. These tests are used for clinical purposes.These should not be regarded as investigational or forresearch. Performed By: #### M 100.2200 #### [facility] [address] [place], [address] STEMPHYLIUM HER <0.10 Normal Class 0 [facility] Comment on above: Order Comment: Test( s) 032823-L939-HaZ Cockroach, Yemeni; 309491-B673-EpE [place], White; 793436-A093-TmC Sweet Gumwere developed and had performance characteristicsdetermined by [facility]. These tests have not been cleared orapproved by the U.S. Food and Drug Administration. The FDAhas determined that such clearance or approval is notnecessary. These tests are used for clinical purposes.These should not be regarded as investigational or forresearch. Performed By: #### M 100.2200 #### [facility] [address] [place], [address] SWEET GUM <0.10 Normal Class 0 [facility] Comment on above: Order Comment: Test( s) 995179-F298-QtY Cockroach, Yemeni; 832432-D822-ZjU [place], White; 654478-Z411-UzO Sweet Gumwere developed and had performance characteristicsdetermined by [facility]. These tests have not been cleared orapproved by the U.S. Food and Drug Administration. The FDAhas determined that such clearance or approval is notnecessary. These tests are used for clinical purposes.These should not be regarded as investigational or forresearch. Performed By: #### M 100.2200 #### [facility] [address] [place], [address] SYCAMORE, AMER <0.10 Normal Class 0 [facility] Comment on above: Order Comment: Test( s) 514542-C088-DeK Cockroach, Yemeni; 554009-Y275-JbG [place], White; 093325-B487-QeJ Sweet Gumwere developed and had performance characteristicsdetermined by [facility]. These tests have not been cleared orapproved by the U.S. Food and Drug Administration. The FDAhas determined that such clearance or approval is notnecessary. These tests are used for clinical purposes.These should not be regarded as investigational or forresearch. Performed By: #### M 100.0 #### [facility] [address] [place], [address] L5500.0550on 06-26-2024 BEEF <0.10 Normal Class 0 [facility] Comment on above: Order Comment: Test( s) 399187-N614-WlK Cockroach, Yemeni; 587795- W756-TcR [place], White; 208297-X286-CpE Sweet Gum were developed and had performance characteristics determined by [facility]. These tests have not been cleared or approved by the U.S. Food and Drug Administration. The FDA has determined that such clearance or approval is not necessary. These tests are used for clinical purposes. These should not be regarded as investigational or for research. Performed By: #### L 3400.4800, L801.2600, L3300.1800, L3200.0500, L3300.1200, L5500.0300, L3400.0200, L3100.4810, L5500.0550, L3100.5440, L5500.0600, L3410.2400, L5500.0700, L2100.0000, L101.9900 #### [facility] [address] [place], [place], [id number] CHOCOLATE <0.10 Normal Class 0 [facility] Comment on above: Order Comment: Test( s) 100080-W385-CaR Cockroach, Yemeni; 697368- H605-UeD [place], White; 245478-L034-FyR Sweet Gum were developed and had performance characteristics determined by [facility]. These tests have not been cleared or approved by the U.S. Food and Drug Administration. The FDA has determined that such clearance or approval is not necessary. These tests are used for clinical purposes. These should not be regarded as investigational or for research. Performed By: #### L 3400.4800, L801.2600, L3300.1800, L3200.0500, L3300.1200, L5500.0300, L3400.0200, L3100.4810, L5500.0550, L3100.5440, L5500.0600, L3410.2400, L5500.0700, L2100.0000, L101.9900 #### [facility] [address] [place], [place], [id number] CODFISH <0.10 Normal Class 0 [facility] Comment on above: Order Comment: Test( s) 150020-D620-WfU Cockroach, Yemeni; 957559- G018-WwN [place], White; 263784-A953-HiT Sweet Gum were developed and had performance characteristics determined by [facility]. These tests have not been cleared or approved by the U.S. Food and Drug Administration. The FDA has determined that such clearance or approval is not necessary. These tests are used for clinical purposes. These should not be regarded as investigational or for research. Performed By: #### L 3400.4800, L801.2600, L3300.1800, L3200.0500, L3300.1200, L5500.0300, L3400.0200, L3100.4810, L5500.0550, L3100.5440, L5500.0600, L3410.2400, L5500.0700, L2100.0000, L101.9900 #### [facility] [address] [place], [place], [id number] CORN <0.10 Normal Class 0 [facility] Comment on above: Order Comment: Test( s) 131439-X265-DqW Cockroach, Yemeni; 127079- N311-UnE [place], White; 150797-A708-XrX Sweet Gum were developed and had performance characteristics determined by [facility]. These tests have not been cleared or approved by the U.S. Food and Drug Administration. The FDA has determined that such clearance or approval is not necessary. These tests are used for clinical purposes. These should not be regarded as investigational or for research. Performed By: #### L 3400.4800, L801.2600, L3300.1800, L3200.0500, L3300.1200, L5500.0300, L3400.0200, L3100.4810, L5500.0550, L3100.5440, L5500.0600, L3410.2400, L5500.0700, L2100.0000, L101.9900 #### [facility] [address] [place], [place], [address] EGG, WHOLE <0.10 Normal Class 0 [facility] Comment on above: Order Comment: Test( s) 191725-R715-NbR Cockroach, Yemeni; 910582- X609-AvD [place], White; 144597-F711-JwK Sweet Gum were developed and had performance characteristics determined by [facility]. These tests have not been cleared or approved by the U.S. Food and Drug Administration. The FDA has determined that such clearance or approval is not necessary. These tests are used for clinical purposes. These should not be regarded as investigational or for research. Performed By: #### L 3400.4800, L801.2600, L3300.1800, L3200.0500, L3300.1200, L5500.0300, L3400.0200, L3100.4810, L5500.0550, L3100.5440, L5500.0600, L3410.2400, L5500.0700, L2100.0000, L101.9900 #### [facility] [address] [place], [address] MILK (COW) 0.49 kU/L Abnormal Class I [facility] Comment on above: Order Comment: Test( s) 612642-K036-KzE Cockroach, Yemeni; 322663- T065-BiC [place], White; 405257-F326-EqJ Sweet Gum were developed and had performance characteristics determined by [facility]. These tests have not been cleared or approved by the U.S. Food and Drug Administration. The FDA has determined that such clearance or approval is not necessary. These tests are used for clinical purposes. These should not be regarded as investigational or for research. Performed By: #### L 3400.4800, L801.2600, L3300.1800, L3200.0500, L3300.1200, L5500.0300, L3400.0200, L3100.4810, L5500.0550, L3100.5440, L5500.0600, L3410.2400, L5500.0700, L2100.0000, L101.9900 #### [facility] [address] [place], [address] MUSSELS <0.10 Normal Class 0 [facility] Comment on above: Order Comment: Test( s) 318041-L372-MeU Cockroach, Yemeni; 009487- J286-KuE [place], White; 849429-S453-ElK Sweet Gum were developed and had performance characteristics determined by [facility]. These tests have not been cleared or approved by the U.S. Food and Drug Administration. The FDA has determined that such clearance or approval is not necessary. These tests are used for clinical purposes. These should not be regarded as investigational or for research. Performed By: #### L 3400.4800, L801.2600, L3300.1800, L3200.0500, L3300.1200, L5500.0300, L3400.0200, L3100.4810, L5500.0550, L3100.5440, L5500.0600, L3410.2400, L5500.0700, L2100.0000, L101.9900 #### [facility] [address] [place], [address] PEANUT <0.10 Normal Class 0 [facility] Comment on above: Order Comment: Test( s) 159933-Z130-UvO Cockroach, Yemeni; 112656- K417-XgJ [place], White; 541361-F403-WtF Sweet Gum were developed and had performance characteristics determined by [facility]. These tests have not been cleared or approved by the U.S. Food and Drug Administration. The FDA has determined that such clearance or approval is not necessary. These tests are used for clinical purposes. These should not be regarded as investigational or for research. Performed By: #### L 3400.4800, L801.2600, L3300.1800, L3200.0500, L3300.1200, L5500.0300, L3400.0200, L3100.4810, L5500.0550, L3100.5440, L5500.0600, L3410.2400, L5500.0700, L2100.0000, L101.9900 #### [facility] [address] [place], [address] PORK <0.10 Normal Class 0 [facility] Comment on above: Order Comment: Test( s) 898462-R609-UwW Cockroach, Yemeni; 183465- N573-CwN [place], White; 626024-A706-MeJ Sweet Gum were developed and had performance characteristics determined by [facility]. These tests have not been cleared or approved by the U.S. Food and Drug Administration. The FDA has determined that such clearance or approval is not necessary. These tests are used for clinical purposes. These should not be regarded as investigational or for research. Performed By: #### L 3400.4800, L801.2600, L3300.1800, L3200.0500, L3300.1200, L5500.0300, L3400.0200, L3100.4810, L5500.0550, L3100.5440, L5500.0600, L3410.2400, L5500.0700, L2100.0000, L101.9900 #### [facility] [address] [facility] [place], [address] SALMON <0.10 Normal Class 0 [facility] Comment on above: Order Comment: Test( s) 483686-N912-XnH Cockroach, Yemeni; 337376- G846-WwV [place], White; 481773-X285-CzM Sweet Gum were developed and had performance characteristics determined by [facility]. These tests have not been cleared or approved by the U.S. Food and Drug Administration. The FDA has determined that such clearance or approval is not necessary. These tests are used for clinical purposes. These should not be regarded as investigational or for research. Performed By: #### L 3400.4800, L801.2600, L3300.1800, L3200.0500, L3300.1200, L5500.0300, L3400.0200, L3100.4810, L5500.0550, L3100.5440, L5500.0600, L3410.2400, L5500.0700, L2100.0000, L101.9900 #### [facility] [address] [facility] [place], [address] SHRIMP <0.10 Normal Class 0 [facility] Comment on above: Order Comment: Test( s) 982282-G604-GmI Cockroach, Yemeni; 693520- D910-GzS [place], White; 122118-R730-MzH Sweet Gum were developed and had performance characteristics determined by [facility]. These tests have not been cleared or approved by the U.S. Food and Drug Administration. The FDA has determined that such clearance or approval is not necessary. These tests are used for clinical purposes. These should not be regarded as investigational or for research. Performed By: #### L 3400.4800, L801.2600, L3300.1800, L3200.0500, L3300.1200, L5500.0300, L3400.0200, L3100.4810, L5500.0550, L3100.5440, L5500.0600, L3410.2400, L5500.0700, L2100.0000, L101.9900 #### [facility] [address] [place], [address] SOYBEAN <0.10 Normal Class 0 [facility] Comment on above: Order Comment: Test( s) 245814-T275-JpI Cockroach, Yemeni; 467373- P354-OuV [place], White; 370952-L269-TdQ Sweet Gum were developed and had performance characteristics determined by [facility]. These tests have not been cleared or approved by the U.S. Food and Drug Administration. The FDA has determined that such clearance or approval is not necessary. These tests are used for clinical purposes. These should not be regarded as investigational or for research. Performed By: #### L 3400.4800, L801.2600, L3300.1800, L3200.0500, L3300.1200, L5500.0300, L3400.0200, L3100.4810, L5500.0550, L3100.5440, L5500.0600, L3410.2400, L5500.0700, L2100.0000, L101.9900 #### [facility] [address] [place], [address] TUNA <0.10 Normal Class 0 [facility] Comment on above: Order Comment: Test( s) 525519-X109-KhK Cockroach, Yemeni; 303757- E820-DiN [place], White; 927643-F623-WxM Sweet Gum were developed and had performance characteristics determined by [facility]. These tests have not been cleared or approved by the U.S. Food and Drug Administration. The FDA has determined that such clearance or approval is not necessary. These tests are used for clinical purposes. These should not be regarded as investigational or for research. Performed By: #### L 3400.4800, L801.2600, L3300.1800, L3200.0500, L3300.1200, L5500.0300, L3400.0200, L3100.4810, L5500.0550, L3100.5440, L5500.0600, L3410.2400, L5500.0700, L2100.0000, L101.9900 #### [facility] [address] [place], [place], [id number] WHEAT 0.33 kU/L Abnormal Class I [facility] Comment on above: Order Comment: Test( s) 282072-N704-ZzV Cockroach, Yemeni; 692489- E970-YiW [place], White; 394019-Y724-ZhH Sweet Gum were developed and had performance characteristics determined by [facility]. These tests have not been cleared or approved by the U.S. Food and Drug Administration. The FDA has determined that such clearance or approval is not necessary. These tests are used for clinical purposes. These should not be regarded as investigational or for research. Performed By: #### L 3400.4800, L801.2600, L3300.1800, L3200.0500, L3300.1200, L5500.0300, L3400.0200, L3100.4810, L5500.0550, L3100.5440, L5500.0600, L3410.2400, L5500.0700, L2100.0000, L101.9900 #### [facility] [address] [place], [address] PROGESTERONE 4317on 06-26-19 25 PROGESTERONE 0.8 ng/mL Normal . [facility] Comment on above: Order Comment: Test( s) 656838-Y823-PgB Cockroach, Yemeni; 637455- X304-MyD [place], White; 353790-E546-KaX Sweet Gum were developed and had performance characteristics determined by [facility]. These tests have not been cleared or approved by the U.S. Food and Drug Administration. The FDA has determined that such clearance or approval is not necessary. These tests are used for clinical purposes. These should not be regarded as investigational or for research. N Result Comment: Foll icular phase 0.1 - 0.9 Luteal phase 1.8 - 23.9 Ovulation phase 0.1 - 12.0 First trimester 11.0 - 44.3 Second trimester 25.4 - 83.3 Third trimester 58.7 - 214.0 Postmenopausal 0.0 - 0.1 Performed at: [facility] [address] [id number] Nitrator Operator: Javan Burnham PhD, Phone: [phone] Performed at: [facility] [address] [id number] Nitrator Operator: Neena Purvis MD, Phone: [phone] Performed By: #### L 3400.4800, L801.2600, L3300.1800, L3200.0500, L3300.1200, L5500.0300, L3400.0200, L3100.4810, L5500.0550, L3100.5440, L5500.0600, L3410.2400, L5500.0700, L2100.0000, L101.9900 #### [facility] [address] [place] [address]. [place], [address] Cervical or vaginal specimen microscopic examination by liquid based cytology (reportOrdered By: Meg Pan on 06-24-2024 Cytology report Cyto stain.thin prep Doc (Cvx/Vag) Comment . [facility] Comment on above: Criteria not met, HP V Genotype not performed.Performed at: [facility] [address] [id number] Director: Kailee Bryan MD, Phone: [phone] at: =[address] [id number] Director: Kailee Bryan MD, Phone: [phone] Cervical or vagninal specime n microscopic examination by cytology stain (reported asOrdered By: Meg Pan on 06-24-2024 Cytology report Cyto stain Doc (Cvx/Vag) Comment . [facility] Comment on above: The Pap smear is a s creening test designed to aid in thedetection of premalignant and malignant conditions of theuterine cervix. It is not a diagnostic procedure andshould not be used as the sole means of detecting cervicalcancer. Both false-positive and false-negative reports dooccur. Histological Illustrator Cyto stain Nom (C vx/Vag) [ID]Ordered By: Meg Pan on 06-24-2024 Pap Smear Performed By Comment . [facility] Comment on above: Brenda Saenz Cytot echnologist (ASCP) Cytology report Cyto stain D oc (Cvx/Vag)Ordered By: Meg Pan on 06-24-2024 Thin Prep Pap Smear Comment . [facility] Comment on above: The Pap smear is a s creening test designed to aid in thedetection of premalignant and malignant conditions of theuterine cervix. It is not a diagnostic procedure andshould not be used as the sole means of detecting cervicalcancer. Both false-positive and false-negative reports dooccur. Cytology report Cyto stain.t hin prep Doc (Cvx/Vag)Ordered By: Meg Pan on 06-24-2024 HPV Genotype Special Info Comment . [facility] Comment on above: Criteria not met, HP V Genotype not performed.Performed at: - [facility] [id number] Director: Kailee Bryan MD, Phone: [phone] at: = - [facility] [id number] Director: Kailee Bryan MD, Phone: [phone] Detection in cervical specim en of any of human papilloma virus (HPV) 16, 18, 31, 33,Ordered By: Meg Pan on 06-24-2024 HPV 16+18+31+33+35+39+45+51+5 2+56+58+59+66+68 DNA Probe+sig amp Ql (Cvx) Negative Negative [facility] Comment on above: This nucleic acid am plification test detects fourteen high-risk HPV types (16,18,31,33,35,39,45,51,52,56,58,59,66,68)without differentiation. Genital cultureOrdered By: Felicita Pan on 06-24-2024 Genital Culture Neisseria or beta-hemolytic Streptococcus isolated. [facility] Source specific culture Neisseria or beta-hemolytic Streptococcus isolated. [facility] Gram Stainon 02-17-2025 GS Reason for Exam: vag inal discharge Gram Stain 3+ Gram positive rods 1+ Epithelial cells No Gram negative diplococci Score =1 Interpretation: 0-3 Normal, 4-6 Intermediate, 7-10 Positive BV Normal [facility] Comment on above: Performed By: #### M 100.2000, M100.3200, L7400.0280 #### [facility] [address] [place], [address] Gram stainOrdered By: Meg Pan on 06-24-2024 Microscopic observation Gram stain Nom (Unsp spec) [facility] HPV 16+18+31+33+35+39+45+51+ 52+56+58+59+66+68 DNA Probe+sig amp Ql (Cvx)Ordered By: Meg Pan on 06-24-2024 Human Papillomavirus High Risk Negative Negative [facility] Comment on above: This nucleic acid am plification test detects fourteen high-risk HPV types (16,18,31,33,35,39,45,51,52,56,58,59,66,68)without differentiation. Image-guided ThinPrep PapOrd ered By: Meg Pan on 06-24-2024 Pap Smear Note Comment . [facility] Comment on above: This liquid based Th inPrep(R) pap test was screened withthe use of an image guided system. Image-guided liquid-based Pa pOrdered By: Meg Pan on 06-24-2024 Pap Smear Diagnosis Comment High . [facility] Comment on above: EPITHELIAL CELL ABNO RMALITY.ATYPICAL SQUAMOUS CELLS OF UNDETERMINED SIGNIFICANCE (ASC-US). Laboratory - CytologyOrdered By: Meg Pan on 06-24-2024 Histological Illustrator Cyto stain Nom (Cvx/Vag) [ID] Comment . [facility] Comment on above: Brenda Saenz Cytot echnologist (ASCP) Pathologist Cyto stain Nom (Cvx/Vag) [ID] Comment . [facility] Comment on above: Kailee Bryan MD, Pathologist Recommended follow-up Cyto stain Nom (Cvx/Vag) Comment High . [facility] Comment on above: Suggest follow up as clinically appropriate. Laboratory - Miscellaneous t estsOrdered By: Meg Pan on 06-24-2024 Service comment (Unsp spec) [Interp] . . [facility] No Panel InformationOrdered By: Meg Pan on 06-24-2024 Pap Smear Specimen Adequacy Comment . [facility] Comment on above: Satisfactory for alex luation. Endocervical and/or squamous metaplasticcells (endocervical component) are present. Pathology report final diagnosis Narrative Comment . [facility] Comment on above: R87.610 Crosstie Inspector Office Visit Reporton 06-24-2024 Crosstie Inspector Office Visit Report [facility] [address], [address] [place] [address] OFFICE VISIT Date of Service: 06/24/24 MR#: [id number] Acct: [id number] Name: CHUNG MENDOZA Rep #: [id number] : 1985 Provider: ELOY jacobson Age/Sex: 38/F Location: [facility] [place] Status: Signed Intake Vital Signs 05/23/24 07:37 06/19/24 12:00 06/24/24 09:14 06/24/24 09:19 Height 5 ft 10 in 5 ft 10 in 5 ft 10 in 5 ft 10 in Weight: 230 lb 4 oz BMI 33.0 BP 112/72 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) Chief Complaint: Annual Medical Associate Required: No Is patient in pain?: No Allergies No Known Allergies Allergy (Verified 06/24/24 09:21) Medications ???Medication ???Instructions ???Recorded ???Confirmed ???Type multivitamin 1 tab PO DAILY 01/07/21 06/24/24 H istory cranberry fruit concentrate 250 mg 250 mg PO TID 06/24/24 06/24/24 History chewable tablet (Azo Cranberry) metronidazole 0.75 % (37.5 mg/5 1 appful vaginal DAILY 5 days #70 06/24/24 06/24/24 Rx gram) vaginal gel grams psyllium husk 3.4 gram/5.4 gram 1 tbsp PO QDAY 06/24/24 06/24/24 H istory oral powder (Metamucil) Is last menstrual period known: Yes Last Menstrual Period: 06/04/24 Post menopausal: No Patient : No : No PFSH Medical History Varicose veins with inflammation Chronic venous insufficiency Leg cramps History of pain when walking History of edema Wears glasses Wears contact lenses Gastric reflux Non-smoker Surgical History Previous section Family History Father History of deep vein thrombophlebitis of lower extremity Social History number of children: 2 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 Date Name GA/Weeks Outcome Route Bth Weight Gen Labor Lgth Anesthesia Del Locatn Provider FOB 02/22/13 Humberto 03/06/17 [facility] Encounter for routine gynecological examination Details: CHUNG MENDOZA is a 38 year old who presents for annual exam. Noting vaginal oder and irritation. Recurrent UTIs and seeing urology. Has been on antibiotics off and on X >2 mo Last PAP: 2019 History of abnormal PAP: no Last mammogram: 10/2023 History of abnormal mammogram: no Colon cancer screening: age 45 Other preventative health care screenings: Moshe Female Reproductive History Last Menstrual Period: 06/04/24 Cycle Length: 21-35 Questions: metorrhagia: No, sexually active: Yes, dyspareunia: No and PCB: No ROS Const Constitutional: Denies fatigue, weight gain or weight loss Cardio Card: Denies chest pain Resp Resp: Denies cough or dyspnea on exertion GI GI: Denies abdominal pain, bloating, change in stool character, constipation or vomiting : Reports as per HPI; Denies difficulty voiding, pelvic pain, urinary frequency, urinary incontinence, urinary urgency, vaginal discharge or vaginal pruritus Exam Const General: cooperative, healthy appearing, no acute distress and well developed Orientation: alert, oriented to person and oriented to place HENIA Head: normal to inspection Neck Neck: normal visual inspection Thyroid: thyroid normal Lymphatic: no lymphadenopathy noted Chest Breast inspection: normal inspection of the breasts and normal inspection of the axillae Breast palpation: normal palpation of the breasts, normal palpation of the axillae and no axillary lymphadenopathy Resp Effort Inspection: normal respiratory effort GI Palpation: soft, no masses and nontender Rectal Exam: deferred External Female Exam: normal external appearance and normal appearance of the urethra Urethra: normal appearance of the urethra and normal palpation Speculum Exam - Vagina: normal appearance of the vagina and abnormal vaginal discharge malodorous Speculum Exam - Cervix: normal appearance of the cervix Bimanual Exam- Vagina Uterus: normal bimanual exam, uterine size normal, uterine shape normal and non-tender Bimanual Exam- Adnexa, other: normal adnexae, no masses, normal and non-tender Pelvic Support: normal Neuro General: patient alert and patient oriented x3 Psych Affect: normal affect Coding Level of Care Code Off vis,est,prev (more content not included)... Normal [facility] Pathologist Cyto stain Nom ( Cvx/Vag) [ID]Ordered By: Meg Pan on 06-24-2024 Pap Smear Signed Out By Comment . [facility] Comment on above: Kailee Bryan MD, Pathologist Pathology report final diagn osis NarrativeOrdered By: Meg Pan on 06-24-2024 Pap Smear Comment (2) Comment . [facility] Comment on above: R87.610 Recommended follow-up Cyto s tain Nom (Cvx/Vag)Ordered By: Meg Pan on 06-24-2024 Pap Smear Recommendation Comment High . [facility] Comment on above: Suggest follow up as clinically appropriate. Service comment (Unsp spec) [Interp]Ordered By: Meg Pan on 06-24-2024 Pap Smear Comment (3) . . [facility] A. alternata IgE Qn (S)Order ed By: Flo Cantu on 06-21-2024 Alternaria alternata IgE Allergen <0.10 kU/L Class 0 [facility] Alternaria tenuis IgE Allergen TNP [facility] Comment on above: Test not performed A. fumigatus IgE Qn (S)Order ed By: Flo Cantu on 06-21-2024 Aspergillus fumigatus Allergen IgE TNP [facility] Comment on above: Test not performed ASCA IgG abOrdered By: Toby love Friend on 06-21-2024 Saccharomyces cerevisiae ([place])IgG 18 units 0-50 [facility] Comment on above: Negative: <45 Equivo odilia: 45-50 Positive: >50 Yemeni Cockroach IgE Qn (S )Ordered By: Flo Cantu on 06-21-2024 Yemeni Cockroach Allergen <0.10 kU/L Class 0 [facility] Comment on above: *Additional results available. Contact laboratory/see report* Yemeni house dust mite IgE Qn (S)Ordered By: Flo Cantu on 06-21-2024 Dermatophagoides farinae Allergen <0.10 kU/L Class 0 [facility] Yemeni sycamore IgE serumO rdered By: Flo Cantu on 06-21-2024 [place] Tree Allergen <0.10 kU/L Class 0 [facility] Aspergillus fumigatus IgE se rumOrdered By: Flo Cantu on 06-21-2024 Aspergillus fumigatus Allergen <0.10 kU/L Class 0 [facility] Atypical perinuclear antineu trophil cytoplasmic antibodies measurementOrdered By: Flo Cantu on 06-21-2024 Atypical p-ANCA <1:20 titer Neg:<1:20 [facility] Comment on above: *Additional results available. Contact laboratory/see report*The atypical pANCA pattern has been observed in asignificant percentage of patients with ulcerative colitis,primary sclerosing cholangitis and autoimmune hepatitis. Bahia grass IgE Qn (S)Ordere d By: Flo Cantu on 06-21-2024 Bahia Grass Allergen <0.10 kU/L Class 0 [facility] Beef IgE Qn (S)Ordered By: Alexandria Cantu on 06-21-2024 Beef Allergen (RAST) <0.10 kU/L Class 0 [facility] Bermuda grass IgE Qn (S)Orde red By: Flo Cantu on 06-21-2024 [place] Grass Allergen <0.10 kU/L Class 0 [facility] B[place] Grass Allergen (RAST) TNP [facility] Comment on above: Test not performed [place] IgE Qn (S)Order ed By: Flo Cantu on 06-21-2024 [place] Tree Allergen <0.10 kU/L Class 0 [facility] C. herbarum IgE Qn (S)Ordere d By: Flo Cantu on 06-21-2024 Cladosporium herbarum Allergen <0.10 kU/L Class 0 [facility] Cladosporium herbarum IgE Allergen TNP [facility] Comment on above: Test not performed Cat dander IgE Qn (S)Ordered By: Flo Cantu on 06-21-2024 Cat Dander IgE Allergen <0.10 kU/L Class 0 [facility] Centromere B antibody assayO rdered By: Flo Cantu on 06-21-2024 Centromere B Antibody <0.2 AI 0.0-0.9 [facility] Comment on above: Previous reported re sult: TNP AIEdited by: LUIS on 06/26/24:1208 AMENDED REPORT 06/26/24 1208 ANTI-CENT B previously reported as: Test not performed Chitobioside IgA IA QnOrdere d By: Flo Cantu on 06-21-2024 Chitobioside Carbohydrat (ACCA) IgA 21 units 0-90 [facility] Comment on above: Negative: <80 Equivo odilia: 80-90 Positive: >90 Chitobioside IgA antibody as sayOrdered By: Flo Cantu on 06-21-2024 Chitobioside IgA IA Qn 21 units 0-90 [facility] Comment on above: Negative: <80 Equivo odilia: 80-90 Positive: >90 Chocolate IgE Qn (S)Ordered By: Flo Cantu on 06-21-2024 Chocolate Allergen (RAST) <0.10 kU/L Class 0 [facility] Chromatin antibody assayOrde red By: Flo Cantu on 06-21-2024 Antichromatin Antibodies <0.2 AI 0.0-0.9 [facility] Comment on above: Previous reported re sult: TNP AIEdited by: LUIS on 06/26/24:1208 AMENDED REPORT 06/26/24 1208 ANTICHROMATIN previously reported as: Test not performed Codfish IgE Qn (S)Ordered By : Flo Cantu on 06-21-2024 Codfish Allergen (RAST) <0.10 kU/L Class 0 [facility] Murdock IgE Qn (S)Ordered By: Alexandria Cantu on 06-21-2024 Murdock Allergen (RAST) <0.10 kU/L Class 0 [facility] Oceana IgE Qn (S)Ordered By: Flo aCntu on 06-21-2024 Oce[place] Tree Allergen <0.10 kU/L Class 0 [facility] Cow milk IgE Qn (S)Ordered B y: Flo Cantu on 06-21-2024 Cow's Milk Allergen 0.49 kU/L High Class I [facility] DNA double strand Ab Qn (S)O rdered By: Flo Cantu on 06-21-2024 Anti-Double Strand DNA Antibody 1 IU/mL 0-9 [facility] Comment on above: Negative <5 Equivoca l 5 - 9 Positive >9 Dog epithelium IgE Qn (S)Ord ered By: Flo Cantu on 06-21-2024 Dog Epithelia Allergen <0.10 kU/L Class 0 [facility] Endomysial IgA antibody assa yOrdered By: Flo Cantu on 06-21-2024 Endomysial IgA Antibody Negative Negative [facility] Erythrocyte Sed Rateon 06-21 SED RATE 3 mm/hr Normal 0-30 [facility] Comment on above: Performed By: #### L 3400.4800, L801.2600, L3300.1800, L3200.0500, L3300.1200, L5500.0300, L3400.0200, L3100.4810, L5500.0550, L3100.5440, L5500.0600, L3410.2400, L5500.0700, L2100.0000, L101.9900 #### [facility] [address] [place], [place], [id number] Erythrocyte sedimentation ra teOrdered By: Flo Cantu on 06-21-2024 ESR (Bld) [Velocity] 3 mm/h 0-30 [facility] Estrogen [Mass/Vol]Ordered B y: Flo Cantu on 06-21-2024 Total Estrogens 406 pg/mL . [facility] Comment on above: Prepubertal < 40 Fem flaco Cycle: 1-10 Days 16 - 328 11-20 Days 34 - 501 21-30 Days 48 - 350 Post-Menopausal 40 - 244Performed at: - [facility] [address] [id number] Director: Javan Burnham PhD, Phone: [phone] at: [facility] LabClaimReturn[address] [id number] Director: Neena Purvis MD, Phone: [phone] house dust mite IgE Qn (S)Ordered By: Flo Cantu on 06-21-2024 Dermatophagoides pteronyssinus IgE TNP [facility] Comment on above: Test not performed Dermatophagoides pteronyss Allergen <0.10 kU/L Class 0 [facility] Gastrin [Mass/Vol]Ordered By : Flo Cantu on 06-21-2024 Gastrin 82 pg/mL 0-115 [facility] Comment on above: Siemens Immulite 200 0 Immunochemiluminometric assay (ICMA)Values obtained with different assay methods or kits cannotbe used interchangeably. Results cannot be interpreted asabsolute evidence of the presence or absence of malignantdisease. Gastrin, serumOrdered By: Ra nancy Cantu on 06-21-2024 Gastrin [Mass/Vol] 82 pg/mL 0-115 [facility] Comment on above: Siemens Immulite 200 0 Immunochemiluminometric assay (ICMA)Values obtained with different assay methods or kits cannotbe used interchangeably. Results cannot be interpreted asabsolute evidence of the presence or absence of malignantdisease. Gastroenterology Visit Repor ton 06-21-2024 Gastroenterology Visit Report [facility] [address] [place] [address] OFFICE VISIT Date of Service: 06/21/24 MR#: [id number] Acct: [id number] Name: RAYMONCHUNG JANSENEE Rep #: [id number] : 1985 Provider: Flo Cantu DO Age/Sex: 38/F Location: [facility] Status: Signed Intake Vital Signs 05/23/24 07:37 06/19/24 12:00 Height 5 ft 10 in 5 ft 10 in Intake Visit Reasons: Test Result Allergies No Known Allergies Allergy (Verified 05/23/24 07:35) Medications ???Medication ???Instructions ???Recorded ???Confirmed ???Type multivitamin 1 tab PO DAILY 01/07/21 06/21/24 H istory [facility] Medical History Varicose veins with inflammation Chronic venous insufficiency Leg cramps History of pain when walking History of edema Wears glasses Wears contact lenses Gastric reflux Non-smoker Surgical History Previous section Family History Father History of deep vein thrombophlebitis of lower extremity Social History number of children: 2 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 OV 11.18.24 abd US 11.26.24 No acute sonographic abnormality is demonstrated in the abdomen. EGD and Colonoscopy 05.23.24 EGD Esophageal mucosal changes consistent with eosinophilic esophagitis. Small hiatal hernia. No gross lesions in the first portion of the duodenum. Biopsies were taken with a cold forceps for evaluation of eosinophilic esophagitis. colonoscopy Congested mucosa in the sigmoid colon, in the transverse colon and in the ascending colon. Biopsied. The examined portion of the ileum was normal. Biopsied. OV 2.14.25 pt reports that she has been taking fiber and a probiotic and is having a bm daily. Pt reports gas and bloating after eating. Is having HB 3x per week; TUMS and Gaviscon are effective. ROS Const Constitutional: Positive for headache(s); No fatigue, fever(s) or weight change ENT ENT: Positive for headache(s); No difficulty swallowing Gastro GI: Positive for bloating, constipation, heartburn and excessive flatus; No abdominal pain, belching, change in bowel habits, change in stool character, coffee ground emesis, cramping, diarrhea, difficulty swallowing, feeling full early, incontinent of stools, Vomiting blood/hematemesis, Blood in stool, loose stools, Black,tarry stools, nausea/dyspepsia, pain with swallowing, vomiting or other Musc Musculoskeletal: Positive for back pain; No joint pain Skin Skin: No yellowing of the eye or itchy eyes Neuro Neurology: Positive for headache(s) Psych Psychiatric: No anxiety and No depression Endo Endocrine: No fatigue or weight change Aller/Imm Allergy/Immunologic: No itchy eyes Magan/Lymp Hematologic/Lymphatic: No easy bleeding or easy bruising Exam Const General: healthy appearing, no acute distress and well developed Nutritional Appearance: well nourished and obese Orientation: alert and oriented x3 HENMT Head: normocephalic Ears: hearing grossly normal bilaterally Mouth: moist mucous membranes Teeth and gingiva: dentition normal Eyes Conjunctivae: conjunctivae normal Sclera: sclerae normal Neck Neck: normal visual inspection, full ROM and trachea midline Resp Effort Inspection: normal respiratory effort, able to speak in complete sentences and symmetric chest movement Auscultation: Bilateral: Clear to Auscultation Cardio Rate: regular rate Rhythm: regular rhythm GI Inspection: normal to inspection Auscultation: normal bowel sounds Palpation: soft and no hepatosplenomegaly Rectal Exam: deferred Skin General: no rashes or lesions noted and turgor normal Neuro General: patient alert and patient oriented x3 Cranial Nerves: other (CN' grossly intact, non-focal exam) Cognition: normal cognition Speech: speech normal Gait: normal gait Extrem General: normal to inspection (no edema noted) Psych Appearance: grossly normal and well kempt Affect: normal affect Attitude: cooperative Thought Process: normal Assessment and Plan Assessment and Plan (1) Eosinophilic esophagitis: Status: Acute Plan: Patient underwent an upper endoscopy for esophageal dysphagia. She had multiple rings along with a very small esophagus consistent with eosinophilic esophagitis. This was confirmed with biopsies. She had a normal-appearing stomach with sandy (more content not included)... Normal [facility] Hazelnut Pollen IgE Qn (S)Or dered By: Folkali Cantu on 06-21-2024 Hazelnut Tree Allergen <0.10 kU/L Class 0 [facility] IgA [Mass/Vol]Ordered By: Ra nancy Cantu on 06-21-2024 Immunoglobulin A 202 mg/dL 87-352 [facility] IgEOrdered By: Flo gray on 06-21-2024 IgE 14 IU/mL 6-495 [facility] Immunoglobulin E 14 IU/mL 6-495 [facility] IgG [Mass/Vol]Ordered By: Ra nancy Cantu on 06-21-2024 Immunoglobulin G Total 1093 mg/dL 586-1602 [facility] IgG subclass 1 (S) [Mass/Vol ]Ordered By: Flo Cantu on 06-21-2024 Immunoglobulin G1 466 mg/dL 248-810 [facility] IgG subclass 2 (S) [Mass/Vol ]Ordered By: Flo Cantu on 06-21-2024 Immunoglobulin G2 420 mg/dL 130-555 [facility] IgG subclass 3 (S) [Mass/Vol ]Ordered By: Flo Cantu on 06-21-2024 Immunoglobulin G3 101 mg/dL 15-102 [facility] Immunoglobulin G4 measuremen tOrdered By: Flo Cantu on 06-21-2024 Immunoglobulin G4 32 mg/dL 2-96 [facility] Shila-1 antibody assayOrdered B y: Flo Cantu on 06-21-2024 SHILA-1 Antibody <0.2 AI 0.0-0.9 [facility] Comment on above: Previous reported re sult: TNP AIEdited by: LUIS on 06/26/24:1208 AMENDED REPORT 06/26/24 1208 ANTI-SHILA previously reported as: Test not performed Mary grass IgE Qn (S)Orde red By: Flo Cantu on 06-21-2024 Mary Grass Allergen (RAST) <0.10 kU/L Class 0 [facility] blue grass IgE Qn ( S)Ordered By: Flo Cantu on 06-21-2024 [facility] Blue (October) Grass IgE Ab <0.10 kU/L Class 0 [facility] - Miscellaneous t estsOrdered By: Flo Cantu on 06-21-2024 Laboratory comment Wil (Report) Comment . [facility] Comment on above: Pattern is not sugge stive of Inflammatory Bowel Disease Service comment (Unsp spec) [Interp] Comment . [facility] Comment on above: Levels of Specific I gE Class Description of Class ----- < 0.10 0 Negative 0.10 - 0.31 0/I Equivocal/Low 0.32 - 0.55 I Low 0.56 - 1.40 II Moderate 1.41 - 3.90 III High 3.91 - 19.00 IV Very High 19.01 - 100.00 V Very High >100.00 Very High Laboratory comment Wil (Repo rt)Ordered By: Flo Cantu on 06-21-2024 IBD Serology Comment Comment . [facility] Comment on above: Pattern is not sugge stive of Inflammatory Bowel Disease Laminaribioside IgG IA QnOrd ered By: Flo Cantu on 06-21-2024 Laminaribioside Carbohyd (ALCA) IgG 25 units 0-60 [facility] Comment on above: Negative:<55 Equivoc al: 55-60 Positive: >60 Laminaribioside carbohydrate IgG antibody assayOrdered By: Flo Cantu on 06-21-2024 Laminaribioside IgG IA Qn 25 units 0-60 [facility] Comment on above: Negative:<55 Equivoc al: 55-60 Positive: >60 Mannobioside IgG IA QnOrdere d By: Flo Cantu on 06-21-2024 Mannobioside Carbohydrat (AMCA) IgG 31 units 0-100 [facility] Comment on above: Negative: <90 Equivo odilia: 90-100 Positive: >100 This test was developed and its performance characteristics determined by [employer]. It has not been cleared or approved by the Food and Drug Administration. The FDA has determined that such clearance or approval is not necessary. [place] IgE Qn (S)O rdered By: Flo Cantu on 06-21-2024 [place] Tree Allergen <0.10 kU/L Class 0 [facility] Mouse urine IgEOrdered By: Alexandria Cantu on 06-21-2024 Mouse Urine Allergen IgE Antibody <0.10 kU/L Class 0 [facility] Mucor racemosus IgE Qn (S)Or dered By: Flo Cantu on 06-21-2024 Mucor racemosus Allergen <0.10 kU/L Class 0 [facility] Mugwort IgE Qn (S)Ordered By : Flo Cantu on 06-21-2024 Mugwort Allergen <0.10 kU/L Class 0 [facility] Nettle IgE Qn (S)Ordered By: Flo Cantu on 06-21-2024 Nettle Allergen <0.10 kU/L Class 0 [facility] Neutrophil cytoplasmic Ab.cl assic Qn (S)Ordered By: Flo Cantu on 06-21-2024 Cytoplasmic ANCA (c-ANCA) Antibody <1:20 titer Neg:<1:20 [facility] Neutrophil cytoplasmic Ab.pe rinuclear IF (S) [Titer]Ordered By: Flo Cantu on 06-21-2024 Perinuclear ANCA (p-ANCA) Antibody <1:20 titer Neg:<1:20 [facility] Comment on above: The presence of posi tive fluorescence exhibiting P-ANCA orC-ANCA patterns alone is not specific for the diagnosis ofWegener's Granulomatosis (WG) or microscopic polyangiitis.Decisions about treatment should not be based solely onANCA IFA results. The International ANCA Group Consensusrecommends follow up testing of positive sera with both PA-3 and MPO-ANCA enzyme immunoassays. As many as 5% serumsamples are positive only by EIA. Ref. AM J Clin [id number];111:507-513. P. notatum IgE Qn (S)Ordered By: Flo Cantu on 06-21-2024 Penicillium chrysogen/notatum IgE <0.10 kU/L Class 0 [facility] Peanut IgE Qn (S)Ordered By: Flo Cantu on 06-21-2024 Peanut Allergen (RAST) <0.10 kU/L Class 0 [facility] Pecan or [place] Nut IgE Qn (S)Ordered By: Flo Cantu on 06-21-2024 Pecan Tree Allergen <0.10 kU/L Class 0 [facility] Pork IgE Qn (S)Ordered By: Alexandria chamberlain Friend on 06-21-2024 Pork Allergen (RAST) <0.10 kU/L Class 0 [facility] Quantitative serum progester one measurement by electrochemiluminescence immunoassay (Ordered By: Flo Cantu on 06-21-2024 Progesterone Level 0.8 ng/mL . [facility] Comment on above: Follicular phase 0.1 - 0.9 Luteal phase 1.8 - 23.9 Ovulation phase 0.1 - 12.0 First trimester 11.0 - 44.3 Second trimester 25.4 - 83.3 Third trimester 58.7 - 214.0 Postmenopausal 0.0 - 0.1Performed at: [facility] [id number] Director: Javan Burnham PhD, Phone: [phone] at: [facility] [employer] [id number] Director: Neena Purvis MD, Phone: [phone] BINDERY HELPER abOrdered By: Flo Freedman iend on 06-21-2024 BINDERY HELPER Antibody 0.3 AI 0.0-0.9 [facility] Comment on above: Previous reported re sult: TNP AIEdited by: LUIS on 06/26/24:1208 AMENDED REPORT 06/26/24 1208 BINDERY HELPER Ab previously reported as: Test not performed Rough Pigweed IgE Qn (S)Orde red By: Flo Cantu on 06-21-2024 Rough Pigweed Allergen <0.10 kU/L Class 0 [facility] SCL-70 extractable nuclear A b Qn (S)Ordered By: Flo Cantu on 06-21-2024 Scl-70 (Scleroderma) Antibody <0.2 AI 0.0-0.9 [facility] SS-A IgG antibody assayOrder ed By: Flo Cantu on 06-21-2024 SS-A/Ro IgG Antibody < 0.2 AI 0.0-0.9 [facility] Comment on above: Previous reported re sult: TNP AIEdited by: LUIS on 06/26/24:1208 AMENDED REPORT 06/26/24 1208 Anti-SS-A previously reported as: Test not performed SS-B IgG antibody assayOrder ed By: Flo Cantu on 06-21-2024 SS-B/La IgG Antibody < 0.2 AI 0.0-0.9 [facility] Comment on above: Previous reported re sult: TNP AIEdited by: LUIS on 06/26/24:1208 AMENDED REPORT 06/26/24 1208 Anti-SS-B previously reported as: Test not performed [place] IgE Qn (S)Ordered By: Flo Cantu on 06-21-2024 [place] Allergen IgE Antibody <0.10 kU/L Class 0 [facility] Saltwort IgE Qn (S)Ordered B y: Flo Cantu on 06-21-2024 Namibian Thistle Allergen IgE Ab <0.10 kU/L Class 0 [facility] Serum Acer negundo specific IgE antibody assayOrdered By: Flo Cantu on 06-21-2024 Maple (Scalf) Allergen IgE Ab <0.10 kU/L Class 0 [facility] Serum Aspergillus fumigatus IgE antibody assay (units/volume)Ordered By: Flo Cantu on 06-21-2024 A. fumigatus [facility] Qn (S) [facility] on above: Test not performed Serum [place] grass IgE anti body assay (units/volume)Ordered By: Flo Cantu on 06-21-2024 [place] grass IgE Qn (S) <0.10 kU/L Class 0 [facility] [place] grass IgE Qn (S) [facility] on above: Test not performed Serum Cladosporium herbarum IgE antibody assay (units/volume)Ordered By: Flo Cantu on 06-21-2024 C. herbarum IgE Qn (S) <0.10 kU/L Class 0 [facility] C. herbarum IgE Qn (S) [facility] Comment on above: Test not performed Serum DNA double strand anti body assay (units/volume)Ordered By: Flo Cantu on 06-21-2024 DNA double strand Ab Qn (S) 1 [IU]/mL 0-9 [facility] Comment on above: Negative <5 Equivoca l 5 - 9 Positive >9 Serum Dermatophagoides ptero nyssinus specific IgE antibody assay (units/volume)Ordered By: Flojean carlos Cantu on 06-21-2024 house dust mite IgE Qn (S) TNP [facility] Comment on above: Test not performed Serum Equatorial Guinean plantain speci fic IgE antibody assayOrdered By: Flokali Cantu on 06-21-2024 [place] Plantain Allergen (RAST) <0.10 kU/L Class 0 [facility] Serum house dust mi te IgE antibody assay (units/volume)Ordered By: Flojean calros Cantu on 06-21-2024 house dust mite IgE Qn (S) <0.10 kU/L Class 0 [facility] Serum Fraxinus americana IgE antibody assay (units/volume)Ordered By: Flokali Cantu on 06-21-2024 [place] IgE Qn (S) <0.10 kU/L Class 0 [facility] Serum IgG subclass 1 measure ment (mass/volume)Ordered By: Flojean carlos Cantu on 06-21-2024 IgG subclass 1 (S) [Mass/Vol] 466 mg/dL 248-810 [facility] Serum IgG subclass 2 measure ment (mass/volume)Ordered By: Flojean carlos Cantu on 06-21-2024 IgG subclass 2 (S) [Mass/Vol] 420 mg/dL 130-555 [facility] Serum IgG subclass 3 measure ment (mass/volume)Ordered By: Flonancy Cantu on 06-21-2024 IgG subclass 3 (S) [Mass/Vol] 101 mg/dL 15-102 [facility] Serum Mary grass IgE anti body assay (units/volume)Ordered By: Flokali Cantu on 06-21-2024 Mary grass IgE Qn (S) <0.10 kU/L Class 0 [facility] Serum [place] blue grass Ig E antibody assay (units/volume)Ordered By: Flonancy Cantu on 06-21-2024 [place] blue grass IgE Qn (S) <0.10 kU/L Class 0 [facility] Serum Morus alba IgE antibod y assay (units/volume)Ordered By: Flo Cantu on 06-21-2024 White mulberry IgE Qn (S) <0.10 kU/L Class 0 [facility] Serum Rumex acetosella IgE a ntibody assay (units/volume)Ordered By: Flo Cantu on 06-21-2024 [place] IgE Qn (S) [facility] Comment on above: Test not performed Serum Namibian thistle specif ic IgE antibody assayOrdered By: Flo Cantu on 06-21-2024 Saltwort IgE Qn (S) <0.10 kU/L Class 0 [facility] Serum Scl-70 antibody assay (units/volume)Ordered By: Flo Cantu on 06-21-2024 SCL-70 extractable nuclear Ab Qn (S) <0.2 AI 0.0-0.9 [facility] Serum Urtica dioica IgE anti body assay (units/volume)Ordered By: Flo Cantu on 06-21-2024 Nettle IgE Qn (S) <0.10 kU/L Class 0 [facility] Serum bahia grass IgE antibo dy assay (units/volume)Ordered By: Flo Cantu on 06-21-2024 Bahia grass IgE Qn (S) <0.10 kU/L Class 0 [facility] Serum beef IgE antibody assa y (units/volume)Ordered By: Flo Cantu on 06-21-2024 Beef IgE Qn (S) <0.10 kU/L Class 0 [facility] Serum black walnut IgE antib richie assay (units/volume)Ordered By: Flo Cantu on 06-21-2024 [place] IgE Qn (S) <0.10 kU/L Class 0 [facility] Serum cat dander IgE antibod y assay (units/volume)Ordered By: Flo Cantu on 06-21-2024 Cat dander IgE Qn (S) <0.10 kU/L Class 0 [facility] Serum cat dander specific Ig E antibody assayOrdered By: Flo Cantu on 06-21-2024 Cat Hair Allergen [facility] Comment on above: Test not performed Serum chromogranin A measure mentOrdered By: Flo Cantu on 06-21-2024 Chromogranin A 39.2 ng/mL 0.0-101.8 [facility] Comment on above: Chromogranin A perfo rmed by [employer] KRYPTORmethodologyValues obtained with different assay methods or kits cannotbe used interchangeably. Serum chromogranin A measurement 39.2 ng/mL 0.0-101.8 [facility] Comment on above: Chromogranin A perfo rmed by [employer] KRYPTORmethodologyValues obtained with different assay methods or kits cannotbe used interchangeably. Serum classic neutrophil cyt oplasmic antibody assay (units/volume)Ordered By: Flo Cantu on 06-21-2024 Neutrophil cytoplasmic Ab.classic Qn (S) <1:20 titer Neg:<1:20 [facility] Serum codfish IgE antibody a ssay (units/volume)Ordered By: Flo Cantu on 06-21-2024 Codfish IgE Qn (S) <0.10 kU/L Class 0 [facility] Serum common/short ragweed s pecific IgE antibody assayOrdered By: Flo Cantu on 06-21-2024 Common Ragweed (Short) Allergen <0.10 kU/L Class 0 [facility] Serum corn IgE antibody assa y (units/volume)Ordered By: Flo Cantu on 06-21-2024 [place]dock IgE Qn (S) <0.10 kU/L Class 0 [facility] Serum cottonwood IgE antibod y assay (units/volume)Ordered By: Flo Cantu on 06-21-2024 Oceana IgE Qn (S) <0.10 kU/L Class 0 [facility] Serum cow milk IgE antibody assay (units/volume)Ordered By: Flo Cantu on 06-21-2024 Cow milk IgE Qn (S) 0.49 kU/L High Class I [facility] Serum dog epithelium IgE ant ibody assay (units/volume)Ordered By: Flo Cantu on 06-21-2024 Dog epithelium IgE Qn (S) <0.10 kU/L Class 0 [facility] Serum hazelnut pollen IgE an tibody assay (units/volume)Ordered By: Flo Cantu on 06-21-2024 Hazelnut Pollen IgE Qn (S) <0.10 kU/L Class 0 [facility] Serum mountain cedar specifi c IgE antibody assayOrdered By: Flo Cantu on 06-21-2024 Mountain Juniper IgE Qn (S) <0.10 kU/L Class 0 [facility] Serum mugwort IgE antibody a ssay (units/volume)Ordered By: Flo Cantu on 06-21-2024 Mugwort IgE Qn (S) <0.10 kU/L Class 0 [facility] Serum mussel specific IgE an tibody assayOrdered By: Flo Cantu on 06-21-2024 Mussel Allergen IgE Antibody <0.10 kU/L Class 0 [facility] Serum or plasma IgA measurem ent (mass/volume)Ordered By: Flo Cantu on 06-21-2024 IgA [Mass/Vol] 202 mg/dL [phone] [facility] Serum or plasma IgG measurem ent (mass/volume)Ordered By: Flo Cantu on 06-21-2024 IgG [Mass/Vol] 1093 mg/dL [phone] [facility] Serum or plasma estrogen lakesha surement (mass/volume)Ordered By: Flo Cantu on 06-21-2024 Estrogen [Mass/Vol] 406 pg/mL . [facility] Comment on above: Prepubertal < 40 Fem flaco Cycle: 1-10 Days 16 - 328 11-20 Days 34 - 501 21-30 Days 48 - 350 Post-Menopausal 40 - 244Performed at: [facility] [address] [id number] Director: Javan Burnham PhD, Phone: [phone] at: [facility] [address] [id number] Director: Neena Purvis MD, Phone: [phone] Serum or plasma free testost erone measurement (mass/volume)Ordered By: Flo Cantu on 06-21-2024 Testosterone Free [Mass/Vol] 1.2 pg/mL 0.0-4.2 [facility] Serum or plasma mannobioside IgG antibody assay by immunoassay (units/volume)Ordered By: Flo Cantu on 06-21-2024 Mannobioside IgG IA Qn 31 units 0-100 [facility] Comment on above: Negative: <90 Equivo odilia: 90-100 Positive: >100 This test was developed and its performance characteristics determined by [employer]. It has not been cleared or approved by the Food and Drug Administration. The FDA has determined that such clearance or approval is not necessary. Serum peanut IgE antibody as say (units/volume)Ordered By: Flo Cantu on 06-21-2024 Peanut IgE Qn (S) <0.10 kU/L Class 0 [facility] Serum perinuclear neutrophil cytoplasmic antibody titer by immunofluorescenceOrdered By: Flo Cantu on 06-21-2024 Neutrophil cytoplasmic Ab.perinuclear IF (S) [Titer] <1:20 titer Neg:<1:20 [facility] Comment on above: The presence of posi tive fluorescence exhibiting P-ANCA orC-ANCA patterns alone is not specific for the diagnosis ofWegener's Granulomatosis (WG) or microscopic polyangiitis.Decisions about treatment should not be based solely onANCA IFA results. The International ANCA Group Consensusrecommends follow up testing of positive sera with both PA-3 and MPO-ANCA enzyme immunoassays. As many as 5% serumsamples are positive only by EIA. Ref. AM J Clin [id number];111:507-513. Serum pork IgE antibody assa y (units/volume)Ordered By: Flo Cantu on 06-21-2024 Pork IgE Qn (S) <0.10 kU/L Class 0 [facility] Serum salmon IgE antibody as say (units/volume)Ordered By: Flo Cantu on 06-21-2024 [place] IgE Qn (S) <0.10 kU/L Class 0 [facility] Serum sheep sorrel IgE antib richie assay (units/volume)Ordered By: Flo Cantu on 06-21-2024 [place] IgE Qn (S) <0.10 kU/L Class 0 [facility] Serum shrimp specific IgE an tibody assayOrdered By: Flo Cantu on 06-21-2024 Shrimp Allergen <0.10 kU/L Class 0 [facility] Serum soybean IgE antibody a ssay (units/volume)Ordered By: Flo Cantu on 06-21-2024 Soybean IgE Qn (S) <0.10 kU/L Class 0 [facility] Serum sweet gum IgE radioall ergosorbent test (RAST) class determinationOrdered By: Flo Cantu on 06-21-2024 Sweet Gum Tree Allergen <0.10 kU/L Class 0 [facility] Serum pete IgE antibody a ssay (units/volume)Ordered By: Flo Cantu on 06-21-2024 Pete IgE Qn (S) <0.10 kU/L Class 0 [facility] Serum tissue transglutaminas e (tTG) IgA antibody assay (units/volume)Ordered By: Flo Cantu on 06-21-2024 tTG IgA Qn (S) 5 U/mL High 0-3 [facility] Comment on above: Negative 0 - 3 Weak Positive 4 - 10 Positive >10 Tissue Transglutaminase (tTG) has been identified as the endomysial antigen. Studies have demonstr- ated that endomysial IgA antibodies have over 99% specificity for gluten sensitive enteropathy. Serum tuna IgE antibody assa y (units/volume)Ordered By: Flo Cantu on 06-21-2024 Tuna IgE Qn (S) <0.10 kU/L Class 0 [facility] Serum wheat IgE antibody ass ay (units/volume)Ordered By: Flo Cantu on 06-21-2024 Wheat IgE Qn (S) 0.33 kU/L High Class I [facility] Serum white elm IgE antibody assay (units/volume)Ordered By: Flo Cantu on 06-21-2024 [place] IgE Qn (S) <0.10 kU/L Class 0 [facility] [place] IgE Qn (S) [facility] Comment on above: Test not performed Serum white mulberry IgE ant ibody assay (units/volume)Ordered By: Flo Cantu on 06-21-2024 White mulberry IgE Qn (S) [facility] Comment on above: Test not performed Serum white oak IgE antibody assay (units/volume)Ordered By: Flo Cantu on 06-21-2024 [place] IgE Qn (S) <0.10 kU/L Class 0 [facility] Serum whole egg IgE antibody assay (units/volume)Ordered By: Flo Cantu on 06-21-2024 Whole Egg IgE Qn (S) <0.10 kU/L Class 0 [facility] Service comment (Unsp spec) [Interp]Ordered By: Flo Cantu on 06-21-2024 RAST Comment Comment . [facility] Comment on above: Levels of Specific I gE Class Description of Class ----- < 0.10 0 Negative 0.10 - 0.31 0/I Equivocal/Low 0.32 - 0.55 I Low 0.56 - 1.40 II Moderate 1.41 - 3.90 III High 3.91 - 19.00 IV Very High 19.01 - 100.00 V Very High >100.00 Very High [place] IgE Qn (S)Order ed By: Flo Cantu on 06-21-2024 [place] Allergen IgE Antibody TNP [facility] Comment on above: Test not performed [place] Allergen <0.10 kU/L Class 0 [facility] Silver [place] IgE Qn (S)Order ed By: Flo Cantu on 06-21-[address] [place] Allergen (RAST) <0.10 kU/L Class 0 [facility] [place] antibody assayOrdered By: Flo Cantu on 06-21-2024 SM Antibody <0.2 AI 0.0-0.9 [facility] Comment on above: Previous reported re sult: TNP AIEdited by: LUIS on 06/26/24:1208 AMENDED REPORT 06/26/24 1208 NOEL Ab previously reported as: Test not performed Soybean IgE Qn (S)Ordered By : Flo Cantu on 06-21-2024 Soybean Allergen (RAST) <0.10 kU/L Class 0 [facility] Stemphylium botryosum IgE Qn (S)Ordered By: Flo Cantu on 06-21-2024 Stemphylium herbarum Allergen IgE <0.10 kU/L Class 0 [facility] Stemphylium herbarum IgE ser umOrdered By: Flo Cantu on 06-21-2024 Stemphylium botryosum IgE Qn (S) <0.10 kU/L Class 0 [facility] Testosterone Free [Mass/Vol] Ordered By: Flo Cantu on 06-21-2024 Free Testosterone 1.2 pg/mL 0.0-4.2 [facility] Pete IgE Qn (S)Ordered By : Flo Cantu on 06-21-2024 [place] Grass Allergen (RAST) <0.10 kU/L Class 0 [facility] Tuna IgE Qn (S)Ordered By: Alexandria Cantu on 06-21-2024 Tuna Allergen (RAST) <0.10 kU/L Class 0 [facility] Wheat IgE Qn (S)Ordered By: Flo Cantu on 06-21-2024 Wheat Allergen (RAST) 0.33 kU/L High Class I [facility] [place] IgE Qn (S)Ordered By: Flo Cantu on 06-21-2024 [place] Allergen IgE Ab <0.10 kU/L Class 0 [facility] [place] IgE Qn (S)Ordered By: Flo Cantu on 06-21-2024 Elm Tree Allergen (RAST) [facility] Comment on above: Test not performed [place] Allergen <0.10 kU/L Class 0 [facility] [place] IgE Qn (S)Orde red By: Flo Cantu on 06-21-2024 [place] Tree Allergen <0.10 kU/L Class 0 [facility] [place] IgE Qn (S)Ordered By: Flo Cantu on 06-21-2024 [place] Tree Allergen <0.10 kU/L Class 0 [facility] [place] h[place] IgE serumOrder ed By: Flo Cantu on 06-21-2024 [place] IgE Qn (S) <0.10 kU/L Class 0 [facility] White mulberry IgE Qn (S)Ord ered By: Flo Cantu on 06-21-2024 [place] Tree Allergen <0.10 kU/L Class 0 [facility] White [place] Allergen TNP [facility] Comment on above: Test not performed Whole Egg IgE Qn (S)Ordered By: Flo Cantu on 06-21-2024 Egg Whole Allergen <0.10 kU/L Class 0 [facility] tTG IgA Qn (S)Ordered By: Ra nancy Cantu on 06-21-2024 Tissue Transglutaminase IgA Ab 5 U/mL High 0-3 [facility] Comment on above: Negative 0 - 3 Weak Positive 4 - 10 Positive >10 Tissue Transglutaminase (tTG) has been identified as the endomysial antigen. Studies have demonstr- ated that endomysial IgA antibodies have over 99% specificity for gluten sensitive enteropathy. Beta HCG ( test) Ql Ordered By: Hardeep Acevedo on 05-23-2024 Serum Test, Qualitative Negative [facility] Colonoscopy Reporton 025 Colonoscopy Report [facility] Medical Records Department [address] [place] [address] Colonoscopy Report MR#: [id number] Acct: [id number] Name: CHUNG MENDOZA Rep #: [id number] : 1985 38 From: Flo Cantu DO PCP: Dr. Yong Cage MD Status:[facility] Patient Name: Chung Mendoza Procedure Date: 05/23/2024 8:35 AM Date of : 1985 Age: 38 Procedure: Colonoscopy Indications: Abdominal pain in the left lower quadrant, Abdominal pain in the left upper quadrant Providers: Flo Cantu DO Referring MD: Yong Cage MD Medicines: Monitored Anesthesia Care Patient Profile: This is a 38 year old female. Refer to note in patient chart for documentation of history and physical. Patient has symptoms of chronic dyspepsia, chronic heartburn and chronic nausea. Last Colonoscopy: none. The patient's first colonoscopy is today. Complications: No immediate complications. Procedure: Pre-Anesthesia Assessment: - Prior to the procedure, a History and Physical was performed, and patient medications and allergies were reviewed. The patient is competent. The risks and benefits of the procedure and the sedation options and risks were discussed with the patient. All questions were answered and informed consent was obtained. Patient identification and proposed procedure were verified by the physician in the pre-procedure area. Mental Status Examination: alert and oriented. Airway Examination: normal oropharyngeal airway and neck mobility. Respiratory Examination: clear to auscultation. CV Examination: normal. Prophylactic Antibiotics: The patient does not require prophylactic antibiotics. Prior Anticoagulants: The patient has taken no anticoagulant or antiplatelet agents. ASA Grade Assessment: II - A patient with mild systemic disease. After reviewing the risks and benefits, the patient was deemed in satisfactory condition to undergo the procedure. The anesthesia plan was to use monitored anesthesia care (MAC). Immediately prior to administration of medications, the patient was re-assessed for adequacy to receive sedatives. The heart rate, respiratory rate, oxygen saturations, blood pressure, adequacy of pulmonary ventilation, and response to care were monitored throughout the procedure. The physical status of the patient was re-assessed after the procedure. After I obtained informed consent, the scope was passed under direct vision. Throughout the procedure, the patient's blood pressure, pulse, and oxygen saturations were monitored continuously. The Colonoscope was introduced through the anus and advanced to the terminal ileum. The colonoscopy was performed without difficulty. The patient tolerated the procedure well. The quality of the bowel preparation was adequate. The terminal ileum, ileocecal valve, appendiceal orifice, and rectum were photographed. Scope In: 8:37:32 AM Scope Withdrawal Time 0 hours 7 minutes 37 seconds Scope Out: 8:48:40 AM Total Procedure Duration Time 0 hours 11 minutes 8 seconds Findings: The perianal and digital rectal examinations were normal. An area of mildly congested mucosa was found in the sigmoid colon, in the transverse colon and in the ascending colon. Biopsies were taken with a cold forceps for histology. Verification of patient identification for the specimen was done. Estimated blood loss was minimal. The terminal ileum appeared normal. Biopsies were taken with a cold forceps for histology. Verification of patient identification for the specimen was done. Estimated blood loss was minimal. Impression: - Congested mucosa in the sigmoid colon, in the transverse colon and in the ascending colon. Biopsied. - The examined portion of the ileum was normal. Biopsied. Recommendation: - Discharge patient to home. - Resume previous diet. - Continue present medications. - Await pathology results. - Repeat colonoscopy in 5 years for surveillance. Procedure Code(s): --- Professional --- 00915, Colonoscopy, flexible; with biopsy, single or multiple CPT copyright 2021 [employer]. All rights reserved. The codes documented in this report are preliminary and upon scientific aide review may be revised to meet current compliance requirements. Flo Cantu DO 05/23/2024 8:58:52 AM This report has been signed electronically. Number of Addenda: 0 Note Initiated On: 05/23/2024 8:35 AM 05/23/2459 Date Flo Cantu DO Cosigner Signature: Date (if indicated) CC: Dr. Yong Cage MD; Flo Cantu DO Date Dictated: 05/23/24834 Date Transcribed: Cereal Maker: RF Signed Normal [facility] EGD Reporton 05-23-2024 EGD Report [facility] Medical Records Department [address] [place] [address] EGD Report MR#: [id number] Acct: [id number] Name: CHUNG MENDOZA Rep #: [id number] : 1985 38 From: Flo Cantu DO PCP: Dr. Yong Cage MD Status:[facility] Patient Name: Chung Mendoza Procedure Date: 05/23/2024 8:23 AM Date of : 1985 Age: 38 Procedure: Upper GI endoscopy Indications: Heartburn Providers: Flo Cantu DO Referring MD: Yong Cage MD Medicines: Monitored Anesthesia Care Patient Profile: This is a 38 year old female. Refer to note in patient chart for documentation of history and physical. Patient has symptoms of chronic dyspepsia, chronic heartburn and chronic nausea. Complications: No immediate complications. Procedure: Pre-Anesthesia Assessment: - Prior to the procedure, a History and Physical was performed, and patient medications and allergies were reviewed. The patient is competent. The risks and benefits of the procedure and the sedation options and risks were discussed with the patient. All questions were answered and informed consent was obtained. Patient identification and proposed procedure were verified by the physician in the pre-procedure area. Mental Status Examination: alert and oriented. Airway Examination: normal oropharyngeal airway and neck mobility. Respiratory Examination: clear to auscultation. CV Examination: normal. Prophylactic Antibiotics: The patient does not require prophylactic antibiotics. Prior Anticoagulants: The patient has taken no anticoagulant or antiplatelet agents. ASA Grade Assessment: II - A patient with mild systemic disease. After reviewing the risks and benefits, the patient was deemed in satisfactory condition to undergo the procedure. The anesthesia plan was to use monitored anesthesia care (MAC). Immediately prior to administration of medications, the patient was re-assessed for adequacy to receive sedatives. The heart rate, respiratory rate, oxygen saturations, blood pressure, adequacy of pulmonary ventilation, and response to care were monitored throughout the procedure. The physical status of the patient was re-assessed after the procedure. After obtaining informed consent, the endoscope was passed under direct vision. Throughout the procedure, the patient's blood pressure, pulse, and oxygen saturations were monitored continuously. The Colonoscope was introduced through the mouth, and advanced to the second part of duodenum. The upper GI endoscopy was accomplished without difficulty. The patient tolerated the procedure well. Scope In: 8:32:27 AM Scope Out: 8:35:34 AM Total Procedure Duration Time 0 hours 3 minutes 7 seconds Findings: Mucosal changes including ringed esophagus, feline appearance, longitudinal furrows, small-caliber esophagus, white plaques and circumferential folds were found in the upper third of the esophagus, in the middle third of the esophagus and in the lower third of the esophagus. Esophageal findings were graded using the Eosinophilic Esophagitis Endoscopic Reference Score (EoE-EREFS) as: Edema Grade 1 Present (decreased clarity or absence of vascular markings), Rings Grade 2 Moderate (distinct rings that do not occlude passage of diagnostic 8-10 mm endoscope), Exudates Grade 1 Mild (scattered white lesions involving less than 10 percent of the esophageal surface area), Furrows Grade 1 Mild (vertical lines without visible depth) and Stricture none (no stricture found). Biopsies were obtained from the proximal and distal esophagus with cold forceps for histology of suspected eosinophilic esophagitis. Verification of patient identification for the specimen was done. Estimated blood loss was minimal. A small hiatal hernia was present. No gross lesions were noted in the first portion of the duodenum. Impression: - Esophageal mucosal changes consistent with eosinophilic esophagitis. - Small hiatal hernia. - No gross lesions in the first portion of the duodenum. - Biopsies were taken with a cold forceps for evaluation of eosinophilic esophagitis. Recommendation: - Discharge patient to home. - Resume previous diet. - Continue present medications. - Await pathology results. Procedure Code(s): --- Professional --- 74686, Esophagogastroduodenoscop y, flexible, transoral; with biopsy, single or multiple CPT copyright 2021 [employer]. All rights reserved. The codes documented in this report are preliminary and upon scientific aide review may be revised to meet current compliance requirements. Flo Cantu DO 05/23/2024 8:56:23 AM This report has been signed electronically. Number of Addenda: 0 Note Initiated On: 05/23/2024 8:23 AM 05/23/24 0856 Date Flo Cantu DO Marysol Bradford (more content not included)... [facility] MR/POSTOP.NICOon 05-23-2024 MR/POSTOP.[facility] Medical Records Department [address] [place] [address] Anesthesia Postop Eval I 05/23/24 0856 MR#: [id number] Acct: [id number] Name: CHUNG MENDOZA Rep #: [id number] : 1985 38 From: Freddy Marcelo PCP: Dr. Yong Cage MD Status:REG SDC Y Race: C Location: [place] [address] Anesthesia: Postop Eval I Current Vital Signs Temperature: 97.2 F Pulse Rate: 67 Blood Pressure: 83/61 Respiratory Rate: 16 Pulse Ox: 93 Oxygen Delivery Method: Room Air Assessment Airway patent: Yes Spontaneous unlabored respirations: Yes Mental status: Asleep nausea: No Vomiting: No Anesthesia Complication: No Fluid Hydration Crystalloid volume administer (ml): 60 Total IV fluid infused: 60 Progress Note Anesthesia document: Postop Eval 1 completed: Yes 05/23/24 0856 Date Freddy Gregg Signature: Date CC: Signed [facility] MR/DUPVYSPI1pc 05-23-2024 [facility] Medical Records Department [address] [place] [address] Anesthesia Postop Eval II 05/23/24 1142 MR#: [id number] Acct: [id number] Name: CHUNG MENDOZA Rep #: [id number] : 1985 38 From: Hardeep Acevedo MD PCP: Dr. Yong Cage MD Status:[facility] Y Race: C Location: [place] Anesthesia Postop Eval I Sum Postop Eval Completion status Anesthesia document: Postop Eval 1 completed: Yes Anesthesia Postop Eval I Summary Anesthesia Postop Eval I Summary: Anesthesia Postop Eval I: Assessment Summary Airway patent Yes 05/23/24 08:56 [email or web address] Spontaneous unlabored Yes 05/23/24 08:56 [email or web address] respirations Mental status Asleep 05/23/24 08:56 [email or web address] nausea No 05/23/24 08:56 [email or web address] Vomiting No 05/23/24 08:56 [email or web address] Anesthesia Postop Eval I: Fluid Summary Crystalloid volume administer 60 05/23/24 08:56 [email or web address] (ml) Colloids volume administered ( ml) Blood Product volume administered (ml) Total IV fluid infused 60 05/23/24 08:56 [email or web address] Anesthesia Postop Eval I: Summary Notes Anesthesia Complication No 05/23/24 08:56 [email or web address] Anesthesia Complication Comment: Post-operative progress note Anesthesia: Postop Eval II Evaluation Mental status: Awake Pain Level: 0 nausea: No Vomiting: No 05/23/24 1142 Date Hardeep Gregg Signature: Date CC: Signed [facility] ,Serum,hCG Quali.on 05-23-2024 HCG, SERUM QUAL Negative [facility] Comment on above: Performed By: #### M , M100.3200, [id number] #### [facility] [address] [place], [address] HCG, SERUM QUAL [facility] Comment on above: Result Comment: Cankatty elled via OM: Order edited - Discontinuing original order Performed By: #### M , M100.3200, [id number] #### [facility] [address] [place], [address] INTERNAL QC OK? [facility] Comment on above: Result Comment: Canc elled via OM: Order edited - Discontinuing original order Performed By: #### M , M100.3200, [id number] #### [facility] [address] [place], [address] RECORD KIT [address]# [facility] Comment on above: Result Comment: [place] elled via OM: Order edited - Discontinuing original order Performed By: #### M , M100.3200, L7400.0280 #### [facility] [address] [place], [address] ,Urineon 05-23-2024 Beta HCG ( test) Ql (U) [facility] Comment on above: Result Comment: @OK TO CANCEL PER A/C NURSE - Performed By: #### M 100, M100.3200, L7400.0280 #### [facility] [address] [place], [address] INTERNAL QC OK? Normal [facility] Comment on above: Result Comment: @OK TO CANCEL PER A/C NURSE - Performed By: #### M 100, M100.3200, L7400.0280 #### [facility] [address] [place], [address] RECORD KIT LOT# Normal [facility] Comment on above: Result Comment: @OK TO CANCEL PER A/C NURSE - Performed By: #### M 100, M100.3200, L7400.0280 #### [facility] [address] [place], [address] Serum beta-hCG test, qualita tiveOrdered By: Hardeep Acevedo on 05-23-2024 Beta HCG ( test) Ql Negative [facility] Surgery Specimen Level Trish 05-23-2024 Surgery Specimen Level IV Patient Age/Sex Location Account Attending Physician CHUNG MENDOZA 38/F EN [id number] Flo Cantu DO Specimen: [id number] Received: 05/23/24 Status: DANIEL Coleman Num: [id number] Spec Type: COLON BX Subm Dr: Flo Cantu DO HEADER OPERATION: Colonoscopy with biopsy, EGD, biopsy PRE-OP DIAGNOSIS: Gastroesophageal reflux disease, diarrhea, left lower quadrant pain, left upper quadrant pain, bloating, heartburn TISSUE SUBMITTED: A- Random esophagus biopsy, B- Terminal ileum biopsy, C- Random colon biopsy MICROSCOPIC DIAGNOSIS A. Esophagus, random biopsy: Fragments of squamous mucosa with changes consistent with eosinophilic esophagitis. See comment. B. Terminal ileum, biopsy: Fragments of small intestinal mucosa, no pathologic diagnosis. C. Colon, random biopsy: Fragments of colonic mucosa, no pathologic diagnosis. SJ. 05/24/2024 COMMENT A. Increased number of eosinophils (up to 20 per high power field) are noted consisting eosinophilic esophagitis. Correlation with clinical, endoscopic findings and appropriate follow-up are necessary. MICROSCOPIC DESCRIPTION Slides are reviewed. GROSS DESCRIPTION A. Received in fixative is one container labeled with the patient's name and designated Random esophagus biopsy. The specimen consists of multiple irregular fragments of light [place] soft tissue that in aggregate measure 2.0 x 0.5 x 0.2 cm. The specimen is totally submitted in one cassette. B. Received in fixative is one container labeled with the patient's name and designated Terminal ileum biopsy. The specimen consists of multiple irregular fragments of light [place] soft tissue that in aggregate measure 1.0 x 0.3 x 0.2 cm. The specimen is totally submitted in one cassette. C. Received in fixative is one container labeled with the patient's name and designated Random colon biopsy. The specimen consists of multiple irregular fragments of light [place] soft tissue that in aggregate measure 2.0 x 0.3 x 0.2 cm. The specimen is totally submitted in one cassette. 05/23/2024 TC:3 [facility]:[id number] Patient Age/Sex Location Account Attending Physician CHUNG MENDOZA 38/F EN [id number] Flo Cantu DO Signed (signature on file) Dr. Jossue Martin MD 05/24/24 1244 Normal [facility] Comment on above: Performed By: #### M 100.1999, M100.3200, L7400.0280 #### [facility] [address] [place], [place], [address] Urine Cultureon 04-12-2024 URC Enterococcus faecali s [place] Count >100,000 Escherichia coli Escherichia coli Enterococcus faecalis: REACTION Ampicillin Islt LYNN <=2 S Ciprofloxacin Islt LYNN 1 Gentamicin Synergy Susc Islt SYN-S S levoFLOXacin Islt LYNN 1 S Linezolid Islt LYNN 2 S Nitrofurantoin Islt LYNN <=16 S Streptomycin High Pot Susc Islt SYN-S S Tetracycline Islt LYNN >=16 R Vancomycin Islt LYNN 2 S Escherichia coli: REACTION Ampicillin Islt LYNN <=2 S Ampicillin+Sulbac Islt LYNN <=2 Cefepime Islt LYNN <=0.12 S cefTRIAXone Islt LYNN <=0.25 S Ciprofloxacin Islt LYNN <=0.06 S B-Lactamase Extended Susc Islt NEG Gentamicin Islt LYNN <=1 S levoFLOXacin Islt LYNN <=0.12 S Meropenem Islt LYNN <=0.25 S Nitrofurantoin Islt LYNN <=16 S Pip+Tazo Islt LYNN <=4 S TMP SMX Islt LYNN <=20 S Normal [facility] Comment on above: Performed By: #### M , M100.3200, L7400.0280 #### [facility] [address] [place], [place], [address] Lumbar Spine 2 or 3 Viewson 04-10-2024 Lumbar Spine 2 or 3 Views [facility] Services [address] [place], [place] [address] Lumbar Spine 2 or 3 Views MR#: [id number] Acct: [id number] Name: RAYMONCHUNG MARTIN Rep #: [id number] : 1985 F 38 From: Khoa Sawant MD PCP: Dr. Yong Cage MD Status: REG CLI Study: Lumbar Spine 2 or 3 Views Date of Exam: Exam# [id number] Ordering Dr: Yong Cgae MD [id number] EXAM: XR LUMBOSACRAL SPINE, 2 OR 3 VIEWS CLINICAL INDICATION: LOWER BACK PAIN TECHNIQUE: Frontal and lateral views of the lumbar spine and sacrum. COMPARISON: No relevant prior studies available. FINDINGS: VERTEBRAE: Unremarkable. Preserved vertebral body height. No fracture. No spondylolisthesis. Preservation of the normal lumbar lordosis. No significant facet arthropathy. DISC SPACES: No acute findings. Disc spaces are maintained. GASTROINTESTINAL TRACT: Unremarkable as visualized. Included bowel gas pattern is non-obstructive. RAD/Lumbar Spine 2 or 3 Views IMPRESSION: No evidence of lumbar spinal fracture or spondylolisthesis. Electronically Signed: Khoa Sawant MD at 17:37 EST , CC: Dr. Yong Cage MD Cereal Maker: Signed [facility] Urine cultureOrdered By: Aster Cage on 04-10-2024 Bacteria identified Cx Nom (U) Enterococcus faecalis Abnormal [facility] Bacteria identified Cx Nom (U) Escherichia coli Abnormal [facility] Abdomen Completeon Abdomen Complete [facility] Services [address] [place] [address] Abdomen Complete MR#: [id number] Acct: [id number] Name: CHUNG MENDOZA Rep #: [id number] : 1985 F 38 From: Geornimo Low DO PCP: Dr. Yong Cage MD Status: REG CLI Study: Abdomen Complete Date of Exam: 04/02/24 Exam# [id number] Ordering Dr: Susi Owusu HAZARDOUS SUBSTANCES ENGINEER- C [id number] INDICATION: LUQ pain EXAMINATION: Ultrasound US Abdomen Complete TECHNIQUE: Estrella-scale and color Doppler imaging was performed of the abdomen. COMPARISON: FINDINGS: LIVER: There is normal echotexture measuring 13.8 cm. No focal hepatic lesion. No intrahepatic biliary ductal dilatation. There is no free fluid. GALLBLADDER AND BILIARY TREE: No shadowing gallstone, pericholecystic fluid or gallbladder wall thickening is demonstrated. The proximal common bile duct measures 4 mm, which is within normal limits for the patient''s age. SONOGRAPHIC MALDONADO''S SIGN: Negative. PANCREAS: No focal abnormality is demonstrated in the pancreas. Nonvisualization of the pancreatic tail. No pancreatic ductal dilatation. SPLEEN: The spleen is normal in size measuring 10.4 cm and homogeneous in echotexture. RIGHT KIDNEY: 9.8 x 3.6 x 4.1 cm. The cortex is 12 mm. There is no hydronephrosis. No shadowing calculus, focal lesion, or perinephric collection is demonstrated. LEFT KIDNEY: 11.0 x 4.6 x 5.0 cm. The cortex is 12 mm. There is no hydronephrosis. No shadowing calculus, focal lesion, or perinephric collection is demonstrated. VESSELS: Submitted longitudinal images of the intra-abdominal aorta demonstrate no gross abnormalities and are unremarkable. The IVC is patent. US/Abdomen Complete IMPRESSION: No acute sonographic abnormality is demonstrated in the abdomen. Electronically Signed: Geronimo Low DO at 9:49 EST , CC: ELOY Owusu; Dr. Yong Cage MD Cereal Maker: Signed [facility] Calprotectin, Stoolon [address] 340 ug/g Abnormal 0-120 [facility] Comment on above: Result Comment: Conc entration Interpretation Follow-Up < 5 - 50 ug/g Normal None >50 -120 ug/g Borderline Re-evaluate in 4-6 weeks >120 ug/g Abnormal Repeat as clinically indicated Performed at: [facility] [address] [place], [place] [id number] Nitrator Operator: Neena Purvis MD, Phone: [phone] Performed By: #### M 100.2000, M100.3200, L7400.0280 #### [facility] [address] [place], [address] Calprotectin stoolOrdered By : Susi Owusu on 03-26-2024 Stool Calprotectin 340 ug/g High 0-120 [facility] Comment on above: Concentration Interp retation Follow-Up< 5 - 50 ug/g Normal None>50 -120 ug/g Borderline Re-evaluate in 4-6 weeks >120 ug/g Abnormal Repeat as clinically indicatedPerformed at: - [facility] [id number] Director: Neena Purvis MD, Phone: [phone] Gastroenterology Visit Repor ton 03-25-2024 Gastroenterology Visit Report [facility] [address] [place] [address] OFFICE VISIT Date of Service: 03/25/24 MR#: [id number] Acct: [id number] Name: CHUNG MENDOZA Rep #: [id number] : 1985 Provider: ELOY barrios Age/Sex: 38/F Location: [facility] Status: Signed Intake Vital Signs 03/07/23 14:49 03/25/24 15:54 Height 5 ft 10 in Weight: 226 lb 6 oz BP 110/76 Respiration 16 Pulse 68 Pulse Oximetry (%) 97 Oxygen Delivery Method room air Intake Visit Reasons: Acid reflux Chief Complaint: establish care for reflux Medical Associate Required: No Is patient in pain?: No Allergies No Known Allergies Allergy (Verified 03/25/24 15:51) Medications ???Medication ???Instructions ???Recorded ???Confirmed ???Type multivitamin 1 tab PO DAILY 01/07/21 03/25/24 History rabeprazole 20 mg tablet,delayed 20 mg PO QDAY #90 tabs 03/25/24 03/25/24 Rx release Is last menstrual period known: Yes Post menopausal: No Patient : No Have you fallen in the past year?: No Nurse's Note: Reflux started a couple of years ago. 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 CBC and CMP were unremarkable November 2023. - she does continue to experience occasional chest burning - back pain - belching - dyspepsia - she reports Dr. Puentes recommended EGD - her works here at [place] - she reports the burning last week was more persistent - this week burning is better - she did eliminate pop from her diet and this may of helped - nausea is better with Rabeprazole - denies emesis since starting PPI - reports cardiac w/u was negative - denies any weight loss - I eat like crap - intermittent diarrhea - long time - not acute - denies any bleeding - she has a BM daily - typically 2+ BM a day - typically has a BM after most meals Caffeine - 1 can a day EtOH - denies NSAIDS - rare Tobacco - denies PPI/H2 - as noted above EGD - denies - denies any FMHx esophageal or colon cancer - denies any FMHx of IBD or celiac disease ROS Const Constitutional: No fatigue, fever(s) or weight change ENT ENT: No difficulty swallowing Gastro GI: Positive for abdominal pain, bloating, change in bowel habits, constipation, diarrhea and heartburn; No belching, change in stool character, coffee ground emesis, cramping, difficulty swallowing, feeling full early, excessive flatus, incontinent of stools, Vomiting blood/hematemesis, Blood in stool, loose stools, Black,tarry stools, nausea/dyspepsia, pain with swallowing, vomiting or other Musc Musculoskeletal: Positive for back pain, numbness and tingling; No joint pain Skin Skin: No yellowing of the eye or itchy eyes Neuro Neurology: Positive for numbness and tingling Psych Psychiatric: No anxiety and No depression Endo Endocrine: No fatigue or weight change Aller/Imm Allergy/Immunologic: No itchy eyes Magan/Lymp Hematologic/Lymphatic: No easy bleeding or easy bruising Exam Const General: healthy appearing, no acute distress and well developed Nutritional Appearance: well nourished and obese Orientation: alert and oriented x3 HENMT Head: normocephalic Ears: hearing grossly normal bilaterally Mouth: moist mucous membranes Teeth and gingiva: dentition normal Eyes Conjunctivae: conjunctivae normal Sclera: sclerae normal Neck Neck: normal visual inspection, full ROM and trachea midline Resp Effort Inspection: normal respiratory effort, able to speak in complete sentences and symmetric chest movement Auscultation: Bilateral: Clear to Auscultation Cardio Rate: regular rate Rhythm: regular rhythm GI Inspection: normal to inspection Auscultation: normal bowel sounds Palpation: soft and no hepatosplenomegaly Rectal Exam: deferred Skin General: no rashes or lesions noted and turgor normal Neuro (more content not included)... Normal [facility] CBC W/Diff, Automatedon 11-06 Absolute Lymph 2.66 X10 3/uL Normal 0.83-4.51 [facility] Comment on above: Order Comment: Order Date: 11/28/23Order Info: 0184-1 - CBCD Performed By: #### M 100.2000, M100.3200, L7400.0280 #### [facility] [address] [place], [address] Absolute Neut 4.1 X10 3/uL Normal 2.0-7.7 [facility] Comment on above: Order Comment: Order Date: 11/28/23Order Info: 0184-1 - CBCD Performed By: #### M 100, M100.3200, L7400.0280 #### [facility] [address] [place], [address] Basophils/100 WBC (Bld) 0.7 % Normal 0-1 [facility] Comment on above: Order Comment: Order Date: 11/28/23Order Info: 0184-1 - CBCD Performed By: #### M 100, M100.3200, L7400.0280 #### [facility] [address] [place], [address] Eosinophils/100 WBC (Bld) 1.4 % Normal 0-5 [facility] Comment on above: Order Comment: Order Date: 11/28/23Order Info: 0184-1 - CBCD Performed By: #### M , M100320, L7400.0280 #### [facility] [address] [place], [address] Erythrocyte distribution width (RBC) [Ratio] 13.2 % Normal 11.6-14.6 [facility] Comment on above: Order Comment: Order Date: 11/28/23Order Info: 0184-1 - CBCD Performed By: #### M 100, M100.3200, L7400.0280 #### [facility] [address] [place], [address] Hematocrit (Bld) [Volume fraction] 38.1 % Normal 37-47 [facility] Comment on above: Order Comment: Order Date: 11/28/23Order Info: 0184-1 - CBCD Performed By: #### M , M100.3200, L7400.0280 #### [facility] [address] [place], [address] Hemoglobin (Bld) [Mass/Vol] 12.5 g/dL Normal 12.0-15.0 [facility] Comment on above: Order Comment: Order Date: 11/28/23Order Info: 0184-1 - CBCD Performed By: #### M , M100.3200, L7400.0280 #### [facility] [address] [place], [address] IG% 0.400 Normal 0.0-0.9 [facility] Comment on above: Order Comment: Order Date: 11/28/23Order Info: 0184-1 - CBCD Result Comment: IG% - Immature Granulocytes (promyelocytes, myelocytes and metamyelocytes) > 1% indicates that a LEFT SHIFT is Present. Performed By: #### M , M100320, L7400.0280 #### [facility] [address] [place], [address] Lymphocytes/100 WBC (Bld) 36.5 % Normal 19-41 [facility] Comment on above: Order Comment: Order Date: 11/28/23Order Info: 018- - CBCD Performed By: #### M , M100.3200, L7400.0280 #### [facility] [address] [place], [address] MCH (RBC) [Entitic mass] 29.3 pg Normal 27.0-32.0 [facility] Comment on above: Order Comment: Order Date: 11/28/23Order Info: 018- - CBCD Performed By: #### M , M100.3200, L7400.0280 #### [facility] [address] [place], [address] MCHC (RBC) [Mass/Vol] 32.8 g/dL Normal 32-36 [facility] Comment on above: Order Comment: Order Date: 11/28/23Order Info: 0184-1 - CBCD Performed By: #### M , M100.3200, L7400.0280 #### [facility] [address] [place], [address] MCV (RBC) [Entitic vol] 89.2 fL Normal 81-99 [facility] Comment on above: Order Comment: Order Date: 11/28/23Order Info: 0184-1 - CBCD Performed By: #### M 100.1999, M100.3200, L7400.0280 #### [facility] [address] [place], [address] Monocytes/100 WBC (Bld) 5.1 % Normal 0-10 [facility] Comment on above: Order Comment: Order Date: 11/28/23Order Info: 0184-1 - CBCD Performed By: #### M 100.1999, M100.3200, L7400.0280 #### [facility] [address] [place], [address] Neutrophils/100 WBC (Bld) 55.9 % Normal 47-70 [facility] Comment on above: Order Comment: Order Date: 11/28/23Order Info: 0184-1 - CBCD Performed By: #### M 100.1999, M100.3200, L7400.0280 #### [facility] [address] [place], [address] Nucleated RBC (Bld) [#/Vol] 0 10*3/uL Normal 0-5 [facility] Comment on above: Order Comment: Order Date: 11/28/23Order Info: 0184-1 - CBCD Performed By: #### M 100.1999, M100.3200, L7400.0280 #### [facility] [address] [place], [address] Platelet mean volume (Bld) [Entitic vol] 10.5 fL Normal 6.2-12.0 [facility] Comment on above: Order Comment: Order Date: 11/28/23Order Info: 0184-1 - CBCD Performed By: #### M 100.1999, M100.3200, L7400.0280 #### [facility] [address] [place], [address] Platelets (Bld) [#/Vol] 333 10*3/uL Normal 150-450 [facility] Comment on above: Order Comment: Order Date: 11/28/23Order Info: 0184-1 - CBCD Performed By: #### M 100.1999, M100.3200, L7400.0280 #### [facility] [address] [place], [address] RBC (Bld) [#/Vol] 4.27 10*6/uL Normal 4.2-5.4 [facility] Comment on above: Order Comment: Order Date: 11/28/23Order Info: 018- - CBCD Performed By: #### M 100.1999, M100.3200, L7400.0280 #### [facility] [address] [place], [address] RDW SD 42.7 fl Normal 35.1-43.9 [facility] Comment on above: Order Comment: Order Date: 11/28/23Order Info: 018- - CBCD Performed By: #### M 100.1999, M100.3200, L7400.0280 #### [facility] [address] [place], [address] WBC (Bld) [#/Vol] 7.3 10*3/uL Normal 4.4-11.0 [facility] Comment on above: Order Comment: Order Date: 11/28/23Order Info: 018-1 - CBCD Performed By: #### M 100.1999, M100.3200, L7400.0280 #### [facility] [address] [place], [address] Comprehensive Metabolic Prof ilon 11-28-2023 Albumin [Mass/Vol] 3.7 g/dL Normal 3.2-5.0 [facility] Comment on above: Order Comment: Order Date: 11/28/23Order Info: 0786-1 - CMP Performed By: #### M .1999, M100.3200, L7400.0280 #### [facility] [address] [place], [address] Albumin/Globulin [Mass ratio] 1.0 {ratio} Normal 0.9-2.4 [facility] Comment on above: Order Comment: Order Date: 11/28/23Order Info: 0786-1 - CMP Performed By: #### M 100.1999, M100.3200, L7400.0280 #### [facility] [address] [place], [address] ALK P 68 U/L Normal 45-117 [facility] Comment on above: Order Comment: Order Date: 11/28/23Order Info: 0786-1 - CMP Performed By: #### M , M100.3200, L7400.0280 #### [facility] [address] [place], [address] ALT [Catalytic activity/Vol] 30 U/L Normal 13-56 [facility] Comment on above: Order Comment: Order Date: 11/28/23Order Info: 0786-1 - CMP Performed By: #### M 100, M100.3200, L7400.0280 #### [facility] [address] [place], [address] AST [Catalytic activity/Vol] 20 U/L Normal 15-37 [facility] Comment on above: Order Comment: Order Date: 11/28/23Order Info: 0786-1 - CMP Performed By: #### M , M100.3200, L7400.0280 #### [facility] [address] [place], [address] Bilirubin [Mass/Vol] 0.30 mg/dL Normal 0.20-1.00 [facility] Comment on above: Order Comment: Order Date: 11/28/23Order Info: 0786-1 - CMP Result Comment: For patients on eltrombopag therapy, use of Dimension [place] TBIL is not recommended. Performed By: #### M 100, M100.3200, L7400.0280 #### [facility] [address] [place], [address] BUN/CRE 13.5 RATIO Normal 10-20 [facility] Comment on above: Order Comment: Order Date: 11/28/23Order Info: 0786-1 - CMP Performed By: #### M 100, M100.3200, L7400.0280 #### [facility] [address] [place], [address] CA,Total 9.1 mg/dL Normal 8.5-10.1 [facility] Comment on above: Order Comment: Order Date: 11/28/23Order Info: 0786-1 - CMP Performed By: #### M , M100.3200, L7400.0280 #### [facility] [address] [place], [address] Chloride [Moles/Vol] 104 mmol/L Normal 98-107 [facility] Comment on above: Order Comment: Order Date: 11/28/23Order Info: 0786-1 - CMP Performed By: #### M , M100.3200, L7400.0280 #### [facility] [address] [place], [address] CO2 [Moles/Vol] 26.0 mmol/L Normal 21.0-32.0 [facility] Comment on above: Order Comment: Order Date: 11/28/23Order Info: 0786-1 - CMP Performed By: #### M 100, M100.3200, L7400.0280 #### [facility] [address] [place], [address] Creatinine [Mass/Vol] 0.89 mg/dL Normal 0.55-1.02 [facility] Comment on above: Order Comment: Order Date: 11/28/23Order Info: 0786-1 - CMP Result Comment: The validity of the calculated GFR GFRAA in patients over 70 years has not been determined. Clinical correlation is essential. Performed By: #### M 100.1999, M100.3200, L7400.0280 #### [facility] [address] [place], [address] EST GFR - AA 91 mL/min Normal >60 [facility] Comment on above: Order Comment: Order Date: 11/28/23Order Info: 0786-1 - CMP Result Comment: Afri can Yemeni GFR Calc Performed By: #### M 100.1999, M100.3200, L7400.0280 #### [facility] [address] [place], [address] GAP 7 Normal 5-15 [facility] Comment on above: Order Comment: Order Date: 11/28/23Order Info: 0786-1 - CMP Performed By: #### M 100.1999, M100.3200, L7400.0280 #### [facility] [address] [place], [address] GFR/1.73 sq M.predicted among non-blacks MDRD (S/P/Bld) [Vol rate/Area] 75 mL/min/{1.73_m2} Normal >60 [facility] Comment on above: Order Comment: Order Date: 11/28/23Order Info: 0786-1 - CMP Result Comment: Non- GFR Calc Performed By: #### M 100.1999, M100.3200, L7400.0280 #### [facility] [address] [place], [address] Globulin (S) [Mass/Vol] 3.6 g/dL Normal 2.2-4.2 [facility] Comment on above: Order Comment: Order Date: 11/28/23Order Info: 0786-1 - CMP Performed By: #### M 100.1999, M100.3200, L7400.0280 #### [facility] [address] [place], [address] Glucose [Mass/Vol] 85 mg/dL Normal 74-106 [facility] Comment on above: Order Comment: Order Date: 11/28/23Order Info: 0786-1 - CMP Performed By: #### M 100.1999, M100.3200, L7400.0280 #### [facility] [address] [place], [address] Potassium [Moles/Vol] 3.8 mmol/L Normal 3.5-5.1 [facility] Comment on above: Order Comment: Order Date: 11/28/23Order Info: 0786-1 - CMP Performed By: #### M 100.1999, M100.3200, L7400.0280 #### [facility] [address] [place], [address] Sodium [Moles/Vol] 137 mmol/L Normal 136-145 [facility] Comment on above: Order Comment: Order Date: 11/28/23Order Info: 0786-1 - CMP Performed By: #### M 100.1999, M100.3200, L7400.0280 #### [facility] [address] [place], [address] T PROT 7.3 g/dL Normal 6.4-8.2 [facility] Comment on above: Order Comment: Order Date: 11/28/23Order Info: 0786-1 - CMP Performed By: #### M 100.1999, M100.3200, [id number] #### [facility] [address] [place], [address] Urea nitrogen [Mass/Vol] 12 mg/dL Normal 7-18 [facility] Comment on above: Order Comment: Order Date: 07/23/24Order Info: [id number] - CMP Performed By: #### M 100.2000, M100.3200, [id number] #### [facility] [address] [place], [address] Absolute lymphocyte countOrd ered By: Vandana Yan on 02-01-2023 Lymphocytes Auto (Unsp spec) [#/Vol] 2.51 10*3/uL 0.83-4.51 [facility] Basophil percentageOrdered B y: Vandana Yan on 02-01-2023 Basophils/100 WBC (Bld) 0.7 % 0-1 [facility] Bilirubin [Mass/Vol] 0.30 mg/dL 0.20-1.00 [facility] Comment on above: For patients on eltr ombopag therapy, use of Dimension [place] TBIL is not recommended. Chloride [Moles/Vol] 108 mmol/L 98-107 [facility] Eosinophils/100 WBC (Bld) 1.9 % 0-5 [facility] Glucose [Mass/Vol] 84 mg/dL 74-106 [facility] Neutrophils (Bld) [#/Vol] 5.3 10*3/uL 2.0-7.7 [facility] Neutrophils/100 WBC (Bld) 63.4 % 47-70 [facility] Potassium [Moles/Vol] 3.9 mmol/L 3.5-5.1 [facility] Protein [Mass/Vol] 7.6 g/dL 6.4-8.2 [facility] Sodium [Moles/Vol] 138 mmol/L 136-145 [facility] WBC (Bld) [#/Vol] 8.4 10*3/uL 4.4-11.0 [facility] Blood erythrocytes count (nu mber/volume)Ordered By: Vandana Yan on 02-01-2023 RBC (Bld) [#/Vol] 4.50 10*6/uL 4.2-5.4 [facility] Blood hemoglobin measurement (mass/volume)Ordered By: Vandana Yan on 02-01-2023 Hemoglobin (Bld) [Mass/Vol] 13.6 g/dL 12.0-15.0 [facility] Blood lymphocytes/100 leukoc ytesOrdered By: [facility] on 02-01-2023 Lymphocytes/100 WBC (Bld) 29.8 % 19-41 [facility] Blood monocytes/100 leukocyt esOrdered By: [facility] on 02-01-2023 Monocytes/100 WBC (Bld) 4.0 % 0-10 [facility] Blood platelet mean volumeOr dered By: [facility] on 02-01-2023 Platelet mean volume (Bld) [Entitic vol] 11.2 fL 6.2-12.0 [facility] Determination of erythrocyte mean corpuscular volume (MCV)Ordered By: [facility] on 02-01-2023 MCV (RBC) [Entitic vol] 90.7 fL 81-99 [facility] Hematocrit Auto (Bld) [Volum e fraction]Ordered By: [facility] on 02-01-2023 Hematocrit (Bld) [Volume fraction] 40.8 % 37-47 [facility] - Chemistry and C hemistry - challengeOrdered By: [facility] on 02-01-2023 ALP [Catalytic activity/Vol] 80 U/L 45-117 [facility] ALT [Catalytic activity/Vol] 30 U/L 13-56 [facility] CO2 [Moles/Vol] 26.0 mmol/L 21.0-32.0 [facility] Globulin (S) [Mass/Vol] 3.7 g/dL 2.2-4.2 [facility] Urea nitrogen/Creatinine [Mass ratio] 12.6 mg/mg 10-20 [facility] - Hematology and Cell countsOrdered By: [facility] on 02-01-2023 Erythrocyte distribution width (RBC) [Entitic vol] 42.2 fL 35.1-43.9 [facility] Erythrocyte distribution width (RBC) [Ratio] 12.7 % 11.6-14.6 [facility] Immature granulocytes/100 WBC (Bld) 0.200 % 0.0-0.9 [facility] Comment on above: IG% - Immature Granu locytes (promyelocytes, myelocytes and metamyelocytes) > 1% indicates that a LEFT SHIFT is Present. MCH (RBC) [Entitic mass] 30.2 pg 27.0-32.0 [facility] Nucleated RBC/100 WBC (Bld) [Ratio] 0 % 0-5 [facility] MCHC Auto (RBC) [Mass/Vol]Or dered By: Vandana Yan on 02-01-2023 MCHC (RBC) [Mass/Vol] 33.3 g/dL 32-36 [facility] No Panel InformationOrdered By: Vandana Yan on 02-01-2023 Estimated GFR (MDRD) Amer 118 mL/min >60 [facility] Comment on above: GFR Calc Estimated GFR (MDRD) Non-Af Amer 98 mL/min >60 [facility] Comment on above: Non- GFR Calc Thyroid Stimulating Hormone (TSH) 3.58 uIU/mL 0.358-3.74 [facility] Troponin I High Sensitivity 16 pg/mL 3.0-54.0 [facility] Comment on above: Please Note: [place] t Units and Gender Specific Reference Ranges. For more information see Policy Stat Procedure [place] High Sensitivity Troponin (TNIH) and attachments. Platelets bldOrdered By: Chiara Yan on 02-01-2023 Platelets (Bld) [#/Vol] 259 10*3/uL 150-450 [facility] Serum or plasma albumin kvng urement (mass/volume)Ordered By: Vandana Yan on 02-01-2023 Albumin [Mass/Vol] 3.9 g/dL 3.2-5.0 [facility] Serum or plasma albumin/glob ulin mass ratioOrdered By: Vandana Yan on 02-01-2023 Albumin/Globulin [Mass ratio] 1.1 {ratio} 0.9-2.4 [facility] Serum or plasma calcium kvng urement (mass/volume)Ordered By: Vandana Yan on 02-01-2023 Calcium [Mass/Vol] 8.7 mg/dL 8.5-10.1 [facility] Serum or plasma creatinine m easurement (mass/volume)Ordered By: Vandana Yan on 02-01-2023 Creatinine [Mass/Vol] 0.72 mg/dL 0.55-1.02 [facility] Comment on above: The validity of the calculated GFR & GFRAA in patients over 70 years has not been determined. Clinical correlation is essential. Serum or plasma urea nitroge n measurement (mass/volume)Ordered By: Vandana Yan on 02-01-2023 Urea nitrogen [Mass/Vol] 9 mg/dL 7-18 [facility] Thin prep Papanicolaou smear with manual screeningOrdered By: Vandana Yan on 02-01-2023 Thin prep Papanicolaou smear with manual screening 18 U/L 15-37 [facility] Thin prep Papanicolaou smear with manual screening 4 5-15 [facility] Basophil percentageOrdered B y: Kristie Magana on 09-06-2022 Bilirubin [Mass/Vol] 0.30 mg/dL 0.20-1.00 [facility] Comment on above: For patients on eltr ombopag therapy, use of Dimension [place] TBIL is not recommended. Chloride [Moles/Vol] 107 mmol/L 98-107 [facility] Glucose [Mass/Vol] 83 mg/dL 74-106 [facility] Potassium [Moles/Vol] 3.7 mmol/L 3.5-5.1 [facility] Protein [Mass/Vol] 7.4 g/dL 6.4-8.2 [facility] Sodium [Moles/Vol] 139 mmol/L 136-145 [facility] - Chemistry and C hemistry - challengeOrdered By: Kristie Magana on 09-06-2022 ALP [Catalytic activity/Vol] 81 U/L 45-117 [facility] ALT [Catalytic activity/Vol] 28 U/L 13-56 [facility] CO2 [Moles/Vol] 27.0 mmol/L 21.0-32.0 [facility] Globulin (S) [Mass/Vol] 3.8 g/dL 2.2-4.2 [facility] Urea nitrogen/Creatinine [Mass ratio] 14.3 mg/mg 10-20 [facility] No Panel InformationOrdered By: Kristie Magana on 09-06-2022 Estimated GFR (MDRD) Amer 99 mL/min >60 [facility] Comment on above: GFR Calc Estimated GFR (MDRD) Non-Af Amer 81 mL/min >60 [facility] Comment on above: Non- GFR Calc Troponin I High Sensitivity 11 pg/mL 3.0-54.0 [facility] Comment on above: Please Note: [place] t Units and Gender Specific Reference Ranges. For more information see Policy Stat Procedure [place] High Sensitivity Troponin (TNIH) and attachments. Serum or plasma albumin kvng urement (mass/volume)Ordered By: Kristie Magana on 09-06-2022 Albumin [Mass/Vol] 3.6 g/dL 3.2-5.0 [facility] Serum or plasma albumin/glob ulin mass ratioOrdered By: Kristie Magana on 09-06-2022 Albumin/Globulin [Mass ratio] 0.9 {ratio} 0.9-2.4 [facility] Serum or plasma calcium kvng urement (mass/volume)Ordered By: Kristie Magana on 09-06-2022 Calcium [Mass/Vol] 8.4 mg/dL 8.5-10.1 [facility] Serum or plasma creatinine m easurement (mass/volume)Ordered By: Kristie Magana on 09-06-2022 Creatinine [Mass/Vol] 0.84 mg/dL 0.55-1.02 [facility] Comment on above: The validity of the calculated GFR & GFRAA in patients over 70 years has not been determined. Clinical correlation is essential. Serum or plasma urea nitroge n measurement (mass/volume)Ordered By: Kristie Magana on 09-06-2022 Urea nitrogen [Mass/Vol] 12 mg/dL 7-18 [facility] Thin prep Papanicolaou smear with manual screeningOrdered By: Kristie Magaan on 09-06-2022 Thin prep Papanicolaou smear with manual screening 16 U/L 15-37 [facility] Thin prep Papanicolaou smear with manual screening 5 5-15 [facility] Basophil percentageOrdered B y: Dr. Cage on 08-11-2022 Chloride [Moles/Vol] 107 mmol/L 98-107 [facility] Cholesterol [Mass/Vol] 177 mg/dL <200 [facility] Comment on above: <200 mg/dL Desirable 200-240 mg/dL Borderline >240 mg/dL High Risk Glucose [Mass/Vol] 85 mg/dL 74-106 [facility] Potassium [Moles/Vol] 3.7 mmol/L 3.5-5.1 [facility] Sodium [Moles/Vol] 139 mmol/L 136-145 [facility] Triglyceride [Mass/Vol] 266 mg/dL <199 [facility] Comment on above: The drugs N-Acetylcy steine and Metamizole may falsely depress this assay.Serum Triglycerides Reference Interval Normal <150 mg/dL Borderline high 150 - 199 mg/dL High 200 - 499 mg/dL Very High > or = 500 mg/dL Laboratory - Chemistry and C hemistry - challengeOrdered By: Dr. Cage on 08-11-2022 CO2 [Moles/Vol] 26.0 mmol/L 21.0-32.0 [facility] Urea nitrogen/Creatinine [Mass ratio] 13.6 mg/mg 10-20 [facility] No Panel InformationOrdered By: Dr. Cage on 08-11-2022 Estimated GFR (MDRD) Amer 129 mL/min >60 [facility] Comment on above: GFR Calc Estimated GFR (MDRD) Non-Af Amer 107 mL/min >60 [facility] Comment on above: Non- GFR Calc Vitamin D 25-Hydroxy 26.3 ng/mL [facility] Comment on above: Vitamin D 25(OH) Sta tus Range Deficiency <20 ng/mL (50nmol/L) Insufficiency 20 - 30 ng/mL (50 - 75 nmol/L) Sufficiency 30 - 100 ng/mL (75 - 250 nmol/L) Toxicity >100 ng/mL (>250 nmol/L) Serum or plasma calcium kvng urement (mass/volume)Ordered By: Dr. Cage on 08-11-2022 Calcium [Mass/Vol] 8.3 mg/dL 8.5-10.1 [facility] Serum or plasma cholesterol in HDL measurement (mass/volume)Ordered By: Dr. Cage on 08-11-2022 Cholesterol in HDL [Mass/Vol] 38 mg/dL >40 [facility] Comment on above: The drugs N-Acetylcy steine and Metamizole may falsely depress this assay. Reference Range HDL <40 mg/dL Low HDL Cholesterol HDL >or= 60 mg/dL High HDL Cholesterol Serum or plasma cholesterol in VLDL measurement (mass/volume)Ordered By: Dr. Cage on 08-11-2022 Cholesterol in VLDL [Mass/Vol] 53 mg/dL 5-40 [facility] Serum or plasma creatinine m easurement (mass/volume)Ordered By: Dr. Cage on 08-11-2022 Creatinine [Mass/Vol] 0.66 mg/dL 0.55-1.02 [facility] Comment on above: The validity of the calculated GFR & GFRAA in patients over 70 years has not been determined. Clinical correlation is essential. Serum or plasma low density lipoprotein (LDL) cholesterol measurement (mass/volume)Ordered By: Dr. Cage on 08-11-2022 Cholesterol in LDL [Mass/Vol] 86 mg/dL 0-130 [facility] Serum or plasma urea nitroge n measurement (mass/volume)Ordered By: Dr. Cage on 08-11-2022 Urea nitrogen [Mass/Vol] 9 mg/dL 7-18 [facility] Thin prep Papanicolaou smear with manual screeningOrdered By: Dr. Cage on 08-11-2022 Thin prep Papanicolaou smear with manual screening 6 5-15 [facility] - Microbiology an d Antimicrobial susceptibilityon 07-07-2022 S. pyogenes Ag IA Ql (Unsp spec) Positive [facility] Absolute lymphocyte countOrd ered By: Dr. Corey on 05-16-2022 Lymphocytes Auto (Unsp spec) [#/Vol] 2.01 10*3/uL 0.83-4.51 [facility] Basophil percentageOrdered B y: Dr. Corey on 05-16-2022 Basophils/100 WBC (Bld) 0.7 % 0-1 [facility] Chloride [Moles/Vol] 109 mmol/L 98-107 [facility] Eosinophils/100 WBC (Bld) 1.9 % 0-5 [facility] Glucose [Mass/Vol] 95 mg/dL 74-106 [facility] Neutrophils (Bld) [#/Vol] 4.4 10*3/uL 2.0-7.7 [facility] Neutrophils/100 WBC (Bld) 63.1 % 47-70 [facility] Potassium [Moles/Vol] 3.7 mmol/L 3.5-5.1 [facility] Sodium [Moles/Vol] 141 mmol/L 136-145 [facility] WBC (Bld) [#/Vol] 7.0 10*3/uL 4.4-11.0 [facility] Blood erythrocytes count (nu mber/volume)Ordered By: Dr. Corey on 05-16-2022 RBC (Bld) [#/Vol] 4.59 10*6/uL 4.2-5.4 [facility] Blood hemoglobin measurement (mass/volume)Ordered By: Dr. Corey on 05-16-2022 Hemoglobin (Bld) [Mass/Vol] 13.7 g/dL 12.0-15.0 [facility] Blood lymphocytes/100 leukoc ytesOrdered By: Dr. Corey on 05-16-2022 Lymphocytes/100 WBC (Bld) 28.6 % 19-41 [facility] Blood monocytes/100 leukocyt esOrdered By: Dr. Corey on 05-16-2022 Monocytes/100 WBC (Bld) 5.3 % 0-10 [facility] Blood platelet mean volumeOr dered By: Dr. Corey on 05-16-2022 Platelet mean volume (Bld) [Entitic vol] 10.3 fL 6.2-12.0 [facility] Determination of erythrocyte mean corpuscular volume (MCV)Ordered By: Dr. Corey on 05-16-2022 MCV (RBC) [Entitic vol] 88.9 fL 81-99 [facility] Hematocrit Auto (Bld) [Volum e fraction]Ordered By: Dr. Corey on 05-16-2022 Hematocrit (Bld) [Volume fraction] 40.8 % 37-47 [facility] - Chemistry and C hemistry - challengeOrdered By: Dr. Corey on 05-16-2022 CO2 [Moles/Vol] 24.0 mmol/L 21.0-32.0 [facility] Urea nitrogen/Creatinine [Mass ratio] 14.2 mg/mg 10-20 [facility] - Hematology and Cell countsOrdered By: Dr. Corey on 05-16-2022 Erythrocyte distribution width (RBC) [Entitic vol] 41.6 fL 35.1-43.9 [facility] Erythrocyte distribution width (RBC) [Ratio] 12.8 % 11.6-14.6 [facility] Immature granulocytes/100 WBC (Bld) 0.400 % 0.0-0.9 [facility] Comment on above: IG% - Immature Granu locytes (promyelocytes, myelocytes and metamyelocytes) > 1% indicates that a LEFT SHIFT is Present. MCH (RBC) [Entitic mass] 29.8 pg 27.0-32.0 [facility] Nucleated RBC/100 WBC (Bld) [Ratio] 0 % 0-5 [facility] MCHC Auto (RBC) [Mass/Vol]Or dered By: Dr. Corey on 05-16-2022 MCHC (RBC) [Mass/Vol] 33.6 g/dL 32-36 [facility] No Panel InformationOrdered By: Dr. Corey on 05-16-2022 Troponin I High Sensitivity 11 pg/mL 3.0-54.0 [facility] Comment on above: Please Note: [place] t Units and Gender Specific Reference Ranges. For more information see Policy Stat Procedure [facility] High Sensitivity Troponin (TNIH) and attachments. Estimated Creatinine Clearance Calc 103.48 ml/min [facility] Estimated GFR (MDRD) Amer 98 mL/min >60 [facility] Comment on above: GFR Calc Estimated GFR (MDRD) Non-Af Amer 81 mL/min >60 [facility] Comment on above: Non- GFR Calc Platelets bldOrdered By: Dr. Corey on 05-16-2022 Platelets (Bld) [#/Vol] 365 10*3/uL 150-450 [facility] Serum or plasma calcium kvng urement (mass/volume)Ordered By: Dr. Corey on 05-16-2022 Calcium [Mass/Vol] 8.9 mg/dL 8.5-10.1 [facility] Serum or plasma creatinine m easurement (mass/volume)Ordered By: Dr. Corey on 05-16-2022 Creatinine [Mass/Vol] 0.84 mg/dL 0.55-1.02 [facility] Comment on above: The validity of the calculated GFR & GFRAA in patients over 70 years has not been determined. Clinical correlation is essential. Serum or plasma urea nitroge n measurement (mass/volume)Ordered By: Dr. Corey on 05-16-2022 Urea nitrogen [Mass/Vol] 12 mg/dL 7-18 [facility] Thin prep Papanicolaou smear with manual screeningOrdered By: Dr. Corey on 05-16-2022 Thin prep Papanicolaou smear with manual screening 8 5-15 [facility] Vital Signs Date Time Vital Sign Value Performing Clinician Faci lity 10-28-2024 15:27-0400 Body height 177.[address] Svitlana Triana MD Work Phone: [facility] 10-28-2024 15:26-0400 Body mass index (BMI) [Ratio] 32.3 kg/m2 Dr. Svitlana Triana MD Work Phone: [facility] 10-28-2024 15:26-0400 Body weight 102.[address] Svitlana Triana MD Work Phone: [facility] 10-28-2024 15:26-0400 Diastolic blood pressure 73 mm[Hg] Dr. Svitlana Triana MD Work Phone: [facility] 10-28-2024 15:26-0400 Systolic blood pressure 117 mm[Hg] Dr. Svitlana Triana MD Work Phone: [facility] 09-27-2024 08:49-0400 Body height 177.[address] Yong Cage MD Work Phone: [facility] 09-27-2024 08:47-0400 Body mass index (BMI) [Ratio] 32.3 kg/m2 Dr. Yong Cage MD Work Phone: [facility] 09-27-2024 08:47-0400 Body weight 102.[address] Yong Cage MD Work Phone: [facility] 09-27-2024 08:47-0400 Diastolic blood pressure 73 mm[Hg] Dr. Yong Cage MD Work Phone: [facility] 09-27-2024 08:47-0400 Systolic blood pressure 107 mm[Hg] Dr. Yong Cage MD Work Phone: 5(633)956-637365 [place] [address] 09-17-2024 17:04-0400 Body temperature 99.1 [degF] Dr. Yong Cage MD Work Phone: 4(022)759-280765 [place] [address] 09-17-2024 17:04-0400 Diastolic blood pressure 71 mm[Hg] Dr. Yong Cage MD Work Phone: 3(418)499-139965 [place] [address] 09-17-2024 17:04-0400 Heart rate 59 /min Dr. Yong Cage MD Work Phone: 6(910)425-757065 [place] [address] 09-17-2024 17:04-0400 Respiratory rate 16 /min Dr. Yong Cage MD Work Phone: 6(131)878-702465 [place] [address] 09-17-2024 17:04-0400 SaO2% (BldA) [Mass fraction] 99 % Dr. Yong Cage MD Work Phone: 7(784)366-135965 [place] [address] 09-17-2024 17:04-0400 Systolic blood pressure 98 mm[Hg] Dr. Yong Cage MD Work Phone: 7(481)454-722165 [place] [address] 09-17-2024 13:54-0400 Body height 177.[address] Yong Cage MD Work Phone: 7(733)958-020665 [place] [address] 09-17-2024 13:54-0400 Body mass index (BMI) [Ratio] 31.7 kg/m2 Dr. Yong Cage MD Work Phone: 9(107)487-540065 [place] [address] 09-17-2024 13:54-0400 Body weight 100.[address] Yong Cage MD Work Phone: 3(464)339-929765 [place] [address] 09-04-2024 10:26-0400 Body mass index (BMI) [Ratio] 32.4 kg/m2 Dr. Yong Cage MD Work Phone: 5(237)853-912265 [place] [address] 09-04-2024 10:26-0400 Body weight 102.[address] Yong Cage MD Work Phone: 8(047)065-607765 [place] [address] 09-04-2024 10:26-0400 Diastolic blood pressure 74 mm[Hg] Dr. Yong Cage MD Work Phone: 5(074)290-155265 [place] [address] 09-04-2024 10:26-0400 Systolic blood pressure 123 mm[Hg] Dr. Yong Cage MD Work Phone: 6(365)739-691265 [place] [address] 07-15-2024 12:02-0400 Body temperature 98 [degF] Dr. Yong Cage MD Work Phone: 9(085)923-235265 [place] [address] 07-15-2024 12:02-0400 Diastolic blood pressure 68 mm[Hg] Dr. Yong Cage MD Work Phone: 2(929)154-017365 [place] [address] 07-15-2024 12:02-0400 Heart rate 70 /min Dr. Yong Cage MD Work Phone: 7(945)528-743165 [place] [address] 07-15-2024 12:02-0400 SaO2% (BldA) [Mass fraction] 98 % Dr. Yong Cage MD Work Phone: 6(771)832-878265 [place] [address] 07-15-2024 12:02-0400 Systolic blood pressure 120 mm[Hg] Dr. Yong Cage MD Work Phone: 8(028)082-886365 [place] [address] 07-15-2024 11:37-0400 Body height 177.[address] Yong Cage MD Work Phone: 7(827)336-294565 [place] [address] 06-24-2024 09:14-0500 Body mass index (BMI) [Ratio] 33 kg/m2 Dr. Yong Cage MD Work Phone: 2(332)017-036365 [place] [address] 06-24-2024 09:14-0500 Body weight 104.[address] Yong Cage MD Work Phone: 1(708)283-382365 [place] [address] 06-24-2024 09:14-0500 Diastolic blood pressure 72 mm[Hg] Dr. Yong Cage MD Work Phone: 5(920)839-710465 [place] [address] 06-24-2024 09:14-0500 Systolic blood pressure 112 mm[Hg] Dr. Yong Cage MD Work Phone: 8(322)627-617865 [place] [address] 05-23-2024 09:05-0500 Body temperature 97.1 [degF] Dr. Yong Cage MD Work Phone: [facility] 05-23-2024 09:05-0500 Diastolic blood pressure 63 mm[Hg] Dr. Yong Cage MD Work Phone: [facility] 05-23-2024 09:05-0500 Heart rate 64 /min Dr. Yong Cage MD Work Phone: [facility] 05-23-2024 09:05-0500 Respiratory rate 16 /min Dr. Yong Cage MD Work Phone: [facility] 05-23-2024 09:05-0500 SaO2% (BldA) [Mass fraction] 98 % Dr. Yong Cage MD Work Phone: [facility] 05-23-2024 09:05-0500 Systolic blood pressure 91 mm[Hg] Dr. Yong Cage MD Work Phone: 1(466)688-011195 [address] 05-23-2024 07:37-0500 Body mass index (BMI) [Ratio] 32.2 kg/m2 Dr. Yong Cage MD Work Phone: 5(442)516-469956 [place] [address] 05-23-2024 07:37-0500 Body weight 101.[address] Yong Cage MD Work Phone: [facility] 03-25-2024 15:54-0500 Body weight 102.[address] Yong Cage MD Work Phone: [facility] 03-25-2024 15:54-0500 Diastolic blood pressure 76 mm[Hg] Dr. Yong Cage MD Work Phone: [facility] 03-25-2024 15:54-0500 Heart rate 68 /min Dr. Yong Cage MD Work Phone: [facility] 03-25-2024 15:54-0500 Respiratory rate 16 /min Dr. Yong Cage MD Work Phone: [facility] 03-25-2024 15:54-0500 SaO2% (BldA) [Mass fraction] 97 % Dr. Yong Cage MD Work Phone: [facility] 03-25-2024 15:54-0500 Systolic blood pressure 110 mm[Hg] Dr. Yong Cage MD Work Phone: [facility] 07-07-2022 09:55-0500 Body height 177.[address] Yong Cage Work Phone: [facility] 07-07-2022 09:55-0500 Body mass index (BMI) [Ratio] 33.3 kg/m2 Dr. Yong Cage Work Phone: [facility] 07-07-2022 09:55-0500 Body temperature 98.1 [degF] Dr. Yong Cage Work Phone: [facility] 07-07-2022 09:55-0500 Body weight 105.[address] Yong Cage Work Phone: [facility] 07-07-2022 09:55-0500 Diastolic blood pressure 80 mm[Hg] Dr. Yong Cage Work Phone: [facility] 07-07-2022 09:55-0500 Heart rate 91 /min Dr. Yong Cage Work Phone: [facility] 07-07-2022 09:55-0500 Respiratory rate 14 /min Dr. Yong Cage Work Phone: [facility] 07-07-2022 09:55-0500 SaO2% (BldA) [Mass fraction] 97 % Dr. Yong Cage Work Phone: [facility] 07-07-2022 09:55-0500 Systolic blood pressure 122 mm[Hg] Dr. Yong Cage Work Phone: [facility] 05-16-2022 15:55-0500 Heart rate 81 /min [facility] 05-16-2022 15:55-0500 Respiratory rate 18 /min [facility] 05-16-2022 15:55-0500 SaO2% (BldA) [Mass fraction] 98 % [facility] 05-16-2022 10:52-0500 Body height 180.34 cm [facility] Work Phone: 05-16-2022 10:52-0500 Body mass index (BMI) [Ratio] 27.8 kg/m2 [facility] 05-16-2022 10:52-0500 Body temperature 97.9 [degF] [facility] 05-16-2022 10:52-0500 Body weight 90.71 kg [facility] 05-16-2022 10:52-0500 Diastolic blood pressure 79 mm[Hg] [facility] 05-16-2022 10:52-0500 Systolic blood pressure 113 mm[Hg] [facility] Encounters Encounter Date Encounter Type Care Provider Facility Start: 10-28-2024 End: 10-28-[address] Susi Land DO [facility] Work Phone: Start: 10-28-2024 End: 10-28-2024 ambulatory Yong Cage Facility:[facility] Start: 10-16-2024 End: 10-16-2024 Patient encounter procedure [facility] Work Phone: Start: 10-16-2024 End: 10-16-[address] Yong Cage MD Work Phone: [facility] Work Phone: Start: 10-07-2024 Encounter for other preprocedural examination Susi Land [facility] Start: 09-27-2024 End: 09-27-[address] Susi Land DO [facility] Work Phone: Start: 09-27-2024 End: 09-27-2024 ambulatory Susi Land Facility:[facility] Start: 09-17-2024 Non-patient / Non-visit Dr. Nasir Land DO [facility] Start: 09-17-2024 End: 09-17-2024 Admission to same day surgery center Dr. Susi Land [facility] Start: 09-17-2024 End: 09-17-[address] Yong Cage MD Work Phone: [facility] Work Phone: Start: 09-04-2024 End: 09-04-[address] Susi Land DO -[facility] Work Phone: Start: 09-04-2024 End: 09-04-2024 ambulatory Susi Land Facility:[facility] Start: 07-23-2024 End: 07-23-[address] Yong Cage MD Work Phone: [facility] Work Phone: Start: 07-23-2024 End: 07-23-2024 Patient encounter procedure Dr. Susi Land DO -Ultrasound, [facility] Work Phone: Start: 07-23-2024 End: 07-23-2024 ambulatory Susi Land Facility:[facility] Start: 07-15-2024 End: 07-15-[address] Yong Cage MD Work Phone: [facility] Work Phone: Start: 07-15-2024 End: 07-15-2024 Patient encounter procedure Tc CARVAJAL -Laboratory, Specimen Work Phone: Start: 07-15-2024 End: 07-15-2024 Patient encounter procedure Tc CARVAJAL -[facility] Work Phone: Start: 07-15-2024 End: 07-15-2024 ambulatory Tc CARVAJAL Facility:[facility] Start: 07-15-2024 End: 07-15-2024 ambulatory Tc CARVAJAL Facility:[facility] Start: 07-05-2024 End: 07-05-[address] Yong Cage MD Work Phone: [facility] Work Phone: Start: 07-05-2024 End: 07-05-[address] Svitlana Triana MD -Cat Scan, [facility] Work Phone: Start: 07-05-2024 End: 07-05-2024 ambulatory Svitlana Triana Facility:[facility] Start: 06-24-2024 End: 06-24-2024 Patient encounter procedure Meg Pan HAZARDOUS SUBSTANCES ENGINEER-C -Laboratory, Specimen Work Phone: Start: 06-24-2024 End: 06-24-2024 Patient encounter procedure Meg Pan HAZARDOUS SUBSTANCES ENGINEER-C -[facility] Work Phone: Start: 06-24-2024 End: 06-24-2024 Patient encounter status Meg Pan HAZARDOUS SUBSTANCES ENGINEER-C [facility] Start: 06-24-2024 End: 06-24-2024 ambulatory Yong Cage Facility:[facility] Start: 06-24-2024 End: 06-24-2024 ambulatory Megjose martin Pan Facility:[facility] Start: 06-21-2024 End: 06-21-2024 Patient encounter procedure Flo Cantu DO -Laboratory Work Phone: Start: 06-21-2024 End: 06-21-2024 Patient encounter procedure Flo Cantu DO -[facility] Work Phone: Start: 06-21-2024 End: 06-21-2024 ambulatory Flo Canut Facility:[facility] Start: 06-21-2024 End: 06-21-2024 ambulatory Flo Cantu Facility:[facility] Start: 05-23-2024 ambulatory Flo Cantu Facility :[facility] Start: 05-23-2024 Non-patient / Non-visit Flo Garnett nd DO -[facility] Start: 05-23-2024 End: 05-23-2024 Admission to same day surgery center Flo Cantu DO -Endoscopy Work Phone: Start: 05-23-2024 End: 05-23-2024 ambulatory Flo Cantu Facility:[facility] Start: 04-10-2024 End: 04-10-[address] Yong Cage MD -Laboratory, [facility] Start: 04-10-2024 End: 04-10-2024 ambulatory Yong Cage Facility:[facility] Start: 04-02-2024 End: 04-02-2024 Patient encounter procedure Susi Owusu HAZARDOUS SUBSTANCES ENGINEER-C -[facility] [place], [facility] Work Phone: Start: 04-02-2024 End: 04-02-2024 ambulatory Susi Owusu Facility:[facility] Start: 03-26-2024 End: 03-26-2024 Patient encounter procedure Susi Owusu NP-C -Laboratory, Specimen Work Phone: Start: 03-25-2024 End: 03-25-2024 Patient encounter procedure Susi Owusu NP-C -[facility] Work Phone: Start: 03-25-2024 End: 03-26-2024 ambulatory Susi Owusu Facility:[facility] Start: 11-28-2023 End: 11-28-2023 ambulatory Aria Francis NP Facility:[facility] Start: 02-01-2023 End: 02-01-2023 ambulatory [facility] Work Phone: Start: 02-01-2023 End: 02-01-2023 Patient encounter procedure [facility] Start: 09-06-2022 End: 09-06-[address] Yong Cage Work Phone: [facility] Work Phone: Start: 09-06-2022 End: 09-06-[address] Yong Cage Work Phone: [facility] Start: 08-11-2022 End: 08-11-[address] Yong Cage Work Phone: [facility] Start: 07-07-2022 End: 07-07-[address] Yong Cage Work Phone: [facility] Start: 05-16-2022 End: 05-16-2022 Emergency department patient visit [facility]-Emergency Department Procedures Date Procedure Procedure Detail Performing Clinician Start: 10-28-2024 Screening mammography Isaac Triana MD Work Phone: Start: 09-17-[address] Yong maldonado MD Work Phone: Start: 07-23-[address] Alexander Cage MD Work Phone: Start: 07-15-[address] Yong Cage MD Work Phone: Start: 07-05-2024 Computed tomography of abdomen and pelvis with contrast Dr. Yong Cage MD Work Phone: Start: 06-24-2024 Gram stain microscopy Isaac Cage MD Work Phone: Start: 06-24-[address] Yong Cage MD Work Phone: Start: 06-24-2024 Liquid based cervica l cytology screening Dr. Yong Cage MD Work Phone: Comment on above: EPITHELIAL CELL ABNO RMALITY.ATYPICAL SQUAMOUS CELLS OF UNDETERMINED SIGNIFICANCE (ASC-US). This liquid based Th inPrep(R) pap test was screened withthe use of an image guided system. Start: 06-21-2024 Allergen spec ige qu al multiallergen screen Dr. Yong Cage MD Work Phone: Start: 06-21-[address] Yong Cage MD Work Phone: Comment on above: Test not performed Start: 06-21-[address] Yong Cage MD Work Phone: Comment on above: *Additional results available. Contact laboratory/see report* Start: 06-21-[address] Felecia Cage MD Work Phone: Comment on above: *Additional results available. Contact laboratory/see report*The atypical pANCA pattern has been observed in asignificant percentage of patients with ulcerative colitis,primary sclerosing cholangitis and autoimmune hepatitis. Start: 06-21-2024 Antibody to centrome re measurement Dr. Yong Cage MD Work Phone: Comment on above: Previous reported re sult: TNP AIEdited by: INFCE on 06/26/24:1208 AMENDED REPORT 06/26/24 1208 ANTI-CENT B previously reported as: Test not performed Start: 06-21-2024 Antibody to extracta ble nuclear antigen measurement Dr. Yong Cage MD Work Phone: Comment on above: Previous reported re sult: TNP AIEdited by: INFCE on 06/26/24:1208 AMENDED REPORT 06/26/24 1208 KINNEY Ab previously reported as: Test not performed Start: 06-21-2024 Antibody to SHILA-[address] Yong Cage MD Work Phone: Comment on above: Previous reported re sult: TNP AIEdited by: INFCE on 06/26/24:1208 AMENDED REPORT 06/26/24 1208 ANTI-SHILA previously reported as: Test not performed Start: 06-21-2024 Antibody to lupus La protein measurement Dr. Yong Cage MD Work Phone: Comment on above: Previous reported re sult: TNP AIEdited by: INFCE on 06/26/24:1208 AMENDED REPORT 06/26/24 1208 Anti-SS-B previously reported as: Test not performed Start: 06-21-2024 Antibody to SS-A measurement Dr. Yong Cage MD Work Phone: Comment on above: Previous reported re sult: TNP AIEdited by: INFCE on 06/26/24:1208 AMENDED REPORT 06/26/24 1208 Anti-SS-A previously reported as: Test not performed Start: 06-21-[address] Yong Cage MD Work Phone: Start: 06-21-[address] Yong Cage MD Work Phone: Comment on above: Previous reported re sult: TNP AIEdited by: INFCE on 06/26/24:1208 AMENDED REPORT 06/26/24 1208 ANTICHROMATIN previously reported as: Test not performed Start: 06-21-[address] Yong Cage MD Work Phone: Start: 06-21-[address] Aster Cage MD Work Phone: Comment on above: Test not performed Start: 06-21-[address] Yong Cage MD Work Phone: Start: 06-21-[address] Yong Cage MD Work Phone: Start: 06-21-2024 Common silver birch RAST Dr. Yong Cage MD Work Phone: Start: 06-21-2024 Endomysial antibody IgA level Dr. Yong Cage MD Work Phone: Start: 06-21-[address] Yong maldonado MD Work Phone: Start: 06-21-2024 House dust mite (Df) RAST Dr. Yong Cage MD Work Phone: Start: 06-21-2024 Immunoglobulin G sub class, G4 measurement Dr. Yong Cage MD Work Phone: Start: 06-21-2024 Measurement of funga l antibody Dr. Yong Cage MD Work Phone: Comment on above: Negative: <45 Equivo odilia: 45-50 Positive: >50 Start: 06-21-2024 Mouse urine proteins RAST Dr. Yong Cage MD Work Phone: Start: 06-21-[address] Felecia Cage MD Work Phone: Start: 06-21-[address] Yong Cage MD Work Phone: Start: 06-21-2024 Penicillium [address]oge num RAST Dr. Yong Cage MD Work Phone: Start: 06-21-2024 Plantain (Equatorial [place]ine[place]) RAST Dr. Yong Cage MD Work Phone: Start: 06-21-2024 BINDERY HELPER antibody measurement Dr. Yong Cage MD Work Phone: Comment on above: Previous reported re sult: TNP AIEdited by: LUIS on 06/26/24:1208 AMENDED REPORT 06/26/24 1208 BINDERY HELPER Ab previously reported as: Test not performed Start: 06-21-[address] Yong Cage MD Work Phone: Comment on above: Follicular phase 0.1 - 0.9 Luteal phase 1.8 - 23.9 Ovulation phase 0.1 - 12.0 First trimester 11.0 - 44.3 Second trimester 25.4 - 83.3 Third trimester 58.7 - 214.0 Postmenopausal 0.0 - 0.1Performed at: [facility] [employer] [id number] Director: Javan Burnham PhD, Phone: [phone] at: [facility] [employer] [id number] Director: Neena Purvis MD, Phone: [phone] Start: 06-21-[address] Yong maldonado MD Work Phone: Start: 06-21-[address] Alena Caeg MD Work Phone: Start: 06-21-2024 [place] pollen RAST Dr. Alena Cage MD Work Phone: Start: 04-10-2024 X-ray of lumbar spin e, two or three views Dr. Yong Cage MD Work Phone: Start: 04-10-[address] Yong Cage MD Work Phone: Start: 04-02-[address] Yong Cage MD Work Phone: Start: 02-01-2023 Plain chest X-ray Start: 05-16-2022 Plain chest X-ray Plan of Treatment Date Care Activity Detail Author Start: 09-17-2024 Patient discharge [facility] Start: 09-17-2024 Ambulation without limitation [facility] Start: 09-17-2024 Medical regimen orders management [facility] Start: 09-17-2024 Medication education [facility] Start: 09-17-2024 Procedure discontinued [facility] Start: 09-17-2024 Taking patient vital signs [facility] Start: 09-17-2024 Vital signs measurements [facility] Start: 09-17-2024 [facility] Start: 09-17-2024 Anes hysteroscopy&/hysterosal pingography w/bx ANESTH HYSTEROSCOPE/GRAPH [facility] Start: 09-17-2024 Hysteroscopy bx endometrium&/polypc w/wo d&c HYSTEROSCOPY BIOPSY [facility] Start: 05-23-2024 Colonoscopy w/biopsy single/multiple COLONOSCOPY AND BIOPSY [facility] Start: 05-23-2024 Egd transoral biopsy single/multiple EGD BIOPSY SINGLE/MULTIPLE [facility] Start: 05-23-2024 Patient discharge [facility] Start: 05-16-2022 [facility] Colonoscopy [facility] MG Breast - bilatera l Screening [facility] Patient Education ED Chest Pain, Noncardiac [facility] Work Phone: Patient referral [facility] Work Phone: [facility] Immunizations Immunization Date Immunization Notes Care Provider Fa john 03-07-2017 influenza, injectabl e, quadrivalent, preservative free [facility] 03-07-2017 influenza, seasonal, injectable [facility] Payers Date Payer Category Payer Self-pay [id number] 2023 Unknown [id number] Unknown [facility] DO NOT USE 22* * [id number] Unknown [facility] [id number] Unknown [id number] [id number] Unknown [id number] 2.16.840.1.778515.3.579.2.462 Unknown [id number] 2.16.840.1.342573.3.579.2.462 Unknown [id number] 2.16.840.1.932424.3.579.2.462 Unknown [id number] 2.16.840.1.074519.3.579.2.462 Unknown [id number] 2.16.840.1.278267.3.579.2.462 Unknown [id number] 2.16.840.1.349177.3.579.2.462 Unknown [id number] 2.16.840.1.753695.3.579.2.462 Unknown [id number] 2.16.840.1.877705.3.579.2.462 Unknown [id number] 2.16.840.1.847416.3.579.2.462 Unknown [id number] 2.16.840.1.628035.3.579.2.462 Unknown [id number] 2.16.840.1.653024.3.579.2.462 Unknown [id number] 2.16.840.1.021996.3.579.2.462 Unknown [id number] 2.16.840.1.369927.3.579.2.462 Unknown [id number] 2.16.840.1.068022.3.579.2.462 Unknown [id number] 2.16.840.1.484921.3.579.2.462 Unknown [id number] 2.16.840.1.845272.3.579.2.462 Unknown [id number] 2.16.840.1.649439.3.579.2.462 Unknown [id number] 2.16.840.1.704746.3.579.2.462 Unknown [id number] 2.16.840.1.120040.3.579.2.462 Unknown [id number] 2.16.840.1.398304.3.579.2.462 Unknown [id number] 2.16.840.1.495126.3.579.2.462 Social History Date Type Detail Facility Start: 05-16-2022 End: 07-07-2022 Tobacco smoking status NHIS Unknown if ever smoked [facility] Start: 1985 Sex Assigned At Female [facility] Start: 07-15-2024 End: 09-16-2024 Tobacco smoking status NHIS Never smoked tobacco (finding) [facility] Start: 07-18-2024 End: 07-31-2024 Sex Female (finding) [facility] NEGATED: Highlighted row [facility] Work Phone: NEGATED: Highlighted row [facility] NEGATED: Highlighted row Not [facility] Goals Date Patient Goal Desired Activity /State Mental Status Date Assessment Result Facility 09-17-2024 Cognitive function Level Of Consciousness Drowsy [facility] Work Phone: 09-17-2024 Cognitive function Voice/Name [facility] Work Phone: 05-23-2024 Cognitive function Level Of Consciousness Sedated [facility] Work Phone: 05-23-2024 Cognitive function Voice/Name [facility] Work Phone: 05-16-2022 Cognitive function Voice/Name [facility] Work Phone: Clinical Notes 03-25-2024 to 09-17-2024 Note Date & Type Note Facility 09-17-2024 Consult note [facility] 09-17-2024 Discharge summary [facility] 09-17-2024 History and physi odilia note [facility] 09-17-2024 Consult note Note Date/Time September 17, 2024 2:35pm [facility] Medical Records Department [address] [place] [address] Pre-Anesthesia Evaluation 09/17/24 1432 MR#: [id number] Acct: [id number] Name: CHUNG MENDOZA Rep #:[id number] : 1985 38 From: Fabricio Gray PCP: Dr. Yong Cage MD Status:REG S DC Y Race: C Location: [place] [address] ASA Classification* ASA Classification ASA Classification: 2 Assessment & Plan Anesthesia* Anesthesia Assessment Anesthesia Assessment: Discussed sedation and/or anesthesia options, risks, benefits, and alternatives with patient/parents/legal guardian/POA. Questions invited. The patient/parents/legal guardian/POA seems to understand and agrees to proceedwith anesthesia plan. Reviewed the physical assessment, medical history, allergy history and patient home medications list prior to surgery/procedure/anesthetic and documented any changes. Performed airway and anesthesia risk assessments. Anesthesia Type Anesthesia Type: General History Source History Obtained from:: Patient and Chart Anesthesia Focused Assessment* Temperature: 97.8 F Pulse Rate: 80 Blood Pressure: 126/79 Respiratory Rate: 16 Pulse Ox: 98 Oxygen Delivery Method: Room Air Airway Assessment Mouth opens: >3 cm Mallampati Score: II Teeth Condition: Intact Focused Labs Anesthesia Preop lab: CBC WBC 7.7 K/mm3 (4.4-11.0) 09/17/24 14:05 09/17/24 RBC 4.26 M/mm3 (4.2-5.4) 09/17/24 14:05 09/17/24 Hgb 12.8 g/dL (12.0-15.0) 09/17/24 14:05 09/17/24 Hct 37.2 % (37-47) 09/17/24 14:05 09/17/24 Plt Count 269 K/mm3 (150-450) 09/17/24 14:05 09/17/24 CHEMISTRY Potassium 3.8 mmol/L (3.5-5.1) 11/28/23 15:13 11/28/23 Sodium 137 mmol/L (136-145) 11/28/23 15:13 11/28/23 BUN 12 mg/dL (7-18) 11/28/23 15:13 11/28/23 Creatinine 0.89 mg/dL (0.55-1.02) 11/28/23 15:13 11/28/23 Glucose 85 mg/dL (74-106) 11/28/23 15:13 11/28/23 TSH 3.58 uIU/mL (0.358-3.74) 02/01/23 15:26 COAG Urine Test Negative Negative 09/17/24 13:42 09/17/24 Tst Clinic Negative 07/15/24 12:29 07/15/24 Pre-Assessment Diagnosis/Proposed Procedure Planned Operative Procedure(s): HYSTERSCOPY SYMPHION MYOMECTOMY Anesthesia History Anesthesia History - [employer]: Anesthesia History - [employer] Hx Hospitalization No 09/16/24 13:16 Any Problems With Anesthesia No 09/16/24 13:16 Cholinesterase deficiency No 09/16/24 13:16 You/Your Family Experience No 09/16/24 13:16 fever (hyperthermia) with Relationship Recent Exposure to Contagious No 09/17/24 13:54 Disease Does patient have nerve No 09/16/24 13:16 stimulator Patient instructed to have device shut off --Does patient have Pacemaker No 09/17/24 13:54 or ICD? When Was Last Pacemaker Check QUESTION #4 FULL TEXT: You/Your Family Experience fever (hyperthermia) with Anesthesia Last Oral Intake Last Oral intake: Last Oral Intake NPO since 21:30 09/17/24 13:54 Meds taken in AM with sips of No 09/17/24 13:54 water? Meds patient instructed to take am of surgery PONV PONV - [employer]: PONV - [employer] Female Yes 09/16/24 13:16 HX of Motion Sickness Yes 09/16/24 13:16 HX of N/V After Surgery No 09/16/24 13:16 Non-Smoker Yes 09/16/24 13:16 Duration of Surgery greater No 09/16/24 13:16 than 60 minutes Number of Risk Factors 3 09/16/24 13:16 PONV Score Moderate Risk 09/16/24 13:16 Height & Weight Height & Weight: Anesthesia: Height & Weight Height 5 ft 10 in 09/17/24 13:54 Weight: 100.3 kg 09/17/24 13:54 Body Mass Index (BMI) 31.7 09/17/24 13:54 Respiratory Assessment Respiratory Assessment - [employer]: Respiratory Tract Infection Hx - [employer] Hx Respiratory Tract Infection No 09/16/24 13:16 STOP Sleep Apnea STOP Sleep Apnea - [employer]: STOP Sleep Apnea - [employer] Hx Hypertension No 09/16/24 13:16 Hx Sleep Apnea No 09/16/24 13:16 CPAP BIPAP Do you snore loudly (louder No 09/16/24 13:16 than talking or can be heard Do you often feel tired/ No 09/16/24 13:16 fatigued/ sleepy during daytime? Has anyone observed you stop No 09/16/24 13:16 breathing during sleep? STOP Results Negative 09/16/24 13:16 QUESTION #5 FULL TEXT : Do you snore loudly (louder than talking or can be heard through closed doors)? 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 Specify any problems Hx of Preganancy in last 3 N/A 09/16/24 13:16 Months Nurse Filling Out Transfusion NBUCHER 09/16/24 13:16 & Questions: Date: 09/16/24 09/16/24 13:16 Time: 13:17 09/16/24 13:16 Patient unable to answer at this time (ie. confused, unrespo /Reproduction History /Reproductive History - [employer]: /Reproductive Hx- [employer] Hx Now Gestational Age (in weeks): EDC: Hx Hx Para Hx Section SAB No 09/16/24 13:16 Active Medications Active Medications: Current Medications Generic Name Dose Route Start Last Admin Trade Name Freq PRN Reason Stop Dose Admin Lactated Ringer's 1,000 mls @ 15 mls/hr 09/17/24 13:45 09/17/24 14:11 IV 15 mls/hr .Q48H HUMBERTO Administration PFSH Medical History Dietary restriction Celiac disease Varicose veins with inflammation Chronic venous insufficiency Leg cramps History of pain when walking History of edema Wears glasses Wears contact lenses Gastric reflux Non-smoker Home Medications ?Medication ?Instructions ?Recorded ?Last Taken ?Type multivitamin 1 tab PO DAILY 01/07/21 Unkn own History cranberry fruit concentrate 250 mg 250 mg PO TID 06/24 Unknown History chewable tablet (Azo Cranberry) psyllium husk 3.4 gram/5.4 gram 1 tbsp PO QDAY 5 Unknown History oral powder (Metamucil) ibuprofen 800 mg tablet 800 mg PO Q8H PRN pain #30 t abs 09/17/24 Unknown Rx oxycodone-acetaminophen 5 mg-325 1 tab PO Q4H PRN pain 7 days #7 09/17/24 Unknown Rx mg tablet (Percocet) tabs Allergy/AdvReac Type Severity Reaction Status Date / Time No Known Allergies Allergy Verified 09/17/24 13:43 Family History Father History of deep vein thrombophlebitis of lower extremity Surgical History History of esophagogastroduodenoscopy (EGD) History of colonoscopy Previous section Social History number of children: 2 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 Physical Exam Const alert and oriented x3 Resp normal respiratory effort Auscultation: clear to auscultation bilaterally Cardio regular rate 09/17/24 1435 <Electronically signed by Fabricio Toscano MD> Date _ Fabricio Gregg Signature: Date CC: ~ Signed [facility] Work Phone: 1(218) 952-849105-13-2025 Procedure note [facility] Medical Records Department [address] [place] [address] Operative Report 09/17/24 1601 MR#: [id number] Acct: [id number] Name: CHUNG MENDOZA Rep #:[id number] : 1985 38 From: Susi Land DO PCP: Dr. Yong Cage MD Status:[facility] [place] Location: [place] [address] Problems Associated Problem List Diagnoses (1) Menorrhagia: (2) Dysmenorrhea: (3) Fibroids, submucosal: Multi Select Codes Urinary/Genital Urinary/Genital CPT Codes: 29853 Hysteroscopic myomectomy Operative Report (Standard) Operative Information Date of Procedure: 09/17/24 Pre-Operative Diagnosis: menorrhagia, dysmenorrhea, ultrasound finding of submucosal and intramuralfibroids Post-Operative Diagnosis: menorrhagia, dysmenorrhea, ultrasound finding of submucosal and intramural fibroids Surgery/Procedure Performed: hysteroscopy, myomectomy dilation and curettage pressure supervisor: Yes Chief Transfer And Pumphouse Operator: Carmelita Ortiz Tasks completed by funeral assistant: Other (assisting with hysteroscopic device and fluid management ) Additional physician's assistant?: No Type of Anesthesia: MAC/Supplemental/Local RN Documented Start/Stop Times: Operation Date: 09/17/24 14:55 Case Time Into Pre-Op 09/17/24 13:29 Out of Pre-Op 09/17/24 14:37 Anesthesia Start 09/17/24 14:41 Into Room 09/17/24 14:41 Procedure Start 09/17/24 14:58 Procedure End 09/17/24 15:41 Anesthesia End 09/17/24 15:47 Out of Room 05/13/25 15:47 Into Recovery 09/17/24 15:48 Procedure Start Time: 14:58 Procedure Stop Time: 15:41 Select all DRAINS/GRAFTS/IMPLANTS that apply: None Estimated Blood Loss: 30cc Specimen collected: Yes Description of specimen(s) removed: endometrial curetting's suspicious for fibroids and polyps Description of surgery: Patient was prepped and draped in a normal sterile fashion under MAC anesthesia. A weighted speculum was placed in the vagina and the anterior lip of the cervixwas grasped with a single-tooth tenaculum. A paracervical block was placed with1% lidocaine. Cervix was progressively dilated to allow passage of a 5 mm hysteroscope. The lining was fully visualized and noted to have polyp like structures as well as one well defined structure resembling a submucosal fibroidand measuring about 3.5 to 4cm.The uterus sounded to 10 cm. The symphion device was inserted and was used initially to clear out polyp appearing structures before starting the myomectomy. Once the debris and tissue from the lower uterine segment and right side of the uterus were cleared, the myomectomy was initiated. The device was used to remove strips of the fibroid at a time. [id number] bag of fluid was used and the under the buttock drape was noted to have over 2500 cc within it. The floor was also covered in fluid and sopped up by theattending nurses. At this point 99% of the fibroid was removed. A second bag washung andin the meantime a polyp forceps device was used to remove a large chunkof the fibroid manually. A second look with the hysteroscope showed only a smallamount of the fibroid still present and this wasremoved with the symphion. The tissue was all sent to pathology. All instruments were removed from the vagina and excellent hemostasis was noted. Patient was awoken and taken to recovery in stable condition. Surgical Findings: polyp like structures in the endometrium and one large submucosal fibroid, occupying the entirety of the right side of the uterus Complications Complications: No Admit VTE Documentation VTE Present on Admission: No VTE Mechan Device Prophylaxis: SCD's VTE Pharm Prophylaxis ordered?: No 09/17/24 1975 Cosigner Signature (if applicable): CC: Dr. Susi Land DO; Dr. Yong Cage MD~ Signed [facility]05-13-2025 Discharge summary Author Susi Gaspar [facility] Note Date/Time September 17, 2024 5:10p m [facility] Medical Records Department [address] [place] [address] Instructions for Home/Discharge Instructions 09/17/24 1409 MR#: [id number] Acct: [id number] Name: CHUNG MENDOZA Rep #:[id number] : 1985 38 From: Susi Land DO PCP: Dr. Yong Caeg MD Status:REG S DC Discharge Instructions Diet Discharge Diet: No restrictions DC O2, CPAP, BIPAP needs Home O2 Discharge instructions: No Dressing / Incision Discharge Activity: Return to Normal Activity, May Shower and May Take a Tub Bath (after 1 week) May resume sexual activity in: 1-2 weeks Weight Bearing Status: Weight bearing as tolerated Lifting Restrictions: none Dressing / Incision Call your doctor if you observe: Fever of 101 or Higher, Using more than 1 pad per hour, Shortness of breath and Uncontrolled pain Follow Up Care Please Follow Up With: Susi Land DO When: Call [phone] to schedule appointment. Test Results: Test results from this visit will be discussed in further detail at your follow- up appointment, if applicable. Discharge Plan Admission Primary Reason for Your Visit: hysteroscopy myomectomy Attending Provider: Susi Land Primary Care Provider: Yong Cage Instructions Print Language: [place] Discharge Orders/Prescriptions Prescriptions: New ibuprofen 800 mg tablet 800 mg PO Q8H PRN (Reason: pain) Qty: 30 0RF oxycodone-acetaminophen [Percocet] 5-325 mg tablet 1 tab PO Q4H PRN (Reason: pain) 7 Days Qty: 7 0RF Continued Azo Cranberry 250 mg tablet,chewable 250 mg PO TID Metamucil 3.4 gram/5.4 gram powder 1 tbsp PO QDAY Rx Instructions: mix into at least 8 oz of water or juice before administering multivitamin Tablet 1 tab PO DAILY Referrals / Follow Up: Yong Cage MD [Primary Care Provider] - Disposition Disposition (needs filled in before D/C Order can be placed): Home, Self Care 09/17/24 1409<Electronically signed by Susi Land DO>Susi Land DO CC: Dr. Yong Cage MD ~ Signed [facility] Work Phone: 1(121) 820-227805-13-2025 History and physical note Author Susi Gaspar [facility] Note Date/Time September 17, 2024 5:10p m [facility] Medical Records Department [address] [place] [address] History & Physical Exam 09/17/24 1358 MR#: [id number] Acct: [id number] Name: CHUNG MENDOZA Rep #:[id number] : 1985 38 From: Susi Land DO PCP: Dr. Yong Cage MD Status:REG S DC Location: [place] [address] History and Physical Date of Admission: 09/17/24 Intake Vital Signs 07/15/2510:37 09/04/2509:26 09/04/2509:27 Height 5 ft 10 in 5 ft 10 in 5 ft 10 in Weight: 226 lb 2 oz BMI 32.4 BP 123/74 H Intake Visit Reasons: Fibroid uterus management Medical Associate Required: No Is patient in pain?: No Allergies No Known Allergies Allergy (Verified 09/04/24 10:25) Medications ?Medication ?Instructions ?Recorded ?Confirmed ?Type multivitamin 1 tab PO DAILY 01/07/21 09/04/24 History cranberry fruit concentrate 250 mg 250 mg PO TID 06/24/24 09/04/24 History chewable tablet (Azo Cranberry) psyllium husk 3.4 gram/5.4 gram 1 tbsp PO QDAY 06/24/24 09/04/24 History oral powder (Metamucil) Post menopausal: No Patient : No : No PFSH Medical History Varicose veins with inflammation Chronic venous insufficiency Leg cramps History of pain when walking History of edema Wears glasses Wears contact lenses Gastric reflux Non-smoker Surgical History Previous section Family History Father History of deep vein thrombophlebitis of lower extremity Social History number of children: 2 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 Thinks that may be some of her back pain and also bloating. ultrasound showed the following: Uterus: 12.1 x 7.0 x 5.0 cm, Anteverted. Myometrial heterogeneity. Ill-definedhypoechoic presumed fibroids are suboptimally delineated by limited transabdominal only technique, largest measuring 3.7 x 3.4x 3.2 cm and 2.0 x 2.3 x 1.4 cm. The latter appears submucosal projecting into the endometrial cavity. The former appears predominantly subserosal/intramural. Endometrium: Difficult to measure given distortion related to the above submucosal lesion, roughly 8 mm with echogenic secretory appearance. Cervix: Grossly unremarkable limited transabdominal appearance. Right ovary: Nonvisualized. Left ovary: 2.6 x 2.3 x 2.1 cm (estimated volume 6.7 mL), grossly unremarkable limited transabdominal appearance. Free fluid: None visualized. Other: Estimated bladder volume 523 mL.. US/Pelvic (Non ) IMPRESSION: 1. Presumed uterine fibroids up to 3.7 cm, suboptimally delineated by limited transabdominal only technique. Notably, a 2.3 cm lesion appears mucosal and projects into the endometrium. An atypical hypoechoic appearance of an endometrial polyp is an additional consideration. Clinical follow-up recommended. 2. Heterogeneous myometrium may correspond to some degree of adenomyosis. 3. RIGHT ovary not visualized. 4. Additional description as above. History 2 Elective abortions Hx Para 2 Spontaneous abortions Hx # Term Pregnancies 2 Ectopic pregnancies Hx # Pregnancies Multiple births # of living children 2 Past Pregnancies Del. Date Name GA/Weeks Outcome Route Bth Weight Gen Labor Lgth Anesthesia Del Locatn Provider FOB 02/22/13 [place] 03/06/17 [place] ROS Const ROS Unobtainable: All systems reviewed & are unremarkable except as noted in H Resp Resp: Reports system reviewed and no additional complaints, except as documented; Denies cough GI GI: Reports as per HPI Psych Psych: Reports system reviewed and no additional complaints, except as documented Exam Const General: cooperative, healthy appearing, comfortable and no acute distress Resp Effort & Inspection: normal respiratory effort Skin General: no rashes or lesions noted Psych Appearance: grossly normal Speech and Movement: speech and movement normal Coding Level of Care Code Off vis,est,level 4 Diagnoses Dysmenorrhea N94.6 Menorrhagia N92.0 Assessment and Plan Assessment and Plan (1) Dysmenorrhea: Status: Acute (2) Menorrhagia: Status: Acute Plan after a discussion about the findings on the ultrasound of submucosal fibroid and discussing the patient's diagnosis and treatment plan options, the patient wishes to proceed with surgical management to involve HYSTEROSCOPY, MYOMECTOMY. I have discussed with the patient the risks, benefits, and alternatives of the procedure which include but are not limited to risks of anesthesia, bleeding, infection, possible damage to bowel, bladder, or surrounding vasculature which could lead to additional surgery to evaluate any complications. Patient agrees to procedure and wishes to proceed. 09/17/24 1358 <Electronically signed by Susi Land DO> Cosigner Signature (if applicable): CC: Dr. Susi Land DO; Dr. Yong Cage MD~ Signed [facility] Work Phone: 1(265) 728-731405-13-2025 Consult note [facility] Medical Records Department [address] [place] [address] Anesthesia Postop Eval I 09/17/24 1551 MR#: [id number] Acct: [id number] Name: CHUNG MENDOZA Rep #:[id number] : 1985 38 From: Isela Castillo CRNA PCP: Dr. Yong Cage MD Status:REG S DC Y Race: C Location: [place] [address] Anesthesia: Postop Eval I Current Vital Signs Temperature: 96.9 F Pulse Rate: 66 Blood Pressure: 94/82 Respiratory Rate: 14 Pulse Ox: 93 Oxygen Delivery Method: Room Air Assessment Airway patent: Yes Spontaneous unlabored respirations: Yes Mental status: Awake and Calm nausea: No Vomiting: No Anesthesia Complication: No Fluid Hydration Crystalloid volume administer (ml): 600 Total IV fluid infused: 600 Progress Note Anesthesia document: Postop Eval 1 completed: Yes 09/17/24 1552 c CRITICAL CARE TECHNICIAN> Date _ Isela Marinaosevic CRITICAL CARE TECHNICIAN Cosigner Signature: Date CC: ~ Signed [facility]05-13-2025 Consult note [facility] Medical Records Department [address] [place] [address] Pre-Anesthesia Evaluation 09/17/24 1432 MR#: [id number] Acct: [id number] Name: CHUNG MENDOZA Rep #:[id number] : 1985 38 From: Fabricio Gray PCP: Dr. Yong Cage MD Status:REG S DC Y Race: C Location: [place] [address] ASA Classification* ASA Classification ASA Classification: 2 Assessment & Plan Anesthesia* Anesthesia Assessment Anesthesia Assessment: Discussed sedation and/or anesthesia options, risks, benefits, and alternatives with patient/parents/legal guardian/POA. Questions invited. The patient/parents/legal guardian/POA seems to understand and agrees to proceedwith anesthesia plan. Reviewed the physical assessment, medical history, allergy history and patient home medications list prior to surgery/procedure/anesthetic and documented any changes. Performed airway and anesthesia risk assessments. Anesthesia Type Anesthesia Type: General History Source History Obtained from:: Patient and Chart Anesthesia Focused Assessment* Temperature: 97.8 F Pulse Rate: 80 Blood Pressure: 126/79 Respiratory Rate: 16 Pulse Ox: 98 Oxygen Delivery Method: Room Air Airway Assessment Mouth opens: >3 cm Mallampati Score: II Teeth Condition: Intact Focused Labs Anesthesia Preop lab: CBC WBC 7.7 K/mm3 (4.4-11.0) 09/17/24 14:05 09/17/24 RBC 4.26 M/mm3 (4.2-5.4) 09/17/24 14:05 09/17/24 Hgb 12.8 g/dL (12.0-15.0) 09/17/24 14:05 09/17/24 Hct 37.2 % (37-47) 09/17/24 14:05 09/17/24 Plt Count 269 K/mm3 (150-450) 09/17/24 14:05 09/17/24 CHEMISTRY Potassium 3.8 mmol/L (3.5-5.1) 11/28/23 15:13 11/28/23 Sodium 137 mmol/L (136-145) 11/28/23 15:13 11/28/23 BUN 12 mg/dL (7-18) 11/28/23 15:13 11/28/23 Creatinine 0.89 mg/dL (0.55-1.02) 11/28/23 15:13 11/28/23 Glucose 85 mg/dL (74-106) 11/28/23 15:13 11/28/23 TSH 3.58 uIU/mL (0.358-3.74) 02/01/23 15:26 COAG Urine Test Negative Negative 09/17/24 13:42 09/17/24 Tst Clinic Negative 07/15/24 12:29 07/15/24 Pre-Assessment Diagnosis/Proposed Procedure Planned Operative Procedure(s): HYSTERSCOPY SYMPHION MYOMECTOMY Anesthesia History Anesthesia History - [employer]: Anesthesia History - [employer] Hx Hospitalization No 09/16/24 13:16 Any Problems With Anesthesia No 09/16/24 13:16 Cholinesterase deficiency No 09/16/24 13:16 You/Your Family Experience No 09/16/24 13:16 fever (hyperthermia) with Relationship Recent Exposure to Contagious No 09/17/24 13:54 Disease Does patient have nerve No 09/16/24 13:16 stimulator Patient instructed to have device shut off --Does patient have Pacemaker No 09/17/24 13:54 or ICD? When Was Last Pacemaker Check QUESTION #4 FULL TEXT: You/Your Family Experience fever (hyperthermia) with Anesthesia Last Oral Intake Last Oral intake: Last Oral Intake NPO since 21:30 09/17/24 13:54 Meds taken in AM with sips of No 09/17/24 13:54 water? Meds patient instructed to take am of surgery PONV PONV - [employer]: PONV - [employer] Female Yes 09/16/24 13:16 HX of Motion Sickness Yes 09/16/24 13:16 HX of N/V After Surgery No 09/16/24 13:16 Non-Smoker Yes 09/16/24 13:16 Duration of Surgery greater No 09/16/24 13:16 than 60 minutes Number of Risk Factors 3 09/16/24 13:16 PONV Score Moderate Risk 09/16/24 13:16 Height & Weight Height & Weight: Anesthesia: Height & Weight Height 5 ft 10 in 09/17/24 13:54 Weight: 100.3 kg 09/17/24 13:54 Body Mass Index (BMI) 31.7 09/17/24 13:54 Respiratory Assessment Respiratory Assessment - [employer]: Respiratory Tract Infection Hx - [employer] Hx Respiratory Tract Infection No 09/16/24 13:16 STOP Sleep Apnea STOP Sleep Apnea - [employer]: STOP Sleep Apnea - [employer] Hx Hypertension No 09/16/24 13:16 Hx Sleep Apnea No 09/16/24 13:16 CPAP BIPAP Do you snore loudly (louder No 09/16/24 13:16 than talking or can be heard Do you often feel tired/ No 09/16/24 13:16 fatigued/ sleepy during daytime? Has anyone observed you stop No 09/16/24 13:16 breathing during sleep? STOP Results Negative 09/16/24 13:16 QUESTION #5 FULL TEXT : Do you snore loudly (louder than talking or can be heard through closeddoors)? 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 Specify any problems Hx of Preganancy in last 3 N/A 09/16/24 13:16 Months Nurse Filling Out Transfusion NBUCHER 09/16/24 13:16 & Questions: Date: 09/16/24 09/16/24 13:16 Time: 13:17 09/16/24 13:16 Patient unable to answer at this time (ie. confused, unrespo /Reproduction History /Reproductive History - [employer]: /Reproductive Hx- [employer] Hx Now Gestational Age (in weeks): EDC: Hx Hx Para Hx Section SAB No 09/16/24 13:16 Active Medications Active Medications: Current Medications Generic Name Dose Route Start Last Admin Trade Name Freq PRN Reason Stop Dose Admin Lactated Ringer's 1,000 mls @ 15 mls/hr 09/17/24 13:45 09/17/24 14:11 IV 15 mls/hr .Q48H HUMBERTO Administration PFSH Medical History Dietary restriction Celiac disease Varicose veins with inflammation Chronic venous insufficiency Leg cramps History of pain when walking History of edema Wears glasses Wears contact lenses Gastric reflux Non-smoker Home Medications ?Medication ?Instructions ?Recorded ?Last Taken ?Type multivitamin 1 tab PO DAILY 01/07/21 Unkn own History cranberry fruit concentrate 250 mg 250 mg PO TID 06/24 Unknown History chewable tablet (Azo Cranberry) psyllium husk 3.4 gram/5.4 gram 1 tbsp PO QDAY 5 Unknown History oral powder (Metamucil) ibuprofen 800 mg tablet 800 mg PO Q8H PRN pain #30 t abs 09/17/24 Unknown Rx oxycodone-acetaminophen 5 mg-325 1 tab PO Q4H PRN pain 7 days #7 09/17/24 Unknown Rx mg tablet (Percocet) tabs Allergy/AdvReac Type Severity Reaction Status Date / Time No Known Allergies Allergy Verified 09/17/24 13:43 Family History Father History of deep vein thrombophlebitis of lower extremity Surgical History History of esophagogastroduodenoscopy (EGD) History of colonoscopy Previous section Social History number of children: 2 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 Physical Exam Const alert and oriented x3 Resp normal respiratory effort Auscultation: clear to auscultation bilaterally Cardio regular rate 09/17/24 1435 MD> Date _ [facility]oscano [facility] Signature: Date CC: ~ Signed [facility]05-13-2025 [facility] Medical Records Department [address] [place] [address] History Physical Exam 09/17/24 1358 MR#: [id number] Acct: [id number] Name: CHUNG MENDOZA Rep #: [id number] : 1985 38 From: Susi Land DO PCP: Dr. Yong Cage MD Status:[facility] Location: [place] [address] History and Physical Date of Admission: 09/17/24 Intake Vital Signs 07/15/2510:37 09/04/2509:26 09/04/2509:27 Height 5 ft 10 in 5 ft 10 in 5 ft 10 in Weight: 226 lb 2 oz BMI 32.4 BP 123/74 H Intake Visit Reasons: Fibroid uterus management Medical Associate Required: No Is patient in pain?: No Allergies No Known Allergies Allergy (Verified 09/04/24 10:25) Medications ???Medication ???Instructions ???Recorded ???Confirmed ???Type multivitamin 1 tab PO DAILY 01/07/21 09/04/24 History cranberry fruit concentrate 250 mg 250 mg PO TID 06/24/24 09/04/24 History chewable tablet (Azo Cranberry) psyllium husk 3.4 gram/5.4 gram 1 tbsp PO QDAY 06/24/24 09/04/24 History oral powder (Metamucil) Post menopausal: No Patient : No : No PFSH Medical History Varicose veins with inflammation Chronic venous insufficiency Leg cramps History of pain when walking History of edema Wears glasses Wears contact lenses Gastric reflux Non-smoker Surgical History Previous section Family History Father History of deep vein thrombophlebitis of lower extremity Social History number of children: 2 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 Thinks that may be some of her back pain and also bloating. ultrasound showed the following: Uterus: 12.1 x 7.0 x 5.0 cm, Anteverted. Myometrial heterogeneity. Ill-defined hypoechoic presumed fibroids are suboptimally delineated by limited transabdominal only technique, largest measuring 3.7 x 3.4 x 3.2 cm and 2.0 x 2.3 x 1.4 cm. The latter appears submucosal projecting into the endometrial cavity. The former appears predominantly subserosal/intramural. Endometrium: Difficult to measure given distortion related to the above submucosal lesion, roughly 8 mm with echogenic secretory appearance. Cervix: Grossly unremarkable limited transabdominal appearance. Right ovary: Nonvisualized. Left ovary: 2.6 x 2.3 x 2.1 cm (estimated volume 6.7 mL), grossly unremarkable limited transabdominal appearance. Free fluid: None visualized. Other: Estimated bladder volume 523 mL.. US/Pelvic (Non ) IMPRESSION: 1. Presumed uterine fibroids up to 3.7 cm, suboptimally delineated by limited transabdominal only technique. Notably, a 2.3 cm lesion appears mucosal and projects into the endometrium. An atypical hypoechoic appearance of an endometrial polyp is an additional consideration. Clinical follow-up recommended. 2. Heterogeneous myometrium may correspond to some degree of adenomyosis. 3. RIGHT ovary not visualized. 4. Additional description as above. History 2 Elective abortions Hx Para 2 Spontaneous abortions Hx # Term Pregnancies 2 Ectopic pregnancies Hx # Pregnancies Multiple births # of living children 2 Past Pregnancies Del. Date Name GA/Weeks Outcome Route Bth Weight Infant Gen Labor Lgth Anesthesia Del Locatn Provider FOB 02/22/13 [place] 03/06/17 [place] ROS Const ROS Unobtainable: All systems reviewed are unremarkable except as noted in H Resp Resp: Reports system reviewed and no additional complaints, except as documented; Denies cough GI GI: Reports as per HPI Psych Psych: Reports system reviewed and no additional complaints, except as documented Exam Const General: cooperative, healthy appearing, comfortable and no acute distress Resp Effort Inspection: normal respiratory effort Skin General: no rashes or lesions noted Psych Appearance: grossly normal Speech and Movement: speech and movement normal Coding Level of Care Code Off vis,est,level 4 Diagnoses Dysmenorrhea N94.6 Menorrhagia N92.0 Assessment and Plan Assessment and Plan (1) Dysmenorrhea: Status: Acute (2) Menorrhagia: Status: Acute Plan after a discussion about the findings on the ultrasound of submucosal f (more content not included)...[facility]04-30-2025 Evaluation note* Diagnosis Onset Date Resolution Status Admit Date Dysmenorrhea acute September 04, 2024 10:24am Menorrhagia acute September 04, 2 025 10:24am Dysmenorrhea acute September 17 1:23pm Fibroids, submucosal acute September 17, 2024 1:23pm Menorrhagia acute September 17 1:23pm Fibroids, submucosal acute September 27, 2024 8:46am Status post hysteroscopy Sep, 2024 acute September 27, 2024 8:46am Eosinophilic esophagitis acute October 16, 2024 9:59am Food additives allergy status acute October 16, 2024 9:59am High fecal calprotectin acute J une 2024 9:59am [facility] Work Phone: 1(550) 441-594203-18-2025 Radiology Diagnostic study note [facility] Imaging Services [address] [place] [address] Pelvic (Non ) MR#: [id number] Acct: [id number] Name: CHUNG MENDOZA Rep #: [id number] : 1985 F 38 From: Kaylene Hernandez MD PCP: Dr. Yong Cage MD Status: REG C Study:Pelvic (Non ) Date of Exam: 07/23/24 Exam# [id number] Ordering Dr: Susi Woodruff DO PROCEDURE: PELVIC (NON ) ([facility]), 07/23/2024 REASON FOR EXAM: FIBROID UTERUS TECHNIQUE: Grayscale and color doppler transabdominal pelvic ultrasound was performed. COMPARISON: 07/05/2024 FINDINGS: Limited transabdominal only exam. Uterus: 12.1 x 7.0 x 5.0 cm, Anteverted. Myometrial heterogeneity. Ill- definedhypoechoic presumed fibroids are suboptimally delineated by limited transabdominal only technique, largest measuring 3.7 x 3.4x 3.2 cm and 2.0 x 2.3 x 1.4 cm. The latter appears submucosal projecting into the endometrial cavity. The former appears predominantly subserosal/intramural. Endometrium: Difficult to measure given distortion related to the above submucosal lesion, roughly 8 mm with echogenic secretory appearance. Cervix: Grossly unremarkable limited transabdominal appearance. Right ovary: Nonvisualized. Left ovary: 2.6 x 2.3 x 2.1 cm (estimated volume 6.7 mL), grossly unremarkable limited transabdominal appearance. Free fluid: None visualized. Other: Estimated bladder volume 523 mL.. US/Pelvic (Non ) IMPRESSION: 1. Presumed uterine fibroids up to 3.7 cm, suboptimally delineated by limited transabdominal only technique. Notably, a 2.3 cm lesion appears mucosal and projects into the endometrium. An atypical hypoechoic appearance of an endometrial polyp is an additional consideration. Clinical follow-up recommended. 2. Heterogeneous myometrium may correspond to some degree of adenomyosis. 3. RIGHT ovary not visualized. 4. Additional description as above. Reading Location: [facility] CC: Dr. Susi Land DO; Dr. Yong Cage MD ~ Cereal Maker: Signed [facility]02-28-2025 Radiology Diagnostic study note [facility] Imaging Services [address] [place] [address] CT Abd/Pelvis W/WO Contrast MR#: [id number] Acct: [id number] Name: CHUNG MENDOZA Rep #: [id number] : 1985 F 38 From: Siva Duong MD PCP: ELOY Galarza Status: REG C LI Study:CT Abd/Pelvis W/WO Contrast Date of Exa m: 07/05/24 Exam# [id number] Ordering Dr: Svitlana Triana MD PROCEDURE: CT ABD/PELVIS W/WO CONTRAST REASON FOR EXAM: Left flank pain. UTI. TECHNIQUE: Abdomen and pelvis CT with intravenous contrast. IV CONTRAST: 100 cc of Isovue-300. COMPARISON: None. FINDINGS: Lung bases: Clear Liver: Unremarkable. Gallbladder: Unremarkable. Spleen: Unremarkable. Pancreas: Unremarkable. Adrenals: Unremarkable. Kidneys: Unremarkable. Bladder: Unremarkable. Reproductive Organs: Enlarged calcified fibroid uterus. Bowel: Unremarkable. Small hiatal hernia. Appendix: Normal. Small umbilical hernia. Lymph nodes: No suspicious lymph node enlargement. Vasculature: Major vascular structures are unremarkable. Peritoneum / Retroperitoneum: No ascites. No free air. Bones: Unremarkable. CT/CT Abd/Pelvis W/WO Contrast IMPRESSION: No evidence of urinary obstruction. Enlarged calcified fibroid uterus. Small hiatal hernia. Small umbilical hernia. One or more dose reduction techniques were used (e.g., Automated exposure control, adjustment of the mA and/or kV according to patient size, use of iterative reconstruction technique). Reading Location: [facility] CC: ELOY Pan; Dr. Svitlana Triana MD ~ Cereal Maker: Signed [facility]02-17-2025 NotePap Smear Specimen AdequacyFebruary 2024 2:20pmComment.Satisfactory for evaluation. Endocervical and/or squamous metaplasticcells (endocervical component)are present.[facility] INTERFACED A#[id number] HospitalComment on above:Satisfactory for evaluation. Endocervical and/or squamous metaplasticcells (endocervical component)are present.06-24-2024 NotePap Smear Specimen AdequacyFebruary 2024 2:20pmComment.Satisfactory for evaluation. Endocervical and/or squamous metaplasticcells (endocervical component)are present.[facility] INTER[facility]ACED A#[id number] HospitalComment on above:Satisfactory for evaluation. Endocervical and/or squamous metaplasticcells (endocervical component)are present.06-24-2024 NotePap Smear Specimen AdequacyFebruary 2024 2:20pmComment.Satisfactory for evaluation. Endocervical and/or squamous metaplasticcells (endocervical component)are present.[facility] INTER[facility]ACED A#[id number] HospitalComment on above:Satisfactory for evaluation. Endocervical and/or squamous metaplasticcells (endocervical component)are present.06-21-2024 Evaluation note* Diagnosis Onset Date Resolution Status Admit Date Eosinophilic esophagitis acute June 21, 2024 10:31am High fecal calprotectin acute F ebruary 2024 10:31am Recurrent UTI acute June 242024 9:12am Encounter for routine gynecological examination noneactive Februa 2024 9:12am Vaginal odor noneactive June 9:12am Dysmenorrhea acute September 04, 2024 10:24am Menorrhagia acute September 04, 2 025 10:24am Dysmenorrhea acute September 17 1:23pm Fibroids, submucosal acute September 17, 2024 1:23pm Menorrhagia acute September 17 1:23pm Fibroids, submucosal acute September 27, 2024 8:46am Status post hysteroscopy acute September 27, 2024 8:46am [facility] Work Phone: 1(723) 565-128201-16-2025 Evaluation note* Diagnosis Onset Date Resolution Status Admit Date Bloating acute May 23, 2024 7:02am Diarrhea acute May 23, 2024 7:02am Heartburn acute May 23, 2024 7:02am High fecal calprotectin acute J anuary 2024 7:02am LUQ pain acute May 23, 2024 7:02am Eosinophilic esophagitis acute June 21, 2024 10:31am High fecal calprotectin acute F ebruary 2024 10:31am Recurrent UTI acute June 242024 9:12am Encounter for routine gynecological examination noneactive ua 2024 9:12am Vaginal odor noneactive June 9:12am [facility] Work Phone: 1(788) 258-700501-16-2025 Evaluation note* Diagnosis Onset Date Resolution Status Admit Date Bloating acute May 23, 2024 7:02am Diarrhea acute May 23, 2024 7:02am Heartburn acute May 23, 2024 7:02am High fecal calprotectin acute J anuary 2024 7:02am LUQ pain acute May 23, 2024 7:02am Eosinophilic esophagitis acute June 21, 2024 10:31am High fecal calprotectin acute F ebruary 2024 10:31am Recurrent UTI acute June 242024 9:12am Encounter for routine gynecological examination noneactive 2024 9:12am Vaginal odor noneactive June 9:12am Dysmenorrhea acute September 04, 2024 10:24am Menorrhagia acute September 04, 025 10:24am Dysmenorrhea acute September 17 1:23pm Fibroids, submucosal acute September 17, 2024 1:23pm Menorrhagia acute September 17 1:23pm [facility] Work Phone: 1(252) 128-690901-16-2025 [facility] Medical Records Department [address] [place] [address] History Physical Exam 05/23/24817 MR#: [id number] Acct: [id number] Name: CHUNG MENDOZA Rep #: [id number] : 1985 38 From: Flo Cantu DO PCP: Dr. Yong Cage MD Status:REG [facility] [place] Location: [place] [address] HPI - General General Date of Admission: 05/23/24 Date of Service: 05/23/24 Chief Complaint: Abdominal pain and heartburn HPI Narrative 38y/o female presents for evaluation of reflux and abdominal pain. CBC and CMP were unremarkable November 2023. - she does continue to experience occasional chest burning - back pain - belching - dyspepsia - she reports Dr. Puentes recommended EGD - her works here at [employer] - she reports the burning last week was more persistent - this week burning is better - she did eliminate pop from her diet and this may of helped - nausea is better with Rabeprazole - denies emesis since starting PPI - reports cardiac w/u was negative - denies any weight loss - I eat like crap - intermittent diarrhea - long time - not acute - denies any bleeding - she has a BM daily - typically 2+ BM a day - typically has a BM after most meals Caffeine - 1 can a day EtOH - denies NSAIDS - rare Tobacco - denies PPI/H2 - as noted above EGD - denies - denies any FMHx esophageal or colon cancer - denies any FMHx of IBD or celiac disease PFSH Medical History Varicose veins with inflammation Chronic venous insufficiency Leg cramps History of pain when walking History of edema Wears glasses Wears contact lenses Gastric reflux Non-smoker Home Medications ???Medication ???Instructions ???Recorded ???Last Taken ???Type multivitamin 1 tab PO DAILY 01/07/21 Unknown History Allergy/AdvReac Type Severity Reaction Status Date / Time No Known Allergies Allergy Verified 05/23/24 07:35 Family History Father History of deep vein thrombophlebitis of lower extremity Surgical History Previous section Social History number of children: 2 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 ROS Constitutional Constitutional: Denies fatigue, fever(s), poor appetite, weight gain or weight loss Gastrointestinal Gastrointestinal: Denies belching, bloating, change in bowel habits, change in stool character, chewing difficulty, coffee ground emesis, constipation, cramping, diarrhea, dyspepsia, dysphagia, early satiety, excessive flatus, fecal incontinence, heartburn, hematemesis, hematochezia, hemorrhoids, loose stools, melena, nausea, odynophagia, rectal bleeding, tenesmus, vomiting or weight changes Vital Signs Vital Signs Vital Signs: 05/23/24 07:37 05/23/24 07:37 Temperature 97.6 F L Temperature Source Temporal Pulse Rate 82 Respiratory Rate 18 Respiratory Pattern Normal Blood Pressure 102/80 Blood Pressure Mean 87 Blood Pressure Source Monitor Blood Pressure Position Semi-Fowlers Blood Pressure Location Left Arm Pulse Ox 97 Oxygen Delivery Method Room Air Weight Weight: 224 lb 10.417 oz Body Mass Index (BMI) 32.2 Physical Exam Const alert, oriented x3, no apparent distress and well nourished General Appearance: cooperative and well developed HEENT normocephalic and head/scalp atraumatic Head and Scalp: atraumatic External Auditory Canal: EAC's normal Tympanic Membrane: TM's normal bilaterally Mouth: oral and palatal mucosa normal Eyes PERRL and EOMs intact bilaterally Neck no JVD Resp normal respiratory effort and normal air movement GI non-distended Extremity normal capillary refill and no clubbing, cyanosis or edema Extremity Narrative: Scattered varicosities are noted in both lower extremities, more prominent on the left. Skin no rashes or lesions noted, no wounds and no jaundice General Skin Exam: no breakdown Lesions: no lesions Rashes: no rashes Neuro CN's II-XII intact bilaterally Psych thought process normal, cooperative and affect normal Appearance: appropriate Assessment Plan Assessment/Plan (1) High fecal calprotectin: (2) Heartburn: (3) Bloating: (4) LUQ pain: (5) Diarrhea: QUALIFIERS: Diarrhea type: functional diarrhea Qualified Code(s): K59.1 - Functional diarrhea PLAN: Assessment and Plan Assessment and Plan (1) Gastroesophageal reflux disease: Qualifiers: Esophagitis presence: esophag (more content not included)...[facility]11-18-2024 Evaluation note* Diagnosis Onset Date Resolution Status Admit Date Bloating acute March 25, 2024 3:22pm Diarrhea acute March 25, 2024 3:22pm Heartburn acute March 25, 2024 3:22pm LLQ pain acute March 25, 2024 3:22pm LUQ pain acute March 25, 2024 3:22pm Gastroesophageal reflux disease noneactive March 25, 2 024 3:22pm Bloating acute May 23, 2024 7:02am Diarrhea acute May 23, 2024 7:02am Heartburn acute May 23, 2024 7:02am High fecal calprotectin acute J anuary 2024 7:02am LUQ pain acute May 23, 2024 7:02am Eosinophilic esophagitis acute June 21, 2024 10:31am High fecal calprotectin acute F ebruary 2024 10:31am Recurrent UTI acute June 242024 9:12am Encounter for routine gynecological examination noneactive 2024 9:12am Vaginal odor noneactive June 9:12am [facility] Work Phone: Consult note Author Isela Castillo [facility] Note Date/Time September 17, 2024 3:52p [facility] Medical Records Department [address] [place] [address] Anesthesia Postop Eval I 09/17/24 1551 MR#: [id number] Acct: [id number] Name: CHUNG MENDOZA Rep #:[id number] : 1985 38 From: Isela Castillo CRNA PCP: Dr. Yong Cage MD Status:REG S DC Y Race: C Location: [place] [address] Anesthesia: Postop Eval I Current Vital Signs Temperature: 96.9 F Pulse Rate: 66 Blood Pressure: 94/82 Respiratory Rate: 14 Pulse Ox: 93 Oxygen Delivery Method: Room Air Assessment Airway patent: Yes Spontaneous unlabored respirations: Yes Mental status: Awake and Calm nausea: No Vomiting: No Anesthesia Complication: No Fluid Hydration Crystalloid volume administer (ml): 600 Total IV fluid infused: 600 Progress Note Anesthesia document: Postop Eval 1 completed: Yes 09/17/24 1552 <Electronically signed by Isela alaniz CRITICAL CARE TECHNICIAN> Date _ Isela Castillo CRITICAL CARE TECHNICIAN Cosigner Signature: Date CC: ~ Signed [facility] Work Phone: Consult note Author Fabricio Toscano [facility] Note Date/Time September 17, 2024 5:10p [facility] Medical Records Department [address] [place] [id number] Anesthesia Postop Eval II 09/17/24 1621 MR#: [id number] Acct: [id number] Name: CHUNG MENDOZA Rep #:[id number] : 1985 38 From: Fabricio Gray PCP: Dr. Yong Cage MD Status:REG S DC Y Race: C Location: [place] [address] Anesthesia Postop Eval I Sum Postop Eval Completion status Anesthesia document: Postop Eval 1 completed: Yes Anesthesia Postop Eval I Summary Anesthesia Postop Eval I Summary: Anesthesia Postop Eval I: Assessment Summary Airway patent Yes 09/17/24 15:52 CRITICAL CARE [email or web address] Spontaneous unlabored Yes 09/17/24 15:52 CRITICAL CARE TECHNICIAN.[email or web address] respirations Mental status Awake,Calm 09/17/24 15:52 CRITICAL CARE TECHNICIAN.[email or web address] nausea No 09/17/24 15:52 CRITICAL CARE TECHNICIAN.[email or web address] Vomiting No 09/17/24 15:52 CRITICAL CARE TECHNICIAN.[email or web address] Anesthesia Postop Eval I: Fluid Summary Crystalloid volume administer 600 09/17/24 15:52 CRITICAL CARE [email or web address].[email or web address] (ml) Colloids volume administered ( ml) Blood Product volume administered (ml) Total IV fluid infused 600 09/17/24 15:52 CRITICAL CARE [email or web address].[email or web address] Anesthesia Postop Eval I: Summary Notes Anesthesia Complication No 09/17/24 15:52 CRITICAL CARE [email or web address].[email or web address] Anesthesia Complication Comment: Post-operative progress note Anesthesia: Postop Eval II Evaluation Mental status: Awake and Calm Pain Level: 0 nausea: No Vomiting: No Complications Anesthesia Complication: No 09/17/24 1621 <Electronically signed by Fabricio Toscano MD> Date _ Fabricio Toscano MD Cosigner Signature: Date CC: ~ Signed [facility] Work Phone: Evaluation noteNo assessment information available [facility] Work Phone: Reason for referral (narrative)No reason for referral information availableWSCCI Hospital [facility] Work Phone: Chief Complaint and Reason for Visit Chief Complaint CP Chief Complaint CP SORE THROAT/STREP TESTS Chief Complaint Admit Date Acid reflux March 25, 2024 3:22pm LUQ ABD PAIN, HEARTBURN, BLOATING Novemb er 2023 10:24am Test Result June 21, 2024 10:31am E-ORDER June 21, 2024 12:24pm Annual (BUILDING ASSOCIATE) June 24, 2024 9:12am FLANK PAIN, UTI July 05, 2024 3:01pm UTI SX July 15, 2024 11: 38am Reason for Visit Admit Date Bloating March 25, 2024 3:22pm Diarrhea March 25, 2024 3:22pm Heartburn March 25, 2024 3:22pm LLQ pain March 25, 2024 3:22pm LUQ pain March 25, 2024 3:22pm Gastroesophageal reflux disease March 25, 2024 3:22pm Bloating May 23, 2024 7 :02am Diarrhea May 23, 2024 7 :02am Heartburn May 23, 2024 7 :02am High fecal calprotectin May 23 7:02am LUQ pain May 23, 2024 7 :02am Eosinophilic esophagitis June 21, 2024 10:31am High fecal calprotectin June 21, 025 10:31am Recurrent UTI June 24, 2024 9:12am Encounter for routine gynecological exam ination June 24, 2024 9:12am Vaginal odor June 24, 2024 9:12am Chief Complaint Admit Date LUQ ABD PAIN, HEARTBURN, BLOATING Novemb er 2023 10:24am Test Result June 21, 2024 10:31am E-ORDER June 21, 2024 12:24pm Annual (BUILDING ASSOCIATE) June 24, 2024 9:12am FLANK PAIN, UTI July 05, 2024 3:01pm UTI SX July 15, 2024 11: 38am Fibroid uterus July 23, 2024 3:2 5pm Reason for Visit Admit Date Bloating May 23, 2024 7 :02am Diarrhea May 23, 2024 7 :02am Heartburn May 23, 2024 7 :02am High fecal calprotectin May 23 7:02am LUQ pain May 23, 2024 7 :02am Eosinophilic esophagitis June 21, 2024 10:31am High fecal calprotectin June 21 025 10:31am Recurrent UTI June 24, 2024 9:12am Encounter for routine gynecological exam ination June 24, 2024 9:12am Vaginal odor June 24, 2024 9:12am Chief Complaint Admit Date Test Result June 21, 2024 10:31am E-ORDER June 21, 2024 12:24pm Annual (BUILDING ASSOCIATE) June 24, 2024 9:12am FLANK PAIN, UTI July 05, 2024 3:01pm UTI SX July 15, 2024 11: 38am Fibroid uterus July 23, 2024 3:2 5pm Fibroid uterus management September 04 10:24am Hysteroscopy,D&C Symphion, Myomectomy Eden y 2024 1:23pm Hysteroscopy,D&C Symphion, Myomectomy Eden y 2024 1:58pm Reason for Visit Admit Date Bloating May 23, 2024 7 :02am Diarrhea May 23, 2024 7 :02am Heartburn May 23, 2024 7 :02am High fecal calprotectin May 23 7:02am LUQ pain May 23, 2024 7 :02am Eosinophilic esophagitis June 21, 2024 10:31am High fecal calprotectin June 21 025 10:31am Recurrent UTI June 24, 2024 9:12am Encounter for routine gynecological exam ination June 24, 2024 9:12am Vaginal odor June 24, 2024 9:12am Dysmenorrhea September 04, 2024 10: 24am Menorrhagia September 04, 2024 10: 24am Dysmenorrhea September 17, 2024 1:23p m Fibroids, submucosal September 17, 2024 1:23 pm Menorrhagia September 17, 2024 1:23p m Chief Complaint Admit Date Test Result June 21, 2024 10:31am E-ORDER June 21, 2024 12:24pm Annual (BUILDING ASSOCIATE) June 24, 2024 9:12am FLANK PAIN, UTI July 05, 2024 3:01pm UTI SX July 15, 2024 11: 38am Fibroid uterus July 23, 2024 3:2 5pm Fibroid uterus management September 04 10:24am Hysteroscopy,D&C Symphion, Myomectomy Ma y 2024 1:23pm Hysteroscopy,D&C Symphion, Myomectomy Ma y 2024 1:58pm 2 wk hysteroscopy symphion myomectomy Ma y 2024 8:46am 4 M FU October 16, 2024 9:59 am Reason for Visit Admit Date Eosinophilic esophagitis June 21, 2024 10:31am High fecal calprotectin June 21 025 10:31am Recurrent UTI June 24, 2024 9:12am Encounter for routine gynecological exam ination June 24, 2024 9:12am Vaginal odor June 24, 2024 9:12am Dysmenorrhea September 04, 2024 10: 24am Menorrhagia Yeimy 30th, 2025 10: 24am Dysmenorrhea September 17, 2024 1:23p m Fibroids, submucosal September 17, 2024 1:23 pm Menorrhagia September 17, 2024 1:23p m Fibroids, submucosal September 27, 2024 8:46 am Status post hysteroscopy September 27, 2024 8:46am Chief Complaint Admit Date FLANK PAIN, UTI July 05, 2024 3:01pm UTI SX July 15, 2024 11: 38am Fibroid uterus July 23, 2024 3:2 5pm Fibroid uterus management September 04 10:24am Hysteroscopy,D&C Symphion, Myomectomy Ma y 2024 1:23pm Hysteroscopy,D&C Symphion, Myomectomy Nd y 2024 1:58pm 2 wk hysteroscopy symphion myomectomy Ma y 2024 8:46am 4 M FU October 16, 2024 9:59 am SCREENING October 28, 2024 2:34 pm 6 wk post op October 28, 2024 3:15 pm Reason for Visit Admit Date Dysmenorrhea September 04, 2024 10: 24am Menorrhagia September 04, 2024 10: 24am Dysmenorrhea September 17, 2024 1:23p m Fibroids, submucosal September 17, 2024 1:23 pm Menorrhagia September 17, 2024 1:23p m Fibroids, submucosal September 27, 2024 8:46 am Status post hysteroscopy September 27, 2024 8:46am Eosinophilic esophagitis October 16, 2024 9:59am Food additives allergy status October 16, 2024 9:59am High fecal calprotectin October 16, 2024 9:59am Family History Relationship Condition Age at Onset Recorded Date/T danisha father History of deep vein thrombophlebitis of lower extremity Unknown Advance Directives Advance Directive Response Recorded Date/ Time Living Will No May 16 12:10pm Power of Vat Operator No May 16, 2 023 12:10pm Advance Directive Response Recorded Date/ Time Living Will No May 16 1:10pm Power of Vat Operator No May 16, 2 023 1:10pm Advance Directive Response Recorded Date/ Time Living Will No May 22 1:17pm Power of Vat Operator No May 22, 2024 1:17pm Advance Directive Response Recorded Date/ Time Living Will No May 22 1:17pm Do you have a Healthcare Power of Vat Operator? No May 22, 2024 1:17pm Advance Directive Response Recorded Date/ Time Living Will No May 22 1:17pm Do you have a Healthcare Power of Vat Operator? No May 22, 2024 1:17pm Do you have a Healthcare Power of Vat Operator? No September 16, 2024 1:16pm Advance Directive Response Recorded Date/ Time Do you have a Healthcare Power of Vat Operator? No September 16, 2024 1:16pm Summary Purpose Additional Source Comments Goals (unrecognized section and content) Goals may be documented in a n alternate sectionGoals may be documented in an alternate sectionGoals may be documented in an alternate section Care Teams (unrecognized sec tion and content) Team Status: Active Member Role Status Dates No Primary Care Physician Family Provider Active Dr. Yong Cage MD Primary Care Provider Active Team Status: Inactive Member Role Status Dates Dr. Yong Cage MD Primary Care Provider, Referring Provider Active Tc Jacques PA, PA Attending Provider Active Team Status: Inactive Member Role Status Dates Dr. Yong Cage MD Primary Care Provider Active Dr. Efe Corey DO Attending Provider, Lisa pickett Active Team Status: Inactive Member Role Status Dates Dr. Yong Cage MD Primary Care Provi stuart, Attending Provider, Referring Provider Active Team Status: Inactive Member Role Status Dates Dr. Yong Cage MD Primary Care Provider Active Kristie Magana NP-C Attending Provider Active Team Status: Inactive Member Role Status Dates Dr. Yong Cage MD Primary Care Provider Active Vandana Yan MD Attending Provider, Referring Provide r Active Team Status: Active Member Role Status Dates Meg Pan NP, HAZARDOUS SUBSTANCES ENGINEER-C Primary Care Provider Active Team Status: Inactive Member Role Status Dates Dr. Yong Cage MD Primary Care Provider Active Start: March 25, 2024 End: March 25, 2024 Dr. Yong Cage MD Referring Provider Active Start: March 25, 2024 End: March 25, 2024 Susi Owusu NP-C Attending Provider Active Start: March 25, 2024 End: March 25, 2024 Team Status: Inactive Member Role Status Dates Dr. Yong Cage MD Primary Care Provider Active Start: March 26, 2024 End: March 26, 2024 ELOY Hanna Attending Provider Active Start: March 26, 2024 End: March 26, 2024 Team Status: Inactive Member Role Status Dates Dr. Yong Cage MD Primary Care Provider Active Start: April 02, 2024 End: April 02, 2024 ELOY Hanna Attending Provider Active Start: April 02, 2024 End: April 02, 2024 ELOY Hanna Referring Provider Active Start: April 02, 2024 End: April 02, 2024 Team Status: Inactive Member Role Status Dates Dr. Yong Cage MD Primary Care Provider Active Start: April 10, 2024 End: April 10, 2024 Dr. Yong Cage MD Attending Provider Active Start: April 10, 2024 End: April 10, 2024 Dr. Yong Cage MD Referring Provider Active Start: April 10, 2024 End: April 10, 2024 Team Status: Inactive Member Role Status Dates Dr. Yong Cage MD Primary Care Provider Active Start: May 23, 2024 End: May 23, 2024 Dr. Yong Cage MD Referring Provider Active Start: May 23, 2024 End: May 23, 2024 Dr. Flo Cantu DO Attending Provider Active Start: May 23, 2024 End: May 23, 2024 Team Status: Active Member Role Status Dates Dr. Yong Cage MD Primary Care Provider Active Start: May 23, 2024 Dr. Yong Cage MD Referring Provider Active Start: May 23, 2024 Dr. Flo Cantu DO Attending Provider Active Start: May 23, 2024 Dr. Flo Cantu DO Other Provider Active St art: May 23, 2024 Team Status: Inactive Member Role Status Dates Dr. Yong Cage MD Primary Care Provider Active Start: June 21, 2024 End: June 21, 2024 Dr. Yong Cage MD Referring Provider Active Start: June 21, 2024 End: June 21, 2024 Dr. Flo Cantu DO Attending Provider Active Start: June 21, 2024 End: June 21, 2024 Team Status: Inactive Member Role Status Dates Dr. Yong Cage MD Primary Care Provider Active Start: June 21, 2024 End: June 21, 2024 Dr. Flo Cantu DO Attending Provider Active Start: June 21, 2024 End: June 21, 2024 Dr. Flo Cantu DO Referring Provider Active Start: June 21, 2024 End: June 21, 2024 Team Status: Inactive Member Role Status Dates Dr. Yong Cage MD Primary Care Provider Active Start: June 24, 2024 End: June 24, 2024 Dr. Yong Cage MD Referring Provider Active Start: June 24, 2024 End: June 24, 2024 Meg Pan HAZARDOUS SUBSTANCES ENGINEER, HAZARDOUS SUBSTANCES ENGINEER-C Attending Provider Active Start: June 24, 2024 End: June 24, 2024 Team Status: Inactive Member Role Status Dates Meg Pan HAZARDOUS SUBSTANCES ENGINEER, HAZARDOUS SUBSTANCES ENGINEER-C Primary Care Provider Active Start: June 24, 2024 End: June 24, 2024 Meg Pan HAZARDOUS SUBSTANCES ENGINEER, HAZARDOUS SUBSTANCES ENGINEER-C Attending Provider Active Start: June 24, 2024 End: June 24, 2024 Meg Pan HAZARDOUS SUBSTANCES ENGINEER, HAZARDOUS SUBSTANCES ENGINEER-C Referring Provider Active Start: June 24, 2024 End: June 24, 2024 Team Status: Inactive Member Role Status Dates Dr. Svitlana Triana MD Attending Provider Active Start: July 05, 2024 End: July 05, 2024 Dr. Svitlana Triana MD Referring Provider Active Start: July 05, 2024 End: July 05, 2024 Meg Pan HAZARDOUS SUBSTANCES ENGINEER, HAZARDOUS SUBSTANCES ENGINEER-C Primary Care Provider Active Start: July 05, 2024 End: July 05, 2024 Team Status: Inactive Member Role Status Dates Meg Pan HAZARDOUS SUBSTANCES ENGINEER, HAZARDOUS SUBSTANCES ENGINEER-C Primary Care Provider Active Start: July 15, 2024 End: July 15, 2024 Meg Pan HAZARDOUS SUBSTANCES ENGINEER, HAZARDOUS SUBSTANCES ENGINEER-C Referring Provider Active Start: July 15, 2024 End: July 15, 2024 Tc CARVAJAL PA Attending Provider Active Start: July 15, 2024 End: July 15, 2024 Team Status: Active Member Role Status Dates Meg Pan HAZARDOUS SUBSTANCES ENGINEER, HAZARDOUS SUBSTANCES ENGINEER-C Primary Care Provider Active Start: July 15, 2024 Tc CARVAJAL PA Attending Provider Active Start: July 15, 2024 Team Status: Active Member Role Status Dates Dr. Yong Cage MD Primary Care Provider Active Team Status: Inactive Member Role Status Dates Meg Pan HAZARDOUS SUBSTANCES ENGINEER, HAZARDOUS SUBSTANCES ENGINEER-C Primary Care Provider Active Start: July 15, 2024 End: July 15, 2024 Tc Jacques PA, PA Attending Provider Active Start: July 15, 2024 End: July 15, 2024 Team Status: Active Member Role Status Dates Dr. Susi Land DO Attending Provider Activ e Start: July 23, 2024 Dr. Susi Land DO Referring Provider Activ e Start: July 23, 2024 Dr. Yong Cage MD Primary Care Provider Active Start: July 23, 2024 Team Status: Inactive Member Role Status Dates Dr. Susi Land DO Attending Provider Activ e Start: July 23, 2024 End: July 23, 2024 Dr. Susi Land DO Referring Provider Activ e Start: July 23, 2024 End: July 23, 2024 Dr. Yong Cage MD Primary Care Provider Active Start: July 23, 2024 End: July 23, 2024 Team Status: Inactive Member Role Status Dates Dr. Yong Cage MD Primary Care Provider Active Start: September 04, 2024 End: September 04, 2024 Dr. Yong Cage MD Referring Provider Active Start: September 04, 2024 End: September 04, 2024 Dr. Susi Land DO Attending Provider Activ e Start: September 04, 2024 End: September 04, 2024 Team Status: Inactive Member Role Status Dates Dr. Yong Cage MD Primary Care Provider Active Start: September 17, 2024 End: September 17, 2024 Dr. Susi Land DO Attending Provider Activ e Start: September 17, 2024 End: September 17, 2024 Dr. Susi Land DO Referring Provider Activ e Start: September 17, 2024 End: September 17, 2024 Team Status: Active Member Role Status Dates Dr. Yong Cage MD Primary Care Provider Active Start: September 17, 2024 Dr. Susi Land DO Attending Provider Activ e Start: September 17, 2024 Dr. Susi Land DO Referring Provider Activ e Start: September 17, 2024 Dr. Susi Land DO Other Provider Active Start: September 17, 2024 Team Status: Inactive Member Role Status Dates Dr. Yong Cage MD Primary Care Provider Active Start: September 27, 2024 End: September 27, 2024 Dr. Yong Cage MD Referring Provider Active Start: September 27, 2024 End: September 27, 2024 Dr. Susi Land DO Attending Provider Activ e Start: September 27, 2024 End: September 27, 2024 Team Status: Inactive Member Role Status Dates Dr. Yong Cage MD Primary Care Provider Active Start: October 16, 2024 End: October 16, 2024 Dr. Yong Cage MD Referring Provider Active Start: October 16, 2024 End: October 16, 2024 Dr. Flo Cantu DO Attending Provider Active Start: October 16, 2024 End: October 16, 2024 Team Status: Active Member Role Status Dates Meg Pan HAZARDOUS SUBSTANCES ENGINEER, HAZARDOUS SUBSTANCES ENGINEER-C Attending Provider Active Start: October 28, 2024 Meg Pan HAZARDOUS SUBSTANCES ENGINEER, HAZARDOUS SUBSTANCES ENGINEER-C Referring Provider Active Start: October 28, 2024 Dr. Yong Cage MD Primary Care Provider Active Start: October 28, 2024 Team Status: Inactive Member Role Status Dates Dr. Yong Cage MD Primary Care Provider Active Start: October 28, 2024 End: October 28, 2024 Dr. Yong Cage MD Referring Provider Active Start: October 28, 2024 End: October 28, 2024 Dr. Susi Land DO Attending Provider Activ e Start: October 28, 2024 End: October 28, 2024 INFORMATION SOURCE (unrecogn ized section and content) DATE CREATED AUTHOR 10/24/2024 [facility] FOR RECORDS PERTAINING TO PATIENTS WHO ARE OR HAVE BEEN ENROLLED IN A CHEMICAL DEPENDENCY/SUBSTANCEABUSE PROGRAM, SOME INFORMATION MAY BE OMITTED. This clinical summary was aggregated from multiple sources. Caution should be exercised in using it in the provision of clinical care. This summary normalizes information from multiple sources, and as a consequence, information in this document may materially change the coding, format and clinical context of patient data. In addition, data may be omitted in some cases. CLINICAL DECISIONS SHOULD BE BASED ON THE PRIMARY CLINICAL RECORDS. [facility] provides no warranty or guarantee of the accuracy or completeness of information in this document.
== END | disposition home or self-care (01) ==
LOC: OPBI 14:34
PROVIDERS: PCP Family Medicine; Referring Provider Nurse Practitioner Women's Health; Visit Provider Nurse Practitioner Women's Health
DX: Z12.31 Encounter for screening mammogram for malignant neoplasm of breast (principal)
CPT/HCPCS: 77063; 77067